=== PATIENT | male | born 1950 | race Caucasian/White ===

== ENCOUNTER 2021-03-18 11:21 | Outpatient (RCR) | payer OTHER, MEDICARE, SELFPAY | END 2021-03-21 23:59 | disposition home or self-care (01) | LOC: SPT 11:21 | PROVIDERS: PCP Family Medicine; Referring Provider Family Medicine; Visit Provider Family Medicine | DX: M54.5 Low back pain (principal) | CPT/HCPCS: 97161 ==

== ENCOUNTER 2021-03-22 06:00 | Outpatient (RCR) | payer OTHER, MEDICARE, SELFPAY | END 2021-04-21 23:59 | disposition home or self-care (01) | LOC: SPT 06:00 | PROVIDERS: PCP Family Medicine; Referring Provider Family Medicine; Visit Provider Family Medicine | DX: M54.5 Low back pain (principal) | CPT/HCPCS: 97110; G0283 ==

== ENCOUNTER 2021-04-22 06:00 | Outpatient (RCR) | payer OTHER, MEDICARE, SELFPAY | END 2021-05-21 23:59 | disposition home or self-care (01) | LOC: SPT 06:00 | PROVIDERS: PCP Family Medicine; Referring Provider Family Medicine; Visit Provider Family Medicine | DX: M54.5 Low back pain (principal) | CPT/HCPCS: 97110 ==

== ENCOUNTER 2021-12-02 19:01 | Emergency (ER) | payer OTHER, MEDICARE, SELFPAY ==
[2021-12-02 19:11] VITALS: BP 175/74; PULSE 67; RESP 18; TEMP 36.9; O2SAT 94; BMI 33.3
--- NOTE | 2021-12-02 19:11 | XRR_ITS ---
PROCEDURE INFORMATION: Exam: XR Chest Exam date and time: 12/02/2021 8:07 PM Age: 71 years old Clinical indication: Dyspnea and other: Hypertension; Prior surgery; Surgery date: 6+ months; Surgery type: Open heart; Additional info: High BP, dyspnea TECHNIQUE: Imaging protocol: XR of the chest. Views: 1 view. COMPARISON: CR Chest 1 [place] [id number] 03/04/2019 1:29 AM FINDINGS: Lungs: Suspected emphysema. Prominent interstitial markings. No focal consolidation. Pleural spaces: Unremarkable. No pleural effusion. No pneumothorax. Heart/Mediastinum: Cardiac silhouette mildly enlarged. Bones/joints: Median sternotomy wires. XR/XR chest 1V portable [id number] IMPRESSION: No acute radiographic findings.
--- NOTE | 2021-12-02 19:11 | ECG_ITS ---
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 Measurements Intervals [place] Rate: 61 P: 31 HI: 154 QRS: 31 QRSD: 85 T: 33 QT: 369 QTc: 374 Interpretive Statements SINUS RHYTHM WITH OCCASIONAL SUPRAVENTRICULAR PREMATURE COMPLEXES NONSPECIFIC T-WAVE ABNORMALITY Compared to ECG 03/04/2019 07:31:35 Sinus bradycardia no longer present T-wave abnormality still present Electronically Signed On 12-02-2021 23:29:21 CDT by Giuseppe Broderick M.D. [id number]
[2021-12-02 19:48] LABS: Basophils % 0.3 %; Eosinophils # 0.3 10^3/uL (0.0-0.8); Eosinophils % 3.1 %; Hematocrit 49.7 % (42.0-52.0); Hemoglobin 16.9 g/dL (11.7-16.6); Lymphocytes # 2.3 10^3/uL (0.8-4.8); Lymphocytes % 26.7 %; Mean Corpuscular Hemoglobin 32.9 pg (28.0-34.0); Mean Corpuscular Volume 96.7 fl (80-94); Mean Platelet Volume 9.9 fL (7.4-10.4); Monocytes # 1.2 10^3/uL (0.2-0.9); Monocytes % 13.3 %; Neutrophils # 4.87 10^3/uL (1.8-7.7); Neutrophils % 56.3 %; Nucleated Red Blood Cells % 0 %; Platelet Count 223 10^3/cmm (130-400); Red Blood Count 5.14 10^6/uL (4.1-5.3); Red Cell Distribution Width 12.6 % (12.1-15.1); White Blood Count 8.7 10^3/uL (4.0-10.0)
[2021-12-02 20:17] LABS: Alanine Aminotransferase 33 U/L (0-41); Albumin Level 4.3 g/dL (3.5-5.2); Alkaline Phosphatase 60 IU/L (40-130); Anion Gap 16.5 (5-19); Aspartate Amino Transferase 26 U/L (0-40); Blood Urea Nitrogen 22 mg/dL (8-23); Carbon Dioxide 29 mmol/L (22-29); Chloride 97 mmol/L (98-107); Globulin 3.5 g/dL (1.3-4.6); Glucose 102 mg/dL (65-115); NT Pro B Type Natriuretic Pept 80 pg/mL (0-125); Osmolality Calculated 292 mOsm/kg (285-295); Potassium 3.5 mmol/L (3.5-5.1); Sodium 139 mmol/L (136-145); Total Bilirubin 0.7 mg/dL (0.15-1.2); Total Protein 7.8 g/dL (6.6-8.7)
--- NOTE | 2021-12-02 20:34 | ED_ITS ---
HPI - General Adult General: Chief complaint: General Medical Stated complaint: Blood Pressure 190/108 Time Seen by Provider: 12/02/21 19:22 History of Present Illness: [71]yo patient w/ x hx of HTN, CABG x 2 on eliquis presenting to the ED with complaints that his BP is not well controlled. Patient is on 2 agents for BP control: HCTZ at 25mg and metoprolol 25mg BID. Baseline daily BP note at 130/80 the day prior. However, the patient noticed today BP is uncontrolled at 180 systolic this morning after waking up. Denies chest pain, SOB, palpitation, N/V/D, pain radiating to the shoulder, headache, vision changes, LOC, or focal neurological deficits. Patient also denies light-headedness, syncope, vertigo abdominal pain, back pain. Tolerating PO meds without issues. Around 8am this morning, patient reported mild L sided chest pressure while his blood pressure was high. Onset: earlier today Duration: ongoing Location: home Severity: mild Associated symptoms: Deny chest pain, dyspnea, nausea, rash, palpitations or vomiting Review of Systems Const: Denies: fever(s) or chills Eyes: Denies: change in vision ENMT: Denies: mouth pain Card: Denies: chest pain or palpitations Resp: Denies: dyspnea or non-productive cough GI: Denies: abdominal pain, nausea, vomiting or diarrhea : Denies: dysuria Musc: Denies: extremity pain Skin/Breast: Denies: rash or new lesions Neuro: Denies: weakness in extremities Psych: Reports: other (Normal mood) Bal/Lymph: Denies: easy bruising PFS ED PFSH: Medical History Atrial fibrillation CAD (coronary artery disease) HTN (hypertension) with goal to be determined Hyperlipidemia due to dietary fat intake PAD (peripheral artery disease) Surgical History S/P CABG (coronary artery bypass graft) Social History Smoking and tobacco status: former smoker Physical Exam Const: COMMON NORMALS: alert HENMT: COMMON NORMALS: atraumatic HEAD & SCALP: atraumatic MOUTH: moist mucous membranes not abnormal Eye: COMMON NORMALS: EOMs intact bilaterally and conjunctivae normal CONJUNCTIVA: Yes conjunctivae normal Neck/C-Spine: COMMON NORMALS: full ROM and supple Resp: COMMON NORMALS: normal respiratory effort and clear to auscultation bilaterally AUSCULTATION: clear to auscultation bilaterally Cardio: COMMON NORMALS: regular rate RATE: regular rate GI: COMMON NORMALS: Soft to palpation and non-tender PALPATION: Yes Soft to palpation Extremity: COMMON NORMALS: full ROM Neuro: SENSORIUM/ORIENTATION: Yes alert MOTOR EXAM: No Abnormal motor strength present and Other motor observations present (no focal motor deficits) Psych: COMMON NORMALS: speech normal SPEECH: Yes normal speech MOOD & AFFECT: Yes euthymic mood Course Vital Signs: Vital signs: Vital Signs Temperature 98.5 F 12/02/21 19:11 Pulse Rate 72 12/02/21 21:56 Respiratory Rate 16 12/02/21 21:56 Blood Pressure 141/80 12/02/21 21:56 Pulse Oximetry 96 12/02/21 21:56 MDM - General Adult Medical Decision Making [71]yo patient w/ hx of HTN on two agents presenting to the ED with high BP readings x 1 day without other medical complaints. Rest of exam including full neuro exam intact. Given presentation, history and exam, I do not suspect aortic dissection, hypertensive encephalopathy, intracranial hemorrhage, ACS, TIA/CVA, flash pulmonary edema. [10:15pm] On reassessment, BP improved after reassessment without any medical intervention. Patient continues to be symptom-free at this time and has no chest pain. Do not suspect an emergent cause. Discussed with the patient the importance of logging BPs and following up with his PCP for adjustment of BP if BP continues to be persistently high. Given return instructions. Since patient did not have any active chest pressure, only pressure this present with high blood pressure, I ordered 2 troponins both of which were negative. EKG is nonischemic. Doubt ACS/PE or other emergent causes of chest pain. No suspicion for aortic dissection given no widened mediastinum, 2+ upper extremity pulses, or tearing pain. No suspicion for PE given no pleuritic chest pain, recent immobilization or surgery hemoptysis, or other VTE risk factors. EKG is non-isch emic. XR normal. Rx: Amlodipine 5mg QDaily x 14 days Based on history, exam, vital signs, and work up (as indicated) I do not suspect an ongoing emergent medical condition, and I believe the patient is safe for discharge and outpatient follow-up. The plan of care was discussed with the patient and all questions were answered. The patient agrees with the plan of care and is discharged in stable condition with verbal and written instructions, and verbalized understanding and ability to comply. I discussed the diagnosis and treatment plan at length with the patient. The patient understands signs and symptoms (including those which are new or worsening) which should prompt return to the ED. The patient is to seek prompt outpatient follow-up as noted verbally and/or in the discharge instructions. At the time of discharge the patient is well-appearing, well-hydrated, non-toxic, and assures appropriate follow-up as an outpatient. Lab Data : 12/02/21 19:40 12/02/21 19:40 Radiology Impressions Chest X-Ray 12/02/21 19: IMPRESSION: No acute radiographic findings. Laboratory Results WBC 8.7 10^3/uL (4.0-10.0) 12/02/21 19:40 RBC 5.14 10^6/uL (4.1-5.3) 12/02/21 19:40 Hgb 16.9 g/dL (11.7-16.6) H 12/02/21 19:40 Hct 49.7 % (42.0-52.0) 12/02/21 19:40 MCV 96.7 fl (80-94) H 12/02/21 19:40 MCH 32.9 pg (28.0-34.0) 12/02/21 19:40 MCHC 34.0 g/dL (30.0-36.0) 12/02/21 19:40 RDW 12.6 % (12.1-15.1) 12/02/21 19:40 Plt Count 223 10^3/cmm (130-400) 12/02/21:40 MPV 9.9 fL (7.4-10.4) 12/02/21 19:40 Neut % (Auto) 56.3 % 12/02/21 19:40 Lymph % (Auto) 26.7 % 12/02/21:40 [place] % (Auto) 13.3 % 12/02/21 19:40 Eos % (Auto) 3.1 % 12/02/21 19:40 Baso % (Auto) 0.3 % 12/02/21 19:40 Neut # (Auto) 4.87 10^3/uL (1.8-7.7) 12/02/21 19:40 Lymph # (Auto) 2.3 10^3/uL (0.8-4.8) 12/02/21 19:40 [place] # (Auto) 1.2 10^3/uL (0.2-0.9) H 12/02/21 19:40 Eos # (Auto) 0.3 10^3/uL (0.0-0.8) 12/02/21 19:40 Baso # (Auto) 0.0 10^3/uL (0.0-0.1) 12/02/21 19:40 Nucleated RBC % (auto) 0 % 12/02/21 19:40 Nucleated RBCs # 0.0 /100WBC 12/02/21 19:40 Sodium 139 mmol/L (136-145) 12/02/21 19:40 Potassium 3.5 mmol/L (3.5-5.1) 12/02/21 19:40 Chloride 97 mmol/L (98-107) L 12/02/21 19:40 Carbon Dioxide 29 mmol/L (22-29) 12/02/21 19:40 Anion Gap 16.5 (5-19) 12/02/21 19:40 BUN 22 mg/dL (8-23) 12/02/21 19:40 Creatinine 0.9 mg/dL (0.7-1.2) 12/02/21 19:40 GFR Calculation Not Reportable 12/02/21 19:40 Glucose 102 mg/dL (65-115) 12/02/21 19:40 Calculated Osmolality 292 mOsm/kg (285-295) 12/02/21 19:40 Calcium 9.0 mg/dL (8.5-10.5) 12/02/21 19:40 Total Bilirubin 0.7 mg/dL (0.15-1.2) 12/02/21 19:40 AST 26 U/L (0-40) 12/02/21 19:40 ALT 33 U/L (0-41) 12/02/21 19:40 Alkaline Phosphatase 60 IU/L (40-130) 12/02/21 19:40 Troponin T Baseline 9 ng/L (0-15) 12/02/21 19:40 Troponin T 120 Minute 9.31 ng/L (0-15) 12/02/21 21:26 Delta Troponin T 0.31 ABS# (0-10) 12/02/21 21:26 NT-Pro-B Natriuret Pep 80 pg/mL (0-125) 12/02/21 19:40 Total Protein 7.8 g/dL (6.6-8.7) 12/02/21 19:40 Albumin 4.3 g/dL (3.5-5.2) 12/02/21 19:40 Globulin 3.5 g/dL (1.3-4.6) 12/02/21 19:40 Imaging Data Other Imaging: Radiologist's impression: [id number] [address] XRay Report Signed Patient: Wilson Reyes Unit #: [id number] : 1950 Age/Sex: 71 / M ADM Date: 12/02/21 Loc: ER Room/Bed: Attending Dr: Ordering Provider/Ordering MD: Cr Jaimes NP Date of Service: 12/02/21 Procedure(s): XR chest 1V portable [id number] Accession Number(s): [id number] Report Number: [id number] PROCEDURE INFORMATION: Exam: XR Chest Exam date and time: 12/02/2021 8:07 PM Age: 71 years old Clinical indication: Dyspnea and other: Hypertension; Prior surgery; Surgery date: 6+ months; Surgery type: Open heart; Additional info: High BP, dyspnea TECHNIQUE: Imaging protocol: XR of the chest. Views: 1 view. COMPARISON: CR Chest 1 [place] [id number] 03/04/2019 1:29 AM FINDINGS: Lungs: Suspected emphysema. Prominent interstitial markings. No focal consolidation. Pleural spaces: Unremarkable. No pleural effusion. No pneumothorax. Heart/Mediastinum: Cardiac silhouette mildly enlarged. Bones/joints: Median sternotomy wires. XR/XR chest 1V portable [id number] IMPRESSION: No acute radiographic findings. ? Dictated By: He Inman MD Signed By: He Inman MD Signed Date/Time: 12/02/212042 DD/ 06 Discharge Plan Discharge Patient Disposition: Home Clinical Impression: Hypertension, Elevated blood pressure reading Condition: Stable Prescriptions: New amlodipine 5 mg tablet 5 mg PO DAILY 14 Days Qty: 14 0RF No Action ascorbate calcium (vitamin C) 500 mg tablet 500 mg PO DAILY 0RF cholecalciferol (vitamin D3) 25 mcg (1,000 unit) capsule 50 mcg PO DAILY 0RF pravastatin 20 mg tablet 20 mg PO DAILY 0RF docusate sodium [Colace] 100 mg capsule 100 mg PO DAILY 0RF cyanocobalamin (vitamin B-12) 1,000 mcg capsule 1,000 mcg PO DAILY 0RF PreserVision AREDS [phone]-[id number]-gnvr capsule 1 cap PO BID 0RF omega-3 fatty acids 1,000 mg capsule 2,000 mg PO DAILY 0RF prazosin 2 mg capsule 2 mg PO BID 0RF Eliquis 5 mg tablet 5 mg PO BID 0RF aspirin [Adult Aspirin Regimen] 81 mg tablet,delayed release (DR/EC) 81 mg PO DAILY 0RF tramadol 50 mg tablet 50 mg PO DAILY 0RF hydrochlorothiazide 25 mg tablet 25 mg PO DAILY 0RF mirtazapine 30 mg tablet 45 mg PO DAILY 0RF metoprolol tartrate 25 mg tablet 12.5 mg PO BID Qty: 90 3RF zolpidem 5 mg tablet 5 mg PO .hs PRN0RF Discharge Orders: Discharge ED (Routine); Ordered 12/02/21 Ordered By: July Romero Referrals: Lali Givens MD [Primary Care Provider] - Discharge Diet: Advance as tolerated Discharge Activity: Increase activity as tolerated Patient Instructions: Hypertension (ED) Activity Restrictions/Additional Instructions: You need to follow-up with your primary care provider for further adjustment of your blood pressure. Your blood pressure puts you at risk for developing strokes and heart attack. Therefore it is very important for you to follow-up with this number to see if the numbers improve gradually. Because blood pressure adjustment is a gradual process, were not able to change it in 1 visit. Therefore please log your blood pressure and follow-up with your primary care provider in the next 72 hours for further adjustment of your blood pressures. 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
[2021-12-02 20:36] LABS: Troponin(5th) Baseline 9 ng/L (0-15)
[2021-12-02 20:51] VITALS: BP 164/75; PULSE 69; RESP 16; O2SAT 95
[2021-12-02 21:56] VITALS: BP 141/80; PULSE 72; RESP 16; O2SAT 96
[2021-12-02 21:59] LABS: Troponin 5 2HR 9.31 ng/L (0-15)
[2021-12-02 22:05] LABS: Troponin 5 2HR Delta 0.31 ABS# (0-10)
[2021-12-02 22:43] VITALS: BP 147/78; PULSE 69; RESP 16; O2SAT 97
== END 2021-12-02 22:45 | disposition home or self-care (01) ==
PROVIDERS: Nurse Practitioner Family; Emergency Provider Emergency Medicine; PCP Family Medicine
DX: I10 Essential (primary) hypertension (principal); I25.10 Atherosclerotic heart disease of native coronary artery without angina pectoris; Z95.1 Presence of aortocoronary bypass graft; I48.91 Unspecified atrial fibrillation; Z87.891 Personal history of nicotine dependence; Z79.01 Long term (current) use of anticoagulants; Z79.891 Long term (current) use of opiate analgesic; Z79.82 Long term (current) use of aspirin
CPT/HCPCS: 71045; 80053; 83880; 84484; 85025; 93005; 99283

== ENCOUNTER → 2021-12-04 11:33 | Outpatient (BNVA) | payer MEDICARE, OTHER, SELFPAY | PROVIDERS: PCP Family Medicine; Visit Provider Nurse Practitioner Family | DX: I10 Essential (primary) hypertension (principal); I48.91 Unspecified atrial fibrillation; I25.10 Atherosclerotic heart disease of native coronary artery without angina pectoris; Z87.891 Personal history of nicotine dependence | CPT/HCPCS: 99214 ==

== ENCOUNTER → 2022-01-06 10:08 | Outpatient (BNVA) | payer OTHER, SELFPAY | PROVIDERS: PCP Family Medicine; Visit Provider Internal Medicine Cardiovascular Disease | DX: I48.91 Unspecified atrial fibrillation (principal); R00.1 Bradycardia, unspecified; E78.49 Other hyperlipidemia; I10 Essential (primary) hypertension; I25.110 Atherosclerotic heart disease of native coronary artery with unstable angina pectoris; I73.9 Peripheral vascular disease, unspecified; Z87.891 Personal history of nicotine dependence | CPT/HCPCS: 99214 ==

== ENCOUNTER 2022-02-03 11:53 | Outpatient (CLI) | payer OTHER, SELFPAY ==
--- NOTE | 2022-02-03 12:15 | USCV_ITS ---
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 CONCLUSIONS Abnormal resting ABIs bilaterally, consistent with mild peripheral artery disease Compared to the study from 10/14/2015 the BERONICA on the right side has improved from 0.7 to 0.8 and on the left side it has decreased from 0.[address] Giuseppe Broderick MD [facility] (Electronically Signed) Final Date: 04 February 2022 00:33 S
== END 2022-02-03 11:54 | disposition home or self-care (01) ==
LOC: RAD 11:54
PROVIDERS: PCP Family Medicine; Visit Provider Internal Medicine Cardiovascular Disease
DX: I73.9 Peripheral vascular disease, unspecified (principal)
CPT/HCPCS: 93925

== ENCOUNTER 2022-04-05 13:42 | Inpatient (IN) | payer OTHER, MEDICARE, SELFPAY ==
[2022-04-05] VITALS (18 sets, daily range): BP systolic 100–164; BP diastolic 58–100; PULSE 66–85; RESP 14–22; TEMP 36.8; O2SAT 91–97; BMI 36.9
--- NOTE | 2022-04-05 13:47 | ECG_ITS ---
[facility] Test Date: 2022-04-05 Pat Name: Wilson Reyes Department: Room: Gender: Male Rda: : 1950 Requested By: July Romero Order Number: [id number] [place] MD: Parth Butler M.D. Measurements Intervals [place] Rate: 78 P: 58 MN: 148 QRS: 71 QRSD: 81 T: 16 QT: 351 QTc: 401 Interpretive Statements SINUS RHYTHM WITH OCCASIONAL VENTRICULAR PREMATURE COMPLEXES WITH OCCASIONAL SUPRAVENTRICULAR PREMATURE COMPLEXES LOW QRS VOLTAGE IN PRECORDIAL LEADS [QRS DEFLECTION < 1.0 mV IN CHEST LEADS] MODERATE T-WAVE ABNORMALITY, CONSIDER ANTEROLATERAL ISCHEMIA [-0.1+ mV T-WAVE IN V3-V6] Compared to ECG 12/02/2021 19:19:27 Ventricular premature complex(es) now present Low QRS voltage now present Possible ischemia now present T-wave abnormality still present Electronically Signed On 04-05-2022 17:35:15 CDT by Parth Butler M.D. [id number]
--- NOTE | 2022-04-05 13:47 | XRR_ITS ---
PROCEDURE INFORMATION: Exam: XR Chest Exam date and time: 04/05/2022 2:29 PM Age: 72 years old Clinical indication: Pain; Angina pectoris; Additional info: Chest pain TECHNIQUE: Imaging protocol: Radiologic exam of the chest. Views: 1 view. COMPARISON: CR (CHEST, ) 12/02/2021 8:07 PM FINDINGS: Lungs: Unremarkable. No consolidation. Pleural spaces: Biapical pleural thickening. Heart/Mediastinum: Mild cardiomegaly. Bones/joints: Sternal sutures. XR/XR chest 1V portable [id number] IMPRESSION: No acute findings.
[2022-04-05 14:20] LABS: Basophils # 0.1 10^3/uL (0.0-0.1); Basophils % 0.6 %; Eosinophils # 0.3 10^3/uL (0.0-0.8); Eosinophils % 3.2 %; Lymphocytes # 1.7 10^3/uL (0.8-4.8); Lymphocytes % 18.9 %; Mean Corpuscular HGB Conc 33.3 g/dL (30.0-36.0); Mean Corpuscular Hemoglobin 33.2 pg (28.0-34.0); Mean Corpuscular Volume 99.6 fl (80-94); Mean Platelet Volume 10.4 fL (7.4-10.4); Monocytes % 11.5 %; Neutrophils # 5.86 10^3/uL (1.8-7.7); Neutrophils % 65.4 %; Nucleated Red Blood Cells % 0 %; Platelet Count 233 10^3/cmm (130-400); Red Blood Count 4.82 10^6/uL (4.1-5.3); Red Cell Distribution Width 12.9 % (12.1-15.1)
[2022-04-05 16:33] LABS: Blood Urea Nitrogen 26 mg/dL (8-23); Calcium 9.2 mg/dL (8.5-10.5); Carbon Dioxide 31 mmol/L (22-29); Chloride 99 mmol/L (98-107); Creatinine Clr Calc Pharmacy 55.2458; Glucose 101 mg/dL (65-115); Osmolality Calculated 295 mOsm/kg (285-295); Sodium 140 mmol/L (136-145)
[2022-04-05 16:35] LABS: Troponin(5th) Baseline 32 ng/L (0-15)
--- NOTE | 2022-04-05 16:39 | ECG_ITS ---
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 Measurements Intervals [place] Rate: 74 P: PA: QRS: 66 QRSD: 98 T: -86 QT: 367 QTc: 409 Interpretive Statements ATRIAL FIBRILLATION INCOMPLETE RIGHT BUNDLE BRANCH BLOCK [90+ ms QRS DURATION, TERMINAL R IN V1/V2, 40+ ms S IN I/aVL/V4/V5/V6] MODERATE T-WAVE ABNORMALITY, CONSIDER LATERAL ISCHEMIA [-0.1+ mV T WAVE IN I/aVL/V5/V6] MODERATE T-WAVE ABNORMALITY, CONSIDER INFERIOR ISCHEMIA [-0.1+ mV T WAVE IN II/aVF] Compared to ECG 04/05/2022 13:51:22 Incomplete right bundle-branch block now present Sinus rhythm no longer present Ventricular premature complex(es) no longer present T-wave abnormality still present Possible ischemia still present Electronically Signed On 04-05-2022 17:42:51 CDT by Parth Butler M.D. [id number]
--- NOTE | 2022-04-05 17:44 | W.ED.CHESTPA ---
Documented by User: Caden Light DO 04/05/22 18:30 HPI - Chest Pain General: Chief Complaint: Chest Pain Stated Complaint: chest pain Time Seen by Provider: 04/05/22 16:34 Source: patient Mode of arrival: ambulatory Limitations: no limitations History of Present Illness: 72-year-old male presents emergency room complaining of chest pain that started earlier today. He stopped and rested, after about 30 minutes it resolved. He has no chest pain at this time. Patient has a known history of coronary artery disease previous had bypass x2 as well as stenting. He has not been having any escalating symptoms. He is not currently having any chest pain. MD complaint: chest pain Pertinent past history: coronary artery disease Onset (ago): hour(s) Timing of current episode: episodic Prior episodes: Yes Onset: during rest Pain location: left chest Pain radiation: none Severity: mild Quality: tightness, aching and heaviness Relieving factors: rest Exacerbating factors: nothing Associated symptoms: Deny abdominal pain, diaphoresis, dyspnea, fever(s), leg edema, nausea, palpitations, sense of impending doom, syncope or vomiting Treatment prior to arrival: none Review of Systems Const: Denies: fever(s), chills, fatigue, malaise or diaphoresis ENMT: Denies: throat pain, ear or mastoid pain, nasal discharge or nasal congestion Card: Reports: chest pain; Denies: palpitations or syncope Resp: Denies: dyspnea GI: Denies: abdominal pain, nausea or vomiting : Denies: flank pain, dysuria, urinary frequency or urinary urgency Skin/Breast: Denies: rash or pruritus PFSH ED PFSH: Medical History Atrial fibrillation CAD (coronary artery disease) HTN (hypertension) with goal to be determined Hyperlipidemia due to dietary fat intake PAD (peripheral artery disease) Surgical History S/P CABG (coronary artery bypass graft) Family History Father CAD (coronary artery disease), Onset Age: 60 Stroke Family/Other Dementia Brother Lung disease Denies family history of Diabetes Clotting disorder Chronic kidney disease (CKD) Suicide Anesthesia complication Bleeding disorder Cancer Social History Smoking and tobacco status: former smoker Alcohol intake: former Physical Exam Const: COMMON NORMALS: no acute distress GENERAL APPEARANCE: cooperative and comfortable ORIENTATION/CONSCIOUSNESS: Yes awake, Yes oriented to person, Yes oriented to place and Yes oriented to time HENMT: COMMON NORMALS: normocephalic, atraumatic and hearing grossly normal bilaterally HEAD & SCALP: normocephalic and atraumatic Resp: COMMON NORMALS: normal respiratory effort, No retractions, No use of accessory muscles and clear to auscultation bilaterally AUSCULTATION: clear to auscultation bilaterally Cardio: COMMON NORMALS: regular rate, regular rhythm and No murmurs present (Cardio) RATE: regular rate RHYTHM: regular rhythm GI: COMMON NORMALS: Soft to palpation and No hepatosplenomegaly present AUSCULTATION: Yes normoactive bowel sounds PALPATION: Yes Soft to palpation, No Tenderness to palpation present (GI), No Guarding due to palpation present (GI) and Yes No hepatosplenomegaly present Extremity: COMMON NORMALS: normal to inspection, capillary refill normal, no clubbing, cyanosis or edema, no calf tenderness and no pedal edema Neuro: SENSORIUM/ORIENTATION: Yes oriented to person, Yes oriented to place and Yes oriented to time Skin: COMMON NORMALS: no rashes or lesions noted GENERAL SKIN EXAM: no rashes or lesions noted Course Vital Signs: Vital signs: Vital Signs Temperature 98.2 F 04/05/22 13:52 Pulse Rate 70 04/05/22 19:00 Respiratory Rate 21 H 04/05/22 19:00 Blood Pressure 150/99 04/05/22 19:00 Pulse Oximetry 96 04/05/22 19:00 Oxygen Delivery Me thod 04/05/22 13:52 MDM - Chest Pain Medical Decision Making Care signed out to Dr. Gandara at change of shift. See final notes for diagnosis and disposition. Lab Data : 04/05/22 14:06 04/05/22 15:55 Radiology Impressions Chest X-Ray 04/05/22 13:47 IMPRESSION: No acute findings. Laboratory Results WBC 9.0 10^3/uL (4.0-10.0) 04/05/22 14:06 RBC 4.82 10^6/uL (4.1-5.3) 04/05/22 14:06 Hgb 16.0 g/dL (11.7-16.6) 04/05/22 14:06 Hct 48.0 % (42.0-52.0) 04/05/22 14:06 MCV 99.6 fl (80-94) H 04/05/22 14:06 MCH 33.2 pg (28.0-34.0) 04/05/22 14:06 MCHC 33.3 g/dL (30.0-36.0) 04/05/22 14:06 RDW 12.9 % (12.1-15.1) 04/05/22 14:06 Plt Count 233 10^3/cmm (130-400) 04/05/22 14:06 MPV 10.4 fL (7.4-10.4) 04/05/22 14:06 Neut % (Auto) 65.4 % 04/05/22 14:06 Lymph % (Auto) 18.9 % 04/05/22 14:06 [place] % (Auto) 11.5 % 04/05/22 14:06 Eos % (Auto) 3.2 % 04/05/22 14:06 Baso % (Auto) 0.6 % 04/05/22 14:06 Neut # (Auto) 5.86 10^3/uL (1.8-7.7) 04/05/22 14:06 Lymph # (Auto) 1.7 10^3/uL (0.8-4.8) 04/05/22 14:06 [place] # (Auto) 1.0 10^3/uL (0.2-0.9) H 04/05/22 14:06 Eos # (Auto) 0.3 10^3/uL (0.0-0.8) 04/05/22 14:06 Baso # (Auto) 0.1 10^3/uL (0.0-0.1) 04/05/22 14:06 Nucleated RBC % (auto) 0 % 04/05/22 14:06 Nucleated RBCs # 0.0 /100WBC 04/05/22 14:06 PT 14.40 SECONDS (12.1-14.9) 04/05/22 15:52 INR 1.09 (0.8-1.2) 04/05/22 15:52 Sodium 140 mmol/L (136-145) 04/05/22 15:55 Potassium 4.0 mmol/L (3.5-5.1) 04/05/22 15:55 Chloride 99 mmol/L (98-107) 04/05/22 15:55 Carbon Dioxide 31 mmol/L (22-29) H 04/05/22 15:55 Anion Gap 14.0 (5-19) 04/05/22 15:55 BUN 26 mg/dL (8-23) H 04/05/22 15:55 Creatinine 1.3 mg/dL (0.7-1.2) H 04/05/22 15:55 GFR Calculation Not Reportable 04/05/22 15:55 Glucose 101 mg/dL (65-115) 04/05/22 15:55 Calculated Osmolality 295 mOsm/kg (285-295) 04/05/22 15:55 Calcium 9.2 mg/dL (8.5-10.5) 04/05/22 15:55 Troponin T Baseline 32 ng/L (0-15) H 04/05/22 15:55 Troponin T 120 Minute 75.20 ng/L (0-15) H 04/05/22 18:06 Delta Troponin T 43.20 ABS# (0-10) H* 04/05/22 18:06 Discharge Plan Discharge Patient Disposition: Admitted As Inpatient Clinical Impression: Non-ST elevation AL (NSTEMI) Condition: Stable Prescriptions: No Action ascorbate calcium (vitamin C) 500 mg tablet 500 mg PO DAILY cholecalciferol (vitamin D3) 25 mcg (1,000 unit) capsule 50 mcg PO DAILY docusate sodium [Colace] 100 mg capsule 100 mg PO DAILY cyanocobalamin (vitamin B-12) 1,000 mcg capsule 1,000 mcg PO DAILY PreserVision AREDS 14,320-226-200 [id number] capsule 1 cap PO AC omega-3 fatty acids 1,000 mg capsule 2,000 mg PO DAILY Eliquis 5 mg tablet 5 mg PO BID aspirin [Adult Aspirin Regimen] 81 mg tablet,delayed release (DR/EC) 81 mg PO DAILY tramadol 50 mg tablet 50 mg PO DAILY mirtazapine 30 mg tablet 45 mg PO DAILY pravastatin 20 mg tablet 20 mg PO BID zolpidem 5 mg tablet 5 mg PO .hs PRN (Reason: Sleep) metoprolol tartrate 25 mg tablet 12.5 mg PO BID prazosin 2 mg capsule 2 mg PO BID Qty: 180 3RF chlorthalidone 25 mg tablet 25 mg PO DAILY Qty: 90 3RF Rx Instructions: He has not been taking his chlorthalidone or valsartan because he feels as long as it below 150 he doesn't need them. valsartan 80 mg tablet 80 mg PO DAILY Qty: 90 3RF Rx Instructions: He has not been taking his chlorthalidone or valsartan because he feels as long as it below 150 he doesn't need them. Referrals: Lali Givens MD [Primary Care Provider] - Coding Level of Care Code ED Campaign Manager for Chg Fwd Exam Detailed Documented by User: Donna Gandara MD 04/05/22 19:53 HPI - Chest Pain General: Chief Complaint: Chest Pain Stated Complaint: chest pain Time Seen by Provider: 04/05/22 16:34 PFSH ED PFSH: Medical History Atrial fibrillation CAD (coronary artery disease) HTN (hypertension) with goal to be determined Hyperlipidemia due to dietary fat intake PAD (peripheral artery disease) Surgical History S/P CABG (coronary artery bypass graft) Family History Father CAD (coronary artery disease), Onset Age: 60 Stroke Family/Other Dementia Brother Lung disease Denies family history of Diabetes Clotting disorder Chronic kidney disease (CKD) Suicide Anesthesia complication Bleeding disorder Cancer Social History Smoking and tobacco status: former smoker Alcohol intake: former Course Vital Signs: Vital signs: Vital Signs Temperature 98.2 F 04/05/22 13:52 Pulse Rate 70 04/05/22 19:00 Respiratory Rate 21 H 04/05/22 19:00 Blood Pressure 150/99 04/05/22 19:00 Pulse Oximetry 96 04/05/22 19:00 Oxygen Delivery Me thod 04/05/22 13:52 MDM - Chest Pain Medical Decision Making Care signed out to Dr. Gandara at change of shift. See final notes for diagnosis and disposition. Patient's chart troponin came back elevated consistent with an NSTEMI of spoken to hospitalist and foreign food specialty cook will admit patient given Lovenox here he has been pain-free here. Lab Data : 04/05/22 14:06 04/05/22 15:55 Radiology Impressions Chest X-Ray 04/05/22 13:47 IMPRESSION: No acute findings. Laboratory Results WBC 9.0 10^3/uL (4.0-10.0) 04/05/22 14:06 RBC 4.82 10^6/uL (4.1-5.3) 04/05/22 14:06 Hgb 16.0 g/dL (11.7-16.6) 04/05/22 14:06 Hct 48.0 % (42.0-52.0) 04/05/22 14:06 MCV 99.6 fl (80-94) H 04/05/22 14:06 MCH 33.2 pg (28.0-34.0) 04/05/22 14:06 MCHC 33.3 g/dL (30.0-36.0) 04/05/22 14:06 RDW 12.9 % (12.1-15.1) 04/05/22 14:06 Plt Count 233 10^3/cmm (130-400) 04/05/22 14:06 MPV 10.4 fL (7.4-10.4) 04/05/22 14:06 Neut % (Auto) 65.4 % 04/05/22 14:06 Lymph % (Auto) 18.9 % 04/05/22 14:06 [place] % (Auto) 11.5 % 04/05/22 14:06 Eos % (Auto) 3.2 % 04/05/22 14:06 Baso % (Auto) 0.6 % 04/05/22 14:06 Neut # (Auto) 5.86 10^3/uL (1.8-7.7) 04/05/22 14:06 Lymph # (Auto) 1.7 10^3/uL (0.8-4.8) 04/05/22 14:06 [place] # (Auto) 1.0 10^3/uL (0.2-0.9) H 04/05/22 14:06 Eos # (Auto) 0.3 10^3/uL (0.0-0.8) 04/05/22 14:06 Baso # (Auto) 0.1 10^3/uL (0.0-0.1) 04/05/22 14:06 Nucleated RBC % (auto) 0 % 04/05/22 14:06 Nucleated RBCs # 0.0 /100WBC 04/05/22 14:06 PT 14.40 SECONDS (12.1-14.9) 04/05/22 15:52 INR 1.09 (0.8-1.2) 04/05/22 15:52 Sodium 140 mmol/L (136-145) 04/05/22 15:55 Potassium 4.0 mmol/L (3.5-5.1) 04/05/22 15:55 Chloride 99 mmol/L (98-107) 04/05/22 15:55 Carbon Dioxide 31 mmol/L (22-29) H 04/05/22 15:55 Anion Gap 14.0 (5-19) 04/05/22 15:55 BUN 26 mg/dL (8-23) H 04/05/22 15:55 Creatinine 1.3 mg/dL (0.7-1.2) H 04/05/22 15:55 GFR Calculation Not Reportable 04/05/22 15:55 Glucose 101 mg/dL (65-115) 04/05/22 15:55 Calculated Osmolality 295 mOsm/kg (285-295) 04/05/22 15:55 Calcium 9.2 mg/dL (8.5-10.5) 04/05/22 15:55 Troponin T Baseline 32 ng/L (0-15) H 04/05/22 15:55 Troponin T 120 Minute 75.20 ng/L (0-15) H 04/05/22 18:06 Delta Troponin T 43.20 ABS# (0-10) H* 04/05/22 18:06 Critical Care Time Critical Care Time: Critical Care Time: Yes Total Critical Care Time: 35 Attestation: The high probability of a clinically significant, sudden or life threatening deterioration of the patient's cv system(s) required my full and direct attention, intervention and personal management. The critical care time is as shown. This time is in addition to time spent performing any reported procedures but includes the following: [x] Data and vital sign review and interpretation [x] Patient assessment, examination and intervention [x] Documentation [x] Medication orders and management Discharge Plan Discharge Patient Disposition: Admitted As Inpatient Clinical Impression: Non-ST elevation AL (NSTEMI) Condition: Stable Prescriptions: No Action ascorbate calcium (vitamin C) 500 mg tablet 500 mg PO DAILY cholecalciferol (vitamin D3) 25 mcg (1,000 unit) capsule 50 mcg PO DAILY docusate sodium [Colace] 100 mg capsule 100 mg PO DAILY cyanocobalamin (vitamin B-12) 1,000 mcg capsule 1,000 mcg PO DAILY PreserVision AREDS [id number] [id number] capsule 1 cap PO AC omega-3 fatty acids 1,000 mg capsule 2,000 mg PO DAILY Eliquis 5 mg tablet 5 mg PO BID aspirin [Adult Aspirin Regimen] 81 mg tablet,delayed release (DR/EC) 81 mg PO DAILY tramadol 50 mg tablet 50 mg PO DAILY mirtazapine 30 mg tablet 45 mg PO DAILY pravastatin 20 mg tablet 20 mg PO BID zolpidem 5 mg tablet 5 mg PO .hs PRN (Reason: Sleep) metoprolol tartrate 25 mg tablet 12.5 mg PO BID prazosin 2 mg capsule 2 mg PO BID Qty: 180 3RF chlorthalidone 25 mg tablet 25 mg PO DAILY Qty: 90 3RF Rx Instructions: He has not been taking his chlorthalidone or valsartan because he feels as long as it below 150 he doesn't need them. valsartan 80 mg tablet 80 mg PO DAILY Qty: 90 3RF Rx Instructions: He has not been taking his chlorthalidone or valsartan because he feels as long as it below 150 he doesn't need them. Referrals: Lali Givens MD [Primary Care Provider] - Coding Level of Care Code ED Campaign Manager for Chg Fwd Exam Detailed
--- NOTE | 2022-04-05 19:14 | PC.NURSE ---
received report. 72 yo male presented with CP onset while walking from vehicle to house. felt like heartburn that radiated across both shoulders. Had associated diaphoresis. It lasted more than 30 mins. pain has subsided now. His initial trop 32, 2nd trop 75. Dr Gandara was notified. PMH CABG x 2 in 2001. Afib, currently controlled rate. A/O x 4, even non labored respirations. no chest tenderness, abdomen soft non tender. no edema noted in lower extremities.
[2022-04-05 19:30] LABS: INR 1.09 (0.8-1.2)
[2022-04-05] MEDS: enoxaparin 100 mg/mL Syringe SUBCUT (19:45)
--- NOTE | 2022-04-05 20:33 | USCV_ITS ---
Wilson Reyes Age: 72 Gender: M : 1950 Exam Date: 04/05/2022 22:32 Ordering Phys: Claude Schumacher MD Technologist: CHARO [place] [facility] [place]: Shortness of breath today. History of CABG 2001 BP: 164 / 63 HR: 71 Rhythm: Sinus Technical Quality: Suboptimal MEASUREMENTS (Male / Female) Normal Values 2D ECHO LV Diastolic Diameter PLAX 3.9 cm 4.2 - 5.9 / 3.9 - 5.3 cm LV Systolic Diameter PLAX 2.5 cm IVS Diastolic Thickness 1.2 cm 0.6 - 1.0 / 0.6 - 0.9 cm IVS Systolic Thickness 1.8 cm LVPW Diastolic Thickness 1.3 cm 0.6 - 1.0 / 0.6 - 0.9 cm LVPW Systolic Thickness 1.5 cm LVOT Diameter 2.2 cm LV Ejection Fraction 2D Teich 65.2 % LV Ejection Fraction MOD 2C 68.2 % LV Ejection Fraction 2C AL 68.4 % LA Diameter 4.5 cm LA Width 3.3 cm LA Height 4.8 cm RA Width 2.8 cm RA Height 3.2 cm Aorta at Sinotubular Diameter 2.4 cm IVC Diameter 1.9 cm M-MODE Aortic Annulus Diameter 3.2 cm LA Ao Ratio MM 1.5 MV E Point Septal Separation 0.3 cm DOPPLER AV Peak Velocity 127.0 cm/s LVOT Peak Velocity 123.0 cm/s AV Area Cont Eq vti 4.1 cm squared AV Area Cont Eq pk 3.5 cm squared MV Area PHT 2.7 cm squared Mitral E to A Ratio 0.9 MV E' Velocity 39.0 cm/s Mitral E to MV E' Ratio 10.1 Mitral E to LV E' Lateral Ratio 8.9 Mitral E to LV E' Septal Ratio 11.6 TV Peak E Velocity 55.0 cm/s PV Peak Velocity 135.0 cm/s FINDINGS Left Ventricle Normal left ventricular cavity size and systolic function. Increased left ventricular wall thickness. Left ventricular ejection fraction is estimated at 60 %. Although no diagnostic regional wall motion abnormality could be identified, this possibility cannot be completely excluded based on the study. Right Ventricle Normal right ventricular size and systolic function. RVSP could not be calculated due to incomplete tricuspid regurgitation velocity profile. Right Atrium Normal right atrial size. Left Atrium Normal left atrial size. Mitral Valve Mild mitral annular calcification. Aortic Valve Aortic valve not well visualized. Probably thickened and calcified aortic valve. No aortic valve stenosis. Tricuspid Valve Tricuspid valve not well visualized. Pulmonic Valve Pulmonic valve not well visualized. No pulmonary valve stenosis. Trace pulmonary valve regurgitation. Pericardium No pericardial effusion. Aorta Normal size aortic root and proximal ascending aorta. IVC Inferior vena cava not visualized. CONCLUSIONS 1. Normal left ventricular cavity size and systolic function. Increased left ventricular wall thickness. Left ventricular ejection fraction is estimated at 60 %. Although no diagnostic regional wall motion abnormality could be identified, this possibility cannot be completely excluded based on the study. 2. This study was technically difficult in spite of using [employer]. 3. No prior similar studies to compare. Kemi Gray MD (Electronically Signed) Final Date: 06 April 2022 09:06 S
--- NOTE | 2022-04-05 20:34 | PM.HP ---
Providers/Chief Complaint Primary Care Provider: Lali Givens MD Chief Complaint: chest pain History of Present Illness Wilson Reyes is a 72 year old male with a past medical history of coronary artery bypass graft x2, hypertension, hyperlipidemia, atrial fibrillation on Eliquis, peripheral arterial disease, who presents to [facility] for chest pain. Patient tells me that today he developed severe left-sided substernal chest pain pressure-like, rating up to the left side of the neck, no shortness of breath, no diaphoresis, no lightheadedness, no dizziness. Currently his chest pain is minimal, no nausea, no vomiting, no diaphoresis. He has been describing intermittent palpitations associated with his atrial fibrillation. Review of Systems Const: Denies: fever(s) Card: Reports: chest pain and palpitations Resp: Denies: dyspnea or non-productive cough GI: Denies: abdominal pain Medications/Allergies Home Medications Medication Instructions Recorded Confirmed Last Taken Type apixaban 5 mg tablet (Eliquis) 5 mg PO BID 02/26/20 01/06/22 04/05/22 History ascorbate calcium (vitamin C) 500 500 mg PO DAILY 02/26/20 01/06/22 04/05/22 History mg tablet aspirin 81 mg tablet,delayed 81 mg PO DAILY 02/26/20 01/06/22 04/05/22 History release (Adult Aspirin Regimen) cholecalciferol (vitamin D3) 25 50 mcg PO DAILY 02/26/20 01/06/22 04/05/22 History mcg (1,000 unit) capsule cyanocobalamin (vitamin B-12) 1,000 mcg PO DAILY 02/26/20 01/06/22 04/05/22 History 1,000 mcg capsule docusate sodium 100 mg capsule 100 mg PO DAILY 02/26/20 01/06/22 04/04/22 History (Colace) omega-3 fatty acids 1,000 mg 2,000 mg PO DAILY 02/26/20 01/06/22 04/05/22 History capsule tramadol 50 mg tablet 50 mg PO DAILY 02/26/20 01/06/22 04/05/22 History vitamins A,C,L-bold-ffsldc 14,320 1 cap PO AC 02/26/20 01/06/22 04/05/22 History unit-226 mg-200 unit capsule (PreserVision AREDS) mirtazapine 30 mg tablet 45 mg PO DAILY 03/13/21 01/06/22 04/04/22 History zolpidem 5 mg tablet 5 mg PO .hs PRN Sleep 09/22/21 01/06/22 04/04/22 History prazosin 2 mg capsule 2 mg PO BID #180 caps 12/09/21 01/06/22 04/05/22 Rx chlorthalidone 25 mg tablet 25 mg PO DAILY #90 tabs 12/17/21 01/06/22 04/05/22 Rx valsartan 80 mg tablet 80 mg PO DAILY #90 tabs 12/17/21 01/06/22 04/05/22 Rx metoprolol tartrate 25 mg tablet 12.5 mg PO BID 01/06/22 01/07/22 04/05/22 History pravastatin 20 mg tablet 20 mg PO BID 01/06/22 01/06/22 Unknown History Allergies Allergy/AdvReac Type Severity Reaction Status Date / Time No Known Allergies Allergy Verified 01/06/22 07:22 PFSH Acute PFSH: Medical History Atrial fibrillation CAD (coronary artery disease) HTN (hypertension) with goal to be determined Hyperlipidemia due to dietary fat intake PAD (peripheral artery disease) Surgical History S/P CABG (coronary artery bypass graft) Family History Father CAD (coronary artery disease), Onset Age: 60 Stroke Family/Other Dementia Brother Lung disease Denies family history of Diabetes Clotting disorder Chronic kidney disease (CKD) Suicide Anesthesia complication Bleeding disorder Cancer Social History Smoking and tobacco status: former smoker Alcohol intake: former Vitals/I&O/Wt Last Vital Signs Temp 98.2 F 04/05/22 13:52 Pulse 70 04/05/22 19:00 Resp 21 H 04/05/22 19:00 BP 150/99 04/05/22 19:00 Pulse Ox 96 04/05/22 19:00 O2 Del Method 04/05/22 13:52 Weight last 48 hrs Weight 100.698 kg Physical Exam Const: COMMON NORMALS: no acute distress and patient oriented x3 HENMT: COMMON NORMALS: normocephalic HEAD & SCALP: normocephalic Eye: COMMON NORMALS: Equal, round and reactive pupils present and EOMs intact bilaterally Neck/C-Spine: COMMON NORMALS: no JVD Resp: COMMON NORMALS: normal respiratory effort, No retractions, No use of accessory muscles and clear to auscultation bilaterally AUSCULTATION: clear to auscultation bilaterally Cardio: COMMON NORMALS: no JVD, regular rate, regular rhythm, S1 normal heart sound present and S2 normal heart sound present RATE: regular rate RHYTHM: abnormal rhythm irregularly irregular HEART SOUNDS: S1 normal heart sound present and S2 normal heart sound present GI: COMMON NORMALS: Normal to inspection, nondistended, normoactive bowel sounds present, Soft to palpation, non-tender, No hepatosplenomegaly present, no masses and no bruits PALPATION: Yes Soft to palpation and Yes No hepatosplenomegaly present Extremity: COMMON NORMALS: capillary refill normal, no clubbing, cyanosis or edema, no calf tenderness and no pedal edema Neuro: COMMON NORMALS: patient oriented x3, CN's II-XII intact bilaterally, moves all extremities and no focal motor deficits Psych: COMMON NORMALS: mental status grossly normal Data : 04/05/22 14:06 04/05/22 15:55 A&P Assessment and plan (1) Non-ST elevation RI (NSTEMI): Status: Acute (2) Atrial fibrillation: Status: Acute (3) Hyperlipidemia due to dietary fat intake: Status: Acute (4) HTN (hypertension) with goal to be determined: Status: Acute (5) CAD (coronary artery disease): Status: Acute Qualifiers: Coronary Disease-Associated Artery/Lesion type: [place] artery [place] vs. transplanted heart: [place] heart Associated angina: without angina Qualified Code(s): I25.10 - Atherosclerotic heart disease of [place] coronary artery without angina pectoris Plan Chest pain, NSTEMI -Sounds cardiac in nature -T wave inversions in lateral leads -120-minute 75.2, delta 43 -Currently chest pain-free Plan -Admit to cardiac stepdown unit -Aspirin, statin, metoprolol, nitro as needed -Has received therapeutic Lovenox in the emergency room -Currently on Eliquis, hold Eliquis for now and plans for possible cardiac catheterization tomorrow -Cardiology consulted by ER -Stat cardiac echo -Serial EKGs, serial troponins, telemetry monitoring -TSH, mag, lipid panel, A1c -Full code -Lovenox for DVT prophylaxis Atrial fibrillation, continue metoprolol, Eliquis on hold Hypertension, continue home medication Attestations Medical Necessity Statement*: Patient requires hospitalization, inpatient, greater than 2 midnights, for chest pain Coding Level of Care Code Acute Relief Salesperson for Chg Fwd Diagnoses Non-ST elevation RI (NSTEMI) I21.4 Atrial fibrillation I48.91 Hyperlipidemia due to dietary fat intake E78.49 HTN (hypertension) with goal to be determined I10 CAD (coronary artery disease) I25.10 Coronary Disease-Associated Artery/Lesion type: [place] artery [place] vs. transplanted heart: [place] heart Associated angina: without angina
[2022-04-05 21:15] LABS: Chol HDL Ratio 4.93 mg/dL (1.0-5.00); Cholesterol 202 mg/dL (0-200); HDL Cholesterol 41 mg/dL (60-100); LDL Cholesterol Calculated 85 mg/dL (50-129); LDL HDL Ratio 2.07 RATIO (0.00-3.22); Magnesium 2.2 mg/dL (1.7-2.3); Thyroid Stimulating Hormone 1.02 uIU/mL (0.27-4.20); Triglycerides 379 mg/dL (0-150)
--- NOTE | 2022-04-05 21:47 | ECG_ITS ---
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 Measurements Intervals [place] Rate: 75 P: 55 [place]: 165 QRS: 60 QRSD: 82 T: 138 QT: 350 QTc: 391 Interpretive Statements SINUS RHYTHM WITH FREQUENT SUPRAVENTRICULAR AND VENTRICULAR PREMATURE COMPLEXES NONSPECIFIC ST & T-WAVE ABNORMALITY Compared to ECG 04/05/2022 16:39:54 Atrial fibrillation no longer present Incomplete right bundle-branch block no longer present Possible ischemia no longer present T-wave abnormality still present Electronically Signed On 04-06-2022 18:27:08 CDT by Kemi Gray M.D. [email or web address]/[id number]
[2022-04-05 22:31] LABS: Troponin 5 6HR 86.72 ng/L (0-15)
[2022-04-05 22:34] LABS: Troponin 5 6HR Delta 54.72 ng/L (0-12)
--- NOTE | 2022-04-05 22:38 | PC.NURSE ---
Critical Trop Delta of 54.[address] Gandara.
[2022-04-05] MEDS: metoprolol tartrate 25 mg Tablet 12.5 MG PO (23:40)
[2022-04-05] MEDS: aspirin 325 mg Tablet PO (23:40)
[2022-04-05] MEDS: atorvastatin 40 mg Tablet PO (23:41)
[2022-04-06] VITALS (50 sets, daily range): BP systolic 108–179; BP diastolic 57–98; PULSE 59–91; RESP 11–27; TEMP 36.7–36.8; O2SAT 83–98; BMI 37.8
[2022-04-06 02:44] LABS: Basophils # 0.1 10^3/uL (0.0-0.1); Basophils % 0.5 %; Eosinophils # 0.4 10^3/uL (0.0-0.8); Eosinophils % 4.1 %; Hematocrit 41.4 % (42.0-52.0); Lymphocytes # 2.9 10^3/uL (0.8-4.8); Lymphocytes % 29.6 %; Mean Corpuscular HGB Conc 33.8 g/dL (30.0-36.0); Mean Corpuscular Hemoglobin 33.7 pg (28.0-34.0); Mean Corpuscular Volume 99.8 fl (80-94); Mean Platelet Volume 10.3 fL (7.4-10.4); Monocytes # 1.1 10^3/uL (0.2-0.9); Neutrophils # 5.26 10^3/uL (1.8-7.7); Neutrophils % 54.5 %; Nucleated Red Blood Cells % 0 %; Platelet Count 200 10^3/cmm (130-400); Red Blood Count 4.15 10^6/uL (4.1-5.3); Red Cell Distribution Width 13.1 % (12.1-15.1); White Blood Count 9.7 10^3/uL (4.0-10.0)
[2022-04-06 03:19] LABS: Estmated Average Glucose 111; Hemoglobin A1C 5.5 % (4.0-6.0)
[2022-04-06 03:32] LABS: INR 1.08 (0.8-1.2)
[2022-04-06 03:33] LABS: Alanine Aminotransferase 37 U/L (0-41); Albumin Level 3.7 g/dL (3.5-5.2); Alkaline Phosphatase 47 U/L (40-130); Anion Gap 10.2 (5-19); Aspartate Amino Transferase 24 U/L (0-40); Blood Urea Nitrogen 22 mg/dL (8-23); Carbon Dioxide 32 mmol/L (22-29); Chloride 100 mmol/L (98-107); Globulin 2.3 g/dL (1.3-4.6); Glucose 130 mg/dL (65-115); NT Pro B Type Natriuretic Pept 107 pg/mL (0-125); Osmolality Calculated 293 mOsm/kg (285-295); Potassium 3.2 mmol/L (3.5-5.1); Sodium 139 mmol/L (136-145); Total Bilirubin 0.5 mg/dL (0.15-1.2)
--- NOTE | 2022-04-06 05:30 | PC.NURSE ---
Transfer Note Patient transferred to ICU from ER via stretcher. Handoff received from [facility]. Patient oriented to environment and equipment. Covering service notified. Orders reviewed and will continue to monitor. Family and/or territory sales representative notified. Patient alert/oriented x4 on room air at time of transfer. Denies chest pain.
[2022-04-06] MEDS: perflutren protein-a microsphr 0.22 mg/mL SDV 3 mL IV (05:54)
--- NOTE | 2022-04-06 07:13 | PC.NURSE ---
Shift Note Frequent safety and comfort rounds continue. Orders and/or nursing care completed as indicated. Patient monitored for response to intervention and treatment(s). Education provided includes treatment plan. Patient and/or brand representative verbalized understanding of teaching. Remains alert/oriented x4, on room air and no wounds/skin issues noted at this time. Will continue to monitor.
[2022-04-06 07:21] LABS: Troponin T (5th) Once 69 ng/L (0-15)
--- NOTE | 2022-04-06 08:34 | P.CONIM_ITS ---
Providers/Reason For Consult Consulting Physician/Specialty*: Dr. Gray, cardiology Reason for Consult*: Chest pain, non-ST elevation NM Attending Physician: Gurjit Guy DO Primary Care Provider: Lali Givens MD History of Present Illness History of Present Illness Wilson Reyes is a 72 year old male with PMhx of HTN, obesity, PAD and CAD s/p CABGx2 in 2001, atrial fibrillation on Eliquis presented to [facility] for chest pain.? He developed 7-03/31 left-sided substernal chest pain pressure-like with pain between his shoulder blades around noon yesterday. He w ent out for lunch and after driving back developed these symptoms. He lay down for sometime but pain persisted and hence he came to ER for further evaluation. He has been having similar but less intense pain .? Currently he is CP free. Review of Systems General: Reports: 10 or more systems reviewed and unremarkable except in HPI and below Const: Denies: fever(s) Card: Reports: chest pain and palpitations Resp: Denies: dyspnea or non-productive cough GI: Denies: abdominal pain Psych: Denies: anxiety or depression Endo: Denies: tired all the time Medications/Allergies Home Medications Medication Instructions Recorded Confirmed Last Taken Type apixaban 5 mg tablet (Eliquis) 5 mg PO BID 02/26/20 04/06/22 Unknown History ascorbate calcium (vitamin C) 500 500 mg PO DAILY 02/26/20 04/06/22 Unknown History mg tablet aspirin 81 mg tablet,delayed 81 mg PO DAILY 02/26/20 04/06/22 Unknown History release (Adult Aspirin Regimen) cholecalciferol (vitamin D3) 25 50 mcg PO DAILY 02/26/20 04/06/22 Unknown History mcg (1,000 unit) capsule cyanocobalamin (vitamin B-12) 1,000 mcg PO DAILY 02/26/20 04/06/22 Unknown History 1,000 mcg capsule docusate sodium 100 mg capsule 100 mg PO BEDTIME 02/26/20 04/06/22 Unknown History (Colace) omega-3 fatty acids 1,000 mg 1,000 mg PO BID 02/26/20 04/06/22 Unknown History capsule tramadol 50 mg tablet 50 mg PO QID PRN Pain 02/26/20 04/06/22 Unknown History vitamins A,C,X-kmgu-vthdgi 14,320 1 cap PO AC 02/26/20 04/06/22 Unknown History unit-226 mg-200 unit capsule (PreserVision AREDS) mirtazapine 30 mg tablet 45 mg PO BEDTIME 03/13/21 04/06/22 Unknown History zolpidem 5 mg tablet 5 mg PO BEDTIME PRN Sleep 09/22/21 04/06/22 Unknown History chlorthalidone 25 mg tablet 25 mg PO DAILY #90 tabs 12/17/21 04/06/22 Unknown Rx valsartan 80 mg tablet 80 mg PO DAILY #90 tabs 12/17/21 04/06/22 Unknown Rx metoprolol tartrate 25 mg tablet 12.5 mg PO BID 01/06/22 04/06/22 Unknown History pravastatin 20 mg tablet 20 mg PO DAILY 01/06/22 04/06/22 Unknown History potassium chloride 20 mEq 10 meq PO DAILY 04/06/22 04/06/22 Unknown History tablet,extended release prazosin 2 mg capsule 4 mg PO BID 04/06/22 04/06/22 Unknown History Allergies Allergy/AdvReac Type Severity Reaction Status Date / Time No Known Allergies Allergy Verified 04/06/22 09:48 Current Medications Generic Name Dose Route Start Last Admin Trade Name Freq PRN Reason Stop Dose Admin Atorvastatin Calcium 40 mg 04/05/22 22:52 04/05/22 23:41 Atorvastatin 40 Mg Tablet PO 40 mg BEDTIME GREGORIO Administration Metoprolol Tartrate 12.5 mg 04/05/22 22:52 04/05/22 23:40 Metoprolol Tartrate 25 Mg Tablet PO 12.5 mg Q12H GREGORIO Administration PFSH Acute PFSH: Medical History (Updated 04/06/22 @ 16:46 by Gurjit Guy DO) Atrial fibrillation CAD (coronary artery disease) HTN (hypertension) with goal to be determined Hyperlipidemia due to dietary fat intake PAD (peripheral artery disease) Surgical History (Updated 04/06/22 @ 10:03 by Kemi Gray MD) Hx of bilateral cataract extraction Hx of cholecystectomy Hx of hernia repair S/P CABG (coronary artery bypass graft) Family History Father CAD (coronary artery disease), Onset Age: 60 Stroke Family/Other Dementia Brother Lung disease Denies family history of Diabetes Clotting disorder Chronic kidney disease (CKD) Suicide Anesthesia complication Bleeding disorder Cancer Social History Smoking and tobacco status: former smoker Alcohol intake: former Vitals/I&O/Wt Last Vital Signs Temp 98.2 F 04/05/22 13:52 Pulse 74 04/06/22 07:20 Resp 15 04/06/22 05:15 BP 135/68 04/06/22 05:15 Pulse Ox 97 04/06/22 05:15 O2 Del Method 04/06/22 05:25 Weight last 48 hrs Weight 227 lb Weight 222 lb Physical Exam Const: COMMON NORMALS: no acute distress, patient oriented x3 and alert GENERAL APPEARANCE: cooperative, comfortable, well kempt and well hydrated OTHER: obese HENMT: COMMON NORMALS: hearing grossly normal bilaterally and external ears normal FACE & SINUS: normal facial exam EXTERNAL EAR: Yes external ears normal MOUTH: lip normal Eye: COMMON NORMALS: EOMs intact bilaterally and no scleral icterus GENERAL EYE: appearance normal, both eyes and all related structures ALIGNMENT: Yes alignment normal Neck/C-Spine: COMMON NORMALS: no lymphadenopathy, supple and no JVD GENERAL: Yes normal visual inspection and Yes trachea midline CAROTIDS: Yes normal carotid upstroke Chest: COMMONS NORMALS: normal inspection of the chest and normal palpation of entire chest wall CHEST: Yes Symmetrical chest wall rise and No tenderness Resp: COMMON NORMALS: clear to auscultation bilaterally AUSCULTATION: clear to auscultation bilaterally, no crackles, no rales, no rhonchi and no wheezes Cardio: COMMON NORMALS: no JVD, regular rate, regular rhythm, S1 normal heart sound present, S2 normal heart sound present and Peripheral pulses 2+ throughout PALPATION: normal PMI RATE: regular rate RHYTHM: regular rhythm HEART SOUNDS: S1 normal heart sound present, S2 normal heart sound present, no click, no gallops and no murmurs BRUITS: no carotid bruits PERIPHERAL PULSES: Peripheral pulses 2+ throughout, radial pulses present, posterior tibial pulses present and dorsalis pedis present GI: COMMON NORMALS: Soft to palpation AUSCULTATION: Yes normoactive bowel sounds PALPATION: Yes Soft to palpation, No Tenderness to palpation present (GI), No Guarding due to palpation present (GI) and No Rigid due to palpation PERCUSSION: tympanic to percussion Extremity: GENERAL: No clubbing, No cyanosis, No edema and No pallor Neuro: COMMON NORMALS: patient oriented x3, CN's II-XII intact bilaterally and no focal motor deficits SENSORIUM/ORIENTATION: Yes alert Psych: COMMON NORMALS: Normal thought process present and speech normal APPEARANCE: Yes well kempt SPEECH: Yes normal speech MOOD & AFFECT: Yes euthymic mood THOUGHT PROCESS: Normal thought process present THOUGHT CONTENT: Yes Normal thought content present Data : 04/07/22 05:14 04/07/22 05:14 Other data: Lexiscan Stress test (03/05/2019) IMPRESSIONS Myocardial perfusion imaging is normal and low probability for obstructive coronary artery disease. EKG segment will be documented separately. A&P Assessment and plan (1) Non-ST elevation NM (NSTEMI): Troponin T increased from 32-> 75-->86. EKG showed sinus rhythm with PAC's and PVC's. T wave abnormality, consider anter olateral ischemia. -Echo TDS that did not show any obvious RWMA. -Eliquis dose yesterday morning -will plan for [facility] tomorrow morning. Status: Acute (2) CAD (coronary artery disease): s/p CABGx2 at [place] in 2001 -anatomy unknown -no stents since then Status: Acute Qualifiers: Associated angina: without angina Coronary Disease-Associated Artery/Lesion type: [place] artery [place] vs. transplanted heart: [place] heart Qualified Code(s): I25.10 - Atherosclerotic heart disease of [place] coronary artery without angina pectoris (3) PAD (peripheral artery disease): 11/2015: Left common femoral artery was used to performed peripheral angiogram by Dr. Lockwood. Unsuccessful attempt to cross a right common iliac highly calcified and tortuous stenosis with left femoral approach. We then switched to retrograde right common femoral approach to perform balloon angioplasty followed by stenting of the 90% highly calcified right common iliac ostial stenosis which remains successfully. Successful GUMMING MACHINE OPERATOR /stenting of the right common iliac artery Status: Chronic (4) HTN (hypertension) with goal to be determined: Status: Acute (5) Hyperlipidemia due to dietary fat intake: Status: Acute (6) Atrial fibrillation: Status: Acute Consult Attestations Time Spent in Patient Care: Greater than 35 minutes Coding Level of Care Code Acute Contract Associate Manager for g Fwd Diagnoses Non-ST elevation NM (NSTEMI) I21.4 CAD (coronary artery disease) I25.10 Associated angina: without angina Coronary Disease-Associated Artery/Lesion type: [place] artery [place] vs. transplanted heart: [place] heart PAD (peripheral artery disease) I73.9 HTN (hypertension) with goal to be determined I10 Hyperlipidemia due to dietary fat intake E78.49 Atrial fibrillation I48.91
[2022-04-06] MEDS: cyanocobalamin 1,000 mcg Tablet 1000 MCG PO (09:30)
[2022-04-06] MEDS: cholecalciferol (vitamin D3) 1,000 unit Tablet 2000 UNIT PO (09:30)
[2022-04-06] MEDS: omega-3 fatty acids 1,000 mg Capsule 2000 MG PO (09:30)
[2022-04-06] MEDS: pantoprazole DR 40 mg Tablet PO (09:30)
[2022-04-06] MEDS: prazosin 1 mg Capsule 2 MG PO ×2 (09:30→17:08)
[2022-04-06] MEDS: mirtazapine 30 mg Tablet 45 MG PO (09:31)
[2022-04-06] MEDS: aspirin 81 mg EC Tablet PO (09:31)
[2022-04-06] MEDS: losartan 50 mg Tablet 25 MG PO (09:31)
[2022-04-06] MEDS: metoprolol tartrate 25 mg Tablet 12.5 MG PO ×2 (09:31→21:57)
[2022-04-06] MEDS: TRAMadol 50 mg Tablet PO (09:31)
[2022-04-06] MEDS: docusate sodium 100 mg Capsule PO (09:32)
[2022-04-06] MEDS: enoxaparin 100 mg/mL Syringe SUBCUT ×2 (09:34→20:48)
[2022-04-06] MEDS: chlorthalidone 25 mg Tablet PO (09:44)
[2022-04-06] MEDS: lidocaine 1% 5 ML in potassium chloride premix 100 ML 50 ML IV (10:30)
[2022-04-06] MEDS: clopidogrel 300 mg Tablet PO (10:31)
--- NOTE | 2022-04-06 10:31 | PC.CHAP ---
Pastoral Care Encounter/Spiritual Assessment Type of Contact [] Declined buffing turner and counter visit [] Patient/Family/Request visit [] Outpatient visit [] Follow-up visit [] Physician referral [] Code/Alert [x] Routine visit [] Staff referral [] Actively dying [] Patient sleeping [] Family support [] [] Out of room [] Palliative care [] [x] Receiving care in room [] Pre-surgical visit [] Trauma [] Long length of stay [x] ICU visit [] Other: Relational/Emotional Strength [] Patient feels connected with others/family/visitors/staff [] Distress [] Loneliness/isolation [] Abandonment Spirituality of Patient [] Person of [place] [] Attends Jewish of their [place] [] Believes in Prayer [] Reads Bible or Yazidism materials [] There are Spiritual issues to be addressed Data Reporting Analyst Interventions [x] Prayer [] Active listening [] Non-anxious presence [] Spiritual/emotional support [] Crisis/trauma care [] Spiritual counseling [] Bereavement support [] Provided bereavement packet [] Provided Bible/devotional materials [] Provided toy/stuffed animal, coloring book to patient or family member [] Provided Communion [] Anointing/Hext [] Salvation [x] Completed spiritual assessment [] Other: Impact on Illness or Injury [] Angry [] Fearful [] Anxious [] Often cries [] Exhaustion [] Unable to work [] Unable to attend lutheran [] Unable to walk/stand [] Unable to read [] Unable to drive [] Unable to eat/drink [] Unable to sleep [] Unable to be with family [] Patient intubated [] Other: Summary Time spent with patient
--- NOTE | 2022-04-06 16:41 | P.PN_ITS ---
Subjective Subjective: No chest pain or sob Vitals/I&O/Wt Last Vital Signs Temp 98.3 F 04/06/22 16:18 Pulse 65 04/06/22 16:00 Resp 16 04/06/22 16:00 BP 133/78 04/06/22 16:00 Pulse Ox 94 04/06/22 15:00 O2 Del Method 04/06/22 15:00 04/06/22 04/06/22 04/06/22 06:59 14:59 22:59 Intake Total 345 / 345 Balance 345 / 345 Weight last 48 hrs Weight 102.965 kg Weight 100.698 kg Physical Exam Narrative: Patient alert and oriented no acute distress Heart irreg rhythm normal S1-S2 without murmurs clicks gallops or rubs Lungs: Clear to auscultation without wheezes rales or rhonchi Abdomen soft nontender positive bowel sounds Extremities no clubbing cyanosis or edema Data : 04/06/22 02:33 04/06/22 02:33 A&P Assessment and plan (1) Non-ST elevation PR (NSTEMI): -Eliquis dose yesterday morning - Cardiology to plan for [facility] Status: Acute (2) CAD (coronary artery disease): s/p CABGx2 at [place] in 2001 -anatomy unknown -no stents since then Status: Acute Qualifiers: Coronary Disease-Associated Artery/Lesion type: [place] artery [place] vs. transplanted heart: [place] heart Associated angina: without angina Quali fied Code(s): I25.10 - Atherosclerotic heart disease of [place] coronary artery without angina pectoris (3) PAD (peripheral artery disease): 11/2015: Left common femoral artery was used to performed peripheral angiogram by Dr. Lockwood. Unsuccessful attempt to cross a right common iliac highly calcified and tortuous stenosis with left femoral approach. We then switched to retrograde right common femoral approach to perform balloon angioplasty followed by stenting of the 90% highly calcified right common iliac ostial stenosis which remains successfully. Successful FOOD AND BEVERAGE LEAD /stenting of the right common iliac artery Status: Chronic (4) HTN (hypertension) with goal to be determined: Status: Acute (5) Hyperlipidemia due to dietary fat intake: Status: Acute (6) Atrial fibrillation: on AC Status: Acute Attestations Medical Necessity Statement*: Patient requires hospitalization, inpatient, greater than 2 midnights, for NSTEMI Coding Level of Care Code Acute Bridge Contractor for g Mee Diagnoses Non-ST elevation PR (NSTEMI) I21.4 CAD (coronary artery disease) I25.10 Coronary Disease-Associated Artery/Lesion type: [place] artery [place] vs. transplanted heart: [place] heart Associated angina: without angina PAD (peripheral artery disease) I73.9 HTN (hypertension) with goal to be determined I10 Hyperlipidemia due to dietary fat intake E78.49 Atrial fibrillation I48.91
[2022-04-06] MEDS: atorvastatin 40 mg Tablet PO (20:38)
[2022-04-07] VITALS (26 sets, daily range): BP systolic 92–137; BP diastolic 58–83; PULSE 60–156; RESP 14–18; TEMP 36.3–36.8; O2SAT 91–96
--- NOTE | 2022-04-07 02:00 | PC.NURSE ---
Transfer Note Patient transferred to [facility] from ICU via wheelchair. Handoff report given to HAI Shelton. Patient oriented to environment and equipment. Covering service notified. Orders reviewed and will continue to monitor. Patient belongings including; shoes, phone, shirt and shorts which were placed at bedside. Patient alert/oriented x4 at time of transfer, no wounds/skin issues noted.
[2022-04-07 05:57] LABS: Basophils # 0.1 10^3/uL (0.0-0.1); Basophils % 0.6 %; Eosinophils # 0.3 10^3/uL (0.0-0.8); Eosinophils % 3.2 %; Hematocrit 44.4 % (42.0-52.0); Hemoglobin 14.8 g/dL (11.7-16.6); Lymphocytes # 2.4 10^3/uL (0.8-4.8); Lymphocytes % 26.8 %; Mean Corpuscular HGB Conc 33.3 g/dL (30.0-36.0); Mean Corpuscular Hemoglobin 33.5 pg (28.0-34.0); Mean Corpuscular Volume 100.5 fl (80-94); Mean Platelet Volume 10.3 fL (7.4-10.4); Monocytes # 1.1 10^3/uL (0.2-0.9); Monocytes % 12.3 %; Neutrophils # 5.06 10^3/uL (1.8-7.7); Neutrophils % 56.7 %; Nucleated Red Blood Cells % 0 %; Platelet Count 215 10^3/cmm (130-400); Red Blood Count 4.42 10^6/uL (4.1-5.3); White Blood Count 8.9 10^3/uL (4.0-10.0)
[2022-04-07 06:26] LABS: INR 1.03 (0.8-1.2)
[2022-04-07 06:35] LABS: Alanine Aminotransferase 34 U/L (0-41); Albumin Level 3.8 g/dL (3.5-5.2); Alkaline Phosphatase 49 U/L (40-130); Aspartate Amino Transferase 22 U/L (0-40); Blood Urea Nitrogen 22 mg/dL (8-23); Calcium 9.4 mg/dL (8.5-10.5); Carbon Dioxide 29 mmol/L (22-29); Chloride 97 mmol/L (98-107); Globulin 2.9 g/dL (1.3-4.6); Glucose 105 mg/dL (65-115); Osmolality Calculated 290 mOsm/kg (285-295); Phosphorus 4.3 mg/dL (2.5-4.5); Sodium 138 mmol/L (136-145); Total Bilirubin 0.5 mg/dL (0.15-1.2); Total Protein 6.7 g/dL (6.6-8.7)
[2022-04-07 06:46] LABS: Anion Gap 15.6 (5-19); Potassium 3.6 mmol/L (3.5-5.1)
[2022-04-07] MEDS: sodium chloride 0.9% 1,000 ML 50 ML IV (08:31)
[2022-04-07] MEDS: diphenhydrAMINE 50 mg Capsule PO (08:32)
[2022-04-07] MEDS: enoxaparin 100 mg/mL Syringe SUBCUT ×2 (08:32→21:32)
[2022-04-07] MEDS: omega-3 fatty acids 1,000 mg Capsule 2000 MG PO (08:32)
[2022-04-07] MEDS: cyanocobalamin 1,000 mcg Tablet 1000 MCG PO (08:32)
[2022-04-07] MEDS: pantoprazole DR 40 mg Tablet PO (08:33)
[2022-04-07] MEDS: losartan 50 mg Tablet 25 MG PO (08:34)
[2022-04-07] MEDS: chlorthalidone 25 mg Tablet PO (08:34)
[2022-04-07] MEDS: aspirin 81 mg EC Tablet PO (08:35)
[2022-04-07] MEDS: clopidogrel 75 mg Tablet PO (08:35)
[2022-04-07] MEDS: TRAMadol 50 mg Tablet PO ×2 (08:35→22:19)
[2022-04-07] MEDS: cholecalciferol (vitamin D3) 1,000 unit Tablet 2000 UNIT PO (08:36)
--- NOTE | 2022-04-07 08:41 | XACV_ITS ---
Exam Room: [facility] Ht: 165 cm Wt: 103 kg BSA: 2.22 m2 Gender: Male : 1950 Any Known Allergies: No known allergies Exam Priority: Routine Procedure(s): Procedure Description: Diagnostic procedure Procedure Description: Venous Graft Catheterization Procedure Description: VILLARREAL Graft Catheterization Procedure Description: Coronary Angiography Diagnostic Cath Status: Urgent Diagnostic Findings * Left main artery: Patent, * distal vessel has 20% stenosis. Left circumflex artery: Has proximal 40 to 50% moderate stenosis. High OM: Patent. Has mild disease. Ramus intermedius artery: Small in size, patent. LAD: Ostially occluded RCA: Proximally occluded. This is chronic total occlusion. SVG to RCA: Graft is patent however at anastomosis, [place] artery is diffusely diseased and has subtotal occlusion. Small sized [place] vessel. This is the likely culprit for NSTEMI VILLARREAL to LAD: Patent. * Coronary angiography shows right dominance. Conclusions 1. Left main artery: Patent, 2. distal vessel has 20% stenosis. Left circumflex artery: Has proximal 40 to 50% moderate stenosis. High OM: Patent. Has mild disease. Ramus intermedius artery: Small in size, patent. LAD: Ostially occluded RCA: Proximally occluded. This is chronic total occlusion. SVG to RCA: Graft is patent however at anastomosis, [place] artery is diffusely diseased and has subtotal occlusion. Small sized [place] vessel. This is the likely culprit for NSTEMI VILLARREAL to LAD: Patent. 3. Culprit vessel for non-ST elevation RI is SVG to RCA. Graft itself is patent. [place] vessel is diffusely diseased and has subtotal occlusion. Not amenable to revascularization. Aggressive medical therapy. 4. Patient has prior CABG. Recommendations * We will medically treat him with Plavix and Eliquis. * Aggressive risk factor modification. * Outpatient cardiology follow-up in 1 to 2 weeks. Interventional RX Recommendation: medical therapy and/or counseling Diagnostic RX Recommendation: medical therapy and/or counseling Anticoagulation: Heparin Pressures Phase:Rest AO : 90 / 83 ( 85 ) @ 10:17:00 AM 122 / 70 ( 90 ) @ 10:20:00 AM Clinical Evaluation EBL: 5mL-10mL Procedural Details Pre-Procedure Time Out. Identified patient by full name and date of as verbalized by the patient/guarantor. Does the consent match the physician's order: Yes. Accurate & Complete Informed Consent: Yes. Inpatient/Outpatient History & Physical on Chart: Yes. If H&P is completed, is and addenduem needed: No; If yes, is the addendum complete: N/A. Visualize and Verify Site with Patient/Guarantor: N/A. Relevant Radiology Images available: Yes. Pre-op teaching completed and patient verbalized understanding. The risks, benefits, and alternatives of sedation and/or procedure were discussed by physician. The patient agrees to continue. Procedure started. Physician arrived. Current Diagnosis : Chest Pain. [facility] Clinical Fraility Score: 3: Managing Well. Director Of Reservations Indications: Worsening Angina. Chest Pain Symptom Assessment: Atypical Angina. Correct patient, site and procedure confirmed by cath team. Current diagnosis: Chest Pain. PERRLA. Strong, equal hand powertrain calibration engineer bilaterally. Lungs clear x 5 lobes. IV Site on Arrival: 18 gauge in the right anticubital. IV Fluids: 0.9% NaCl at KVO. 0 mL infused prior to labor employment associate. Oxygen started at 2liters/min via nasal canula. Pre Procedural Pulses: bilateral dorsalis pedis was Doppled. bilateral groins was prepped with chloroprep then draped in the usual sterile fashion. Baseline sample Acquired. HR: 149 BPM. Physician scrubbed in. Immediate Pre-Procedure Time Out. Correct Patient: Yes; Correct Procedure: Yes; Correct Site: Yes; Correct Patient Position: Yes; Correct Supplies: Yes; Dried Flammable Prep: Yes; Blood Products Available: N/A;. Lidocaine 1% infiltrated to the right groin. ultrasound being used to obtain access. Arterial access obtained with micropuncture set. A 5 indian JL4 catheter in over wire. Multiple views taken of left coronary artery. Catheter removed over the standard wire. A 5 indian JR4 catheter in over wire. Multiple views taken of right coronary artery. SVG's to RCA visualized and patent. VILLARREAL to LAD visualized. Catheter removed over the standard wire. Physician review of cine films. A Suture was successful obtaining hemostatsis at the Right Femoral artery insertion site. Arterial sheath flushed and connected to tranducer and pressure bag with heparinized saline. Post Procedure: Pulses reassessed and unchanged. PERRLA. Strong, equal hand powertrain calibration engineer bilaterally. No VTE prophylaxis required. Medication's Wasted: Heparin = 4000 units. Total IV fluids: 28 mL. Physician scrubbed out. Complications: None. Estimated blood loss: 5mL-10mL. Responsiveness - Normal response to verbal stimuli; alert and oriented, PERRLA. Airway - Unaffected, no intervention required; spontaneous ventilation. Circulation: W/N/L, pulses unchanged. Nausea/Vomiting: No. Procedure completed. Patient transferred by bed to 1st floor. Vital chart was stopped. Access Site Site: Right Femoral artery Sheath Size: 6 Fr Hemostasis Method: Suture Hemostasis Success: Successful Procedure Medications Start: 9:05 AM Stop: 9:05 AM Medication: Versed Amount: 1 mg Route: I.V. Start: 9:05 AM Stop: 9:05 AM Medication: Fentanyl Amount: 50 mcg Route: I.V. Start: 9:10 AM Stop: 9:10 AM Medication: Lopressor (metoprolol) Amount: 5 mg Route: I.V. Start: 9:13 AM Stop: 9:13 AM Medication: Versed Amount: 1 mg Route: I.V. Start: 9:18 AM Stop: 9:18 AM Medication: Lopressor (metoprolol) Amount: 5 mg Route: I.V. I, the attending physician, have reviewed and verified all procedure medications. Yes, all medications given per verbal order History/Risk Factors Hypertension: Yes Dyslipidemia: Yes Peripheral Arterial Disease (PAD): Yes Myocardial Infarction (RI): No Obesity: Yes Renal Disease: No Tobacco Use: Former Prior Interventions PCI: No CABG: Yes Valve Surgery: No Report Signatures Finalized by Parth Butler MD on 04/20/2022 10:42 AM
[2022-04-07] MEDS: prazosin 1 mg Capsule 2 MG PO ×2 (08:43→21:30)
--- NOTE | 2022-04-07 08:51 | PC.NURSE ---
brick and blocker aid labor crew here to transport pt to cardiac cath rn. Pt off unit.
--- NOTE | 2022-04-07 09:05 | W.PM.OPSUD ---
Surgery/Procedure H&P Update DATE OF PROCEDURE: April 07, 2022 DATE H&P PERFORMED: 04/06/22 H&P UPDATE INFORMATION: I have reviewed H&P completed within last 30 days, I have examined patient prior to procedure and No changes to prior documentation PREOP DIAGNOSIS: NSTEMI PRIMARY INDICATION FOR PROCEDURE: NSTEMI PLANNED PROCEDURE: Operation Date: 04/07/22 08:30 Proposed Procedures p Cardiac Catheterization(Not Applicable) - Parth Butler MD PATIENT REASSESSED PRIOR TO SEDATION, WITH NO CHANGE NOTED: Yes PHYSICAL EXAM: alert, oriented x 3, clear to auscultation bilaterally and regular rate & rhythm AIRWAY EVAL/ANESTHESIA PLAN: ASA III, Local Anesthesia, Risks, benefits & alternatives of sedation and/or procedure discussed and Patient agrees to continue as planned
--- NOTE | 2022-04-07 09:22 | PC.NURSE ---
eport called to CSU and given to HAI Tompkins
[2022-04-07] MEDS: metoprolol tartrate 25 mg Tablet 12.5 MG PO (11:57)
--- NOTE | 2022-04-07 12:57 | P.PN_ITS ---
Subjective Subjective: Patient underwent cath this morning and was found to have patent VILLARREAL to LAD. [place] circumflex/OM with moderate disease. Chronic total occlusion of right coronary artery. SVG to RCA seems to be the culprit and is patent patent but supplying a very small diffusely diseased [place] vessel that has subtotal occlusion post anastomosis. Plan to treat medically. Medications: Reviewed: Yes Vitals/I&O/Wt Last Vital Signs Temp 98 F 04/07/22 10:16 Pulse 144 H 04/07/22 10:27 Resp 14 04/07/22 10:27 BP 97/77 04/07/22 10:27 Pulse Ox 96 04/07/22 10:27 O2 Del Method 04/07/22 10:27 O2 Flow Rate 2 04/07/22 10:16 04/06/22 04/07/22 04/07/22 22:59 06:59 14:59 Intake Total 30 / 30 Output Total 300 / 300 Balance -270 / -270 Weight last 48 hrs Weight 227 lb Weight 222 lb Physical Exam Const: COMMON NORMALS: no acute distress, patient oriented x3 and alert GENERAL APPEARANCE: cooperative, comfortable, well kempt and well hydrated OTHER: obese HENMT: COMMON NORMALS: hearing grossly normal bilaterally and external ears normal FACE & SINUS: normal facial exam EXTERNAL EAR: Yes external ears normal MOUTH: lip normal Eye: COMMON NORMALS: EOMs intact bilaterally and no scleral icterus GENERAL EYE: appearance normal, both eyes and all related structures ALIGNMENT: Yes alignment normal Neck/C-Spine: COMMON NORMALS: no lymphadenopathy, supple and no JVD GENERAL: Yes normal visual inspection and Yes trachea midline CAROTIDS: Yes normal carotid upstroke Chest: COMMONS NORMALS: normal inspection of the chest and normal palpation of entire chest wall CHEST: Yes Symmetrical chest wall rise and No tenderness Resp: COMMON NORMALS: clear to auscultation bilaterally AUSCULTATION: clear to auscultation bilaterally, no crackles, no rales, no rhonchi and no wheezes Cardio: COMMON NORMALS: no JVD, regular rate, regular rhythm, S1 normal heart sound present, S2 normal heart sound present and Peripheral pulses 2+ throughout PALPATION: normal PMI RATE: regular rate RHYTHM: regular rhythm HEART SOUNDS: S1 normal heart sound present, S2 normal heart sound present, no click, no gallops and no murmurs BRUITS: no carotid bruits PERIPHERAL PULSES: Peripheral pulses 2+ throughout, radial pulses present, posterior tibial pulses present and dorsalis pedis present GI: COMMON NORMALS: Soft to palpation AUSCULTATION: Yes normoactive bowel sounds PALPATION: Yes Soft to palpation, No Tenderness to palpation present (GI), No Guarding due to palpation present (GI) and No Rigid due to palpation PERCUSSION: tympanic to percussion Extremity: GENERAL: No clubbing, No cyanosis, No edema and No pallor Neuro: COMMON NORMALS: patient oriented x3, CN's II-XII intact bilaterally and no focal motor deficits SENSORIUM/ORIENTATION: Yes alert Psych: COMMON NORMALS: Normal thought process present and speech normal APPEARANCE: Yes well kempt SPEECH: Yes normal speech MOOD & AFFECT: Yes euthymic mood THOUGHT PROCESS: Normal thought process present THOUGHT CONTENT: Yes Normal thought content present Data : 04/07/22 05:14 04/07/22 05:14 A&P Assessment and plan (1) Non-ST elevation [place] (NSTEMI): Troponin T increased from 32-> 75-->86. EKG showed sinus rhythm with PAC's and PVC's. T wave abnormality, consider anterolateral ischemia. -Echo TDS that did not show any obvious RWMA. -[facility] findings as above -medical management -plan for discharge tomorrow morning -f/u with Chantel in 1-2 weeks -f/u with Dr. Broderick in 2-3 months. Status: Acute (2) Atrial fibrillation: Paroxysmal atrial fibrillation -increase metoprolol tartrate to 25 mg twice a day on discharge Status: Acute (3) CAD (coronary artery disease): s/p CABGx2 at [place] in 2001 -anatomy unknown -no stents since then Status: Acute Qualifiers: Associated angina: without angina Coronary Disease-Associated Artery/Lesion type: [place] artery [place] vs. transplanted heart: [place] heart Qualified Code(s): I25.10 - Atherosclerotic heart disease of [place] coronary artery without angina pectoris (4) PAD (peripheral artery disease): 11/2015: Left common femoral artery was used to performed peripheral angiogram by Dr. Lockwood. Unsuccessful attempt to cross a right common iliac highly calcified and tortuous stenosis with left femoral approach. We then switched to retrograde right common femoral approach to perform balloon angioplasty followed by stenting of the 90% highly calcified right common iliac ostial stenosis which remains successfully. Successful COMPUTER MECHANIC /stenting of the right common iliac artery Status: Chronic (5) HTN (hypertension) with goal to be determined: Status: Acute (6) Hyperlipidemia due to dietary fat intake: Status: Acute Attestations Medical Necessity Statement*: plan for discharge tomorrow Coding Level of Care Code Acute Medical Records Analyst for [facility] Fwd Exam Comprehensive Diagnoses Non-ST elevation [place] (NSTEMI) I21.4 Atrial fibrillation I48.91 CAD (coronary artery disease) I25.10 Associated angina: without angina Coronary Disease-Associated Artery/Lesion type: [place] artery [place] vs. transplanted heart: [place] heart PAD (peripheral artery disease) I73.9 HTN (hypertension) with goal to be determined I10 Hyperlipidemia due to dietary fat intake E78.49
[2022-04-07] MEDS: fentaNYL 50 mcg/mL INJ 2mL IVP (14:43)
--- NOTE | 2022-04-07 17:31 | PC.NURSE ---
Pt arrives back to [facility] from [facility]. Right groin soft. NO hematoma, bleeding or bruising noted.
--- NOTE | 2022-04-07 18:07 | PC.NURSE ---
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 Pt on bedrest until 2119, right sheath pulled Pt tolerating very well. Right groin soft, no hematomas, bleeding or bruising noted. Pt denies chest pain. Sinus rhythm noted on monitor. Frequent safety and comfort rounds continue. Orders and/or nursing care completed as indicated. Patient monitored for response to intervention and treatment(s). Education provided includes Lovenox,metoprolol and plan of care Patient s verbalizes understanding of plan of care and medications. Will continue to monitor.
--- NOTE | 2022-04-07 18:37 | P.PN_ITS ---
Subjective Subjective: No chest pain or sob Vitals/I&O/Wt Last Vital Signs Temp 98 F 04/07/22 10:16 Pulse 63 04/07/22 17:33 Resp 16 04/07/22 17:33 BP 123/60 04/07/22 17:33 Pulse Ox 95 04/07/22 17:33 O2 Del Method 04/07/22 17:33 O2 Flow Rate 2 04/07/22 17:33 FiO2 149 04/07/22 11:00 04/07/22 04/07/22 04/07/22 06:59 14:59 22:59 Intake Total 30 / 30 240 / 270 Output Total 300 / 300 Balance -270 / -270 240 / -30 Weight last 48 hrs Weight 102.965 kg Physical Exam Narrative: Patient alert and oriented no acute distress Heart irreg rhythm normal S1-S2 without murmurs clicks gallops or rubs Lungs: Clear to auscultation without wheezes rales or rhonchi Abdomen soft nontender positive bowel sounds Extremities no clubbing cyanosis or edema Data : 04/07/22 05:14 04/07/22 05:14 A&P Assessment and plan (1) Non-ST elevation [place] (NSTEMI): Cath today. SVG to RCA is culprit however not amendable to intervention. Treat medically by increasing metoprolol to 25 ng bid. ? long acting nitrate? Status: Acute (2) CAD (coronary artery disease): s/p CABGx2 at [place] in 2001 -no stents since then Status: Acute Qualifiers: Coronary Disease-Associated Artery/Lesion type: [place] artery [place] vs. transplanted heart: [place] heart Associated angina: without angina Qualified Code(s): I25.10 - Atherosclerotic heart disease of [place] coronary artery without angina pectoris (3) PAD (peripheral artery disease): 11/2015: Left common femoral artery was used to performed peripheral angiogram by Dr. Lockwood. Unsuccessful attempt to cross a right common iliac highly calcified and tortuous stenosis with left femoral approach. We then switched to retrograde right common femoral approach to perform balloon angioplasty followed by stenting of the 90% highly calcified right common iliac ostial stenosis which remains successfully. Successful BIOMASS POWER PLANT MANAGER /stenting of the right common iliac artery Status: Chronic (4) HTN (hypertension) with goal to be determined: Status: Acute (5) Hyperlipidemia due to dietary fat intake: Status: Acute (6) Atrial fibrillation: on AC Status: Acute Plan Discharge home tomorrow. Attestations Medical Necessity Statement*: plan for discharge tomorrow Coding Level of Care Code Acute Natural Gas Plant Technician for Chg Fwd Diagnoses Non-ST elevation [place] (NSTEMI) I21.4 CAD (coronary artery disease) I25.10 Coronary Disease-Associated Artery/Lesion type: [place] artery [place] vs. transplanted heart: [place] heart Associated angina: without angina PAD (peripheral artery disease) I73.9 HTN (hypertension) with goal to be determined I10 Hyperlipidemia due to dietary fat intake E78.49 Atrial fibrillation I48.91
[2022-04-07] MEDS: atorvastatin 40 mg Tablet PO (21:30)
[2022-04-07] MEDS: metoprolol tartrate 25 mg Tablet PO (21:30)
[2022-04-07] MEDS: sodium chloride 0.9% 1,000 ML 100 ML IV (21:34)
[2022-04-08] VITALS: BP 113/72; PULSE 78; RESP 23; TEMP 36.6; O2SAT 93
[2022-04-08 03:12] LABS: Basophils # 0.1 10^3/uL (0.0-0.1); Basophils % 0.5 %; Eosinophils # 0.4 10^3/uL (0.0-0.8); Eosinophils % 3.2 %; Hematocrit 40.4 % (42.0-52.0); Hemoglobin 13.3 g/dL (11.7-16.6); Lymphocytes # 2.5 10^3/uL (0.8-4.8); Lymphocytes % 20.7 %; Mean Corpuscular HGB Conc 32.9 g/dL (30.0-36.0); Mean Corpuscular Hemoglobin 32.8 pg (28.0-34.0); Mean Corpuscular Volume 99.5 fl (80-94); Mean Platelet Volume 10.4 fL (7.4-10.4); Monocytes # 1.5 10^3/uL (0.2-0.9); Monocytes % 12.4 %; Neutrophils # 7.46 10^3/uL (1.8-7.7); Neutrophils % 62.7 %; Nucleated Red Blood Cells % 0 %; Platelet Count 196 10^3/cmm (130-400); Red Blood Count 4.06 10^6/uL (4.1-5.3); White Blood Count 11.9 10^3/uL (4.0-10.0)
[2022-04-08 03:24] LABS: INR 1.04 (0.8-1.2)
[2022-04-08 03:32] LABS: Alanine Aminotransferase 30 U/L (0-41); Albumin Level 3.5 g/dL (3.5-5.2); Alkaline Phosphatase 51 U/L (40-130); Anion Gap 12.4 (5-19); Aspartate Amino Transferase 19 U/L (0-40); Blood Urea Nitrogen 22 mg/dL (8-23); Calcium 8.8 mg/dL (8.5-10.5); Carbon Dioxide 31 mmol/L (22-29); Chloride 100 mmol/L (98-107); Globulin 2.1 g/dL (1.3-4.6); Glucose 122 mg/dL (65-115); Osmolality Calculated 295 mOsm/kg (285-295); Phosphorus 3.9 mg/dL (2.5-4.5); Potassium 3.4 mmol/L (3.5-5.1); Sodium 140 mmol/L (136-145); Total Bilirubin 0.4 mg/dL (0.15-1.2); Total Protein 5.6 g/dL (6.6-8.7)
[2022-04-08 04:00] VITALS: BP 115/77; PULSE 71; RESP 20; TEMP 37; O2SAT 92
[2022-04-08 06:00] VITALS: PULSE 67
[2022-04-08 08:00] VITALS: BP 135/74; PULSE 68; RESP 13; TEMP 36.7
[2022-04-08 08:55] VITALS: BP 151/82
[2022-04-08] MEDS: docusate sodium 100 mg Capsule PO (08:55)
[2022-04-08] MEDS: TRAMadol 50 mg Tablet PO (08:55)
[2022-04-08] MEDS: omega-3 fatty acids 1,000 mg Capsule 2000 MG PO (08:55)
[2022-04-08] MEDS: cholecalciferol (vitamin D3) 1,000 unit Tablet 2000 UNIT PO (08:55)
[2022-04-08] MEDS: aspirin 81 mg EC Tablet PO (08:55)
[2022-04-08] MEDS: losartan 50 mg Tablet 25 MG PO (08:55)
[2022-04-08] MEDS: pantoprazole DR 40 mg Tablet PO (08:55)
[2022-04-08] MEDS: clopidogrel 75 mg Tablet PO (08:55)
[2022-04-08] MEDS: cyanocobalamin 1,000 mcg Tablet 1000 MCG PO (08:55)
[2022-04-08] MEDS: enoxaparin 100 mg/mL Syringe SUBCUT (08:56)
[2022-04-08] MEDS: chlorthalidone 25 mg Tablet PO (08:56)
[2022-04-08] MEDS: prazosin 1 mg Capsule 2 MG PO (08:56)
[2022-04-08] MEDS: metoprolol tartrate 25 mg Tablet PO (09:01)
--- NOTE | 2022-04-08 09:33 | PC.SOCIAL ---
Addendum entered by Rekha Quiroz 04/08/22 09:34: IMM update IMM updated with patient. Verbalized an understanding. Copy Pg 2 provided. Initialled, dated, timed, and placed in chart. Original Note: IMM update IMM Updated with patient and family at bedside. Verbalized an understanding. Copy Pg 2 provided. Initialled, dated, timed, and placed in chart.
--- NOTE | 2022-04-08 09:37 | PM.PN ---
Subjective Subjective: Patient underwent cath this morning and was found to have patent VILLARREAL to LAD. [place] circumflex/OM/ramus with moderate disease. Chronic total occlusion of right coronary artery. SVG to RCA seems to be the culprit and is patent patent but supplying a very small diffusely diseased [place] vessel that has subtotal occlusion post anastomosis. Plan to treat medically. Doing well overall. No chest pains since being in the hospital. maintained SR. intermittent PAC's and PVC's. Medications: Reviewed: Yes Vitals/I&O/Wt Last Vital Signs Temp 98.0 F 04/08/22 08:00 Pulse 68 04/08/22 08:00 Resp 13 04/08/22 08:00 BP 151/82 04/08/22 08:55 Pulse Ox 92 04/08/22 04:00 O2 Del Method 04/08/22 08:00 O2 Flow Rate 2 04/07/22 17:33 FiO2 149 04/07/22 11:00 04/07/22 04/08/22 04/08/22 22:59 06:59 14:59 Intake Total 1440 / 1470 500 / 1970 1000 / 1000 Output Total 300 / 600 250 / 250 Balance 1140 / 870 500 / 1370 750 / 750 Weight last 48 hrs Weight 223 lb 6.4 oz Physical Exam Const: COMMON NORMALS: no acute distress, patient oriented x3 and alert GENERAL APPEARANCE: cooperative, comfortable, well kempt and well hydrated OTHER: obese HENMT: COMMON NORMALS: hearing grossly normal bilaterally and external ears normal FACE & SINUS: normal facial exam EXTERNAL EAR: Yes external ears normal MOUTH: lip normal Eye: COMMON NORMALS: EOMs intact bilaterally and no scleral icterus GENERAL EYE: appearance normal, both eyes and all related structures ALIGNMENT: Yes alignment normal Neck/C-Spine: COMMON NORMALS: no lymphadenopathy, supple and no JVD GENERAL: Yes normal visual inspection and Yes trachea midline CAROTIDS: Yes normal carotid upstroke Chest: COMMONS NORMALS: normal inspection of the chest and normal palpation of entire chest wall CHEST: Yes Symmetrical chest wall rise and No tenderness Resp: COMMON NORMALS: clear to auscultation bilaterally AUSCULTATION: clear to auscultation bilaterally, no crackles, no rales, no rhonchi and no wheezes Cardio: COMMON NORMALS: no JVD, regular rate, regular rhythm, S1 normal heart sound present, S2 normal heart sound present and Peripheral pulses 2+ throughout PALPATION: normal PMI RATE: regular rate RHYTHM: regular rhythm HEART SOUNDS: S1 normal heart sound present, S2 normal heart sound present, no click, no gallops and no murmurs BRUITS: no carotid bruits PERIPHERAL PULSES: Peripheral pulses 2+ throughout, radial pulses present, posterior tibial pulses present and dorsalis pedis present GI: COMMON NORMALS: Soft to palpation AUSCULTATION: Yes normoactive bowel sounds PALPATION: Yes Soft to palpation, No Tenderness to palpation present (GI), No Guarding due to palpation present (GI) and No Rigid due to palpation PERCUSSION: tympanic to percussion Extremity: NARRATIVE EXTREMITY EXAM: Right groin access site with no significant bruising or hematoma, good peripheral pulses GENERAL: No clubbing, No cyanosis, No edema and No pallor Neuro: COMMON NORMALS: patient oriented x3, CN's II-XII intact bilaterally and no focal motor deficits SENSORIUM/ORIENTATION: Yes alert Psych: COMMON NORMALS: Normal thought process present and speech normal APPEARANCE: Yes well kempt SPEECH: Yes normal speech MOOD & AFFECT: Yes euthymic mood THOUGHT PROCESS: Normal thought process present THOUGHT CONTENT: Yes Normal thought content present Data : 04/08/22 02:53 04/08/22 02:53 A&P Assessment and plan (1) Non-ST elevation [place] (NSTEMI): Troponin T increased from 32-> 75-->86. EKG showed sinus rhythm with PAC's and PVC's. T wave abnormality, consider anterolateral ischemia. -Echo TDS that did not show any obvious RWMA. -[facility] findings as above -medical management with NTG SL PRN and metoprolol tartrate increased to 25 mg BID. -Plavix and Eliquis on discahrge for 1 month and then may stop plavix, restart ASA 81 mg with Eliquis -May be discharged today from cardiac standpoint. -f/u with Chantel in 1-2 weeks -BMP in 1 week -f/u with Dr. Broderick in 2-3 months. Status: Acute (2) Atrial fibrillation: Paroxysmal atrial fibrillation -increase metoprolol tartrate to 25 mg twice a day on discharge Status: Acute (3) CAD (coronary artery disease): s/p CABGx2 at [place] in 2001 -anatomy unknown -no stents since then Status: Acute Qualifiers: Associated angina: without angina Coronary Disease-Associated Artery/Lesion type: [place] artery [place] vs. transplanted heart: [place] heart Qualified Code(s): I25.10 - Atherosclerotic heart disease of [place] coronary artery without angina pectoris (4) PAD (peripheral artery disease): 11/2015: Left common femoral artery was used to performed peripheral angiogram by Dr. Lockwood. Unsuccessful attempt to cross a right common iliac highly calcified and tortuous stenosis with left femoral approach. We then switched to retrograde right common femoral approach to perform balloon angioplasty followed by stenting of the 90% highly calcified right common iliac ostial stenosis which remains successfully. Successful REGISTERED NURSE BEHAVIORAL HEALTH /stenting of the right common iliac artery Status: Chronic (5) HTN (hypertension) with goal to be determined: Status: Acute (6) Hyperlipidemia due to dietary fat intake: Status: Acute Plan Mild hypokalemia Attestations Medical Necessity Statement*: stable to be discharged from cardiac standpoint Time Spent in Patient Care: 16 - 35 minutes Coding Level of Care Code Acute Lumber Straightened for [facility] Fwd Exam Comprehensive Diagnoses Non-ST elevation [place] (NSTEMI) I21.4 Atrial fibrillation I48.91 CAD (coronary artery disease) I25.10 Associated angina: without angina Coronary Disease-Associated Artery/Lesion type: [place] artery [place] vs. transplanted heart: [place] heart PAD (peripheral artery disease) I73.9 HTN (hypertension) with goal to be determined I10 Hyperlipidemia due to dietary fat intake E78.49
--- NOTE | 2022-04-08 13:41 | PC.NURSE ---
Discharge Note Patient discharged to home via private vehicle accompanied by family. Discharge instructions reviewed with patient and/or product support sales representative. Mobile pharmacy medications and/or prescriptions provided. Belongings/home medications returned.
[2022-04-08 13:42] VITALS: BP 151/82; PULSE 68; RESP 13; TEMP 36.7; O2SAT 97
--- NOTE | 2022-04-16 16:03 | P.DS_ITS ---
Discharge Providers Date of Admission: 04/05/22 22:52 Date of Discharge: 04/08/22 Attending Provider at Admission: Claude Schumacher MD Attending Provider at Discharge: Gurjit Guy DO Consults: Cardiology Primary Care Provider: Lali Givens MD Diagnoses at Discharge Discharge Diagnosis (1) Non-ST elevation [place] (NSTEMI): Status: Resolved (2) Atrial fibrillation: Status: Inactive (3) CAD (coronary artery disease): Status: Acute Qualifiers: Associated angina: without angina Coronary Disease-Associated Artery/Lesion type: [place] artery [place] vs. transplanted heart: [place] heart Qualified Code(s): I25.10 - Atherosclerotic heart disease of [place] coronary artery without angina pectoris (4) PAD (peripheral artery disease): Status: Inactive (5) HTN (hypertension) with goal to be determined: Status: Acute (6) Hyperlipidemia due to dietary fat intake: Status: Inactive Reason for Visit Reason for Visit: chest pain Brief History: Chest pain with known CAD s/p CABG. Pt with NSTEMI with delta trop of 40. Hospital Course Hospital Course Patient admitted with dx of NSTEMI with delta trop of 40. Chest pain resolved after nitro and MSO4. He was given ASA and lovenox. After a cooling off period pt had a stress test that showed SVG to RCA is culprit however not amendable to intervention. Treat medically by increasing metoprolol to 25 ng bid.? I wondered about adding a long acting nitrate? Pt was discharged home in stable and improved condition the following day. Physical Exam Narrative: Patient alert and oriented no acute distress Heart irr eg rhythm normal S 1-S2 without murmu rs clicks gallops or rubs Lungs: [place] ar to auscultation without wheezes r ales or rhonchi Ab domen soft nontend er positive bowel sounds Extremities no clubbing cyano sis or edema Discharge Data Studies Completed and Pending Completed Studies During Hospitalization Category Date Time Status XR chest 1V portable [id number] Stat Exams 04/05/22 13:47 Completed CV. echo wo/w contrast [id number] Stat Ultrasound 04/05/22 20:33 Completed Pending at discharge Category Date Time Status [employer] request for service Routine Exams 04/07/22 08:41 Taken Radiology Impressions Chest X-Ray 04/05/22 13:47 IMPRESSION: No acute findings. Laboratory Results WBC 11.9 10^3/uL (4.0-10.0) H 04/08/22 02:53 RBC 4.06 10^6/uL (4.1-5.3) L 04/08/22 02:53 Hgb 13.3 g/dL (11.7-16.6) 04/08/22 02:53 Hct 40.4 % (42.0-52.0) L 04/08/22 02:53 MCV 99.5 fl (80-94) H 04/08/22 02:53 MCH 32.8 pg (28.0-34.0) 04/08/22 02:53 MCHC 32.9 g/dL (30.0-36.0) 04/08/22 02:53 RDW 13.0 % (12.1-15.1) 04/08/22 02:53 Plt Count 196 10^3/cmm (130-400) 04/08/22 02:53 MPV 10.4 fL (7.4-10.4) 04/08/22 02:53 Neut % (Auto) 62.7 % 04/08/22 02:53 Lymph % (Auto) 20.7 % 04/08/22 02:53 [place] % (Auto) 12.4 % 04/08/22 02:53 Eos % (Auto) 3.2 % 04/08/22 02:53 Baso % (Auto) 0.5 % 04/08/22 02:53 Neut # (Auto) 7.46 10^3/uL (1.8-7.7) 04/08/22 02:53 Lymph # (Auto) 2.5 10^3/uL (0.8-4.8) 04/08/22 02:53 [place] # (Auto) 1.5 10^3/uL (0.2-0.9) H 04/08/22 02:53 Eos # (Auto) 0.4 10^3/uL (0.0-0.8) 04/08/22 02:53 Baso # (Auto) 0.1 10^3/uL (0.0-0.1) 04/08/22 02:53 Nucleated RBC % (auto) 0 % 04/08/22 02:53 Nucleated RBCs # 0.0 /100WBC 04/08/22 02:53 PT 13.90 SECONDS (12.1-14.9) 04/08/22 02:53 INR 1.04 (0.8-1.2) 04/08/22 02:53 Sodium 140 mmol/L (136-145) 04/08/22 02:53 Potassium 3.4 mmol/L (3.5-5.1) L 04/08/22 02:53 Chloride 100 mmol/L (98-107) 04/08/22 02:53 Carbon Dioxide 31 mmol/L (22-29) H 04/08/22 02:53 Anion Gap 12.4 (5-19) 04/08/22 02:53 BUN 22 mg/dL (8-23) 04/08/22 02:53 Creatinine 1.1 mg/dL (0.7-1.2) 04/08/22 02:53 GFR Calculation Not Reportable 04/08/22 02:53 Glucose 122 mg/dL (65-115) H 04/08/22 02:53 Estimat Average Glucose 111 04/06/22 02:33 Hemoglobin A1c 5.5 % (4.0-6.0) 04/06/22 02:33 Calculated Osmolality 295 mOsm/kg (285-295) 04/08/22 02:53 Calcium 8.8 mg/dL (8.5-10.5) 04/08/22 02:53 Phosphorus 3.9 mg/dL (2.5-4.5) 04/08/22 02:53 Magnesium 2.2 mg/dL (1.7-2.3) 04/05/22 15:55 Total Bilirubin 0.4 mg/dL (0.15-1.2) 04/08/22 02:53 AST 19 U/L (0-40) 04/08/22 02:53 ALT 30 U/L (0-41) 04/08/22 02:53 Alkaline Phosphatase 51 U/L (40-130) 04/08/22 02:53 Troponin T Gen 5 ng/L 69 ng/L (0-15) H 04/06/22 02:33 Troponin T Baseline 32 ng/L (0-15) H 04/05/22 15:55 Troponin T 120 Minute 75.20 ng/L (0-15) H 04/05/22 18:06 Delta Troponin T 43.20 ABS# (0-10) H* 04/05/22 18:06 Troponin T Hi Sens 6Hr 86.72 ng/L (0-15) H 04/05/22 21:42 Troponin T Hi Sens 6Hr Delta 54.72 ng/L (0-12) H* 04/05/22 21:42 NT-Pro-B Natriuret Pep 107 pg/mL (0-125) 04/06/22 02:33 NT-Pro-B Natriuret Pep Cancelled 04/06/22 02:33 Total Protein 5.6 g/dL (6.6-8.7) L 04/08/22 02:53 Albumin 3.5 g/dL (3.5-5.2) 04/08/22 02:53 Globulin 2.1 g/dL (1.3-4.6) 04/08/22 02:53 Triglycerides 379 mg/dL (0-150) H 04/05/22 15:55 Cholesterol 202 mg/dL (0-200) H 04/05/22 15:55 LDL Cholesterol, Calc 85 mg/dL (50-129) 04/05/22 15:55 HDL Cholesterol 41 mg/dL (60-100) L 04/05/22 15:55 LDL/HDL Ratio 2.07 RATIO (0.00-3.22) 04/05/22 15:55 Cholesterol/HDL Ratio 4.93 mg/dL (1.0-5.00) 04/05/22 15:55 TSH 1.02 uIU/mL (0.27-4.20) 04/05/22 15:55 Vitals Last Vital Signs Temp 98.0 F 04/08/22 13:42 Pulse 68 04/08/22 13:42 Resp 13 04/08/22 13:42 BP 151/82 04/08/22 13:42 Pulse Ox 97 04/08/22 13:42 O2 Del Method 04/08/22 08:00 O2 Flow Rate 2 04/07/22 17:33 FiO2 149 04/07/22 11:00 Discharge Plan Discharge Patient Disposition: Home Condition: Stable Prescriptions: New atorvastatin 40 mg Tablet 40 mg PO BEDTIME Qty: 30 0RF nitroglycerin 0.4 mg Tablet, Sublingual 0.4 mg sublingual Q5M PRN (Reason: Chest Pain) Qty: 30 0RF clopidogrel 75 mg Tablet 75 mg PO DAILY 30 Days Qty: 30 0RF Continued ascorbate calcium (vitamin C) 500 mg tablet 500 mg PO DAILY cholecalciferol (vitamin D3) 25 mcg (1,000 unit) capsule 50 mcg PO DAILY docusate sodium [Colace] 100 mg capsule 100 mg PO BEDTIME cyanocobalamin (vitamin B-12) 1,000 mcg capsule 1,000 mcg PO DAILY PreserVision AREDS [id number] capsule 1 cap PO AC omega-3 fatty acids 1,000 mg capsule 1,000 mg PO BID Eliquis 5 mg tablet 5 mg PO BID tramadol 50 mg tablet 50 mg PO QID PRN (Reason: Pain) mirtazapine 30 mg tablet 45 mg PO BEDTIME zolpidem 5 mg tablet 5 mg PO BEDTIME PRN (Reason: Sleep) chlorthalidone 25 mg tablet 25 mg PO DAILY Qty: 90 3RF valsartan 80 mg tablet 80 mg PO DAILY Qty: 90 3RF prazosin 2 mg Capsule 4 mg PO BID potassium chloride 20 mEq Tablet Extended Release 10 meq PO DAILY Changed metoprolol tartrate 25 mg tablet 25 mg PO BID Qty: 60 0RF Held aspirin [Adult Aspirin Regimen] 81 mg tablet,delayed release (DR/EC) 81 mg PO DAILY Hold Instructions: Resume on 05/07/22. Discontinued pravastatin 20 mg tablet 20 mg PO DAILY Discharge Orders: Discharge Order (Routine); Ordered 04/08/22 Ordered By: Gurjit Guy Referrals: Lali Givens MD [Primary Care Provider] - 04/15/22 2:00 pm Giuseppe Broderick MD [Physician] - 07/14/22 11:30 am Chantel Huerta FNP [Nurse Practitioner] - 04/15/22 10:30 am Discharge Diet: Cardiac Discharge Activity: Increase activity as tolerated Patient Instructions: Coronary Artery Disease (GEN), Chest Pain Stoplight, Post Angiogram Home Care Instructions Activity Restrictions/Additional Instructions: * Do not lift anything more than 5 lbs for 1 week. Keep the site dry and clean * Take medications as prescribed and follow up as scheduled. * TAKE CLOPIDOGREL 75 MG DAILY FOR 1 MONTH AND THEN START ASA 81 MG DAILY * Call our office with any worsening chest pains/ episodes of atrial fibrillation. Discharge Attestations Time Spent in Discharge Care*: less than 30 min Quality Metrics Clinical Quality Measures [ Acute Myocardial Infaction { Clinical Trial Participant: No; Contraindication to aspirin: None; Aspirin prescribed; Contraindication to statin: None; Statin prescribed; Contraindication to PCI: Intervention not indicated;}] Coding Level of Care Code Acute Chg FW DC note Diagnoses Non-ST elevation [place] (NSTEMI) I21.4 Atrial fibrillation I48.91 CAD (coronary artery disease) I25.10 Associated angina: without angina Coronary Disease-Associated Artery/Lesion type: [place] artery [place] vs. transplanted heart: [place] heart PAD (peripheral artery disease) I73.9 HTN (hypertension) with goal to be determined I10 Hyperlipidemia due to dietary fat intake E78.49
== END 2022-04-08 13:43 | disposition home or self-care (01) | DRG 281 ==
LOC: ER 20:18 → ER IP 22:59 → ICU 04-06 06:14 → MEDSURG 04-07 02:04 → CSU 04-07 10:25 → MEDSURG 04-07 17:23
PROVIDERS: Emergency Medicine; Internal Medicine; Admitting Provider Family Medicine; Emergency Provider Emergency Medicine; PCP Family Medicine; Visit Provider Internal Medicine
PROC: B2111ZZ Fluoroscopy of Multiple Coronary Arteries using Low Osmolar Contrast (ICD-10-PCS; principal; 2022-04-07 08:30)
DX: I21.4 Non-ST elevation (NSTEMI) myocardial infarction (principal); I25.719 Atherosclerosis of autologous vein coronary artery bypass graft(s) with unspecified angina pectoris; I25.119 Atherosclerotic heart disease of native coronary artery with unspecified angina pectoris; I10 Essential (primary) hypertension; E78.49 Other hyperlipidemia; I48.91 Unspecified atrial fibrillation; I73.9 Peripheral vascular disease, unspecified; Z95.820 Peripheral vascular angioplasty status with implants and grafts; Z87.891 Personal history of nicotine dependence; Z79.01 Long term (current) use of anticoagulants; Z79.891 Long term (current) use of opiate analgesic
CPT/HCPCS: 36415; 71045; 80048; 80053; 80061; 83036; 83735; 83880; 84100; 84443; 84484; 85025; 85610; 93005; 93306; 93455; 94664; 96360; 96365; 96366; 96372; 99152; 99153; 99285; C1769; C1887; C1894; C8929; J1644; J1650; J2250; J3010; J3480; J3490; J7030; Q0163; Q9956; Q9967

== ENCOUNTER → 2022-04-15 10:18 | Outpatient (BNVA) | payer OTHER, SELFPAY | PROVIDERS: PCP Family Medicine; Visit Provider Nurse Practitioner Family | DX: I25.10 Atherosclerotic heart disease of native coronary artery without angina pectoris (principal); I10 Essential (primary) hypertension; Z95.1 Presence of aortocoronary bypass graft; Z87.891 Personal history of nicotine dependence | CPT/HCPCS: 99213 ==

== ENCOUNTER → 2022-05-26 14:05 | Outpatient (BNVA) | payer OTHER, SELFPAY | PROVIDERS: PCP Family Medicine; Visit Provider Internal Medicine Cardiovascular Disease | DX: I25.10 Atherosclerotic heart disease of native coronary artery without angina pectoris (principal); I10 Essential (primary) hypertension; Z95.1 Presence of aortocoronary bypass graft; Z87.891 Personal history of nicotine dependence; I48.91 Unspecified atrial fibrillation; Z79.01 Long term (current) use of anticoagulants; Z79.82 Long term (current) use of aspirin; I73.9 Peripheral vascular disease, unspecified; E78.5 Hyperlipidemia, unspecified | CPT/HCPCS: 99214 ==

== ENCOUNTER 2022-05-28 11:08 | Observation (INO) | payer OTHER, SELFPAY ==
[2022-05-28] VITALS (30 sets, daily range): BP systolic 107–130; BP diastolic 55–84; PULSE 52–144; RESP 13–21; TEMP 36.5–36.8; O2SAT 92–96; BMI 36.9
--- NOTE | 2022-05-28 11:24 | ECG_ITS ---
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 Measurements Intervals [place] Rate: 134 P: SD: QRS: 63 QRSD: 85 T: -19 QT: 252 QTc: 376 Interpretive Statements ATRIAL FIBRILLATION WITH RAPID VENTRICULAR RESPONSE NONSPECIFIC ST & T-WAVE ABNORMALITY Compared to ECG 04/05/2022 21:47:34 Sinus rhythm no longer present Ventricular premature complex(es) no longer present T-wave abnormality still present Electronically Signed On 05-28-2022 14:47:19 CDT by Parth Butler M.D. [email or web address] Pharmaceuticalsuniversity [email or web address]/store/OM/[id number]
--- NOTE | 2022-05-28 11:25 | ECG_ITS ---
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 Measurements Intervals [place] Rate: 114 P: SD: QRS: 60 QRSD: 89 T: -38 QT: 222 QTc: 306 Interpretive Statements ATRIAL FIBRILLATION WITH RAPID VENTRICULAR RESPONSE NONSPECIFIC ST & T-WAVE ABNORMALITY Compared to ECG 05/28/2022 11:24:24 No significant changes Electronically Signed On 05-28-2022 14:47:16 CDT by Parth Butler M.D. [email or web address]/store/OM/[id number]
--- NOTE | 2022-05-28 11:48 | XRR_ITS ---
PROCEDURE INFORMATION: Exam: XR Chest Exam date and time: 05/28/2022 11:58 AM Age: 72 years old Clinical indication: Pain; Angina pectoris; Prior surgery; Additional info: Chest pain TECHNIQUE: Imaging protocol: Radiologic exam of the chest. Views: 1 view. COMPARISON: CR XR chest 1V portable [id number] 04/05/2022 2:29 PM FINDINGS: Lungs: Unremarkable. No consolidation. Pleural spaces: Unremarkable. No pleural effusion. No pneumothorax. Heart/Mediastinum: The heart is normal for the AP projection and patient rotation. Bones/joints: Median sternotomy. XR/XR chest 1V portable [id number] IMPRESSION: No acute abnormality.
[2022-05-28 12:02] LABS: Basophils % 0.1 %; Eosinophils % 0.1 %; Hematocrit 47.6 % (42.0-52.0); Hemoglobin 16.4 g/dL (11.7-16.6); Lymphocytes # 1.2 10^3/uL (0.8-4.8); Lymphocytes % 8.3 %; Mean Corpuscular HGB Conc 34.5 g/dL (30.0-36.0); Mean Corpuscular Hemoglobin 34.3 pg (28.0-34.0); Mean Corpuscular Volume 99.6 fl (80-94); Mean Platelet Volume 10.4 fL (7.4-10.4); Monocytes # 0.7 10^3/uL (0.2-0.9); Monocytes % 4.6 %; Neutrophils # 12.83 10^3/uL (1.8-7.7); Neutrophils % 86.2 %; Nucleated Red Blood Cells % 0 %; Platelet Count 244 10^3/cmm (130-400); Red Blood Count 4.78 10^6/uL (4.1-5.3); Red Cell Distribution Width 13.1 % (12.1-15.1); White Blood Count 14.9 10^3/uL (4.0-10.0)
--- NOTE | 2022-05-28 12:08 | W.ED.GENADLT ---
HPI - General Adult General: Chief complaint: Chest Pain Stated complaint: Chest Pain Time Seen by Provider: 05/28/22 11:47 History of Present Illness: Patient is a 72-year-old female with history of CAD w/ double bypas, atrial fibrillation on Eliquis, hypertension, hyperlipidemia, PAD who presents emergency room with complaints of chest pain since an hour ago. Patient has been a he was at home sitting down when suddenly he began severe pressure-like chest pain lasting for about 30 minutes with associated shortness of breath. Patient denies any nausea/vomit, diaphoresis, pleuritic chest pain, or knife stabbing chest pain. Patient has any leg swelling, cough, runny nose sore throat, fever or chills. Patient has no focal abdominal complaints or complaints. Onset: 1 hr ago Duration:ongoing intermittent Location:home Severity:moderate Associated symptoms: Reports chest pain and dyspnea; Deny nausea, rash, palpitations or vomiting Review of Systems Const: Denies: fever(s) or chills Eyes: Denies: change in vision ENMT: Denies: mouth pain Card: Reports: chest pain; Denies: palpitations Resp: Reports: dyspnea; Denies: non-productive cough GI: Denies: abdominal pain, nausea, vomiting or diarrhea : Denies: dysuria Musc: Denies: extremity pain Skin/Breast: Denies: rash or new lesions Neuro: Denies: weakness in extremities Psych: Reports: other (Normal mood) Bal/Lymph: Denies: easy bruising PFSH ED PFSH: Medical History Atrial fibrillation CAD (coronary artery disease) HTN (hypertension) with goal to be determined Hyperlipidemia due to dietary fat intake PAD (peripheral artery disease) Surgical History Hx of bilateral cataract extraction Hx of cholecystectomy Hx of hernia repair S/P CABG (coronary artery bypass graft) Family History Father CAD (coronary artery disease), Onset Age: 60 Stroke Family/Other Dementia Brother Lung disease Denies family history of Diabetes Clotting disorder Chronic kidney disease (CKD) Suicide Anesthesia complication Bleeding disorder Cancer Social History Smoking and tobacco status: former smoker Alcohol intake: former Physical Exam Const: COMMON NORMALS: alert HENMT: COMMON NORMALS: atraumatic HEAD & SCALP: atraumatic MOUTH: moist mucous membranes not abnormal Eye: COMMON NORMALS: EOMs intact bilaterally and conjunctivae normal CONJUNCTIVA: Yes conjunctivae normal Neck/C-Spine: COMMON NORMALS: full ROM and supple Resp: COMMON NORMALS: normal respiratory effort and clear to auscultation bilaterally AUSCULTATION: clear to auscultation bilaterally Cardio: COMMON NORMALS: regular rate RATE: regular rate OTHER: 2+ radial pulses b/l GI: COMMON NORMALS: Soft to palpation and non-tender PALPATION: Yes Soft to palpation OTHER: No focal TTP. NO guarding rebound, guarding, rigidity. No CVA tenderness to percussion. Neg Chou/Neg McBurney's point tenderness, no suprabupic tenderness to palpation. Extremity: COMMON NORMALS: full ROM Neuro: SENSORIUM/ORIENTATION: Yes alert MOTOR EXAM: No Abnormal motor strength present and Other motor observations present (no focal motor deficits) Psych: COMMON NORMALS: speech normal SPEECH: Yes normal speech MOOD & AFFECT: Yes euthymic mood Course Vital Signs: Vital signs: Vital Signs Temperature 97.9 F 05/28/22 11:38 Pulse Rate 131 H 05/28/22 11:38 Respiratory Rate 16 05/28/22 11:38 Blood Pressure 130/84 05/28/22 11:38 Pulse Oximetry 95 05/28/22 11:38 Oxygen Delivery Me thod 05/28/22 11:38 MDM - General Adult Medical Decision Making Patient is a 72-year-old female with history of CAD w/ double bypas, atrial fibrillation on Eliquis, hypertension, hyperlipidemia, PAD who presents emergency room with complaints of chest pain since an hour ago. On physical dam initially, patient was noted to be in A. fib with RVR to the 130s. Patient however spontaneously reverted to normal sinus rhythm. Patient currently in regular rhythm. Patient is noted to have white count 14.9. Sodium 134. Troponin of 12. He did not show any signs of ST elevation or ST depression. Patient received aspirin. He is currently chest pain-free. XR. chest did not show any focal findings. Disposition: admission Lab Data : 05/28/22 11:40 05/28/22 11:40 Radiology Impressions Chest X-Ray 05/28/22 11:48 IMPRESSION: No acute abnormality. Laboratory Results WBC 14.9 10^3/uL (4.0-10.0) H 05/28/22 11:40 RBC 4.78 10^6/uL (4.1-5.3) 05/28/22 11:40 Hgb 16.4 g/dL (11.7-16.6) 05/28/22 11:40 Hct 47.6 % (42.0-52.0) 05/28/22 11:40 MCV 99.6 fl (80-94) H 05/28/22 11:40 MCH 34.3 pg (28.0-34.0) H 05/28/22 11:40 MCHC 34.5 g/dL (30.0-36.0) 05/28/22 11:40 RDW 13.1 % (12.1-15.1) 05/28/22 11:40 Plt Count 244 10^3/cmm (130-400) 05/28/22 11:40 MPV 10.4 fL (7.4-10.4) 05/28/22 11:40 Neut % (Auto) 86.2 % 05/28/22 11:40 Lymph % (Auto) 8.3 % 05/28/22 11:40 [place] % (Auto) 4.6 % 05/28/22 11:40 Eos % (Auto) 0.1 % 05/28/22 11:40 Baso % (Auto) 0.1 % 05/28/22 11:40 Neut # (Auto) 12.83 10^3/uL (1.8-7.7) H 05/28/22 11:40 Lymph # (Auto) 1.2 10^3/uL (0.8-4.8) 05/28/22 11:40 [place] # (Auto) 0.7 10^3/uL (0.2-0.9) 05/28/22 11:40 Eos # (Auto) 0.0 10^3/uL (0.0-0.8) 05/28/22 11:40 Baso # (Auto) 0.0 10^3/uL (0.0-0.1) 05/28/22 11:40 Nucleated RBC % (auto) 0 % 05/28/22 11:40 Nucleated RBCs # 0.0 /100WBC 05/28/22 11:40 D-Dimer Cancelled 05/28/22 11:40 Sodium 134 mmol/L (136-145) L 05/28/22 11:40 Potassium 3.8 mmol/L (3.5-5.1) 05/28/22 11:40 Chloride 95 mmol/L (98-107) L 05/28/22 11:40 Carbon Dioxide 25 mmol/L (22-29) 05/28/22 11:40 Anion Gap 17.8 (5-19) 05/28/22 11:40 BUN 28 mg/dL (8-23) H 05/28/22 11:40 Creatinine 1.1 mg/dL (0.7-1.2) 05/28/22 11:40 GFR Calculation Not Reportable 05/28/22 11:40 Glucose 169 mg/dL (65-115) H 05/28/22 11:40 Calculated Osmolality 287 mOsm/kg (285-295) 05/28/22 11:40 Calcium 9.6 mg/dL (8.5-10.5) 05/28/22 11:40 Troponin T Baseline 12 ng/L (0-15) 05/28/22 11:40 TSH 1.06 uIU/mL (0.27-4.20) 05/28/22 11:40 Free T4 1.07 ng/dL (0.82-1.77) 05/28/22 11:40 Imaging Data Other Imaging: Radiologist's impression: [address] [address] XRay Report Signed Patient: Wilson Reyes Unit #: [id number] : 1950 Age/Sex: 72 / M ADM Date: 05/28/22 Loc: ER Room/Bed: Attending Dr: Ordering Provider/Ordering MD: July Romero MD Date of Service: 05/28/22 Procedure(s): XR chest 1V portable [id number] Accession Number(s): [id number] Report Number: [id number] PROCEDURE INFORMATION: Exam: XR Chest Exam date and time: 05/28/2022 11:58 AM Age: 72 years old Clinical indication: Pain; Angina pectoris; Prior surgery; Additional info: Chest pain TECHNIQUE: Imaging protocol: Radiologic exam of the chest. Views: 1 view. COMPARISON: CR XR chest 1V portable [id number] 04/05/2022 2:29 PM FINDINGS: Lungs: Unremarkable. No consolidation. Pleural spaces: Unremarkable. No pleural effusion. No pneumothorax. Heart/Mediastinum: The heart is normal for the AP projection and patient rotation. Bones/joints: Median sternotomy. XR/XR chest 1V portable [id number] IMPRESSION: No acute abnormality. ? Dictated By: Wilson Jauregui Signed By: Wilson Jauregui Signed Date/Time: 05/28/22 1225 DD/ 1158 Discharge Plan Discharge Patient Disposition: Admitted As Inpatient Clinical Impression: Chest pain Condition: Stable Coding Level of Care Code ED Head Bucker for Nhang Fwd Exam Comprehensive
[2022-05-28] MEDS: metoprolol tartrate 25 mg Tablet PO (12:12)
[2022-05-28 12:18] LABS: Troponin(5th) Baseline 12 ng/L (0-15)
[2022-05-28 12:26] LABS: Anion Gap 17.8 (5-19); Blood Urea Nitrogen 28 mg/dL (8-23); Calcium 9.6 mg/dL (8.5-10.5); Carbon Dioxide 25 mmol/L (22-29); Chloride 95 mmol/L (98-107); Free T4 Free Thyroxine 1.07 ng/dL (0.82-1.77); Glucose 169 mg/dL (65-115); Osmolality Calculated 287 mOsm/kg (285-295); Potassium 3.8 mmol/L (3.5-5.1); Sodium 134 mmol/L (136-145); Thyroid Stimulating Hormone 1.06 uIU/mL (0.27-4.20)
[2022-05-28] MEDS: aspirin 325 mg Tablet PO (13:08)
--- NOTE | 2022-05-28 13:44 | PC.PHAR ---
PT STATES HE TAKES CARE OF HIS OWN MEDICATIONS-PT STATES THE PLAVIX WAS DCED 05/07/22-PT STATES HE FINISHED HIS MEDROL DOSE PACK FILLED 05/20/22 6D/S-PT STATES STILL TAKING KEFLEX 500MG TID FILLED 05/20/22 7D/S PT STATES HE HAS 2 CAPS LEFT-
--- NOTE | 2022-05-28 13:45 | P.HP_ITS ---
Providers/Chief Complaint Admitting Physician: Claude Schumacher MD Primary Care Provider: Lali Givens MD Chief Complaint: Chest Pain History of Present Illness Wilson Reyes is a 72 year old male with a past medical history of atrial fibrillation on Eliquis, bradycardia, hyperlipidemia, hypertension, recent history of CAD found to have occlusion of shoshone-bannock distal RCA with patent venous graft, distal RCA was diffusely diseased, opted for medical treatment, circumflex was also found to have moderate disease, who presents to [facility] for chest pain. Patient tells me that he has not had any chest pain since his hospitalization, today, he started develop substernal chest pain, improved with nitroglycerin, no lightheadedness, dizziness, diaphoresis, the emergency room, he was found to have no acute ST-T wave changes noted EKG was actually found to have A. fib with RVR, however currently his heart rates in the 60s atrial fibrillation, he is to call his medications received aspirin 325, chest pain-free ER physician has spoken to cardiology, plan on hospitalization Review of Systems Const: Denies: fever(s) Card: Reports: chest pain Resp: Denies: dyspnea Medications/Allergies Home Medications Medication Instructions Recorded Confirmed Last Taken Type apixaban 5 mg tablet (Eliquis) 5 mg PO BID 02/26/20 04/15/22 Unknown History ascorbate calcium (vitamin C) 500 500 mg PO DAILY 02/26/20 04/15/22 Unknown History mg tablet aspirin 81 mg tablet,delayed 81 mg PO DAILY 02/26/20 04/15/22 Unknown History release (Adult Aspirin Regimen) cholecalciferol (vitamin D3) 25 50 mcg PO DAILY 02/26/20 04/15/22 Unknown History mcg (1,000 unit) capsule cyanocobalamin (vitamin B-12) 1,000 mcg PO DAILY 02/26/20 04/15/22 Unknown History 1,000 mcg capsule docusate sodium 100 mg capsule 100 mg PO BEDTIME 02/26/20 04/15/22 Unknown H istory (Colace) omega-3 fatty acids 1,000 mg 1,000 mg PO BID 02/26/20 04/15/22 Unknown History capsule tramadol 50 mg tablet 50 mg PO QID PRN Pain 02/26/20 04/15/22 Unknown History vitamins A,C,X-mqbe-xurgfm 14,320 1 cap PO AC 02/26/20 04/15/22 Unknown History unit-226 mg-200 unit capsule (PreserVision AREDS) zolpidem 5 mg tablet 5 mg PO BEDTIME PRN Sleep 09/22/21 04/15/22 Unknown History potassium chloride 20 mEq 10 meq PO DAILY 04/06/22 04/15/22 Unknown History tablet,extended release prazosin 2 mg capsule 4 mg PO BID 04/06/22 04/15/22 Unknown History atorvastatin 40 mg tablet 40 mg PO BEDTIME #30 tabs 04/08/22 04/15/22 Unknown Rx metoprolol tartrate 25 mg tablet 25 mg PO BID #60 tabs 04/08/22 04/15/22 Unknown Rx cephalexin 500 mg capsule 500 mg PO TID 05/28/22 05/28/22 05/28/22 History HAS 2 CAP LEFT chlorthalidone 25 mg tablet 25 mg PO QAM 05/28/22 05/28/22 05/28/22 History mirtazapine 45 mg tablet 45 mg PO BEDTIME 05/28/22 05/28/22 05/27/22 History nitroglycerin 0.4 mg sublingual 0.4 mg sublingual Q5M PRN Chest 05/28/22 05/28/22 05/28/22 History tablet (Nitrostat) Pain valsartan 80 mg tablet 80 mg PO QAM 05/28/22 05/28/22 05/28/22 History Allergies Allergy/AdvReac Type Severity Reaction Status Date / Time No Known Allergies Allergy Verified 05/28/22 13:37 PFSH Acute PFSH: Medical History Atrial fibrillation CAD (coronary artery disease) HTN (hypertension) with goal to be determined Hyperlipidemia due to dietary fat intake PAD (peripheral artery disease) Surgical History Hx of bilateral cataract extraction Hx of cholecystectomy Hx of hernia repair S/P CABG (coronary artery bypass graft) Family History Father CAD (coronary artery disease), Onset Age: 60 Stroke Family/Other Dementia Brother Lung disease Denies family history of Diabetes Clotting disorder Chronic kidney disease (CKD) Suicide Anesthesia complication Bleeding disorder Cancer Social History Smoking and tobacco status: former smoker Alcohol intake: former Vitals/I&O/Wt Last Vital Signs Temp 97.9 F 05/28/22 11:38 Pulse 64 05/28/22 13:05 Resp 16 05/28/22 13:05 BP 107/57 05/28/22 13:05 Pulse Ox 95 05/28/22 13:05 O2 Del Method 05/28/22 11:38 Weight last 48 hrs Weight 100.698 kg Physical Exam Const: COMMON NORMALS: no acute distress and patient oriented x3 HENMT: COMMON NORMALS: normocephalic HEAD & SCALP: normocephalic Eye: COMMON NORMALS: Equal, round and reactive pupils present and EOMs intact bilaterally Neck/C-Spine: COMMON NORMALS: no JVD Resp: COMMON NORMALS: normal respiratory effort, No retractions, No use of accessory muscles and clear to auscultation bilaterally AUSCULTATION: clear to auscultation bilaterally Cardio: COMMON NORMALS: no JVD, regular rate, regular rhythm, S1 normal heart sound present and S2 normal heart sound present RATE: regular rate RHYTHM: abnormal rhythm HEART SOUNDS: S1 normal heart sound present and S2 normal heart sound present GI: COMMON NORMALS: Normal to inspection, nondistended, normoactive bowel sounds present, Soft to palpation, non-tender and No hepatosplenomegaly present Extremity: COMMON NORMALS: capillary refill normal, no clubbing, cyanosis or edema, no calf tenderness and no pedal edema Neuro: COMMON NORMALS: patient oriented x3, CN's II-XII intact bilaterally, moves all extremities and no focal motor deficits Psych: COMMON NORMALS: mental status grossly normal Data : 05/28/22 11:40 05/28/22 11:40 A&P Assessment and plan (1) Non-ST elevation CA (NSTEMI): Serial EKGs, serial troponins, telemetry monitoring Continue aspirin, statin, Eliquis, beta-timothy Monitor for chest pain Cardiology consult Full code Eliquis for DVT prophylaxis (2) Atrial fibrillation: Paroxysmal atrial fibrillation (3) CAD (coronary artery disease): s/p CABGx2 at [place] in 2001 -Pt had a cardiac catheterization since the last visit.? He is found to have occlusion of the shoshone-bannock distal RCA with a patent venous graft.? The shoshone-bannock dis channing RCA was diffusely diseased and was a small caliber.? He had a fairly good xufc-cq-kkxhb collaterals.? It was opted to treat him medically.? The VILLARREAL to the LAD was found to be patent.? Circumflex artery was found to have moderate disease. Qualifiers: Coronary Disease-Associated Artery/Lesion type: shoshone-bannock artery [place] vs. transplanted heart: shoshone-bannock heart Associated angina: without angina Qualified Code(s): I25.10 - Atherosclerotic heart disease of shoshone-bannock coronary artery without angina pectoris (4) PAD (peripheral artery disease): 11/2015: Left common femoral artery was used to performed peripheral angiogram by Dr. Lockwood. Unsuccessful attempt to cross a right common iliac highly calcified and tortuous stenosis with left femoral approach. We then switched to retrograde right common femoral approach to perform balloon angioplasty followed by stenting of the 90% highly calcified right common iliac ostial stenosis which remains successfully. 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 transplanted heart: shoshone-bannock heart Associated angina: without angina PAD (peripheral artery disease) I73.9 HTN (hypertension) with goal to be determined I10 Hyperlipidemia due to dietary fat intake E78.49 Chest pain R07.9 Intermittent atrial fibrillation I48.0 Dyslipidemia E78.5
--- NOTE | 2022-05-28 13:48 | ECG_ITS ---
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 Measurements Intervals [place] Rate: 54 P: 36 CA: 168 QRS: 40 QRSD: 78 T: 32 QT: 389 QTc: 369 Interpretive Statements SINUS BRADYCARDIA NONSPECIFIC T-WAVE ABNORMALITY Compared to ECG 05/28/2022 11:25:36 Atrial fibrillation no longer present T-wave abnormality still present Electronically Signed On 05-28-2022 14:48:40 CDT by Parth Butler M.D. [email or web address].[employer]/store/OM/[id number]
[2022-05-28 14:07] LABS: NT Pro B Type Natriuretic Pept 129 pg/mL (0-125)
--- NOTE | 2022-05-28 14:07 | USCV_ITS ---
Wilson Reyes Age: 72 Gender: M : 1950 Exam Date: 05/28/2022 14:41 Ordering Phys: Claude Schumacher MD Technologist: SAAD Exam Location: [facility] Indication: CHEST PAIN BP: 119 / 63 HR: 51 Rhythm: Sinus Technical Quality: Suboptimal MEASUREMENTS (Male / Female) Normal Values 2D ECHO LV Diastolic Diameter PLAX 4.3 cm 4.2 - 5.9 / 3.9 - 5.3 cm LV Systolic Diameter PLAX 2.7 cm IVS Diastolic Thickness 1.4 cm 0.6 - 1.0 / 0.6 - 0.9 cm IVS Systolic Thickness 1.7 cm LVPW Diastolic Thickness 1.1 cm 0.6 - 1.0 / 0.6 - 0.9 cm LVPW Systolic Thickness 1.9 cm LVOT Diameter 2.0 cm LV Ejection Fraction 2D Teich 68.4 % LV Ejection Fraction MOD 2C 69.6 % LV Ejection Fraction 2C AL 69.3 % LA Diameter 3.8 cm LA Width 3.6 cm LA Height 4.5 cm RA Width 4.2 cm RA Height 4.2 cm Aorta at Sinotubular Diameter 2.2 cm IVC Diameter 1.9 cm M-MODE Aortic Annulus Diameter 2.6 cm LA Ao Ratio MM 1.4 MV E Point Septal Separation 0.3 cm DOPPLER AV Peak Velocity 136.0 cm/s LVOT Peak Velocity 103.0 cm/s AV Area Cont Eq vti 2.8 cm squared AV Area Cont Eq pk 2.4 cm squared MV Peak Velocity 85.0 cm/s MV Area PHT 3.1 cm squared Mitral E to A Ratio 1.1 MV E' Velocity 43.5 cm/s Mitral E to MV E' Ratio 8.0 Mitral E to LV E' Lateral Ratio 7.4 Mitral E to LV E' Septal Ratio 8.7 TV Peak E Velocity 44.0 cm/s Right Atrial Pressure 3.0 mmHg PV Peak Velocity 119.0 cm/s RV Acceleration Time 0.1 s RV Ejection Time 0.3 s RV AcT/ET 0.4 FINDINGS Left Ventricle Echo contrast was used for the LV function analysis. LV ejection fraction appears within normal limits. No gross wall motion normalities were noted.. Evaluation of estimated EF 69% based on method of disc Right Ventricle Right ventricle appears to be mildly dilated with diffuse hypokinesia Right Atrium Could not be visualized well Left Atrium Could not be visualized well Mitral Valve No gross abnormalities noted Aortic Valve Could not be visualized well Tricuspid Valve Could not be visualized well Pulmonic Valve Pulmonic valve not well visualized. Pericardium No pericardial effusion. Aorta Normal aortic annulus size. IVC Normal inferior vena cava. CONCLUSIONS Echo contrast was used for the LV function analysis. LV ejection fraction appears within normal limits. No gross wall motion normalities were noted.. Evaluation of estimated EF 69% based on method of disc. Right ventricle appears to be mildly dilated with diffuse hypokinesia. There is no pericardial effusion. Technically very difficult study because of poor ultrasonic window Dr Giuseppe Broderick MD FACC (Electronically Signed) Final Date: 28 May 2022 18:26 S
[2022-05-28 14:45] LABS: Thyroid Stimulating Hormone 1.03 uIU/mL (0.27-4.20)
[2022-05-28] MEDS: perflutren protein-a microsphr 0.22 mg/mL SDV 3 mL IV (15:37)
--- NOTE | 2022-05-28 17:20 | ECG_ITS ---
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 Measurements Intervals [place] Rate: 60 P: 42 KS: 172 QRS: 44 QRSD: 84 T: 29 QT: 400 QTc: 401 Interpretive Statements SINUS RHYTHM WITH OCCASIONAL SUPRAVENTRICULAR PREMATURE COMPLEXES NONSPECIFIC T-WAVE ABNORMALITY Compared to ECG 05/28/2022 13:26:35 Sinus bradycardia no longer present T-wave abnormality still present Electronically Signed On 05-28-2022 22:00:40 CDT by Parth Butler M.D. [email or web address] [email or web address] [email or web address]/[id number]
[2022-05-28 17:21] LABS: Troponin 5 6HR 192.1 ng/L (0-15); Troponin 5 6HR Delta 180.1 ng/L (0-12)
--- NOTE | 2022-05-28 17:22 | PM.CONSULT ---
Providers/Reason For Consult Consulting Physician/Specialty*: ABHIJIT Broderick MD/cardiology Reason for Consult*: Patient with unstable angina and elevated troponin T Requesting Physician: Dr. Schumacher Attending Physician: Claude Schumacher MD Primary Care Provider: Lali Givens MD History of Present Illness History of Present Illness Wilson Reyes is a 72 year old male with a history of severe coronary disease, status post two-vessel coronary bypass surgery in 2019, history of hypertension, dyslipidemia, chronic atrial fibrillation and peripheral artery disease, is present with complaints of prolonged episode of chest pain this morning. He was found to have elevated troponin T suggesting a non-ST relation myocardial infarction. Cardiology consult is requested for further cardiac evaluation recommendations. This patient was admitted to hospital recently, on 06 April, with unstable anginal symptoms and features suggesting non-ST elevation myocardial infarction. Subsequently he had a cardiac catheterization which revealed a patent VILLARREAL to the LAD and venous graft to the distal RCA. The [place] vessels distal to the anastomosis was subtotally occluded. The antegrade flow in the venous bypass graft is slightly sluggish. The right coronary artery and the left and descending artery were totally occluded proximally. The circumflex artery was found to give off a high obtuse marginal branch, which had a 60% diffuse narrowing in the proximal segment. The circumflex proper was found to have around 60% diffuse narrowing proximally. The intermedius artery also was found to have mild to moderate diffuse disease proximally. According the patient, he has been doing okay up until this morning around 1030 when he started having pain while making his bed. The pain was in the mid substernal region, radiating to the neck and to the back. Intensity of the pain was around 9/10. He has no associated shortness of breath. The pain might have lasted for half an hour or so. Since there was no relief of the symptoms, he decided to come to the hospital. In the emergency room, the pain gradually started subsiding. At the time of my examination, patient is pain-free. He has no orthopnea or PND. No fever or chills. No cough. No other specific complaints. He has been compliant with medication. He is on long-term oral anticoagulation for atrial fibrillation. Has not had any bleeding complications. He also is known to have peripheral artery disease and had a recent intervention of the right iliac artery Review of Systems Narrative: GENERAL: The patient is alert and oriented times three. Not in any acute distress. HEENT: No significant pallor, icterus or lymphadenopathy.Oral cavity: There are no mucous membrane lesions. NECK: Trachea appears to be central. No masses noted. No JVD or thyromegaly appreciated. RESPIRATORY: Chest is symmetrical. No intercostals muscle retraction or any accessory muscle activation. There is no chest wall tenderness. Breath sounds are heard bilaterally. No rales or rhonchi heard. No evidence of any consolidation. BREASTS: Deferred. HEART: The heart sounds are normal. No S3 or S4. Short systolic murmur in the left sternal border. No diastolic murmurs. No pericardial rub ABDOMEN: No vessel pulsations or distention. No tenderness. No organomegaly appreciated. Bowel sounds are normally heard. : Deferred. RECTAL: Deferred. LYMPHATIC: No lymphadenopathy noted in the neck. EXTREMITIES: No edema or cyanosis. No clubbing. MUSCULOSKELETAL: No acute joint deformities or swelling SKIN: There are no significant rashes or ecchymosis NEUROPSYCHIATRIC: The patient is alert and oriented x3. Appears to be in a good mood. No tremors or rigidity noted. Medications/Allergies Home Medications Medication Instructions Recorded Confirmed Last Taken Type apixaban 5 mg tablet (Eliquis) 5 mg PO BID 02/26/20 05/28/22 05/28/22 10:00 History ascorbate calcium (vitamin C) 500 500 mg PO QAM 02/26/20 05/28/22 05/28/22 History mg tablet aspirin 81 mg tablet,delayed 81 mg PO QAM 02/26/20 05/28/22 05/28/22 History release (Adult Aspirin Regimen) cholecalciferol (vitamin D3) 25 50 mcg PO QAM 02/26/20 05/28/22 05/28/22 History mcg (1,000 unit) capsule cyanocobalamin (vitamin B-12) 1,000 mcg PO QAM 02/26/20 05/28/22 05/28/22 History 1,000 mcg capsule docusate sodium 100 mg capsule 200 mg PO BEDTIME 02/26/20 05/28/22 05/27/22 History (Colace) omega-3 fatty acids 1,000 mg 1,000 mg PO BID 02/26/20 05/28/22 05/28/22 History capsule tramadol 50 mg tablet 50 mg PO QID PRN Pain 02/26/20 05/28/22 05/28/22 History vitamins A,C,R-oicf-ttrywz 14,320 1 cap PO BID 02/26/20 05/28/22 05/28/22 History unit-226 mg-200 unit capsule (PreserVision AREDS) zolpidem 5 mg tablet 5 mg PO BEDTIME PRN Sleep 09/22/21 05/28/22 Unknown History potassium chloride 20 mEq 10 meq PO QAM 04/06/22 05/28/22 05/28/22 History tablet,extended release prazosin 2 mg capsule 4 mg PO BID 04/06/22 05/28/22 05/28/22 History atorvastatin 40 mg tablet 40 mg PO BEDTIME #30 tabs 04/08/22 05/28/22 05/27/22 Rx metoprolol tartrate 25 mg tablet 25 mg PO BID #60 tabs 04/08/22 05/28/22 05/28/22 10:00 Rx cephalexin 500 mg capsule 500 mg PO TID 05/28/22 05/28/22 05/28/22 History HAS 2 CAP LEFT chlorthalidone 25 mg tablet 25 mg PO QAM 05/28/22 05/28/22 05/28/22 History mirtazapine 45 mg tablet 45 mg PO BEDTIME 05/28/22 05/28/22 05/27/22 History nitroglycerin 0.4 mg sublingual 0.4 mg sublingual Q5M PRN Chest 05/28/22 05/28/22 05/28/22 History tablet (Nitrostat) Pain valsartan 80 mg tablet 80 mg PO QAM 05/28/22 05/28/22 05/28/22 History Allergies Allergy/AdvReac Type Severity Reaction Status Date / Time No Known Allergies Allergy Verified 05/28/22 13:37 Current Medications Generic Name Dose Route Start Last Admin Trade Name Freq PRN Reason Stop Dose Admin Non-Formulary Medication 1 cap 05/28/22 17:00 05/28/22 17:10 Vitamins A,C,R-[id number]-Vgtnfl [Preservision Areds] PO Not Given AC GREGORIO PFSH Acute PFSH: Medical History (Updated 05/28/22 @ 18:09 by Giuseppe Broderick MD) Atrial fibrillation CAD (coronary artery disease) HTN (hypertension) with goal to be determined Hyperlipidemia due to dietary fat intake PAD (peripheral artery disease) Surgical History Hx of bilateral cataract extraction Hx of cholecystectomy Hx of hernia repair S/P CABG (coronary artery bypass graft) Family History Father CAD (coronary artery disease), Onset Age: 60 Stroke Family/Other Dementia Brother Lung disease Denies family history of Diabetes Clotting disorder Chronic kidney disease (CKD) Suicide Anesthesia complication Bleeding disorder Cancer Social History Smoking and tobacco status: former smoker Alcohol intake: former Vitals/I&O/Wt Last Vital Signs Temp 98 F 05/28/22 15:43 Pulse 54 L 05/28/22 15:43 Resp 14 05/28/22 15:43 BP 112/55 05/28/22 15:43 Pulse Ox 95 05/28/22 17:10 O2 Del Method 05/28/22 17:10 Weight last 48 hrs Weight 222 lb Physical Exam Narrative: GENERAL: The patient is alert and oriented times three. Not in any acute distress. HEENT: No significant pallor, icterus or lymphadenopathy.Oral cavity: There are no mucous membrane lesions. NECK: Trachea appears to be central. No masses noted. No JVD or thyromegaly appreciated. RESPIRATORY: Chest is symmetrical. No intercostals muscle retraction or any accessory muscle activation. There is no chest wall tenderness. Breath sounds are heard bilaterally. No rales or rhonchi heard. No evidence of any consolidation. BREASTS: Deferred. HEART: The heart sounds are normal. No S3 or S4. Short systolic murmur the left sternal border. No pericardial rub. No pericardial rub ABDOMEN: No vessel pulsations or distention. No tenderness. No organomegaly appreciated. Bowel sounds are normally heard. : Deferred. RECTAL: Deferred. LYMPHATIC: No lymphadenopathy noted in the neck. EXTREMITIES: The dorsalis pedis and posterior pulses are weak bilaterally. No cyanosis. MUSCULOSKELETAL: No acute joint deformities or swelling SKIN: There are no significant rashes or ecchymosis NEUROPSYCHIATRIC: The patient is alert and oriented x3. Appears to be in a good mood. No tremors or rigidity noted. Data : 05/28/22 11:40 05/28/22 11:40 Other Labs: EKG from 05/28/2022 Sinus rhythm with a rate of 60 bpm. Occasional PACs. Diffuse nonspecific T wave changes. 04/07/22?Coronary Angiography 1. Left main artery: Patent, ? 2. distal vessel has 20% stenosis. Left circumflex artery: Has proximal 40 to 50% moderate stenosis. High OM: Patent. Has mild disease. Ramus intermedius artery: Small in size, patent. LAD: Ostially occluded RCA: Proximally occluded.? This is chronic total occlusion. SVG to RCA: Graft is patent however at anastomosis, [place] artery is diffusely diseased and has subtotal occlusion. Small sized [place] vessel. This is the likely culprit for NSTEMI VILLARREAL to LAD: Patent. ? 3. Culprit vessel for non-ST elevation [place] is SVG to RCA. Graft itself is patent.? [place] vessel is diffusely diseased and has subtotal occlusion.? Not amenable to revascularization.? Aggressive medical therapy. ? 4. Patient has prior CABG. 04/05/22 EKG SINUS RHYTHM WITH FREQUENT SUPRAVENTRICULAR AND VENTRICULAR PREMATURE COMPLEXES NONSPECIFIC ST & T-WAVE ABNORMALITY Compared to ECG 04/05/2022 16:39:54 Atrial fibrillation no longer present Incomplete right bundle-branch block no longer present Possible ischemia no longer present T-wave abnormality still present 04/05/22 Echo 1. Normal left ventricular cavity size and systolic function. ?Increased left ventricular wall thickness. Left ventricular ?ejection fraction is estimated at 60 %.? Although no diagnostic ?regional wall motion abnormality could be identified, this ?possibility cannot be completely excluded based on the study. ?2. This study was technically difficult in spite of using ?[employer]. ?3. No prior similar studies to compare. 02/03/22 arterial duplex Abnormal resting ABIs bilaterally, consistent with mild ?peripheral artery disease ?Compared to the study from 10/14/2015 the BERONICA on the right side ?has improved from 0.7? to 0.8 and on the left side it has ?decreased from 0.94 ? to? 0.8. Laboratory Last Values WBC 14.9 10^3/uL (4.0-10.0) H 05/28/22 11:40 RBC 4.78 10^6/uL (4.1-5.3) 05/28/22 11:40 Hgb 16.4 g/dL (11.7-16.6) 05/28/22 11:40 Hct 47.6 % (42.0-52.0) 05/28/22 11:40 MCV 99.6 fl (80-94) H 05/28/22 11:40 MCH 34.3 pg (28.0-34.0) H 05/28/22 11:40 MCHC 34.5 g/dL (30.0-36.0) 05/28/22 11:40 RDW 13.1 % (12.1-15.1) 05/28/22 11:40 Plt Count 244 10^3/cmm (130-400) 05/28/22 11:40 MPV 10.4 fL (7.4-10.4) 05/28/22 11:40 Neut % (Auto) 86.2 % 05/28/22 11:40 Lymph % (Auto) 8.3 % 05/28/22 11:40 Warren % (Auto) 4.6 % 05/28/22 11:40 Eos % (Auto) 0.1 % 05/28/22 11:40 Baso % (Auto) 0.1 % 05/28/22 11:40 Neut # (Auto) 12.83 10^3/uL (1.8-7.7) H 05/28/22 11:40 Lymph # (Auto) 1.2 10^3/uL (0.8-4.8) 05/28/22 11:40 Warren # (Auto) 0.7 10^3/uL (0.2-0.9) 05/28/22 11:40 Eos # (Auto) 0.0 10^3/uL (0.0-0.8) 05/28/22 11:40 Baso # (Auto) 0.0 10^3/uL (0.0-0.1) 05/28/22 11:40 Nucleated RBC % (auto) 0 % 05/28/22 11:40 Nucleated RBCs # 0.0 /100WBC 05/28/22 11:40 D-Dimer Cancelled 05/28/22 11:40 Sodium 134 mmol/L (136-145) L 05/28/22 11:40 Potassium 3.8 mmol/L (3.5-5.1) 05/28/22 11:40 Chloride 95 mmol/L (98-107) L 05/28/22 11:40 Carbon Dioxide 25 mmol/L (22-29) 05/28/22 11:40 Anion Gap 17.8 (5-19) 05/28/22 11:40 BUN 28 mg/dL (8-23) H 05/28/22 11:40 Creatinine 1.1 mg/dL (0.7-1.2) 05/28/22 11:40 GFR Calculation Not Reportable 05/28/22 11:40 Glucose 169 mg/dL (65-115) H 05/28/22 11:40 Calculated Osmolality 287 mOsm/kg (285-295) 05/28/22 11:40 Calcium 9.6 mg/dL (8.5-10.5) 05/28/22 11:40 Troponin T Baseline 12 ng/L (0-15) 05/28/22 11:40 Troponin T 120 Minute 58.80 ng/L (0-15) H 05/28/22 13:29 Delta Troponin T 46.80 ABS# (0-10) H* 05/28/22 13:29 Troponin T Hi Sens 6Hr 192.1 ng/L (0-15) H 05/28/22 16:41 Troponin T Hi Sens 6Hr Delta 180.1 ng/L (0-12) H* 05/28/22 16:41 NT-Pro-B Natriuret Pep 129 pg/mL (0-125) H 05/28/22 11:40 TSH 1.03 uIU/mL (0.27-4.20) 05/28/22 11:40 TSH 1.06 uIU/mL (0.27-4.20) 05/28/22 11:40 Free T4 1.07 ng/dL (0.82-1.77) 05/28/22 11:40 A&P Assessment and plan (1) Non-ST elevation myocardial infarction (NSTEMI), initial care episode: Patient has clinical features of non-ST relation myocardial infarction. He may be treated with subcu Lovenox, Plavix, aspirin, beta-timothy and statin. Eliquis may be held at this point. Elevated today echocardiogram would be helpful to evaluate the LV function and rule out any other pathology Most likely the RCA graft is getting completely occluded. If the patient has recurrence of chest pain, we may need to consider a repeat cardiac catheterization to reevaluate the coronary arteries. (2) Intermittent atrial fibrillation: Eliquis may be held at this point. May continue on the current medications. Patient is in sinus rhythm. (3) Dyslipidemia: May continue on the current medications. (4) HTN (hypertension) with goal to be determined: Currently normotensive. May continue on the current medications. (5) PAD (peripheral artery disease): Currently has no symptoms. May continue on the current medications. Plan Based on the clinical progress and the results of the above, further recommendations will be made. 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
--- NOTE | 2022-05-28 18:42 | ECG_ITS ---
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 Measurements Intervals [place] Rate: 58 P: 28 [place]: 159 QRS: 40 QRSD: 83 T: 64 QT: 385 QTc: 379 Interpretive Statements SINUS BRADYCARDIA WITH OCCASIONAL SUPRAVENTRICULAR PREMATURE COMPLEXES NONSPECIFIC T-WAVE ABNORMALITY Compared to ECG 05/28/2022 17:20:15 Sinus rhythm no longer present T-wave abnormality still present Electronically Signed On 05-28-2022 22:00:19 CDT by Parth Butler M.D. [email or web address] Chintaijefferson davis community hospitalBioTrace Medicalvan wert [facility].[place]/store/OM/[id number]
[2022-05-28] MEDS: apixaban 5 mg Tablet PO (19:02)
[2022-05-28] MEDS: omega-3 fatty acids 1,000 mg Capsule 1000 MG PO (19:03)
[2022-05-28] MEDS: mirtazapine 30 mg Tablet 45 MG PO (20:28)
[2022-05-28] MEDS: atorvastatin 40 mg Tablet PO (20:31)
[2022-05-28] MEDS: docusate sodium 100 mg Capsule PO (20:31)
[2022-05-28] MEDS: zolpidem 5 mg Tablet PO (20:32)
--- NOTE | 2022-05-28 20:40 | ECG_ITS ---
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 Measurements Intervals [place] Rate: 54 P: 48 [place]: 166 QRS: 40 QRSD: 81 T: 87 QT: 358 QTc: 341 Interpretive Statements SINUS BRADYCARDIA NONSPECIFIC T-WAVE ABNORMALITY Compared to ECG 05/28/2022 18:42:25 No significant changes Electronically Signed On 05-28-2022 22:00:13 CDT by Parth Butler M.D. [email or web address].[employer]/store/[id number]
[2022-05-28 21:08] LABS: Troponin(5th) Baseline 286 ng/L (0-15)
--- NOTE | 2022-05-28 21:34 | PC.NURSE ---
This RN agrees with all documentation and medication administration as demonstrated by student RN at this time. Will continue to monitor student activities.
--- NOTE | 2022-05-28 22:30 | ECG_ITS ---
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 Measurements Intervals [place] Rate: 64 P: 41 [place]: 159 QRS: 38 QRSD: 85 T: 42 QT: 364 QTc: 376 Interpretive Statements SINUS RHYTHM WITH FREQUENT SUPRAVENTRICULAR PREMATURE COMPLEXES NONSPECIFIC T-WAVE ABNORMALITY ABNORMAL RHYTHM ECG Compared to ECG 05/28/2022 20:40:21 Sinus bradycardia no longer present T-wave abnormality still present Electronically Signed On 05-29-2022 19:35:04 CDT by Giuseppe Broderick M.D. [email or web address] regional medical centerFerevolancaster municipal hospital.AppSocially/store/[id number]
[2022-05-29] VITALS (13 sets, daily range): BP systolic 94–138; BP diastolic 38–78; PULSE 51–72; RESP 15–18; TEMP 36.2–36.7; O2SAT 90–97
--- NOTE | 2022-05-29 02:34 | ECG_ITS ---
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 Measurements Intervals [place] Rate: 51 P: 50 NE: 180 QRS: 48 QRSD: 81 T: 71 QT: 434 QTc: 402 Interpretive Statements SINUS BRADYCARDIA WITH SINUS ARRHYTHMIA NONSPECIFIC T-WAVE ABNORMALITY Compared to ECG 05/28/2022 22:30:12 Sinus rhythm no longer present T-wave abnormality still present Electronically Signed On 05-29-2022 19:35:23 CDT by Giuseppe Broderick M.D. [email or web address] general hospitalPcssokettering health washington township.[place] WaVE/store/[id number]
--- NOTE | 2022-05-29 05:02 | PC.NURSE ---
This RN agrees with all documentation and medication administration as demonstrated by student RN at this time. Will continue to monitor student activities.
[2022-05-29 05:38] LABS: Basophils % 0.3 %; Eosinophils # 0.2 10^3/uL (0.0-0.8); Eosinophils % 1.6 %; Hemoglobin 14.6 g/dL (11.7-16.6); Lymphocytes # 2.2 10^3/uL (0.8-4.8); Lymphocytes % 18.6 %; Mean Corpuscular HGB Conc 33.2 g/dL (30.0-36.0); Mean Corpuscular Hemoglobin 33.4 pg (28.0-34.0); Mean Corpuscular Volume 100.7 fl (80-94); Mean Platelet Volume 10.6 fL (7.4-10.4); Monocytes # 1.1 10^3/uL (0.2-0.9); Monocytes % 9.3 %; Neutrophils % 69.4 %; Nucleated Red Blood Cells % 0 %; Platelet Count 205 10^3/cmm (130-400); Red Blood Count 4.37 10^6/uL (4.1-5.3); Red Cell Distribution Width 13.2 % (12.1-15.1)
[2022-05-29 06:10] LABS: Blood Urea Nitrogen 29 mg/dL (8-23); Carbon Dioxide 29 mmol/L (22-29); Chloride 99 mmol/L (98-107); Glucose 114 mg/dL (65-115); Magnesium 2.1 mg/dL (1.7-2.3); NT Pro B Type Natriuretic Pept 201 pg/mL (0-125); Osmolality Calculated 293 mOsm/kg (285-295); Sodium 138 mmol/L (136-145)
[2022-05-29 06:11] LABS: Troponin 5 6HR Delta 11.6 ng/L (0-12)
[2022-05-29 06:12] LABS: Troponin 5 6HR 297.6 ng/L (0-15)
--- NOTE | 2022-05-29 08:40 | PM.PN ---
Subjective Subjective: Patient's troponin T is going up. The delta is coming down. Denies any chest pain. Telemetry shows atrial fibrillation with a controlled ventricular response rate. Vital signs are stable. No fever or chills. No cough. Medications: Medication Review Details: Current Medications Acetaminophen (Acetaminophen 325 Mg Tablet) 650 mg PO Q6H PRN PRN Reason: Mild/Mod Pain Or Temp >/= 101 Albuterol Sulfate (Albuterol 8 Gm Mdi) 1 puff INHALATION Q4H.RESPIRATORY PRN PRN Reason: SHORTNESS OF BREATH Apixaban (Apixaban 5 Mg Tablet) 5 mg PO BID [facility] Last Admin: 05/28/22 19:02 Dose: 5 mg Ascorbic Acid (Ascorbic Acid 500 Mg Tablet) 500 mg PO DAILY [facility] Aspirin (Aspirin 81 Mg Ec Tablet) 81 mg PO DAILY [facility] Atorvastatin Calcium (Atorvastatin 40 Mg Tablet) 40 mg PO BEDTIME [facility] Last Admin: 05/28/22 20:31 Dose: 40 mg Chlorthalidone (Chlorthalidone 25 Mg Tablet) 25 mg PO DAILY [facility] Cyanocobalamin (Cyanocobalamin 1,000 Mcg Tablet) 1,000 mcg PO DAILY [facility] Docusate Sodium (Docusate Sodium 100 Mg Capsule) 100 mg PO BEDTIME [facility] Last Admin: 05/28/22 20:31 Dose: 100 mg Losartan Potassium (Losartan 50 Mg Tablet) 25 mg PO DAILY [facility] Metoprolol Tartrate (Metoprolol Tartrate 25 Mg Tablet) 25 mg PO BID [facility] Last Admin: 05/28/22 19:03 Dose: Not Given Mirtazapine (Mirtazapine 30 Mg Tablet) 45 mg PO BEDTIME [facility] Last Admin: 05/28/22 20:28 Dose: 45 mg Morphine Sulfate (Morphine 4 Mg/Ml Sdv 1 Ml) 1 mg IVP Q4H PRN PRN Reason: CHEST PAIN Nitroglycerin (Nitroglycerin 0.4 Mg Sublingual Tablet) 0.4 mg SUBLINGUAL Q5M PRN PRN Reason: Chest Pain Non-Formulary Medication (Vitamins A,C,D-Onun-Byrsae [Preservision Areds]) 1 cap PO AC [facility] Last Admin: 05/29/22 04:57 Dose: Not Given Iszxo-8-Jgef Ethyl Esters ([place]-3 Fatty Acids 1,000 Mg Capsule) 1,000 mg PO BID [facility] Last Admin: 05/28/22 19:03 Dose: 1,000 mg Ondansetron HCl (Ondansetron 2 Mg/Ml Sdv 2 Ml) 4 mg IVP Q8H PRN PRN Reason: vomiting, or N/V if npo Potassium Chloride (Potassium Chloride Er 10 Meq Tablet) 10 meq PO DAILY [facility] Prazosin HCl (Prazosin 1 Mg Capsule) 4 mg PO BID [facility] Last Admin: 05/28/22 19:03 Dose: Not Given Tramadol HCl (Tramadol 50 Mg Tablet) 50 mg PO QID PRN PRN Reason: Pain Vitamin D (Cholecalciferol (Vitamin D3) 1,000 Unit Tablet) 2,000 unit PO DAILY [facility] Zolpidem Tartrate (Zolpidem 5 Mg Tablet) 5 mg PO BEDTIME PRN PRN Reason: Sleep Last Admin: 05/28/22 20:32 Dose: 5 mg Vitals/I&O/Wt Last Vital Signs Temp 98.1 F 05/29/22 05:52 Pulse 61 05/29/22 07:53 Resp 18 05/29/22 07:53 BP 138/72 05/29/22 07:53 Pulse Ox 93 05/29/22 07:53 O2 Del Method 05/29/22 07:53 05/28/22 05/29/22 05/29/22 22:59 06:59 14:59 Intake Total 240 / 240 Output Total 350 / 350 Balance -110 / -110 Weight last 48 hrs Weight 222 lb Physical Exam Narrative: GENERAL: The patient is alert and oriented times three. Not in any acute distress. HEENT: No significant pallor, icterus or lymphadenopathy.Oral cavity: There are no mucous membrane lesions. NECK: Trachea appears to be central. No masses noted. No JVD or thyromegaly appreciated. RESPIRATORY: Chest is symmetrical. No intercostals muscle retraction or any accessory muscle activation. There is no chest wall tenderness. Breath sounds are heard bilaterally. No rales or rhonchi heard. No evidence of any consolidation. BREASTS: Deferred. HEART: The heart sounds are normal. No S3 or S4. Short systolic murmur in the left sternal border. No pericardial rub ABDOMEN: No vessel pulsations or distention. No tenderness. No organomegaly appreciated. Bowel sounds are normally heard. : Deferred. RECTAL: Deferred. LYMPHATIC: No lymphadenopathy noted in the neck. EXTREMITIES: No edema or cyanosis. No clubbing. MUSCULOSKELETAL: No acute joint deformities or swelling SKIN: There are no significant rashes or ecchymosis NEUROPSYCHIATRIC: The patient is alert and oriented x3. Appears to be in a good mood. No tremors or rigidity noted. Data : 05/29/22 05:06 05/29/22 05:06 Other Labs: Laboratory Last Values WBC 12.0 10^3/uL (4.0-10.0) H 05/29/22 05:06 RBC 4.37 10^6/uL (4.1-5.3) 05/29/22 05:06 Hgb 14.6 g/dL (11.7-16.6) 05/29/22 05:06 Hct 44.0 % (42.0-52.0) 05/29/22 05:06 MCV 100.7 fl (80-94) H 05/29/22 05:06 MCH 33.4 pg (28.0-34.0) 05/29/22 05:06 MCHC 33.2 g/dL (30.0-36.0) 05/29/22 05:06 RDW 13.2 % (12.1-15.1) 05/29/22 05:06 Plt Count 205 10^3/cmm (130-400) 05/29/22 05:06 MPV 10.6 fL (7.4-10.4) H 05/29/22 05:06 Neut % (Auto) 69.4 % 05/29/22 05:06 Lymph % (Auto) 18.6 % 05/29/22 05:06 [place] % (Auto) 9.3 % 05/29/22 05:06 Eos % (Auto) 1.6 % 05/29/22 05:06 Baso % (Auto) 0.3 % 05/29/22 05:06 Neut # (Auto) 8.30 10^3/uL (1.8-7.7) H 05/29/22 05:06 Lymph # (Auto) 2.2 10^3/uL (0.8-4.8) 05/29/22 05:06 [place] # (Auto) 1.1 10^3/uL (0.2-0.9) H 05/29/22 05:06 Eos # (Auto) 0.2 10^3/uL (0.0-0.8) 05/29/22 05:06 Baso # (Auto) 0.0 10^3/uL (0.0-0.1) 05/29/22 05:06 Nucleated RBC % (auto) 0 % 05/29/22 05:06 Nucleated RBCs # 0.0 /100WBC 05/29/22 05:06 D-Dimer Cancelled 05/28/22 11:40 Sodium 138 mmol/L (136-145) 05/29/22 05:06 Potassium 4.0 mmol/L (3.5-5.1) 05/29/22 05:06 Chloride 99 mmol/L (98-107) 05/29/22 05:06 Carbon Dioxide 29 mmol/L (22-29) 05/29/22 05:06 Anion Gap 14.0 (5-19) 05/29/22 05:06 BUN 29 mg/dL (8-23) H 05/29/22 05:06 Creatinine 1.0 mg/dL (0.7-1.2) 05/29/22 05:06 GFR Calculation Not Reportable 05/29/22 05:06 Glucose 114 mg/dL (65-115) 05/29/22 05:06 Calculated Osmolality 293 mOsm/kg (285-295) 05/29/22 05:06 Calcium 9.0 mg/dL (8.5-10.5) 05/29/22 05:06 Magnesium 2.1 mg/dL (1.7-2.3) 05/29/22 05:06 Troponin T Baseline 286 ng/L (0-15) H* 05/28/22 20:30 Troponin T 120 Minute 305.0 ng/L (0-15) H 05/28/22 22:21 Delta Troponin T 19.0 ABS# (0-10) H* 05/28/22 22:21 Troponin T Hi Sens 6Hr 297.6 ng/L (0-15) H 05/29/22 05:06 Troponin T Hi Sens 6Hr Delta 11.6 ng/L (0-12) 05/29/22 05:06 NT-Pro-B Natriuret Pep 201 pg/mL (0-125) H 05/29/22 05:06 TSH 1.03 uIU/mL (0.27-4.20) 05/28/22 11:40 TSH 1.06 uIU/mL (0.27-4.20) 05/28/22 11:40 Free T4 1.07 ng/dL (0.82-1.77) 05/28/22 11:40 Echo: My impression: Contrast echocardiogram from 05/28/2022 Echo contrast was used for the LV function analysis.? LV ?ejection fraction appears within normal limits.? No gross wall ?motion normalities were noted..? Evaluation of estimated EF 69% ?based on method of disc. ?Right ventricle appears to be mildly dilated with diffuse ?hypokinesia. ?There is no pericardial effusion. ?Technically very difficult study because of poor ultrasonic ?window EKG 2: My Interpretation: Sinus bradycardia with a rate of 51 bpm. Diffuse nonspecific T wave changes. EKG computer-generated impression: Chest X-Ray 05/28/22 11:48 IMPRESSION: No acute abnormality. A&P Assessment and plan (1) Non-ST elevation myocardial infarction (NSTEMI), initial care episode: Patient is remaining pain-free. The delta of the troponin T is coming down. No new EKG changes. Hemodynamically seems to be stable. I may discontinue the Eliquis for the time being. Start him on Lovenox. Also we will start him on Plavix 300 mg p.o. today followed by 75 mg p.o. daily. If he continues to remain stable, we may go ahead and do a Myocardial perfusion imaging on Tuesday to evaluate for any evidence of ischemia specifically in the distribution of the circumflex artery. Based on the results, further recommendations will be made. (2) PAD (peripheral artery disease): Patient s/p percutaneous intervention, clinically seems to be stable. Advised to continue on the current medications. (3) Intermittent atrial fibrillation: He is on long-term oral anticoagulation. He has some sinus mari dysfunction. Currently asymptomatic. We will continue on the current measures. (4) Dyslipidemia: Currently on the current management. (5) HTN (hypertension) with goal to be determined: Currently blood pressure slightly elevated. We will be closely monitoring the blood pressure. Plan Other problems are as outlined before. based on the clinical progress and the results of the above, further management decisions will be made. Attestations Medical Necessity Statement*: Patient requires continued hospital stay for close monitoring and further management Coding Level of Care Code Acute Vascular Surgery Physician for Chg Fwd History Expanded Problem Focused Exam Expanded Problem Focused Medical Decision Making Moderate Complexity Diagnoses Non-ST elevation myocardial infarction (NSTEMI), initial care episode I21.4 PAD (peripheral artery disease) I73.9 Intermittent atrial fibrillation I48.0 Dyslipidemia E78.5 HTN (hypertension) with goal to be determined I10
[2022-05-29] MEDS: enoxaparin 100 mg/mL Syringe SUBCUT ×2 (10:02→20:51)
[2022-05-29] MEDS: cyanocobalamin 1,000 mcg Tablet 1000 MCG PO (10:02)
[2022-05-29] MEDS: clopidogrel 300 mg Tablet PO (10:02)
[2022-05-29] MEDS: ascorbic acid 500 mg Tablet PO (10:02)
[2022-05-29] MEDS: omega-3 fatty acids 1,000 mg Capsule 1000 MG PO ×2 (10:02→17:52)
[2022-05-29] MEDS: chlorthalidone 25 mg Tablet PO (10:03)
[2022-05-29] MEDS: cholecalciferol (vitamin D3) 1,000 unit Tablet 2000 UNIT PO (10:03)
[2022-05-29] MEDS: metoprolol tartrate 25 mg Tablet PO ×2 (10:03→17:52)
[2022-05-29] MEDS: potassium chloride ER 10 mEq Tablet PO (10:03)
[2022-05-29] MEDS: losartan 50 mg Tablet 25 MG PO (10:03)
[2022-05-29] MEDS: prazosin 1 mg Capsule 4 MG PO ×2 (10:04→17:52)
[2022-05-29] MEDS: aspirin 81 mg EC Tablet PO (10:04)
--- NOTE | 2022-05-29 13:52 | P.PN_ITS ---
Subjective Subjective: Patient was seen this morning, denies any chest pain, no nausea, no vomiting Vitals/I&O/Wt Last Vital Signs Temp 97.6 F 05/29/22 11:31 Pulse 66 05/29/22 11:31 Resp 17 05/29/22 11:31 BP 99/53 05/29/22 11:40 Pulse Ox 91 05/29/22 11:31 O2 Del Method 05/29/22 11:31 05/28/22 05/29/22 05/29/22 22:59 06:59 14:59 Intake Total 240 / 240 480 / 480 Output Total 350 / 350 Balance -110 / -110 480 / 480 Weight last 48 hrs Weight 100.698 kg Physical Exam Const: COMMON NORMALS: no acute distress and patient oriented x3 Resp: COMMON NORMALS: normal respiratory effort, No retractions, No use of accessory muscles and clear to auscultation bilaterally AUSCULTATION: clear to auscultation bilaterally Cardio: COMMON NORMALS: regular rate, regular rhythm, S1 normal heart sound present and S2 normal heart sound present RATE: regular rate RHYTHM: regular rhythm HEART SOUNDS: S1 normal heart sound present and S2 normal heart sound present GI: COMMON NORMALS: Normal to inspection, nondistended, normoactive bowel sounds present, Soft to palpation, non-tender and no masses PALPATION: Yes Soft to palpation Extremity: COMMON NORMALS: no pedal edema Neuro: COMMON NORMALS: patient oriented x3 Psych: COMMON NORMALS: mental status grossly normal Data : 05/29/22 05:06 05/29/22 05:06 A&P Assessment and plan (1) Non-ST elevation DC (NSTEMI): Serial EKGs, serial troponins, telemetry monitoring Continue aspirin, Plavix statin, beta-timothy, stop Eliquis switch to therapeutic Lovenox Monitor for chest pain Cardiology consult, plans on stress test on Tuesday Full code Lovenox for DVT prophylaxis (2) Atrial fibrillation: Paroxysmal atrial fibrillation (3) CAD (coronary artery disease): s/p CABGx2 at [place] in 2001 -Pt had a cardiac catheterization since the last visit.? He is found to have occlusion of the [place] distal RCA with a patent venous graft.? The [place] distal RCA was diffusely diseased and was a small caliber.? He had a fairly good [id number] collaterals.? It was opted to treat him medically.? The VILLARREAL to the LAD was found to be patent.? Circumflex artery was found to have moderate disease. Qualifiers: Coronary Disease-Associated Artery/Lesion type: [place] artery Habematolel vs. transplanted heart: [place] heart Associated angina: without angina Qualified Code(s): I25.10 - Atherosclerotic heart disease of [place] coronary artery without angina pectoris (4) PAD (peripheral artery disease): 11/2015: Left common femoral artery was used to performed peripheral angiogram by Dr. Lockwood. Unsuccessful attempt to cross a right common iliac highly calcified and tortuous stenosis with left femoral approach. We then switched to retrograde right common femoral approach to perform balloon angioplasty followed by stenting of the 90% highly calcified right common iliac ostial stenosis which remains successfully. 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 transplanted heart: [place] heart Associated angina: without angina PAD (peripheral artery disease) I73.9 HTN (hypertension) with goal to be determined I10 Hyperlipidemia due to dietary fat intake E78.49 Chest pain R07.9 Intermittent atrial fibrillation I48.0 Dyslipidemia E78.5
[2022-05-29] MEDS: mirtazapine 30 mg Tablet 45 MG PO (20:51)
[2022-05-29] MEDS: atorvastatin 40 mg Tablet PO (20:51)
[2022-05-29] MEDS: docusate sodium 100 mg Capsule PO (20:51)
[2022-05-30] VITALS (14 sets, daily range): BP systolic 90–137; BP diastolic 52–89; PULSE 52–80; RESP 14–20; TEMP 36.4–37.2; O2SAT 90–94
[2022-05-30 04:10] LABS: Basophils # 0.1 10^3/uL (0.0-0.1); Basophils % 0.5 %; Eosinophils # 0.3 10^3/uL (0.0-0.8); Hematocrit 45.2 % (42.0-52.0); Lymphocytes % 28.6 %; Mean Corpuscular HGB Conc 33.2 g/dL (30.0-36.0); Mean Corpuscular Hemoglobin 33.5 pg (28.0-34.0); Mean Corpuscular Volume 100.9 fl (80-94); Mean Platelet Volume 10.4 fL (7.4-10.4); Monocytes # 1.1 10^3/uL (0.2-0.9); Monocytes % 10.2 %; Neutrophils # 5.95 10^3/uL (1.8-7.7); Neutrophils % 56.9 %; Nucleated Red Blood Cells % 0 %; Platelet Count 198 10^3/cmm (130-400); Red Blood Count 4.48 10^6/uL (4.1-5.3); Red Cell Distribution Width 13.2 % (12.1-15.1); White Blood Count 10.5 10^3/uL (4.0-10.0)
[2022-05-30 04:42] LABS: Anion Gap 11.8 (5-19); Blood Urea Nitrogen 26 mg/dL (8-23); Calcium 9.3 mg/dL (8.5-10.5); Carbon Dioxide 31 mmol/L (22-29); Chloride 98 mmol/L (98-107); Glucose 101 mg/dL (65-115); NT Pro B Type Natriuretic Pept 143 pg/mL (0-125); Osmolality Calculated 289 mOsm/kg (285-295); Potassium 3.8 mmol/L (3.5-5.1); Sodium 137 mmol/L (136-145)
[2022-05-30] MEDS: metoprolol tartrate 25 mg Tablet PO ×2 (09:27→20:25)
[2022-05-30] MEDS: ascorbic acid 500 mg Tablet PO (09:27)
[2022-05-30] MEDS: potassium chloride ER 10 mEq Tablet PO (09:27)
[2022-05-30] MEDS: omega-3 fatty acids 1,000 mg Capsule 1000 MG PO ×2 (09:27→18:14)
[2022-05-30] MEDS: clopidogrel 75 mg Tablet PO (09:27)
[2022-05-30] MEDS: cholecalciferol (vitamin D3) 1,000 unit Tablet 2000 UNIT PO (09:28)
[2022-05-30] MEDS: aspirin 81 mg EC Tablet PO (09:28)
[2022-05-30] MEDS: cyanocobalamin 1,000 mcg Tablet 1000 MCG PO (09:28)
[2022-05-30] MEDS: enoxaparin 100 mg/mL Syringe SUBCUT ×2 (09:29→21:34)
[2022-05-30] MEDS: prazosin 1 mg Capsule 4 MG PO ×2 (09:32→20:25)
[2022-05-30] MEDS: losartan 50 mg Tablet 25 MG PO (09:33)
[2022-05-30] MEDS: chlorthalidone 25 mg Tablet PO (09:33)
--- NOTE | 2022-05-30 13:40 | PM.PN ---
Subjective Subjective: Patient is feeling okay. No chest pain or shortness of breath. No palpitation. No new arrhythmias on the monitor. Vital signs remaining stable. Medications: Medication Review Details: Current Medications Acetaminophen (Acetaminophen 325 Mg Tablet) 650 mg PO Q6H PRN PRN Reason: Mild/Mod Pain Or Temp >/= 101 Al Hydrox/Mg Hydrox/Simethicone (Kfom-Sdt-Ohnqtszxn-Chandu 30 Ml Udc) 30 ml PO Q15M PRN PRN Reason: INDIGESTION Albuterol Sulfate (Albuterol 8 Gm Mdi) 1 puff INHALATION Q4H.RESPIRATORY PRN PRN Reason: SHORTNESS OF BREATH Ascorbic Acid (Ascorbic Acid 500 Mg Tablet) 500 mg PO DAILY [facility] Last Admin: 05/30/22 09:27 Dose: 500 mg Aspirin (Aspirin 81 Mg Ec Tablet) 81 mg PO DAILY [facility] Last Admin: 05/30/22 09:28 Dose: 81 mg Atorvastatin Calcium (Atorvastatin 40 Mg Tablet) 40 mg PO BEDTIME [facility] Last Admin: 05/29/22 20:51 Dose: 40 mg Atropine Sulfate (Atropine 1 Mg/Ml Sdv 1 Ml) 0.5 mg IVP PRN PRN PRN Reason: Symptomatic bradycardia Chlorthalidone (Chlorthalidone 25 Mg Tablet) 25 mg PO DAILY [facility] Last Admin: 05/30/22 09:33 Dose: 25 mg Clopidogrel Bisulfate (Clopidogrel 75 Mg Tablet) 75 mg PO DAILY [facility] Last Admin: 05/30/22 09:27 Dose: 75 mg Cyanocobalamin (Cyanocobalamin 1,000 Mcg Tablet) 1,000 mcg PO DAILY [facility] Last Admin: 05/30/22 09:28 Dose: 1,000 mcg Docusate Sodium (Docusate Sodium 100 Mg Capsule) 100 mg PO BEDTIME [facility] Last Admin: 05/29/22 20:51 Dose: 100 mg Enoxaparin Sodium (Enoxaparin 100 Mg/Ml Syringe) 100 mg 1 mg/kg (100 mg) SUBCUT Q12H [facility] Last Admin: 05/30/22 09:29 Dose: 100 mg Losartan Potassium (Losartan 50 Mg Tablet) 25 mg PO DAILY [facility] Last Admin: 05/30/22 09:33 Dose: 25 mg Magnesium Hydroxide (Magnesium Hydroxide 30 Ml Udc) 30 ml PO DAILY PRN PRN Reason: CONSTIPATION Metoprolol Tartrate (Metoprolol Tartrate 25 Mg Tablet) 25 mg PO BID [facility] Last Admin: 05/30/22 09:27 Dose: 25 mg Mirtazapine (Mirtazapine 30 Mg Tablet) 45 mg PO BEDTIME [facility] Last Admin: 05/29/22 20:51 Dose: 45 mg Morphine Sulfate (Morphine 4 Mg/Ml Sdv 1 Ml) 1 mg IVP Q4H PRN PRN Reason: CHEST PAIN Naloxone HCl (Naloxone 0.4 Mg/Ml Sdv) 0.1 mg IVP Q2M PRN PRN Reason: RESPIRATORY RATE < 8/MIN Nitroglycerin (Nitroglycerin 0.4 Mg Sublingual Tablet) 0.4 mg SUBLINGUAL Q5M PRN PRN Reason: Chest Pain Non-Formulary Medication (Vitamins A,C,L-Ixvk-Eeyooi [Preservision Areds]) 1 cap PO AC [facility] Last Admin: 05/30/22 10:02 Dose: Not Given Zgwfk-9-Bxkb Ethyl Esters ([place]-3 Fatty Acids 1,000 Mg Capsule) 1,000 mg PO BID [facility] Last Admin: 05/30/22 09:27 Dose: 1,000 mg Ondansetron HCl (Ondansetron 2 Mg/Ml Sdv 2 Ml) 4 mg IVP Q8H PRN PRN Reason: vomiting, or N/V if npo Potassium Chloride (Potassium Chloride Er 10 Meq Tablet) 10 meq PO DAILY [facility] Last Admin: 05/30/22 09:27 Dose: 10 meq Prazosin HCl (Prazosin 1 Mg Capsule) 4 mg PO BID [facility] Last Admin: 05/30/22 09:32 Dose: 4 mg Tramadol HCl (Tramadol 50 Mg Tablet) 50 mg PO QID PRN PRN Reason: Pain Vitamin D (Cholecalciferol (Vitamin D3) 1,000 Unit Tablet) 2,000 unit PO DAILY [facility] Last Admin: 05/30/22 09:28 Dose: 2,000 unit Zolpidem Tartrate (Zolpidem 5 Mg Tablet) 5 mg PO BEDTIME PRN PRN Reason: Sleep Last Admin: 05/28/22 20:32 Dose: 5 mg Vitals/I&O/Wt Last Vital Signs Temp 97.5 F L 05/30/22 11:43 Pulse 67 05/30/22 11:43 Resp 16 05/30/22 11:43 BP 105/57 05/30/22 11:43 Pulse Ox 94 05/30/22 11:43 O2 Del Method 05/30/22 11:43 05/29/22 05/30/22 05/30/22 22:59 06:59 14:59 Intake Total 360 / 840 840 / 840 Balance 360 / 840 840 / 840 Physical Exam Narrative: GENERAL: The patient is alert and oriented times three. Not in any acute distress. HEENT: No significant pallor, icterus or lymphadenopathy.Oral cavity: There are no mucous membrane lesions. NECK: Trachea appears to be central. No masses noted. No JVD or thyromegaly appreciated. RESPIRATORY: Chest is symmetrical. No intercostals muscle retraction or any accessory muscle activation. There is no chest wall tenderness. Breath sounds are heard bilaterally. No rales or rhonchi heard. No evidence of any consolidation. BREASTS: Deferred. HEART: First heart sound is variable. Second heart sound is normal. No S3 or S4. No significant murmurs. No pericardial rub ABDOMEN: No vessel pulsations or distention. No tenderness. No organomegaly appreciated. Bowel sounds are normally heard. : Deferred. RECTAL: Deferred. LYMPHATIC: No lymphadenopathy noted in the neck. EXTREMITIES: No edema or cyanosis. No clubbing. MUSCULOSKELETAL: No acute joint deformities or swelling SKIN: There are no significant rashes or ecchymosis NEUROPSYCHIATRIC: The patient is alert and oriented x3. Appears to be in a good mood. No tremors or rigidity noted. Data : 05/30/22 03:29 05/30/22 03:29 Other Labs: Laboratory Last Values WBC 10.5 10^3/uL (4.0-10.0) H 05/30/22 03:29 RBC 4.48 10^6/uL (4.1-5.3) 05/30/22 03:29 Hgb 15.0 g/dL (11.7-16.6) 05/30/22 03:29 Hct 45.2 % (42.0-52.0) 05/30/22 03:29 MCV 100.9 fl (80-94) H 05/30/22 03:29 MCH 33.5 pg (28.0-34.0) 05/30/22 03:29 MCHC 33.2 g/dL (30.0-36.0) 05/30/22 03:29 RDW 13.2 % (12.1-15.1) 05/30/22 03:29 Plt Count 198 10^3/cmm (130-400) 05/30/22 03:29 MPV 10.4 fL (7.4-10.4) 05/30/22 03:29 Neut % (Auto) 56.9 % 05/30/22 03:29 Lymph % (Auto) 28.6 % 05/30/22 03:29 [place] % (Auto) 10.2 % 05/30/22 03:29 Eos % (Auto) 3.0 % 05/30/22 03:29 Baso % (Auto) 0.5 % 05/30/22 03:29 Neut # (Auto) 5.95 10^3/uL (1.8-7.7) 05/30/22 03:29 Lymph # (Auto) 3.0 10^3/uL (0.8-4.8) 05/30/22 03:29 [place] # (Auto) 1.1 10^3/uL (0.2-0.9) H 05/30/22 03:29 Eos # (Auto) 0.3 10^3/uL (0.0-0.8) 05/30/22 03:29 Baso # (Auto) 0.1 10^3/uL (0.0-0.1) 05/30/22 03:29 Nucleated RBC % (auto) 0 % 05/30/22 03:29 Nucleated RBCs # 0.0 /100WBC 05/30/22 03:29 D-Dimer Cancelled 05/28/22 11:40 Sodium 137 mmol/L (136-145) 05/30/22 03:29 Potassium 3.8 mmol/L (3.5-5.1) 05/30/22 03:29 Chloride 98 mmol/L (98-107) 05/30/22 03:29 Carbon Dioxide 31 mmol/L (22-29) H 05/30/22 03:29 Anion Gap 11.8 (5-19) 05/30/22 03:29 BUN 26 mg/dL (8-23) H 05/30/22 03:29 Creatinine 1.1 mg/dL (0.7-1.2) 05/30/22 03:29 GFR Calculation Not Reportable 10/09/22 03:29 Glucose 101 mg/dL (65-115) 05/30/22 03:29 Calculated Osmolality 289 mOsm/kg (285-295) 05/30/22 03:29 Calcium 9.3 mg/dL (8.5-10.5) 05/30/22 03:29 Magnesium 2.0 mg/dL (1.7-2.3) 05/30/22 03:29 Troponin T Baseline 286 ng/L (0-15) H* 05/28/22 20:30 Troponin T 120 Minute 305.0 ng/L (0-15) H 05/28/22 22:21 Delta Troponin T 19.0 ABS# (0-10) H* 05/28/22 22:21 Troponin T Hi Sens 6Hr 297.6 ng/L (0-15) H 05/29/22 05:06 Troponin T Hi Sens 6Hr Delta 11.6 ng/L (0-12) 05/29/22 05:06 NT-Pro-B Natriuret Pep 143 pg/mL (0-125) H 05/30/22 03:29 TSH 1.03 uIU/mL (0.27-4.20) 05/28/22 11:40 TSH 1.06 uIU/mL (0.27-4.20) 05/28/22 11:40 Free T4 1.07 ng/dL (0.82-1.77) 05/28/22 11:40 A&P Assessment and plan (1) Non-ST elevation myocardial infarction (NSTEMI), initial care episode: We will continue on the current medications. Myocardial perfusion imaging tomorrow. Based on the findings, further recommendations will be made. (2) PAD (peripheral artery disease): Patient s/p percutaneous intervention, clinically seems to be stable. Advised to continue on the current medications. (3) Intermittent atrial fibrillation: He is on long-term oral anticoagulation. He has some sinus mari dysfunction. Currently asymptomatic. We will continue on the current measures. (4) Dyslipidemia: Currently on the current management. (5) HTN (hypertension) with goal to be determined: Currently blood pressure slightly elevated. We will be closely monitoring the blood pressure. Plan Other problems are as outlined before. based on the clinical progress and the results of the above, further management decisions will be made. Attestations Medical Necessity Statement*: Patient requires continued hospital stay for close monitoring and further management Coding Level of Care Code Acute International Trade Specialist for Chg Fwd History Expanded Problem Focused Exam Expanded Problem Focused Medical Decision Making Moderate Complexity Diagnoses Non-ST elevation myocardial infarction (NSTEMI), initial care episode I21.4 PAD (peripheral artery disease) I73.9 Intermittent atrial fibrillation I48.0 Dyslipidemia E78.5 HTN (hypertension) with goal to be determined I10
--- NOTE | 2022-05-30 13:46 | PM.PN ---
Subjective Subjective: Patient was seen this morning, denies any chest pain overnight, no lightheadedness, dizziness Vitals/I&O/Wt Last Vital Signs Temp 97.5 F L 05/30/22 11:43 Pulse 67 05/30/22 11:43 Resp 16 05/30/22 11:43 BP 105/57 05/30/22 11:43 Pulse Ox 94 05/30/22 11:43 O2 Del Method 05/30/22 11:43 05/29/22 05/30/22 05/30/22 22:59 06:59 14:59 Intake Total 360 / 840 840 / 840 Balance 360 / 840 840 / 840 Physical Exam Const: COMMON NORMALS: no acute distress and patient oriented x3 Resp: COMMON NORMALS: normal respiratory effort, No retractions, No use of accessory muscles and clear to auscultation bilaterally AUSCULTATION: clear to auscultation bilaterally Cardio: COMMON NORMALS: regular rate, regular rhythm, S1 normal heart sound present and S2 normal heart sound present RATE: regular rate RHYTHM: regular rhythm HEART SOUNDS: S1 normal heart sound present and S2 normal heart sound present GI: COMMON NORMALS: Normal to inspection, nondistended, normoactive bowel sounds present and non-tender Extremity: COMMON NORMALS: no pedal edema Neuro: COMMON NORMALS: patient oriented x3 Psych: COMMON NORMALS: mental status grossly normal Data : 05/30/22 03:29 05/30/22 03:29 A&P Assessment and plan (1) Non-ST elevation SD (NSTEMI): Serial EKGs, serial troponins, telemetry monitoring Continue aspirin, Plavix statin, beta-timothy, on therapeutic Lovenox Monitor for chest pain Cardiology consult, plans on stress test tomorrow Full code Lovenox for DVT prophylaxis (2) Atrial fibrillation: Paroxysmal atrial fibrillation (3) CAD (coronary artery disease): s/p CABGx2 at [place] in 2001 -Pt had a cardiac catheterization since the last visit.? He is found to have occlusion of the [place] distal RCA with a patent venous graft.? The [place] distal RCA was diffusely diseased and was a small caliber.? He had a fairly good [id number] collaterals.? It was opted to treat him medically.? The VILLARREAL to the LAD was found to be patent.? Circumflex artery was found to have moderate disease. Qualifiers: Coronary Disease-Associated Artery/Lesion type: [place] artery [place] vs. transplanted heart: [place] heart Associated angina: without angina Qualified Code(s): I25.10 - Atherosclerotic heart disease of [place] coronary artery without angina pectoris (4) PAD (peripheral artery disease): 11/2015: Left common femoral artery was used to performed peripheral angiogram by Dr. Lockwood. Unsuccessful attempt to cross a right common iliac highly calcified and tortuous stenosis with left femoral approach. We then switched to retrograde right common femoral approach to perform balloon angioplasty followed by stenting of the 90% highly calcified right common iliac ostial stenosis which remains successfully. Successful PLASTERER FOREMAN /stenting of the right common iliac artery (5) HTN (hypertension) with goal to be determined: (6) Hyperlipidemia due to dietary fat intake: (7) Chest pain: (8) Intermittent atrial fibrillation: (9) Dyslipidemia: Attestations Medical Necessity Statement*: Patient requires hospitalization for chest pain Coding Level of Care Code Acute Community Educator for [facility] Diagnoses Non-ST elevation SD (NSTEMI) I21.4 Atrial fibrillation I48.91 CAD (coronary artery disease) I25.10 Coronary Disease-Associated Artery/Lesion type: [place] artery [place] vs. transplanted heart: [place] heart Associated angina: without angina PAD (peripheral artery disease) I73.9 HTN (hypertension) with goal to be determined I10 Hyperlipidemia due to dietary fat intake E78.49 Chest pain R07.9 Intermittent atrial fibrillation I48.0 Dyslipidemia E78.5
[2022-05-30] MEDS: TRAMadol 50 mg Tablet PO (16:08)
[2022-05-30] MEDS: docusate sodium 100 mg Capsule PO (21:33)
[2022-05-30] MEDS: mirtazapine 30 mg Tablet 45 MG PO (21:34)
[2022-05-30] MEDS: atorvastatin 40 mg Tablet PO (21:34)
[2022-05-31] VITALS (13 sets, daily range): BP systolic 95–153; BP diastolic 57–88; PULSE 66–162; RESP 15–28; TEMP 36.6–36.9; O2SAT 90–95
[2022-05-31 04:52] LABS: Basophils # 0.1 10^3/uL (0.0-0.1); Basophils % 0.4 %; Eosinophils # 0.3 10^3/uL (0.0-0.8); Hematocrit 44.8 % (42.0-52.0); Lymphocytes # 3.2 10^3/uL (0.8-4.8); Lymphocytes % 28.8 %; Mean Corpuscular HGB Conc 33.5 g/dL (30.0-36.0); Mean Corpuscular Hemoglobin 33.6 pg (28.0-34.0); Mean Corpuscular Volume 100.4 fl (80-94); Mean Platelet Volume 10.2 fL (7.4-10.4); Monocytes # 1.3 10^3/uL (0.2-0.9); Monocytes % 11.9 %; Neutrophils # 6.15 10^3/uL (1.8-7.7); Neutrophils % 55.2 %; Nucleated Red Blood Cells % 0 %; Platelet Count 185 10^3/cmm (130-400); Red Blood Count 4.46 10^6/uL (4.1-5.3); Red Cell Distribution Width 13.2 % (12.1-15.1); White Blood Count 11.2 10^3/uL (4.0-10.0)
[2022-05-31 05:25] LABS: Anion Gap 14.7 (5-19); Blood Urea Nitrogen 33 mg/dL (8-23); Calcium 9.2 mg/dL (8.5-10.5); Carbon Dioxide 30 mmol/L (22-29); Chloride 95 mmol/L (98-107); Glucose 108 mg/dL (65-115); NT Pro B Type Natriuretic Pept 66 pg/mL (0-125); Osmolality Calculated 290 mOsm/kg (285-295); Potassium 3.7 mmol/L (3.5-5.1); Sodium 136 mmol/L (136-145)
[2022-05-31] MEDS: regadenoson 0.4 Mg/5 ml Syringe IVP (07:55)
--- NOTE | 2022-05-31 08:00 | ECG_ITS ---
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 Interpretive Statements NAME OF STUDY: LEXISCAN SESTAMIBI STRESS TEST INDICATION: nstemi, PROCEDURE: At the baseline, the EKG revealed normal sinus rhythm with occasional PVCs and premature atrial contractions. The baseline heart was 82 with bpm with a blood pressue of 128/74 mm of Hg Lexiscan was infused over a period of 20 seconds. A total of 0.4 milligrams of Lexiscan was infused. The stress phase was continued for a total of 5 minutes. Heart rate at the end of the stress phase was 84 bpm with a blood pressure 124/68 mm of Hg. The EKG at the peak infusion revealed no significant changes. Sestamibi was injected 20 seconds after the Lexiscan infusion. Heart rate at the end of the recovery phase was 83 bpm with a blood pressure of 124/68 mm of Hg. CONCLUSION: 1. No significant EKG changes with the LexiScan infusion 2. No LexiScan induced chest pain or cardiac arrhythmia 3. Normal blood pressure and heart rate response 4. Sestamibi/sestamibi perfusion scan pending; see separate report. Electronically Signed On 06-04-2022 15:57:50 CDT by Giuseppe Broderick M.D. [id number]
--- NOTE | 2022-05-31 08:42 | PM.PN ---
Subjective Subjective: The patient is feeling okay. No recurrence of chest pain. No unusual shortness of breath. Had a Myocardial perfusion imaging today. He was found to have no evidence of ischemia, based on the perfusion scan. Medications: Medication Review Details: Current Medications Acetaminophen (Acetaminophen 325 Mg Tablet) 650 mg PO Q6H PRN PRN Reason: Mild/Mod Pain Or Temp >/= 101 Al Hydrox/Mg Hydrox/Simethicone (Vecq-Vai-Uzxxzrufg-Chandu 30 Ml Udc) 30 ml PO Q15M PRN PRN Reason: INDIGESTION Albuterol Sulfate (Albuterol 8 Gm Mdi) 1 puff INHALATION Q4H.RESPIRATORY PRN PRN Reason: SHORTNESS OF BREATH Aminophylline (Aminophylline 25 Mg/Ml Sdv 10 Ml) 25 mg IVP Q2M PRN PRN Reason: see dose instructions Stop: 06/01/22 06:57 Ascorbic Acid (Ascorbic Acid 500 Mg Tablet) 500 mg PO DAILY [facility] Last Admin: 05/30/22 09:27 Dose: 500 mg Aspirin (Aspirin 81 Mg Ec Tablet) 81 mg PO DAILY [facility] Last Admin: 05/30/22 09:28 Dose: 81 mg Atorvastatin Calcium (Atorvastatin 40 Mg Tablet) 40 mg PO BEDTIME [facility] Last Admin: 05/30/22 21:34 Dose: 40 mg Atropine Sulfate (Atropine 1 Mg/Ml Sdv 1 Ml) 0.5 mg IVP PRN PRN PRN Reason: Symptomatic bradycardia Chlorthalidone (Chlorthalidone 25 Mg Tablet) 25 mg PO DAILY [facility] Last Admin: 05/30/22 09:33 Dose: 25 mg Clopidogrel Bisulfate (Clopidogrel 75 Mg Tablet) 75 mg PO DAILY [facility] Last Admin: 05/30/22 09:27 Dose: 75 mg Cyanocobalamin (Cyanocobalamin 1,000 Mcg Tablet) 1,000 mcg PO DAILY [facility] Last Admin: 05/30/22 09:28 Dose: 1,000 mcg Docusate Sodium (Docusate Sodium 100 Mg Capsule) 100 mg PO BEDTIME [facility] Last Admin: 05/30/22 21:33 Dose: 100 mg Enoxaparin Sodium (Enoxaparin 100 Mg/Ml Syringe) 100 mg 1 mg/kg (100 mg) SUBCUT Q12H [facility] Last Admin: 05/30/22 21:34 Dose: 100 mg Losartan Potassium (Losartan 50 Mg Tablet) 25 mg PO DAILY [facility] Last Admin: 10/09/22 09:33 Dose: 25 mg Magnesium Hydroxide (Magnesium Hydroxide 30 Ml Udc) 30 ml PO DAILY PRN PRN Reason: CONSTIPATION Metoprolol Tartrate (Metoprolol Tartrate 25 Mg Tablet) 25 mg PO BID [facility] Last Admin: 05/30/22 20:25 Dose: 25 mg Mirtazapine (Mirtazapine 30 Mg Tablet) 45 mg PO BEDTIME [facility] Last Admin: 05/30/22 21:34 Dose: 45 mg Morphine Sulfate (Morphine 4 Mg/Ml Sdv 1 Ml) 1 mg IVP Q4H PRN PRN Reason: CHEST PAIN Naloxone HCl (Naloxone 0.4 Mg/Ml Sdv) 0.1 mg IVP Q2M PRN PRN Reason: RESPIRATORY RATE < 8/MIN Nitroglycerin (Nitroglycerin 0.4 Mg Sublingual Tablet) 0.4 mg SUBLINGUAL Q5M PRN PRN Reason: Chest Pain Nitroglycerin (Nitroglycerin 0.4 Mg Sublingual Tablet) 0.4 mg SUBLINGUAL Q5M PRN PRN Reason: CHEST PAIN Stop: 06/01/22 06:57 Non-Formulary Medication (Vitamins A,C,I-Msgy-Nlkryb [Preservision Areds]) 1 cap PO AC [facility] Last Admin: 05/31/22 06:06 Dose: Not Given Fuuiv-6-Uqfm Ethyl Esters ([place]-3 Fatty Acids 1,000 Mg Capsule) 1,000 mg PO BID [facility] Last Admin: 05/30/22 18:14 Dose: 1,000 mg Ondansetron HCl (Ondansetron 2 Mg/Ml Sdv 2 Ml) 4 mg IVP Q8H PRN PRN Reason: vomiting, or N/V if npo Ondansetron HCl (Ondansetron 2 Mg/Ml Sdv 2 Ml) 4 mg IVP Q2M PRN PRN Reason: NAUSEA Potassium Chloride (Potassium Chloride Er 10 Meq Tablet) 10 meq PO DAILY [facility] Last Admin: 05/30/22 09:27 Dose: 10 meq Prazosin HCl (Prazosin 1 Mg Capsule) 4 mg PO BID [facility] Last Admin: 05/30/22 20:25 Dose: 4 mg Tramadol HCl (Tramadol 50 Mg Tablet) 50 mg PO QID PRN PRN Reason: Pain Last Admin: 05/30/22 16:08 Dose: 50 mg Vitamin D (Cholecalciferol (Vitamin D3) 1,000 Unit Tablet) 2,000 unit PO DAILY [facility] Last Admin: 05/30/22 09:28 Dose: 2,000 unit Zolpidem Tartrate (Zolpidem 5 Mg Tablet) 5 mg PO BEDTIME PRN PRN Reason: Sleep Last Admin: 05/28/22 20:32 Dose: 5 mg Vitals/I&O/Wt Last Vital Signs Temp 97.8 F 05/31/22 03:51 Pulse 85 05/31/22 08:08 Resp 16 05/31/22 08:00 BP 124/68 05/31/22 08:08 Pulse Ox 94 05/31/22 08:00 O2 Del Method 05/31/22 03:51 05/30/22 05/31/22 05/31/22 22:59 06:59 14:59 Intake Total 416 / 1256 Balance 416 / 1256 Physical Exam Narrative: GENERAL: The patient is alert and oriented times three. Not in any acute distress. HEENT: No significant pallor, icterus or lymphadenopathy.Oral cavity: There are no mucous membrane lesions. NECK: Trachea appears to be central. No masses noted. No JVD or thyromegaly appreciated. RESPIRATORY: Chest is symmetrical. No intercostals muscle retraction or any accessory muscle activation. There is no chest wall tenderness. Breath sounds are heard bilaterally. No rales or rhonchi heard. No evidence of any consolidation. BREASTS: Deferred. HEART: First heart sound is variable. Second heart sound is normal. No S3 or S4. No significant murmurs. No pericardial rub ABDOMEN: No vessel pulsations or distention. No tenderness. No organomegaly appreciated. Bowel sounds are normally heard. : Deferred. RECTAL: Deferred. LYMPHATIC: No lymphadenopathy noted in the neck. EXTREMITIES: No edema or cyanosis. No clubbing. MUSCULOSKELETAL: No acute joint deformities or swelling SKIN: There are no significant rashes or ecchymosis NEUROPSYCHIATRIC: The patient is alert and oriented x3. Appears to be in a good mood. No tremors or rigidity noted. Data : 05/31/22 04:32 05/31/22 04:32 Other Labs: Laboratory Last Values WBC 11.2 10^3/uL (4.0-10.0) H 05/31/22 04:32 RBC 4.46 10^6/uL (4.1-5.3) 05/31/22 04:32 Hgb 15.0 g/dL (11.7-16.6) 05/31/22 04:32 Hct 44.8 % (42.0-52.0) 05/31/22 04:32 MCV 100.4 fl (80-94) H 05/31/22 04:32 MCH 33.6 pg (28.0-34.0) 05/31/22 04:32 MCHC 33.5 g/dL (30.0-36.0) 05/31/22 04:32 RDW 13.2 % (12.1-15.1) 05/31/22 04:32 Plt Count 185 10^3/cmm (130-400) 05/31/22 04:32 MPV 10.2 fL (7.4-10.4) 05/31/22 04:32 Neut % (Auto) 55.2 % 05/31/22 04:32 Lymph % (Auto) 28.8 % 05/31/22 04:32 Mckenzie % (Auto) 11.9 % 05/31/22 04:32 Eos % (Auto) 3.0 % 05/31/22 04:32 Baso % (Auto) 0.4 % 05/31/22 04:32 Neut # (Auto) 6.15 10^3/uL (1.8-7.7) 05/31/22 04:32 Lymph # (Auto) 3.2 10^3/uL (0.8-4.8) 05/31/22 04:32 Mckenzie # (Auto) 1.3 10^3/uL (0.2-0.9) H 05/31/22 04:32 Eos # (Auto) 0.3 10^3/uL (0.0-0.8) 05/31/22 04:32 Baso # (Auto) 0.1 10^3/uL (0.0-0.1) 05/31/22 04:32 Nucleated RBC % (auto) 0 % 05/31/22 04:32 Nucleated RBCs # 0.0 /100WBC 05/31/22 04:32 D-Dimer Cancelled 05/28/22 11:40 Sodium 136 mmol/L (136-145) 05/31/22 04:32 Potassium 3.7 mmol/L (3.5-5.1) 05/31/22 04:32 Chloride 95 mmol/L (98-107) L 05/31/22 04:32 Carbon Dioxide 30 mmol/L (22-29) H 05/31/22 04:32 Anion Gap 14.7 (5-19) 05/31/22 04:32 BUN 33 mg/dL (8-23) H 05/31/22 04:32 Creatinine 1.1 mg/dL (0.7-1.2) 05/31/22 04:32 GFR Calculation Not Reportable 05/31/22 04:32 Glucose 108 mg/dL (65-115) 05/31/22 04:32 Calculated Osmolality 290 mOsm/kg (285-295) 05/31/22 04:32 Calcium 9.2 mg/dL (8.5-10.5) 05/31/22 04:32 Magnesium 2.0 mg/dL (1.7-2.3) 05/31/22 04:32 Troponin T Baseline 286 ng/L (0-15) H* 05/28/22 20:30 Troponin T 120 Minute 305.0 ng/L (0-15) H 05/28/22 22:21 Delta Troponin T 19.0 ABS# (0-10) H* 05/28/22 22:21 Troponin T Hi Sens 6Hr 297.6 ng/L (0-15) H 05/29/22 05:06 Troponin T Hi Sens 6Hr Delta 11.6 ng/L (0-12) 05/29/22 05:06 NT-Pro-B Natriuret Pep 66 pg/mL (0-125) 05/31/22 04:32 TSH 1.03 uIU/mL (0.27-4.20) 05/28/22 11:40 TSH 1.06 uIU/mL (0.27-4.20) 05/28/22 11:40 Free T4 1.07 ng/dL (0.82-1.77) 05/28/22 11:40 A&P Assessment and plan (1) Non-ST elevation myocardial infarction (NSTEMI), initial care episode: Since there is no evidence of ischemia, based on the perfusion scan, patient did not require any further investigations at this point. May continue on the current medications. (2) PAD (peripheral artery disease): Patient s/p percutaneous intervention, clinically seems to be stable. Advised to continue on the current medications. (3) Intermittent atrial fibrillation: He is on long-term oral anticoagulation. He has some sinus mari dysfunction. Currently asymptomatic. We will continue on the current measures. (4) Dyslipidemia: Currently on the current management. (5) HTN (hypertension) with goal to be determined: Currently blood pressure slightly elevated. We will be closely monitoring the blood pressure. Plan The patient continues to remain stable, may be discharged home from a cardiac standpoint. Attestations Medical Necessity Statement*: Disposition as per the primary Coding Level of Care Code Acute Rn Orthopaedic for g Fwd History Expanded Problem Focused Exam Expanded Problem Focused Medical Decision Making Moderate Complexity Diagnoses Non-ST elevation myocardial infarction (NSTEMI), initial care episode I21.4 PAD (peripheral artery disease) I73.9 Intermittent atrial fibrillation I48.0 Dyslipidemia E78.5 HTN (hypertension) with goal to be determined I10
[2022-05-31] MEDS: cholecalciferol (vitamin D3) 1,000 unit Tablet 2000 UNIT PO (09:35)
[2022-05-31] MEDS: omega-3 fatty acids 1,000 mg Capsule 1000 MG PO ×2 (09:35→18:30)
[2022-05-31] MEDS: ascorbic acid 500 mg Tablet PO (09:35)
[2022-05-31] MEDS: cyanocobalamin 1,000 mcg Tablet 1000 MCG PO (09:35)
[2022-05-31] MEDS: potassium chloride ER 10 mEq Tablet PO (09:35)
[2022-05-31] MEDS: aspirin 81 mg EC Tablet PO (09:35)
[2022-05-31] MEDS: chlorthalidone 25 mg Tablet PO (09:35)
[2022-05-31] MEDS: clopidogrel 75 mg Tablet PO (09:35)
[2022-05-31] MEDS: metoprolol tartrate 25 mg Tablet PO ×2 (09:36→20:40)
[2022-05-31] MEDS: losartan 50 mg Tablet 25 MG PO (11:21)
[2022-05-31] MEDS: prazosin 1 mg Capsule 4 MG PO ×2 (11:21→20:39)
[2022-05-31] MEDS: enoxaparin 100 mg/mL Syringe SUBCUT ×2 (11:22→22:22)
--- NOTE | 2022-05-31 13:38 | NMCV_ITS ---
NM timbo perf SPECT r/s* [id number] Wilson Reyes Age: 72 Gender: M : 1950 Exam Date: 05/31/2022 13:38 Ordering Phys: Giuseppe Broderick MD ([email or web address]) Technologist: THUY Barron Exam Location: [facility] Indications: Chest Pain STRESS TEST Please see separate stress test report in [facility] for full findings IMAGE PROTOCOL Rest/Stress 1 Lexiscan Day Radiopharmaceutical Dose (mCi) Administration Site Administered by Rest: Tc-99m 10.7 IV THUY Barron Sestamibi Stress:Tc-99m 32.5 IV THUY Barron Sestamibi Rest: 31-May-2022 60 Discovery 630 Stress: 31-May-2022 30 Discovery 630 0.4mg Lexiscan. Images obtained in supine and prone position. SPECT RESULTS Technical Quality: Good Raw Data Analysis: Adequate Image Corrections: No attenuation or motion correction applied Summed Stress Score: 0 Summed Rest Score: 2 Summed Difference Score: 0 PERFUSION FINDINGS Fairly uniform myocardial tracer uptake with no significant perfusion abnormalities FUNCTIONAL RESULTS (calculated via Gated SPECT) Stress Image LV EF (%): 73 Stress EDV (mL):44 TID: 0.76 Stress ESV (mL):12 FUNCTIONAL FINDINGS: Segmental wall motion analysis revealing no gross wall motion abnormalities IMPRESSIONS 1. Myocardial perfusion imaging revealing fairly uniform myocardial tracer uptake with no significant perfusion normalities . 2. Normal LV ejection fraction of 73%. 3. LV wall motion analysis revealing no gross wall motion abnormalities. 4. Normal LV volume Low probability for coronary ischemia, based on the above findings Compared to the study from 03/05/2019, there may not be a significant change Dr Giuseppe Broderick MD [facility] (Electronically Signed) Final Date: 31 May 2022 09:44 S
--- NOTE | 2022-05-31 16:21 | PM.PN ---
Subjective Subjective: Seen this morning. Patient awaiting results of stress test. No acute events overnight. Denies any chest pain or shortness of breath at this time. Vitals/I&O/Wt Last Vital Signs Temp 97.8 F 05/31/22 16:00 Pulse 66 05/31/22 16:00 Resp 18 05/31/22 16:00 BP 95/57 05/31/22 16:00 Pulse Ox 93 05/31/22 16:00 O2 Del Method 05/31/22 16:00 05/31/22 05/31/22 05/31/22 06:59 14:59 22:59 Intake Total 702 / 702 Balance 702 / 702 Physical Exam Const: COMMON NORMALS: no acute distress and patient oriented x3 Resp: COMMON NORMALS: normal respiratory effort, No retractions, No use of accessory muscles and clear to auscultation bilaterally AUSCULTATION: clear to auscultation bilaterally Cardio: COMMON NORMALS: regular rate, regular rhythm, S1 normal heart sound present and S2 normal heart sound present RATE: regular rate RHYTHM: regular rhythm HEART SOUNDS: S1 normal heart sound present and S2 normal heart sound present GI: COMMON NORMALS: Normal to inspection, nondistended, normoactive bowel sounds present and non-tender Extremity: COMMON NORMALS: no pedal edema Neuro: COMMON NORMALS: patient oriented x3 Psych: COMMON NORMALS: mental status grossly normal Data : 05/31/22 04:32 05/31/22 04:32 A&P Assessment and plan (1) PAD (peripheral artery disease): (2) Non-ST elevation myocardial infarction (NSTEMI), initial care episode: (3) Chest pain: (4) Intermittent atrial fibrillation: (5) Dyslipidemia: (6) HTN (hypertension) with goal to be determined: (7) CAD (coronary artery disease): Qualifiers: Coronary Disease-Associated Artery/Lesion type: [place] artery [place] vs. transplanted heart: [place] heart Associated angina: without angina Qualified Code(s): I25.10 - Atherosclerotic heart disease of [place] coronary artery without angina pectoris Plan #NSTEMI #Atrial fibrillation #Coronary artery disease status post CABG x2 at [place] #Peripheral arterial disease #Hypertension #Hyperlipidemia #Dyslipidemia ? Serial EKG serial troponins telemetry monitoring. Continue aspirin Plavix statin beta-timothy. On therapeutic Lovenox. Monitor for chest pain. Cardiology consulted. Plan for stress test today. Stress test completed. Awaiting results ? Patient had cardiac catheterization since last visit. He is found to have occlusion of the [place] distal RCA with patent venous graft. [place] distal RCA was diffusely diseased and was a small caliber. He had a fairly good left to right collaterals. It was opted to treat him medically. VILLARREAL to LAD was found to be patent. Circumflex artery was found to have moderate disease. 11/2015: Left common femoral artery was used to performed peripheral angiogram by Dr. Lockwood. Unsuccessful attempt to cross a right common iliac highly calcified and tortuous stenosis with left femoral approach. We then switched to retrograde right common femoral approach to perform balloon angioplasty followed by stenting of the 90% highly calcified right common iliac ostial stenosis which remains successfully. Successful TRANSITION NURSE /stenting of the right common iliac artery -Further management to be dictated after results of cardiac stress test. -Await further recommendations from cardiology at this point. Full code DVT prophylaxis: On therapeutic Lovenox at this time. Attestations Medical Necessity Statement*: Patient requires hospitalization for chest pain Coding Level of Care Code Acute [employer]ishing [employer] for [facility] Diagnoses PAD (peripheral artery disease) I73.9 Non-ST elevation myocardial infarction (NSTEMI), initial care episode I21.4 Chest pain R07.9 Intermittent atrial fibrillation I48.0 Dyslipidemia E78.5 HTN (hypertension) with goal to be determined I10 CAD (coronary artery disease) I25.10 Coronary Disease-Associated Artery/Lesion type: [place] artery [place] vs. transplanted heart: [place] heart Associated angina: without angina
[2022-05-31] MEDS: TRAMadol 50 mg Tablet PO (19:16)
--- NOTE | 2022-05-31 20:38 | PC.NURSE ---
Shift Note Frequent safety and comfort rounds continue. Pt denies any chest pain or discomfort. requested tramadol prn standing order for back pain.
--- NOTE | 2022-05-31 21:29 | ECG_ITS ---
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 Measurements Intervals [place] Rate: 131 P: DC: QRS: 52 QRSD: 86 T: 46 QT: 273 QTc: 403 Interpretive Statements ATRIAL FIBRILLATION WITH RAPID VENTRICULAR RESPONSE NONSPECIFIC ST & T-WAVE ABNORMALITY Compared to ECG 05/29/2022 02:34:38 Sinus bradycardia no longer present Sinus arrhythmia no longer present T-wave abnormality still present Electronically Signed On 06-02-2022 8:29:51 CDT by Parth Butler M.D. [id number]
--- NOTE | 2022-05-31 21:55 | PC.NURSE ---
Spoke with regarding patient going into rapid afib [id number] BP 117/78. Patient had received PO metoprolol 25mg at 8:30pm. The patient has a history of afib.. Stat EKG showed rapid afib. ordered extra one time dose of 25mg PO metoprolol and IVP 5mg metoprolol once.
[2022-05-31] MEDS: metoprolol tartrate 1 mg/1 mL SDV 5 mL 5 MG IVP (22:17)
[2022-05-31] MEDS: atorvastatin 40 mg Tablet PO (22:22)
[2022-05-31] MEDS: mirtazapine 30 mg Tablet 45 MG PO (22:22)
[2022-05-31] MEDS: docusate sodium 100 mg Capsule PO (22:22)
--- NOTE | 2022-05-31 22:45 | PC.NURSE ---
Patient received IV metoprolol 5mg and converted toSR in 60s BP 97/62. Asked Dr Grove if he wanted nurse to hold PO metoprolol dose. said dont give it now but if HR goes above 100 then give it.
[2022-06-01] VITALS (12 sets, daily range): BP systolic 94–143; BP diastolic 47–98; PULSE 58–90; RESP 15–24; TEMP 36.3–36.8; O2SAT 89–98
[2022-06-01] MEDS: metoprolol tartrate 25 mg Tablet PO ×3 (01:11→18:36)
--- NOTE | 2022-06-01 02:10 | PC.NURSE ---
Messaged to make him aware that the patient went back into afib, rate in the 120s. Nurse gave the PO dose of Metoprolol at 1:11 and patients rate currently is 80-90s, goes up to 120s at times.
[2022-06-01] MEDS: morphine 4 mg/mL SDV 1 mL 1 MG IVP (02:37)
--- NOTE | 2022-06-01 03:09 | PC.NURSE ---
Patient was placed on o2 at 2L as his 02 SAT drops into the 80s at times when asleep. The patient again converted to SR after PO metoprolol and after a dose of IV morphine. Rate from 40s-60s. Discussed with patient leaving the oxygen on overnight to keep him from desating and using a urinal at bedside so he stays on the monitor in case he goes back into afib.
--- NOTE | 2022-06-01 05:49 | PM.MISC ---
Miscellaneous Note Note: Patient transiently went into A.fib with RVR, responded to Metoprolol 5 Mg I.V *1 Dose along with Metoprolol.T 25 MG PO *1 DOSE
[2022-06-01] MEDS: enoxaparin 100 mg/mL Syringe SUBCUT (08:36)
[2022-06-01] MEDS: omega-3 fatty acids 1,000 mg Capsule 1000 MG PO ×2 (08:37→18:36)
[2022-06-01] MEDS: cyanocobalamin 1,000 mcg Tablet 1000 MCG PO (08:38)
[2022-06-01] MEDS: cholecalciferol (vitamin D3) 1,000 unit Tablet 2000 UNIT PO (08:39)
[2022-06-01] MEDS: chlorthalidone 25 mg Tablet PO (08:39)
[2022-06-01] MEDS: aspirin 81 mg EC Tablet PO (08:40)
[2022-06-01] MEDS: losartan 50 mg Tablet 25 MG PO (08:41)
[2022-06-01] MEDS: clopidogrel 75 mg Tablet PO (08:44)
[2022-06-01] MEDS: ascorbic acid 500 mg Tablet PO (08:44)
[2022-06-01] MEDS: potassium chloride ER 10 mEq Tablet PO (08:44)
[2022-06-01] MEDS: prazosin 1 mg Capsule 4 MG PO ×2 (08:49→19:17)
--- NOTE | 2022-06-01 11:48 | XRR_ITS ---
PROCEDURE INFORMATION: Exam: XR Chest Exam date and time: 06/01/2022 12:08 PM Age: 72 years old Clinical indication: Prior surgery; Surgery type: Double bypass open heart; Patient HX: Hypoxia, PT was a-fib last night TECHNIQUE: Imaging protocol: Radiologic exam of the chest. Views: 1 view. COMPARISON: CR XR chest 1V portable [id number] 05/28/2022 11:58 AM FINDINGS: Lungs: Unremarkable. No consolidation. Pleural spaces: Unremarkable. No pleural effusion. No pneumothorax. Heart/Mediastinum: Unremarkable. No cardiomegaly. Bones/joints: Sternal sutures. XR/XR chest 1V portable [id number] IMPRESSION: No acute findings.
[2022-06-01] MEDS: acetaminophen 325 mg Tablet 650 MG PO (12:06)
--- NOTE | 2022-06-01 15:11 | PM.PN ---
Subjective Subjective: seen this AM no acute events overnight pt on 5L O2, WIll check home O2 eval CXR unremarkable had episode of afib rvr this AM requiring lopressor IV and oral Vitals/I&O/Wt Last Vital Signs Temp 98.2 F 06/01/22 11:36 Pulse 90 06/01/22 11:36 Resp 17 06/01/22 11:36 BP 143/98 06/01/22 11:36 Pulse Ox 91 06/01/22 12:38 O2 Del Method 06/01/22 11:36 O2 Flow Rate 2 06/01/22 08:00 06/01/22 06/01/22 06/01/22 06:59 14:59 22:59 Intake Total 360 / 1758 Output Total 250 / 250 Balance 360 / 1758 -250 / -250 Physical Exam Const: COMMON NORMALS: no acute distress and patient oriented x3 Resp: COMMON NORMALS: normal respiratory effort, No retractions, No use of accessory muscles and clear to auscultation bilaterally AUSCULTATION: clear to auscultation bilaterally Cardio: COMMON NORMALS: regular rate, regular rhythm, S1 normal heart sound present and S2 normal heart sound present RATE: regular rate RHYTHM: regular rhythm HEART SOUNDS: S1 normal heart sound present and S2 normal heart sound present GI: COMMON NORMALS: Normal to inspection, nondistended, normoactive bowel sounds present and non-tender Extremity: COMMON NORMALS: no pedal edema Neuro: COMMON NORMALS: patient oriented x3 Psych: COMMON NORMALS: mental status grossly normal Data : 05/31/22 04:32 05/31/22 04:32 A&P Assessment and plan (1) PAD (peripheral artery disease): (2) Non-ST elevation myocardial infarction (NSTEMI), initial care episode: (3) Chest pain: (4) Intermittent atrial fibrillation: (5) Dyslipidemia: (6) HTN (hypertension) with goal to be determined: (7) CAD (coronary artery disease): Qualifiers: Coronary Disease-Associated Artery/Lesion type: [place] artery [place] vs. transplanted heart: [place] heart Associated angina: without angina Qualified Code(s): I25.10 - Atherosclerotic heart disease of [place] coronary artery without angina pectoris Plan #NSTEMI #Atrial fibrillation #Coronary artery disease status post CABG x2 at [place] #Peripheral arterial disease #Hypertension #Hyperlipidemia #Dyslipidemia ? Serial EKG serial troponins telemetry monitoring. Continue aspirin Plavix statin beta-timothy. On therapeutic Lovenox. Monitor for chest pain. Cardiology consulted. Plan for stress test today. Stress test completed. Awaiting results ? Patient had cardiac catheterization since last visit. He is found to have occlusion of the [place] distal RCA with patent venous graft. [place] distal RCA was diffusely diseased and was a small caliber. He had a fairly good left to right collaterals. It was opted to treat him medically. VILLARREAL to LAD was found to be patent. Circum[place] artery was found to have moderate disease. 11/2015: Left common femoral artery was used to performed peripheral angiogram by Dr. Lockwood. Unsuccessful attempt to cross a right common iliac highly calcified and tortuous stenosis with left femoral approach. We then switched to retrograde right common femoral approach to perform balloon angioplasty followed by stenting of the 90% highly calcified right common iliac ostial stenosis which remains successfully. Successful RELOCATION MANAGER /stenting of the right common iliac artery -Stress test results reviewed with cardiology. No evidence of ischemia - Pt ok to be dc from cardiac standpoint - Home o2 eval complete. On room air now - CXR ok - Adjusted metoprolol. - Start lopressor 50 AM, 25 in PM. If stays stable with above dose. WIll DC in AM. Pt to f/u with Dr. Broderick as outpatient after DC. Dc therapeutic lovenox, place on eliquis 5 bid. Full code DVT prophylaxis: Eliquis Attestations Medical Necessity Statement*: Will need to stay in hospital today for medication adjustment and monitoring. Coding Level of Care Code Acute Forming Roll Operator for g Fwd Diagnoses PAD (peripheral artery disease) I73.9 Non-ST elevation myocardial infarction (NSTEMI), initial care episode I21.4 Chest pain R07.9 Intermittent atrial fibrillation I48.0 Dyslipidemia E78.5 HTN (hypertension) with goal to be determined I10 CAD (coronary artery disease) I25.10 Coronary Disease-Associated Artery/Lesion type: [place] artery [place] vs. transplanted heart: [place] heart Associated angina: without angina
[2022-06-01] MEDS: docusate sodium 100 mg Capsule PO (20:17)
[2022-06-01] MEDS: apixaban 5 mg Tablet PO (20:17)
[2022-06-01] MEDS: mirtazapine 30 mg Tablet 45 MG PO (20:17)
[2022-06-01] MEDS: atorvastatin 40 mg Tablet PO (20:17)
[2022-06-02] VITALS: BP 146/87; PULSE 66; RESP 20; TEMP 36.9; O2SAT 91
[2022-06-02 04:00] VITALS: BP 122/83; BP 146/87; PULSE 66; PULSE 74; RESP 20; RESP 24; TEMP 36.3; TEMP 36.9; O2SAT 94
[2022-06-02] MEDS: metoprolol tartrate 50 mg Tablet PO (05:19)
[2022-06-02 08:00] VITALS: BP 107/52; PULSE 45; PULSE 55; RESP 17; RESP 20; TEMP 36.6; O2SAT 92; O2SAT 96
[2022-06-02] MEDS: aspirin 81 mg EC Tablet PO (08:49)
[2022-06-02] MEDS: apixaban 5 mg Tablet PO (08:49)
[2022-06-02] MEDS: clopidogrel 75 mg Tablet PO (08:49)
[2022-06-02] MEDS: potassium chloride ER 10 mEq Tablet PO (08:49)
[2022-06-02] MEDS: cholecalciferol (vitamin D3) 1,000 unit Tablet 2000 UNIT PO (08:49)
[2022-06-02] MEDS: cyanocobalamin 1,000 mcg Tablet 1000 MCG PO (08:49)
[2022-06-02] MEDS: ascorbic acid 500 mg Tablet PO (08:49)
[2022-06-02] MEDS: omega-3 fatty acids 1,000 mg Capsule 1000 MG PO (08:49)
[2022-06-02 12:00] VITALS: BP 121/72; PULSE 68; RESP 17; TEMP 37.1; O2SAT 94
--- NOTE | 2022-06-02 13:55 | P.DS_ITS ---
Discharge Providers Date of Admission: 05/28/22 14:06 Date of Discharge: June 02, 2022 Attending Provider at Admission: Claude Schumacher MD Attending Provider at Discharge: Mary Perez MD Primary Care Provider: Lali Givens MD Diagnoses at Discharge Discharge Diagnosis (1) PAD (peripheral artery disease): Status: Acute (2) Non-ST elevation myocardial infarction (NSTEMI), initial care episode: Status: Acute (3) Chest pain: Status: Resolved (4) Intermittent atrial fibrillation: Status: Acute (5) Dyslipidemia: Status: Acute (6) HTN (hypertension) with goal to be determined: Status: Acute (7) CAD (coronary artery disease): Status: Acute Qualifiers: Associated angina: without angina Coronary Disease-Associated Artery/Lesion type: [place] artery [place] vs. transplanted heart: [place] heart Qualified Code(s): I25.10 - Atherosclerotic heart disease of [place] coronary artery without angina pectoris Reason for Visit Reason for Visit: Chest Pain Brief History: Wilson Reyes is a 72 year old male with a past medical history of atrial fibrillation on Eliquis, bradycardia, hyperlipidemia, hypertension, recent history of CAD found to have occlusion of [place] distal RCA with patent venous graft, distal RCA was diffusely diseased, opted for medical treatment, cir cumflex was also found to have moderate disease, who presents to [facility] for chest pain.? Patient tells me that he has not had any chest pain since his hospitalization, today, he started develop substernal chest pain, improved with nitroglycerin, no lightheadedness, dizziness, diaphoresis, the emergency room, he was found to have no acute ST-T wave changes noted EKG was actually found to have A. fib with RVR, however currently his heart rates in the 60s atrial fibrillation, he is to call his medications received aspirin 325, chest pain-free ER physician has spoken to cardiology, plan on hospitalization Hospital Course Hospital Course Admitted for NSTEMI. Cardiology consulted. Patient had stress test done. Remained chest pain-free throughout hospital stay. No evidence of ischemia. Patient to be discharged from cardiology standpoint. Patient to follow-up with Dr. Broderick as an outpatient. Physical Exam Const: COMMON NORMALS: no acute distress and patient oriented x3 Resp: COMMON NORMALS: normal respiratory effort, No retractions, No use of accessory muscles and clear to auscultation bilaterally AUSCULTATION: clear to auscultation bilaterally Cardio: COMMON NORMALS: regular rate, regular rhythm, S1 normal heart sound present and S2 normal heart sound present RATE: regular rate RHYTHM: regular rhythm HEART SOUNDS: S1 normal heart sound present and S2 normal heart sound present GI: COMMON NORMALS: Normal to inspection, nondistended, normoactive bowel sounds present and non-tender Extremity: COMMON NORMALS: no pedal edema Neuro: COMMON NORMALS: patient oriented x3 Psych: COMMON NORMALS: mental status grossly normal Discharge Data Studies Completed and Pending Completed Studies During Hospitalization Category Date Time Status Cardiac Stress Test MIBI [Sestamibi Stress Test Request Exams 05/31/22 08:00 Draft ] Routine XR chest 1V portable [id number] Stat Exams 05/28/22 11:48 Completed XR chest 1V portable [id number] Stat Exams 06/01/22 11:48 Completed NM timbo perf SPECT r/s* [id number] Routine Nuc Med 05/31/22 13:38 Completed CV. echo wo/w contrast [id number] Routine Ultrasound 05/28/22 14:07 Completed Radiology Impressions Chest X-Ray 06/01/22 11:48 IMPRESSION: No acute findings. Laboratory Results WBC 11.2 10^3/uL (4.0-10.0) H 05/31/22 04:32 RBC 4.46 10^6/uL (4.1-5.3) 05/31/22 04:32 Hgb 15.0 g/dL (11.7-16.6) 05/31/22 04:32 Hct 44.8 % (42.0-52.0) 05/31/22 04:32 MCV 100.4 fl (80-94) H 05/31/22 04:32 MCH 33.6 pg (28.0-34.0) 05/31/22 04:32 MCHC 33.5 g/dL (30.0-36.0) 05/31/22 04:32 RDW 13.2 % (12.1-15.1) 05/31/22 04:32 Plt Count 185 10^3/cmm (130-400) 05/31/22 04:32 MPV 10.2 fL (7.4-10.4) 05/31/22 04:32 Neut % (Auto) 55.2 % 05/31/22 04:32 Lymph % (Auto) 28.8 % 05/31/22 04:32 Power % (Auto) 11.9 % 05/31/22 04:32 Eos % (Auto) 3.0 % 05/31/22 04:32 Baso % (Auto) 0.4 % 05/31/22 04:32 Neut # (Auto) 6.15 10^3/uL (1.8-7.7) 05/31/22 04:32 Lymph # (Auto) 3.2 10^3/uL (0.8-4.8) 05/31/22 04:32 Power # (Auto) 1.3 10^3/uL (0.2-0.9) H 05/31/22 04:32 Eos # (Auto) 0.3 10^3/uL (0.0-0.8) 05/31/22 04:32 Baso # (Auto) 0.1 10^3/uL (0.0-0.1) 05/31/22 04:32 Nucleated RBC % (auto) 0 % 05/31/22 04:32 Nucleated RBCs # 0.0 /100WBC 05/31/22 04:32 D-Dimer Cancelled 05/28/22 11:40 Sodium 136 mmol/L (136-145) 05/31/22 04:32 Potassium 3.7 mmol/L (3.5-5.1) 05/31/22 04:32 Chloride 95 mmol/L (98-107) L 05/31/22 04:32 Carbon Dioxide 30 mmol/L (22-29) H 05/31/22 04:32 Anion Gap 14.7 (5-19) 05/31/22 04:32 BUN 33 mg/dL (8-23) H 05/31/22 04:32 Creatinine 1.1 mg/dL (0.7-1.2) 05/31/22 04:32 GFR Calculation Not Reportable 05/31/22 04:32 Glucose 108 mg/dL (65-115) 05/31/22 04:32 Calculated Osmolality 290 mOsm/kg (285-295) 05/31/22 04:32 Calcium 9.2 mg/dL (8.5-10.5) 05/31/22 04:32 Magnesium 2.0 mg/dL (1.7-2.3) 05/31/22 04:32 Troponin T Baseline 286 ng/L (0-15) H* 05/28/22 20:30 Troponin T 120 Minute 305.0 ng/L (0-15) H 05/28/22 22:21 Delta Troponin T 19.0 ABS# (0-10) H* 05/28/22 22:21 Troponin T Hi Sens 6Hr 297.6 ng/L (0-15) H 05/29/22 05:06 Troponin T Hi Sens 6Hr Delta 11.6 ng/L (0-12) 05/29/22 05:06 NT-Pro-B Natriuret Pep 66 pg/mL (0-125) 05/31/22 04:32 TSH 1.03 uIU/mL (0.27-4.20) 05/28/22 11:40 TSH 1.06 uIU/mL (0.27-4.20) 05/28/22 11:40 Free T4 1.07 ng/dL (0.82-1.77) 05/28/22 11:40 Vitals Last Vital Signs Temp 98.8 F 06/02/22 12:00 Pulse 68 06/02/22 12:00 Resp 17 06/02/22 12:00 BP 121/72 06/02/22 12:00 Pulse Ox 94 06/02/22 12:00 O2 Del Method 06/02/22 08:00 O2 Flow Rate 2 06/01/22 08:00 Discharge Plan Discharge Patient Disposition: Home Condition: Stable Prescriptions: New clopidogrel 75 mg Tablet 75 mg PO DAILY 30 Days Qty: 30 0RF Continued ascorbate calcium (vitamin C) 500 mg tablet 500 mg PO QAM cholecalciferol (vitamin D3) 25 mcg (1,000 unit) capsule 50 mcg PO QAM docusate sodium [Colace] 100 mg capsule 200 mg PO BEDTIME cyanocobalamin (vitamin B-12) 1,000 mcg capsule 1,000 mcg PO QAM PreserVision AREDS [id number] capsule 1 cap PO BID omega-3 fatty acids 1,000 mg capsule 1,000 mg PO BID Eliquis 5 mg tablet 5 mg PO BID tramadol 50 mg tablet 50 mg PO QID PRN (Reason: Pain) zolpidem 5 mg tablet 5 mg PO BEDTIME PRN (Reason: Sleep) potassium chloride 20 mEq Tablet Extended Release 10 meq PO QAM atorvastatin 40 mg Tablet 40 mg PO BEDTIME Qty: 30 0RF metoprolol tartrate 25 mg tablet 25 mg PO BID Qty: 60 0RF Nitrostat 0.4 mg Tablet, Sublingual 0.4 mg SUBLINGUAL Q5M PRN (Reason: Chest Pain) Rx Instructions: do not exceed 3 doses per episode mirtazapine 45 mg Tablet 45 mg PO BEDTIME valsartan 80 mg tablet 80 mg PO QAM chlorthalidone 25 mg tablet 25 mg PO QAM Changed prazosin 2 mg Capsule 2 mg PO BID Qty: 30 0RF Discontinued aspirin [Adult Aspirin Regimen] 81 mg tablet,delayed release (DR/EC) 81 mg PO QAM Hold Instructions: Resume on 05/07/22. cephalexin 500 mg capsule 500 mg PO TID Rx Instructions: FOR 7 DAYS Discharge Orders: Discharge Order (Routine); Ordered 06/02/22 Ordered By: Mary Perez Other Ambulatory Orders: MCT/Event Monitor 14 Days (Routine) Timeframe: 1 Day Facility: [facility] - Location: Radiology Ordered By: Mary Perez Referrals: Lali Givens MD [Primary Care Provider] - 06/08/22 10:30 am Giuseppe Broderick MD [Physician] - 12/08/22 1:15 pm Chantel Huerta FNP [Nurse Practitioner] - 06/10/22 2:00 pm Discharge Diet: Cardiac Discharge Activity: Resume usual activity Patient Instructions: Clopidogrel (By mouth), Chest Pain (GEN), Opioid Safety Activity Restrictions/Additional Instructions: PLease return to ER if you have worsening symptoms or any new symptoms develop. Please see your primary care doctor for a sleep study. [facility] AT 12:45 Discharge Attestations Time Spent in Discharge Care*: less than 30 min Quality Metrics Clinical Quality Measures [ No reported AMI, CVA or VTE this stay] Coding Level of Care Code Acute Chg FW DC note Diagnoses PAD (peripheral artery disease) I73.9 Non-ST elevation myocardial infarction (NSTEMI), initial care episode I21.4 Chest pain R07.9 Intermittent atrial fibrillation I48.0 Dyslipidemia E78.5 HTN (hypertension) with goal to be determined I10 CAD (coronary artery disease) I25.10 Associated angina: without angina Coronary Disease-Associated Artery/Lesion type: [place] artery [place] vs. transplanted heart: [place] heart
[2022-06-02 15:39] VITALS: BP 121/72; PULSE 68; RESP 17; TEMP 37.1; O2SAT 94
[2022-06-02 16:00] VITALS: BP 134/81; PULSE 68; RESP 17; TEMP 36.6; O2SAT 95
--- NOTE | 2022-06-02 17:37 | PC.NURSE ---
Discharge Note Patient discharged to [facility] via w/c accompanied by sister. Discharge instructions reviewed with patient and/or scheduling representative. Mobile pharmacy medications and/or prescriptions provided. Belongings/home medications returned.
== END 2022-06-02 17:50 | disposition home or self-care (01) ==
LOC: ER 12:30 → MEDSURG 14:39
PROVIDERS: Admitting Provider Family Medicine; Emergency Provider Emergency Medicine; PCP Family Medicine; Visit Provider Internal Medicine
DX: I21.4 Non-ST elevation (NSTEMI) myocardial infarction (principal); I73.9 Peripheral vascular disease, unspecified; R07.9 Chest pain, unspecified; I48.0 Paroxysmal atrial fibrillation; I25.10 Atherosclerotic heart disease of native coronary artery without angina pectoris; E78.5 Hyperlipidemia, unspecified; I10 Essential (primary) hypertension; Z95.1 Presence of aortocoronary bypass graft; Z79.01 Long term (current) use of anticoagulants; Z87.891 Personal history of nicotine dependence
CPT/HCPCS: 36415; 71045; 78452; 80048; 83735; 83880; 84439; 84443; 84484; 85025; 93005; 93017; 94664; 94760; 96372; 96374; 96375; 99285; A9500; C8929; G0378; J1650; J2270; J2785; J3490; Q9956

== ENCOUNTER → 2022-06-10 12:45 | Outpatient (BNVA) | payer OTHER, SELFPAY | PROVIDERS: PCP Family Medicine; Visit Provider Nurse Practitioner Family | DX: I48.91 Unspecified atrial fibrillation (principal); Z79.01 Long term (current) use of anticoagulants; I25.10 Atherosclerotic heart disease of native coronary artery without angina pectoris; Z95.1 Presence of aortocoronary bypass graft; Z87.891 Personal history of nicotine dependence; I10 Essential (primary) hypertension | CPT/HCPCS: 99214 ==

== ENCOUNTER 2022-06-11 09:08 | Outpatient (CLI) | payer OTHER, SELFPAY ==
--- NOTE | 2022-06-11 | US_ITS ---
WS: [id number] RIGHT UPPER QUADRANT ULTRASOUND HISTORY: ELEVATED LFT'S COMPARISON: None available. Liver: 17.1 cm in length. Mildly enlarged liver. Coarsened echotexture from hepatic steatosis. No mas s or bile duct dilatation. Portal Vein: Normal hepatopetal flow with monophasic waveform. Gallbladder: Not visualized. Prior cholecystectomy. CBD: 0.5 cm Pancreas: Normal size and echogenicity. Right kidney: 10.6 cm in length. Normal size and echogenicity. No hydronephrosis or mass. Aorta and IVC: Unremarkable abdominal aorta and IVC. No ascites. US/US abdomen limited [id number] IMPRESSION: 1. Prior cholecystectomy. 2. Mild hepatomegaly. 3. No bile duct dilatation.
== END 2022-06-11 09:09 | disposition home or self-care (01) ==
LOC: RAD 09:08
PROVIDERS: PCP Family Medicine; Visit Provider Family Medicine
DX: R94.5 Abnormal results of liver function studies (principal); R16.0 Hepatomegaly, not elsewhere classified; Z90.49 Acquired absence of other specified parts of digestive tract
CPT/HCPCS: 76705

== ENCOUNTER 2022-08-25 20:00 | Outpatient (CLI) | payer OTHER, SELFPAY | END 2022-08-25 20:01 | disposition home or self-care (01) | LOC: SLEEP 08-26 05:10 | PROVIDERS: PCP Family Medicine; Visit Provider Family Medicine | DX: G47.33 Obstructive sleep apnea (adult) (pediatric) (principal) | CPT/HCPCS: 95811 ==

== ENCOUNTER 2022-11-04 18:45 | Observation (INO) | payer OTHER, SELFPAY ==
[2022-11-04] VITALS (10 sets, daily range): BP systolic 99–143; BP diastolic 65–96; PULSE 73–89; RESP 15–25; TEMP 36.6–37; O2SAT 93–96; BMI 37.0
--- NOTE | 2022-11-04 18:50 | ECG_ITS ---
[facility] Test Date: 2022-11-04 Pat Name: Wilson Reyes Department: Room: Gender: Male Environmental Director: : 1950 Requested By: Donna Gandara Order Number: [id number] Reading MD: JANEE CHINO Measurements Intervals [place] Rate: 81 P: 50 CT: 154 QRS: 55 QRSD: 80 T: -57 QT: 324 QTc: 378 Interpretive Statements SINUS RHYTHM WITH FREQUENT SUPRAVENTRICULAR PREMATURE COMPLEXES ST DEVIATION AND MODERATE T-WAVE ABNORMALITY, CONSIDER INFERIOR ISCHEMIA [-0.1+ mV T-WAVE IN II/aVF] Compared to ECG 05/31/2022 21:38:55 Possible ischemia now present Atrial fibrillation no longer present T-wave abnormality still present Electronically Signed On 11-06-2022 23:39:10 CDT by JANEE CHINO [email or web address]
--- NOTE | 2022-11-04 19:01 | XRR_ITS ---
PROCEDURE INFORMATION: Exam: XR Chest Exam date and time: 11/04/2022 7:31 PM Age: 72 years old Clinical indication: Pain; Chest pressure; Prior surgery; Additional info: Palpitations TECHNIQUE: Imaging protocol: Radiologic exam of the chest. Views: 1 view. COMPARISON: CR XR chest 1V portable [id number] 06/01/2022 12:08 PM FINDINGS: Lungs: Left lower lobe ground-glass airspace opacity reflecting atelectasis versus infiltrate. Pleural spaces: Unremarkable. No pleural effusion. No pneumothorax. Heart/Mediastinum: Cardiomegaly and mild pulmonary vascular congestion. Bones/joints: Sternotomy wires. XR/XR chest 1V portable [id number] IMPRESSION: 1. Cardiomegaly and mild pulmonary vascular congestion. 2. Left lower lobe ground-glass airspace opacity reflecting atelectasis versus infiltrate. 3. Sternotomy wires.
--- NOTE | 2022-11-04 19:01 | W.ED.ARRPALP ---
HPI - Arrhythmia/Palpitations General: Chief Complaint: Arrhythmia/Palpitations Stated Complaint: heart flutters Time Seen by Provider: 11/04/22 19:00 History of Present Illness: Patient presents with the ER with complaints of A-fib. He states it started about 2 PM today and lasted about 4 hours. It stopped on his way here to the ER. Patient does state that [facility] increased his metoprolol from 25 mg twice daily to 50 mg twice daily and he did not take today's dose. At this time patient's his heart rate is normal he does not have any chest pain dizziness or shortness of breath. Patient is currently on EliquisYvette BERGERON complaint: rapid heart beat Onset (ago): hour(s) (About 4 hours ago) Duration: constant and now resolved Severity: moderate Context: occurred during rest Arrhythmia history: atrial fibrillation Associated symptoms: Reports no associated symptoms; Deny nausea or vomiting Review of Systems General: Reports: 10 or more systems reviewed and unremarkable except in HPI and below Const: Denies: fever(s) or chills Eyes: Denies: change in vision ENMT: Denies: throat pain or odynophagia Card: Reports: palpitations and irregular heart rhythm; Denies: chest pain Resp: Denies: dyspnea, productive cough or non-productive cough GI: Denies: abdominal pain, nausea, vomiting or diarrhea : Denies: flank pain, difficulty urinating or dysuria Musc: Denies: neck pain or back pain Skin/Breast: Denies: rash Bal/Lymph: Reports: easy bruising and easy bleeding PFSH ED PFSH: Medical History Atrial fibrillation CAD (coronary artery disease) HTN (hypertension) with goal to be determined Hyperlipidemia due to dietary fat intake PAD (peripheral artery disease) Surgical History Hx of bilateral cataract extraction Hx of cholecystectomy Hx of hernia repair S/P CABG (coronary artery bypass graft) Family History Father CAD (coronary artery disease), Onset Age: 60 Stroke Family/Other Dementia Brother Lung disease Denies family history of Diabetes Clotting disorder Chronic kidney disease (CKD) Suicide Anesthesia complication Bleeding disorder Cancer Social History Smoking and tobacco status: former smoker Alcohol intake: former Physical Exam Const: COMMON NORMALS: no acute distress, average body habitus, patient oriented x3, no limitations, healthy appearing and alert Neck/C-Spine: COMMON NORMALS: full ROM, no lymphadenopathy, supple, no JVD and Thyroid normal THYROID: Thyroid normal Chest: COMMONS NORMALS: normal inspection of the chest and normal palpation of entire chest wall Resp: COMMON NORMALS: normal respiratory effort and No retractions Cardio: COMMON NORMALS: no JVD, regular rate, regular rhythm, S1 normal heart sound present, S2 normal heart sound present and No gallops present (Cardio) RATE: regular rate RHYTHM: regular rhythm HEART SOUNDS: S1 normal heart sound present and S2 normal heart sound present GI: COMMON NORMALS: Normal to inspection, nondistended, normoactive bowel sounds present, Soft to palpation, non-tender, No hepatosplenomegaly present and no masses PALPATION: Yes Soft to palpation and Yes No hepatosplenomegaly present Neuro: COMMON NORMALS: patient oriented x3 SENSORIUM/ORIENTATION: Yes alert Course Vital Signs: Vital signs: Vital Signs Temperature 97.9 F 11/04/22 18:46 Pulse Rate 76 11/04/22 21:30 Respiratory Rate 24 H 11/04/22 21:30 Blood Pressure 99/65 11/04/22 21:30 Pulse Oximetry 96 11/04/22 21:30 Oxygen Delivery Me thod 11/04/22 19:09 MDM - Arrhythmia/Palpitations Medical Decision Making Patient presents to the ER with complaints of a 4-hour period of A-fib earlier today. Patient is pain-free with no nausea vomiting, shortness of breath, diaphoresis, or other episodes of A-fib. Patient does have extensive cardiac history with a CABG and per patient a known unstentable lesion. Patient does have a history of A-fib and is on Eliquis and Plavix. Physical exam was undertaken as well as serial lab work which did show a delta troponin of approximately 3, differences in the 2 EKGs were significant though. Second EKG did show new onset negative T waves in multiple leads. This was discussed with the patient that he would need further monitoring and further evaluation. Dr. Lopez excepted the patient for admission and further work-up. Differential Diagnosis Likely palpitations, anxiety and artial fibrillation Lab Data 11/04/22 19:20 11/04/22 19:20 Radiology Impressions Chest X-Ray 11/04/22 19:01 IMPRESSION: 1. Cardiomegaly and mild pulmonary vascular congestion. 2. Left lower lobe ground-glass airspace opacity reflecting atelectasis versus infiltrate. 3. Sternotomy wires. Laboratory Results WBC 9.2 10^3/uL (4.0-10.0) 11/04/22 19:20 RBC 4.73 10^6/uL (4.1-5.3) 11/04/22 19:20 Hgb 15.5 g/dL (11.7-16.6) 11/04/22 19:20 Hct 45.6 % (42.0-52.0) 11/04/22 19:20 MCV 96.4 fl (80-94) H 11/04/22 19:20 MCH 32.8 pg (28.0-34.0) 11/04/22 19:20 MCHC 34.0 g/dL (30.0-36.0) 11/04/22 19:20 RDW 12.7 % (12.1-15.1) 11/04/22 19:20 Plt Count 250 10^3/cmm (130-400) 11/04/22 19:20 MPV 10.2 fL (7.4-10.4) 11/04/22 19:20 Neut % (Auto) 65.8 % 11/04/22 19:20 Lymph % (Auto) 18.3 % 11/04/22 19:20 [place] % (Auto) 13.8 % 11/04/22 19:20 Eos % (Auto) 1.4 % 11/04/22 19:20 Baso % (Auto) 0.4 % 11/04/22 19:20 Neut # (Auto) 6.03 10^3/uL (1.8-7.7) 11/04/22 19:20 Lymph # (Auto) 1.7 10^3/uL (0.8-4.8) 11/04/22 19:20 [place] # (Auto) 1.3 10^3/uL (0.2-0.9) H 11/04/22 19:20 Eos # (Auto) 0.1 10^3/uL (0.0-0.8) 11/04/22 19:20 Baso # (Auto) 0.0 10^3/uL (0.0-0.1) 11/04/22 19:20 Nucleated RBC % (auto) 0 % 11/04/22 19:20 Nucleated RBCs # 0.0 /100WBC 11/04/22 19:20 Sodium 140 mmol/L (136-145) 11/04/22 19:20 Potassium 3.8 mmol/L (3.5-5.1) 11/04/22 19:20 Chloride 100 mmol/L (98-107) 11/04/22 19:20 Carbon Dioxide 30 mmol/L (22-29) H 11/04/22 19:20 Anion Gap 13.8 (5-19) 11/04/22 19:20 BUN 20 mg/dL (8-23) 11/04/22 19:20 Creatinine 1.1 mg/dL (0.7-1.2) 11/04/22 19:20 GFR Calculation Not Reportable 11/04/22 19:20 Glucose 95 mg/dL (65-115) 11/04/22 19:20 Calculated Osmolality 292 mOsm/kg (285-295) 11/04/22 19:20 Calcium 9.2 mg/dL (8.5-10.5) 11/04/22 19:20 Total Bilirubin 0.4 mg/dL (0.15-1.2) 11/04/22 19:20 AST 18 U/L (0-40) 11/04/22 19:20 ALT 22 U/L (0-41) 11/04/22 19:20 Alkaline Phosphatase 61 U/L (40-130) 11/04/22 19:20 Troponin T Baseline 20 ng/L (0-15) H 11/04/22 19:20 Troponin T 120 Minute 23.59 ng/L (0-15) H 11/04/22 21:14 Delta Troponin T 3.59 ABS# (0-10) 11/04/22 21:14 Total Protein 6.5 g/dL (6.6-8.7) L 11/04/22 19:20 Albumin 4.0 g/dL (3.5-5.2) 11/04/22 19:20 Globulin 2.5 g/dL (1.3-4.6) 11/04/22 19:20 EKG Data EKG 1: I personally reviewed and interpreted this EKG as follows: EKG interpretation date: 11/04/22 EKG interpretation time: 18:54 Prior EKG tracings: not available for review Interpretation: EKG showed sinus rhythm with frequent PVCs, ventricular rate of 81 beats minute, CT interval 154, QRS duration of 80, QTc of 362, ST deviation moderate T wave abnormality consider inferior ischemia, Other EKG comments: Chest X-Ray 11/04/22 19:01 IMPRESSION: 1. Cardiomegaly and mild pulmonary vascular congestion. 2. Left lower lobe ground-glass airspace opacity reflecting atelectasis versus infiltrate. 3. Sternotomy wires. EKG 2: I personally reviewed and interpreted this EKG as follows: EKG interpretation date: 11/04/22 EKG interpretation time: 21:59 Prior EKG tracings: available for review Interpretation: EKG showed sinus rhythm with marked sinus arrhythmia, ventricular rate of 85 bpm, CT interval of 178, QRS duration of 76, QTc of 376, EKG has similar T wave abnormalities with negative T waves in 2 and aVF has a prior however there has been a change with T wave abnormality of negative T waves in leads I, aVL, V5 and V6 that are new. Other EKG comments: Chest X-Ray 11/04/22 19:01 IMPRESSION: 1. Cardiomegaly and mild pulmonary vascular congestion. 2. Left lower lobe ground-glass airspace opacity reflecting atelectasis versus infiltrate. 3. Sternotomy wires. Discharge Plan Discharge Patient Disposition: Admitted As Inpatient Clinical Impression: CAD (coronary artery disease), Atrial fibrillation, Abnormal ECG Condition: Stable Prescriptions: No Action ascorbate calcium (vitamin C) 500 mg tablet 500 mg PO QAM cholecalciferol (vitamin D3) 25 mcg (1,000 unit) capsule 50 mcg PO QAM docusate sodium [Colace] 100 mg capsule 200 mg PO BEDTIME cyanocobalamin (vitamin B-12) 1,000 mcg capsule 1,000 mcg PO QAM PreserVision AREDS [id number] [id number] capsule 1 cap PO BID omega-3 fatty acids 1,000 mg capsule 1,000 mg PO BID Eliquis 5 mg tablet 5 mg PO BID tramadol 50 mg tablet 50 mg PO QID PRN (Reason: Pain) zolpidem 5 mg tablet 5 mg PO BEDTIME PRN (Reason: Sleep) clopidogrel 75 mg tablet 75 mg PO DAILY Qty: 90 3RF potassium chloride 20 mEq Tablet Extended Release 10 meq PO QAM atorvastatin 40 mg Tablet 40 mg PO BEDTIME Qty: 30 0RF metoprolol tartrate 25 mg tablet 25 mg PO BID Qty: 60 0RF Nitrostat 0.4 mg Tablet, Sublingual 0.4 mg SUBLINGUAL Q5M PRN (Reason: Chest Pain) Rx Instructions: do not exceed 3 doses per episode mirtazapine 45 mg Tablet 45 mg PO BEDTIME valsartan 80 mg tablet 80 mg PO QAM chlorthalidone 25 mg tablet 25 mg PO QAM prazosin 2 mg Capsule 2 mg PO BID Qty: 30 0RF Referrals: Lali Givens MD [Primary Care Provider] - Coding Level of Care Code ED Third Loader for Binh Caban
[2022-11-04 19:34] LABS: Basophils % 0.4 %; Eosinophils # 0.1 10^3/uL (0.0-0.8); Eosinophils % 1.4 %; Hematocrit 45.6 % (42.0-52.0); Hemoglobin 15.5 g/dL (11.7-16.6); Lymphocytes # 1.7 10^3/uL (0.8-4.8); Lymphocytes % 18.3 %; Mean Corpuscular Hemoglobin 32.8 pg (28.0-34.0); Mean Corpuscular Volume 96.4 fl (80-94); Mean Platelet Volume 10.2 fL (7.4-10.4); Monocytes # 1.3 10^3/uL (0.2-0.9); Monocytes % 13.8 %; Neutrophils # 6.03 10^3/uL (1.8-7.7); Neutrophils % 65.8 %; Nucleated Red Blood Cells % 0 %; Platelet Count 250 10^3/cmm (130-400); Red Blood Count 4.73 10^6/uL (4.1-5.3); Red Cell Distribution Width 12.7 % (12.1-15.1); White Blood Count 9.2 10^3/uL (4.0-10.0)
[2022-11-04 19:55] LABS: Troponin(5th) Baseline 20 ng/L (0-15)
[2022-11-04 19:58] LABS: Alanine Aminotransferase 22 U/L (0-41); Alkaline Phosphatase 61 U/L (40-130); Aspartate Amino Transferase 18 U/L (0-40); Blood Urea Nitrogen 20 mg/dL (8-23); Calcium 9.2 mg/dL (8.5-10.5); Carbon Dioxide 30 mmol/L (22-29); Chloride 100 mmol/L (98-107); Globulin 2.5 g/dL (1.3-4.6); Glucose 95 mg/dL (65-115); Osmolality Calculated 292 mOsm/kg (285-295); Sodium 140 mmol/L (136-145); Total Bilirubin 0.4 mg/dL (0.15-1.2); Total Protein 6.5 g/dL (6.6-8.7)
[2022-11-04 20:11] LABS: Anion Gap 13.8 (5-19); Potassium 3.8 mmol/L (3.5-5.1)
[2022-11-04 21:41] LABS: Troponin 5 2HR 23.59 ng/L (0-15)
[2022-11-04 21:51] LABS: Troponin 5 2HR Delta 3.59 ABS# (0-10)
--- NOTE | 2022-11-04 21:59 | ECG_ITS ---
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1950 Requested By: Tariq Mills Order Number: [id number] Reading MD: JANEE CHINO Measurements Intervals [place] Rate: 85 P: 54 MN: 178 QRS: 47 QRSD: 76 T: -20 QT: 334 QTc: 398 Interpretive Statements SINUS RHYTHM WITH MARKED SINUS ARRHYTHMIA MODERATE T-WAVE ABNORMALITY, CONSIDER LATERAL ISCHEMIA [-0.1+ mV T-WAVE IN I/aVL/V5/V6] MODERATE T-WAVE ABNORMALITY, CONSIDER INFERIOR ISCHEMIA [-0.1+ mV T-WAVE IN II/aVF] Compared to ECG 11/04/2022 18:54:12 No significant changes Electronically Signed On 11-06-2022 23:44:59 CDT by JANEE CHINO [id number]
--- NOTE | 2022-11-04 22:27 | USCV_ITS ---
Wilson Reyes Age: 72 Gender: M : 1950 Exam Date: 11/04/2022 23:25 Ordering Phys: Ari Lopez MD Technologist: CHARO Exam Location: [facility] – [place] Indication: st depression afib, assess for RWMA, EF BP: 99 / 65 HR: 73 Rhythm: Sinus Technical Quality: Adequate with [employer] MEASUREMENTS (Male / Female) Normal Values 2D ECHO LV Diastolic Diameter PLAX 3.3 cm 4.2 - 5.9 / 3.9 - 5.3 cm LV Systolic Diameter PLAX 2.1 cm IVS Diastolic Thickness 1.4 cm 0.6 - 1.0 / 0.6 - 0.9 cm IVS Systolic Thickness 1.8 cm LVPW Diastolic Thickness 1.4 cm 0.6 - 1.0 / 0.6 - 0.9 cm LVPW Systolic Thickness 1.6 cm LVOT Diameter 2.0 cm LV Ejection Fraction 2D Teich 66.2 % LV Ejection Fraction MOD 2C 68.3 % LV Ejection Fraction 2C AL 69.3 % LA Diameter 4.0 cm LA Width 3.3 cm LA Height 5.4 cm RA Width 3.3 cm RA Height 4.0 cm Aorta at Sinotubular Diameter 2.5 cm IVC Diameter 1.8 cm M-MODE Aortic Annulus Diameter 3.2 cm LA Ao Ratio MM 1.3 MV E Point Septal Separation 0.3 cm DOPPLER AV Peak Velocity 108.0 cm/s LVOT Peak Velocity 124.0 cm/s AV Area Cont Eq vti 3.2 cm squared AV Area Cont Eq pk 3.5 cm squared MV Peak Velocity 97.0 cm/s MV Area PHT 4.5 cm squared Mitral E to A Ratio 1.2 MV E' Velocity 53.5 cm/s Mitral E to MV E' Ratio 8.6 Mitral E to LV E' Lateral Ratio 6.5 Mitral E to LV E' Septal Ratio 13.1 PV Peak Velocity 132.0 cm/s FINDINGS Left Ventricle Normal left ventricular size, systolic function and wall thickness, with no regional wall motion abnormalities. Left ventricular ejection fraction is estimated at 60 %.Grade I/IV diastolic dysfunction (abnormal relaxation filling pattern), normal to mildly elevated filling pressures. Right Ventricle The right ventricle is normal in size and function. Right Atrium The right atrium is normal in size. Left Atrium The left atrium is normal in size. Mitral Valve Structurally normal mitral valve without significant stenosis or prolapse. There is no mitral regurgitation. Aortic Valve Structurally normal aortic valve without significant sclerosis or stenosis. There is no aortic regurgitation. Tricuspid Valve Structurally normal tricuspid valve without significant stenosis or regurgitation. Pulmonary artery systolic pressure is normal. Pulmonic Valve Structurally normal pulmonic valve without significant stenosis. There is mild pulmonic regurgitation. Pericardium Normal pericardium without effusion. Aorta Normal ascending aorta dimension. IVC The inferior vena cava appears normal. CONCLUSIONS 1-Normal left ventricular size, systolic function and wall thickness, with no regional wall motion abnormalities. Left ventricular ejection fraction is estimated at 60 %.Grade I/IV diastolic dysfunction (abnormal relaxation filling pattern), normal to mildly elevated filling pressures. 2-There is no pericardial effusion. 3-No significant valve abnormalities. 4-Right atrial pressure is around 5 mm of mercury. Ortega Lockwood MD (Electronically Signed) Final Date: 06 November 2022 00:11 S
--- NOTE | 2022-11-04 22:57 | P.HP_ITS ---
Providers/Chief Complaint Admitting Physician: Ari Lopez Primary Care Provider: Lali Givens MD Chief Complaint: heart flutters History of Present Illness Pleasant 72-year-old gentleman accompanied by his family in ER came into for evaluation due to persistent atrial fibrillation with RVR from 2 to 6 PM at that time with associated chest discomfort radiating from the right to left and to the back as well as to his jaw. Tachycardia was up in the 160s-170s. He states that he did not take his metoprolol this morning. States that it was due to low blood pressure and that he was told to hold his metoprolol. His systolic blood pressure was 117. He states that recently his PCP increased his metoprolol from 25 mg which she has been for a long time up to 50 mg. This was about 3 weeks ago. He has history of coronary disease, follows with Dr. Broderikc. States that he had an angiogram about 3 months ago which revealed one-vessel at 50% stenosis, another vessel chronically occluded. Did not have any intervention. Currently he is chest pain-free. In ER he is noted to have ST depression and T wave inversions inferior laterally. Heart rate currently in 80s. Chest x-ray with GGO left lower lobe discussed with him and family, although he denies any respiratory symptoms, also denies any headache, URI symptoms, no nausea vomiting, diarrhea, etc. Review of Systems Const: Denies: fever(s), chills, body aches or malaise Eyes: Denies: change in vision, eye discomfort or eye redness ENMT: Denies: throat pain, oral sores or ear or mastoid pain Card: Reports: chest pain and irregular heart rhythm; Denies: edema, pre-syncope or dyspnea on exertion Resp: Denies: dyspnea, productive cough, change in phlegm color or hemoptysis GI: Denies: abdominal pain, nausea, vomiting, diarrhea, constipation, hematochezia or melena : Denies: flank pain, difficulty urinating, urinary frequency or hematuria Musc: Denies: back pain, joint swelling or joint redness Skin/Breast: Denies: rash or new lesions Neuro: Denies: headache(s), numbness in extremities, weakness in extremities, dizziness, confusion or seizure-like activity Endo: Denies: polyuria or polydipsia Bal/Lymph: Denies: easy bleeding or tender lymph nodes All/Imm: Denies: urticaria or tongue swelling Medications/Allergies Home Medications Medication Instructions Recorded Confirmed Last Taken Type apixaban 5 mg tablet (Eliquis) 5 mg PO BID 02/26/20 06/10/22 05/28/22 10:00 History ascorbate calcium (vitamin C) 500 500 mg PO QAM 02/26/20 06/10/22 05/28/22 History mg tablet cholecalciferol (vitamin D3) 25 50 mcg PO QAM 02/26/20 06/10/22 05/28/22 History mcg (1,000 unit) capsule cyanocobalamin (vitamin B-12) 1,000 mcg PO QAM 02/26/20 06/10/22 05/28/22 History 1,000 mcg capsule docusate sodium 100 mg capsule 200 mg PO BEDTIME 02/26/20 06/10/22 05/27/22 History (Colace) omega-3 fatty acids 1,000 mg 1,000 mg PO BID 02/26/20 06/10/22 05/28/22 History capsule tramadol 50 mg tablet 50 mg PO QID PRN Pain 02/26/20 06/10/22 05/28/22 History vitamins A,C,L-upon-emdaam 14,320 1 cap PO BID 02/26/20 06/10/22 05/28/22 History unit-226 mg-200 unit capsule (PreserVision AREDS) zolpidem 5 mg tablet 5 mg PO BEDTIME PRN Sleep 09/22/21 06/10/22 Unknown History potassium chloride 20 mEq 10 meq PO QAM 04/06/22 06/10/22 05/28/22 History tablet,extended release atorvastatin 40 mg tablet 40 mg PO BEDTIME #30 tabs 04/08/22 06/10/22 05/27/22 Rx chlorthalidone 25 mg tablet 25 mg PO QAM 05/28/22 06/10/22 05/28/22 History mirtazapine 45 mg tablet 45 mg PO BEDTIME 05/28/22 06/10/22 05/27/22 History nitroglycerin 0.4 mg sublingual 0.4 mg sublingual Q5M PRN Chest 05/28/22 06/10/22 05/28/22 History tablet (Nitrostat) Pain valsartan 80 mg tablet 80 mg PO QAM 05/28/22 06/10/22 05/28/22 History prazosin 2 mg capsule 2 mg PO BID #30 caps 06/02/22 06/10/22 05/28/22 Rx clopidogrel 75 mg tablet 75 mg PO DAILY #90 tabs 06/11/22 06/11/22 Unknown Rx aspirin 81 mg capsule 81 mg PO DAILY 11/04/22 11/04/22 11/04/22 08:00 History metoprolol tartrate 25 mg tablet 50 mg PO BID 11/04/22 11/04/22 Unknown History trazodone 100 mg tablet 50 mg PO BEDTIME 11/04/22 11/04/22 11/03/22 21:00 History Allergies Allergy/AdvReac Type Severity Reaction Status Date / Time No Known Allergies Allergy Verified 06/10/22 08:30 PFSH Acute PFSH: Medical History Atrial fibrillation CAD (coronary artery disease) HTN (hypertension) with goal to be determined Hyperlipidemia due to dietary fat intake PAD (peripheral artery disease) Surgical History Hx of bilateral cataract extraction Hx of cholecystectomy Hx of hernia repair S/P CABG (coronary artery bypass graft) Family History Father CAD (coronary artery disease), Onset Age: 60 Stroke Family/Other Dementia Brother Lung disease Denies family history of Diabetes Clotting disorder Chronic kidney disease (CKD) Suicide Anesthesia complication Bleeding disorder Cancer Social History Smoking and tobacco status: former smoker Alcohol intake: former Vitals/I&O/Wt Last Vital Signs Temp 97.9 F 11/04/22 18:46 Pulse 88 11/04/22 22:43 Resp 17 11/04/22 22:43 BP 139/71 11/04/22 22:43 Pulse Ox 94 11/04/22 22:43 O2 Del Method 11/04/22 22:43 Weight last 48 hrs Weight 101.151 kg Physical Exam Const: COMMON NORMALS: patient oriented x3 and alert GENERAL APPEARANCE: cooperative NUTRITIONAL APPEARANCE: overweight ORIENTATION/CONSCIOUSNESS: Yes awake HENMT: COMMON NORMALS: oropharynx normal Neck/C-Spine: COMMON NORMALS: no JVD Resp: COMMON NORMALS: normal respiratory effort and clear to auscultation bilaterally AUSCULTATION: clear to auscultation bilaterally Cardio: COMMON NORMALS: no JVD, regular rhythm, S1 normal heart sound present, S2 normal heart sound present and No murmurs present (Cardio) RHYTHM: regular rhythm HEART SOUNDS: S1 normal heart sound present and S2 normal heart sound present GI: COMMON NORMALS: Normal to inspection, nondistended, normoactive bowel sounds present, Soft to palpation and non-tender PALPATION: Yes Soft to palpation Extremity: COMMON NORMALS: no joint enlargement and no pedal edema Neuro: COMMON NORMALS: patient oriented x3 and moves all extremities SENSORIUM/ORIENTATION: Yes alert Skin: COMMON NORMALS: no rashes or lesions noted GENERAL SKIN EXAM: no rashes or lesions noted Data 11/04/22 19:20 11/04/22 19:20 A&P Assessment and plan (1) Paroxysmal atrial fibrillation with RVR: At home heart rates up into 160s, accompanied by chest pain rating to the back of his neck. In ER noted inferolateral ST depression, T wave inversions. Here no longer tachycardic. Troponin with mild elevation noted with mild rise, 20 up to 23.59 at 2 hours. EKG on my review appears to show ST depression and TWI inferolaterally, possibly some ischemia after the sustained tachycardia. Complete troponin EKG series. He has recently had a stress test about 5 months ago, please touch base with his technology integration specialist Dr. rBoderick tomorrow to see if additional ischemic work-up would be beneficial. He definitely would benefit from clear instructions as to when he should or should not hold his metoprolol. He held this morning as his blood pressure was 117. His metoprolol dose was recently increased to 50 mg by his PCP. He is also on valsartan, chlorthalidone. If holding medications, metoprolol should be first to resume, potentially antihypertensives may need to be held if blood pressure low to allow him to be able to take the metoprolol. Please include clear parameters for blood pressure and heart rates at discharge in terms of holding and resumption of metoprolol, other antihypertensives to make it easier for him to refer to. (2) ST segment depression: Had an angiogram back in March 2022, no intervention indicated at that time, continued on medical management. His episodes of paroxysmal A-fib are accompanied by chest discomfort, also noted ST depression, T wave inversion. He did have a stress test relatively recently 06/12, please touch base with his technology integration specialist to see if any additional work-up may be recommended beyond better control of his heart rates. In the meantime will assess with limited TTE for any RWMA, changes in EF. (3) Chest pain: Resolved, currently chest pain-free. Only at the onset of tachycardia. As above. (4) Ground glass opacity present on imaging of lung: Left lower lobe. Not entirely clear etiology but may be localized pulmonary edema after A-fib with RVR. He denies any respiratory or systemic symptoms that may be indicative of pneumonia or viral illness. Rapid flu and COVID antigen requested. Reassess for any change in symptoms. Consider follow-up for resolution with PCP. Plan Labile blood pressure HTN HLD CAD, history of CABG PAD Other medical problems Requested his medications to be listed. Please review and reconcile again once available. Case discussed with ER physician. ER documentation reviewed. Reviewed cardi ology documentation from latest office visit. Replenisher report. Attestations Medical Necessity Statement*: Place in observation for further assessment and management following paroxysmal A-fib with RVR with chest pain, finding of ST depression and T wave inversions on EKG and gentleman with underlying CAD, finding of groundglass opacity left lower lung. Diagnoses Paroxysmal atrial fibrillation with RVR I48.0 ST segment depression R94.31 Chest pain R07.9 Ground glass opacity present on imaging of lung R91.8
[2022-11-04 23:35] LABS: Influenza A by IFA negative (Negative); Influenza B by IFA negative (Negative); SARS Covid-2 Antigen negative (Negative)
[2022-11-05] VITALS (30 sets, daily range): BP systolic 105–140; BP diastolic 57–96; PULSE 56–79; RESP 15–25; TEMP 36.6–37; O2SAT 90–96
[2022-11-05] MEDS: metoprolol tartrate 50 mg Tablet PO ×2 (00:12→19:55)
[2022-11-05] MEDS: atorvastatin 40 mg Tablet PO ×2 (00:12→19:51)
--- NOTE | 2022-11-05 01:01 | ECG_ITS ---
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1950 Requested By: Tariq Mills Order Number: [id number] Reading MD: JANEE CHINO Measurements Intervals [place] Rate: 74 P: 50 [place]: 171 QRS: 51 QRSD: 91 T: -38 QT: 410 QTc: 457 Interpretive Statements SINUS RHYTHM WITH OCCASIONAL SUPRAVENTRICULAR PREMATURE COMPLEXES ST DEVIATION AND MODERATE T-WAVE ABNORMALITY, CONSIDER ANTEROLATERAL ISCHEMIA [-0.1+ mV T-WAVE IN V3-V6] ST DEVIATION AND MODERATE T-WAVE ABNORMALITY, CONSIDER INFERIOR ISCHEMIA [-0.1+ mV T-WAVE IN II/aVF] Compared to ECG 11/04/2022 21:59:24 Sinus arrhythmia no longer present T-wave abnormality still present Possible ischemia still present Electronically Signed On 11-06-2022 23:44:52 CDT by JANEE CHINO [id number]
[2022-11-05 01:02] LABS: Basophils % 0.4 %; Eosinophils # 0.1 10^3/uL (0.0-0.8); Eosinophils % 1.2 %; Hematocrit 43.1 % (42.0-52.0); Hemoglobin 14.4 g/dL (11.7-16.6); Lymphocytes # 2.1 10^3/uL (0.8-4.8); Lymphocytes % 19.5 %; Mean Corpuscular HGB Conc 33.4 g/dL (30.0-36.0); Mean Corpuscular Hemoglobin 32.7 pg (28.0-34.0); Mean Corpuscular Volume 97.7 fl (80-94); Mean Platelet Volume 10.2 fL (7.4-10.4); Monocytes # 1.1 10^3/uL (0.2-0.9); Monocytes % 10.6 %; Neutrophils # 7.21 10^3/uL (1.8-7.7); Nucleated Red Blood Cells % 0 %; Platelet Count 228 10^3/cmm (130-400); Red Blood Count 4.41 10^6/uL (4.1-5.3); White Blood Count 10.6 10^3/uL (4.0-10.0)
[2022-11-05 01:34] LABS: Anion Gap 14.1 (5-19); Blood Urea Nitrogen 18 mg/dL (8-23); Calcium 9.1 mg/dL (8.5-10.5); Carbon Dioxide 29 mmol/L (22-29); Chloride 101 mmol/L (98-107); Glucose 125 mg/dL (65-115); Osmolality Calculated 295 mOsm/kg (285-295); Potassium 3.1 mmol/L (3.5-5.1); Sodium 141 mmol/L (136-145)
[2022-11-05] MEDS: chlorthalidone 25 mg Tablet PO (04:04)
[2022-11-05] MEDS: losartan 50 mg Tablet 25 MG PO (04:04)
[2022-11-05] MEDS: perflutren protein-a microsphr 0.22 mg/mL SDV 3 mL IV (05:55)
--- NOTE | 2022-11-05 08:01 | ECG_ITS ---
[facility] Test Date: 2022-11-05 Pat Name: Wilson Reyes Department: Room: 103 Gender: Male Nib Adjuster: : 1950 Requested By: Matthew Howe Order Number: [id number] [place] MD: JANEE CHINO Measurements Intervals [place] Rate: 54 P: 0 AL: 0 QRS: 36 QRSD: 101 T: -30 QT: 426 QTc: 406 Interpretive Statements SINUS BRADYCARDIA WITH 2ND DEGREE AV BLOCK, 2:1 OR MOBITZ TYPE II NONSPECIFIC T-WAVE ABNORMALITY CRITICAL TEST RESULT Compared to ECG 11/05/2022 00:24:03 Sinus rhythm no longer present Possible ischemia no longer present T-wave abnormality still present Electronically Signed On 11-06-2022 23:44:44 CDT by JANEE CHINO [email or web address]
[2022-11-05] MEDS: aspirin 81 mg EC Tablet PO (08:28)
[2022-11-05] MEDS: apixaban 5 mg Tablet PO ×2 (08:28→17:23)
[2022-11-05] MEDS: prazosin 1 mg Capsule 2 MG PO ×2 (08:28→17:24)
[2022-11-05] MEDS: clopidogrel 75 mg Tablet PO (08:28)
--- NOTE | 2022-11-05 08:31 | PM.PN ---
Subjective Subjective: 72yo M pt seen lying in bed. States he feels improved today Did not sleep last evening 2/2 noise. Denies current CP. admits to events of elevated HR which he would feel palpitations but not better controoled. Denying SOB, cough, weakness. Vitals/I&O/Wt Last Vital Signs Temp 98 F 11/05/22 08:00 Pulse 58 L 11/05/22 08:00 Resp 18 11/05/22 07:30 BP 119/68 11/05/22 08:00 Pulse Ox 94 11/05/22 08:00 O2 Del Method 11/05/22 08:00 11/04/22 11/05/22 11/05/22 22:59 06:59 14:59 Intake Total 300 / 300 Output Total 340 / 340 Balance -40 / -40 Weight last 48 hrs Weight 223 lb Physical Exam Const: COMMON NORMALS: no acute distress, average body habitus, patient oriented x3, no limitations, healthy appearing and alert GENERAL APPEARANCE: cooperative NUTRITIONAL APPEARANCE: overweight ORIENTATION/CONSCIOUSNESS: Yes awake HENMT: COMMON NORMALS: oropharynx normal Neck/C-Spine: COMMON NORMALS: full ROM, no lymphadenopathy, supple, no JVD and Thyroid normal THYROID: Thyroid normal Chest: COMMONS NORMALS: normal inspection of the chest and normal palpation of entire chest wall Resp: COMMON NORMALS: normal respiratory effort, No retractions and clear to auscultation bilaterally AUSCULTATION: clear to auscultation bilaterally Cardio: COMMON NORMALS: no JVD, regular rate, regular rhythm, S1 normal heart sound present, S2 normal heart sound present, No gallops present (Cardio) and No murmurs present (Cardio) RATE: regular rate RHYTHM: regular rhythm HEART SOUNDS: S1 normal heart sound present and S2 normal heart sound present GI: COMMON NORMALS: Normal to inspection, nondistended, normoactive bowel sounds present, Soft to palpation, non-tender, No hepatosplenomegaly present and no masses PALPATION: Yes Soft to palpation and Yes No hepatosplenomegaly present Extremity: COMMON NORMALS: no joint enlargement and no pedal edema Neuro: COMMON NORMALS: patient oriented x3 and moves all extremities SENSORIUM/ORIENTATION: Yes alert Skin: COMMON NORMALS: no rashes or lesions noted GENERAL SKIN EXAM: no rashes or lesions noted WOUNDS: Yes surgical site (no hematoma palpable) Details: no odor Data 11/05/22 00:54 11/05/22 00:54 A&P Assessment and plan (1) Paroxysmal atrial fibrillation with RVR: Lopressor 50mg BID Eliquis 5mg BID HR better controlled this AM. intermittent events of tachycardia per patient. will discuss with Dr. Broderick to see if any further ischemic workup necessary/beneficial would benefit from clear instructions pertaining to his metoprolol To discuss Afib medication parameters at discharge. (2) ST segment depression: Plavix, lipitor 40mg, ASA 81mg EGK this AM did not show any further depression. Troponins improving. (3) Chest pain: Resolved, currently chest pain-free. Only at the onset of tachycardia. As above. (4) Ground glass opacity present on imaging of lung: Left lower lobe. Not entirely clear etiology but may be localized pulmonary edema after A-fib with RVR. pt denies resp Sx indicative of infectious process COVID and Influenza negative No SOB/cough this AM. f/u with PCP for resolution via CXR Reassess for any change in symptoms. Consider follow-up for resolution with PCP. (5) Essential hypertension: Losartan 25mg qAm, chlorthalidone 25mg qAM BP stable today at 119/68. will monitor. (6) Hypokalemia: K: 3.1 this AM KCL 40meq q8hrs x 3 dosages re-eval in AM Plan Likely discharge in next 24hrs. will need AM bloodwork to show correction of potassium time spent to discuss with patient appropriate times to take medication Afib RVR - improving Labile blood pressure improving HTN - stable HLD CAD, history of CABG PAD Other medical problems Requested his medications to be listed. Please review and reconcile again once available. Attestations Medical Necessity Statement*: hospitalized for HR and BP control. once stabalizes pt will be ready for discharge Coding Level of Care Code Acute Code for g Fwd Diagnoses Paroxysmal atrial fibrillation with RVR I48.0 ST segment depression R94.31 Chest pain R07.9 Ground glass opacity present on imaging of lung R91.8 Essential hypertension I10 Hypokalemia E87.6
[2022-11-05] MEDS: potassium chloride ER 20 mEq Tablet 40 MEQ PO ×3 (10:28→19:49)
[2022-11-05] MEDS: mirtazapine 30 mg Tablet 45 MG PO (19:50)
[2022-11-05] MEDS: docusate sodium 100 mg Capsule 200 MG PO (19:50)
[2022-11-05] MEDS: trazodone 100 mg Tablet 50 MG PO (19:51)
[2022-11-06] VITALS (13 sets, daily range): BP systolic 101–127; BP diastolic 55–74; PULSE 42–66; RESP 13–19; TEMP 36.6–36.7; O2SAT 92–96
--- NOTE | 2022-11-06 00:59 | PC.NURSE ---
Discussed pt asymptomatic bradycardia, medications, and clinical presentation. New orders noted.
[2022-11-06 05:33] LABS: Basophils # 0.1 10^3/uL (0.0-0.1); Basophils % 0.6 %; Eosinophils # 0.3 10^3/uL (0.0-0.8); Eosinophils % 3.6 %; Hematocrit 46.5 % (42.0-52.0); Hemoglobin 15.2 g/dL (11.7-16.6); Lymphocytes % 31.2 %; Mean Corpuscular HGB Conc 32.7 g/dL (30.0-36.0); Mean Corpuscular Hemoglobin 32.9 pg (28.0-34.0); Mean Corpuscular Volume 100.6 fl (80-94); Mean Platelet Volume 10.4 fL (7.4-10.4); Monocytes # 1.1 10^3/uL (0.2-0.9); Monocytes % 11.5 %; Neutrophils # 4.98 10^3/uL (1.8-7.7); Neutrophils % 52.8 %; Nucleated Red Blood Cells % 0 %; Platelet Count 227 10^3/cmm (130-400); Red Blood Count 4.62 10^6/uL (4.1-5.3); Red Cell Distribution Width 13.2 % (12.1-15.1); White Blood Count 9.5 10^3/uL (4.0-10.0)
[2022-11-06] MEDS: losartan 50 mg Tablet 25 MG PO (05:38)
[2022-11-06] MEDS: chlorthalidone 25 mg Tablet PO (05:38)
[2022-11-06 05:54] LABS: Blood Urea Nitrogen 15 mg/dL (8-23); Calcium 9.3 mg/dL (8.5-10.5); Carbon Dioxide 32 mmol/L (22-29); Chloride 102 mmol/L (98-107); Glucose 105 mg/dL (65-115); Osmolality Calculated 295 mOsm/kg (285-295); Sodium 142 mmol/L (136-145)
[2022-11-06] MEDS: clopidogrel 75 mg Tablet PO (08:28)
[2022-11-06] MEDS: apixaban 5 mg Tablet PO (08:28)
[2022-11-06] MEDS: prazosin 1 mg Capsule 2 MG PO (08:28)
[2022-11-06] MEDS: aspirin 81 mg EC Tablet PO (08:28)
--- NOTE | 2022-11-06 08:53 | P.DS_ITS ---
Discharge Providers Date of Admission: 11/04/22 22:15 Date of Discharge: November 06, 2022 Attending Provider at Admission: Ari Lopez Attending Provider at Discharge: Matthew Howe MD Primary Care Provider: Lali Givens MD Diagnoses at Discharge Discharge Diagnosis (1) Paroxysmal atrial fibrillation with RVR: Details from hospital stay: During hospitalization pt responded well to home medication. Compliant with scheduled lopressor 50mg BID and eliquis. Afib-RVR resolved and pt has been rate controlled for >24hrs Discussed at length necessity to takem medications. Especially when HR>110 Status: Acute (2) ST segment depression: Details from hospital stay: Continue Plavix, ASA and Lipitor Repeat EKG showed no abnormalities. Status: Acute (3) Chest pain: Details from hospital stay: On admission pt had CP with Afib RVR. Once rate controlled his Sx resolved. EKG showed ST depression; however repeat did not meet criteria for NSTEMI Status: Acute (4) Ground glass opacity present on imaging of lung: Details from hospital stay: no signs of PNA/infection. COVID and Flu negative. no SOB at time of discharge Status: Acute (5) Essential hypertension: Details from hospital stay: Blood pressure better controlled during hospitalization on losartnan and chlorthalidone at time of discharge blood pressure was appropriate at 127/65 Status: Acute (6) Hypokalemia: Details from hospital stay: resolved s/p KCL 40meq x 3 Status: Acute Reason for Visit Reason for Visit: heart flutters Hospital Course Hospital Course Patient was admitted for Afib RVR, CP and abnormal EKG showing ST depression. Pt was quick to notify staff that he had been taking his home medication inappropriately due to lack of understanding. Patient was transferred to cardiac step down unit formonitoring due to ST depression on 1st EKG. HR initially was tachycardic in 160s and 170s. Pt was restarted back on home medication and CP improved. HR quickly resolved as well. Further EKG's during hospitalization did not show ST depressions. Patients hospitalization was likely due to poor compliance with medications secondary to lack of clear instructions on when to use medication. Lengthy discussion was had by admitting physician and myself to take medications as prescribed. Pt has been stable on home medications and at time of discharge was normotensive with HR in 70's. Pt felt significantly improved during hospitalization and is motivated to improve compliance. Physical Exam Const: COMMON NORMALS: no acute distress, average body habitus, patient oriented x3, no limitations, healthy appearing and alert GENERAL APPEARANCE: cooperative NUTRITIONAL APPEARANCE: overweight ORIENTATION/CONSCIOUSNESS: Yes awake HENMT: COMMON NORMALS: oropharynx normal Neck/C-Spine: COMMON NORMALS: full ROM, no lymphadenopathy, supple, no JVD and Thyroid normal THYROID: Thyroid normal Chest: COMMONS NORMALS: normal inspection of the chest and normal palpation of entire chest wall Resp: COMMON NORMALS: normal respiratory effort, No retractions and clear to auscultation bilaterally AUSCULTATION: clear to auscultation bilaterally Cardio: COMMON NORMALS: no JVD, regular rate, regular rhythm, S1 normal heart sound present, S2 normal heart sound present, No gallops present (Cardio) and No murmurs present (Cardio) RATE: regular rate RHYTHM: regular rhythm HEART SOUNDS: S1 normal heart sound present and S2 normal heart sound present GI: COMMON NORMALS: Normal to inspection, nondistended, normoactive bowel sounds present, Soft to palpation, non-tender, No hepatosplenomegaly present and no masses PALPATION: Yes Soft to palpation and Yes No hepatosplenomegaly present Extremity: COMMON NORMALS: no joint enlargement and no pedal edema Neuro: COMMON NORMALS: patient oriented x3 and moves all extremities SENSORIUM/ORIENTATION: Yes alert Skin: COMMON NORMALS: no rashes or lesions noted GENERAL SKIN EXAM: no rashes or lesions noted WOUNDS: Yes surgical site (no hematoma palpable) Details: no odor Discharge Data Studies Completed and Pending Completed Studies During Hospitalization Category Date Time Status XR chest 1V portable [id number] Stat Exams 11/04/22 19:01 Completed Pending at discharge Category Date Time Status Basic Metabolic Panel AM LABS Lab 11/07/22 04:00 Ordered Complete Blood Count w/Auto AM LABS Lab 11/07/22 04:00 Ordered CV. echo wo/w contrast [id number] Routine Ultrasound 11/04/22 22:27 Taken Radiology Impressions Chest X-Ray 11/04/22 19:01 IMPRESSION: 1. Cardiomegaly and mild pulmonary vascular congestion. 2. Left lower lobe ground-glass airspace opacity reflecting atelectasis versus infiltrate. 3. Sternotomy wires. Laboratory Results WBC 9.5 10^3/uL (4.0-10.0) 11/06/22 04:55 RBC 4.62 10^6/uL (4.1-5.3) 11/06/22 04:55 Hgb 15.2 g/dL (11.7-16.6) 11/06/22 04:55 Hct 46.5 % (42.0-52.0) 11/06/22 04:55 MCV 100.6 fl (80-94) H 11/06/22 04:55 MCH 32.9 pg (28.0-34.0) 11/06/22 04:55 MCHC 32.7 g/dL (30.0-36.0) 11/06/22 04:55 RDW 13.2 % (12.1-15.1) 11/06/22 04:55 Plt Count 227 10^3/cmm (130-400) 11/06/22 04:55 MPV 10.4 fL (7.4-10.4) 11/06/22 04:55 Neut % (Auto) 52.8 % 11/06/22 04:55 Lymph % (Auto) 31.2 % 11/06/22 04:55 [place] % (Auto) 11.5 % 11/06/22 04:55 Eos % (Auto) 3.6 % 11/06/22 04:55 Baso % (Auto) 0.6 % 11/06/22 04:55 Neut # (Auto) 4.98 10^3/uL (1.8-7.7) 11/06/22 04:55 Lymph # (Auto) 3.0 10^3/uL (0.8-4.8) 11/06/22 04:55 [place] # (Auto) 1.1 10^3/uL (0.2-0.9) H 11/06/22 04:55 Eos # (Auto) 0.3 10^3/uL (0.0-0.8) 11/06/22 04:55 Baso # (Auto) 0.1 10^3/uL (0.0-0.1) 11/06/22 04:55 Nucleated RBC % (auto) 0 % 11/06/22 04:55 Nucleated RBCs # 0.0 /100WBC 11/06/22 04:55 Sodium 142 mmol/L (136-145) 11/06/22 04:55 Potassium 4.0 mmol/L (3.5-5.1) 11/06/22 04:55 Chloride 102 mmol/L (98-107) 11/06/22 04:55 Carbon Dioxide 32 mmol/L (22-29) H 11/06/22 04:55 Anion Gap 12.0 (5-19) 11/06/22 04:55 BUN 15 mg/dL (8-23) 11/06/22 04:55 Creatinine 1.0 mg/dL (0.7-1.2) 11/06/22 04:55 GFR Calculation Not Reportable 11/06/22 04:55 Glucose 105 mg/dL (65-115) 11/06/22 04:55 Calculated Osmolality 295 mOsm/kg (285-295) 11/06/22 04:55 Calcium 9.3 mg/dL (8.5-10.5) 11/06/22 04:55 Total Bilirubin 0.4 mg/dL (0.15-1.2) 11/04/22 19:20 AST 18 U/L (0-40) 11/04/22 19:20 ALT 22 U/L (0-41) 11/04/22 19:20 Alkaline Phosphatase 61 U/L (40-130) 11/04/22 19:20 Troponin T Baseline 20 ng/L (0-15) H 11/04/22 19:20 Troponin T 120 Minute 23.59 ng/L (0-15) H 11/04/22 21:14 Delta Troponin T 3.59 ABS# (0-10) 11/04/22 21:14 Troponin T Hi Sens 6Hr 22.60 ng/L (0-15) H 11/05/22 00:54 Troponin T Hi Sens 6Hr Delta 2.60 ng/L (0-12) 11/05/22 00:54 Total Protein 6.5 g/dL (6.6-8.7) L 11/04/22 19:20 Albumin 4.0 g/dL (3.5-5.2) 11/04/22 19:20 Globulin 2.5 g/dL (1.3-4.6) 11/04/22 19:20 Influenza Type A Ag negative (Negative) 11/04/22 22:57 Influenza Type B Ag negative (Negative) 11/04/22 22:57 SARS-CoV-2 Ag (Rapid) negative (Negative) 11/04/22 22:57 Vitals Last Vital Signs Temp 98.0 F 11/06/22 06:00 Pulse 65 11/06/22 08:00 Resp 19 H 11/06/22 08:00 BP 127/65 11/06/22 08:00 Pulse Ox 94 11/06/22 08:00 O2 Del Method 11/06/22 05:59 Discharge Plan Discharge Patient Disposition: Home Health Service Condition: Stable Prescriptions: Continued ascorbate calcium (vitamin C) 500 mg tablet 500 mg PO QAM cholecalciferol (vitamin D3) 25 mcg (1,000 unit) capsule 50 mcg PO QAM docusate sodium [Colace] 100 mg capsule 200 mg PO BEDTIME cyanocobalamin (vitamin B-12) 1,000 mcg capsule 1,000 mcg PO QAM PreserVision AREDS [id number] capsule 1 cap PO BID omega-3 fatty acids 1,000 mg capsule 1,000 mg PO BID Eliquis 5 mg tablet 5 mg PO BID tramadol 50 mg tablet 50 mg PO QID PRN (Reason: Pain) zolpidem 5 mg tablet 5 mg PO BEDTIME PRN (Reason: Sleep) clopidogrel 75 mg tablet 75 mg PO DAILY Qty: 90 3RF potassium chloride 20 mEq Tablet Extended Release 10 meq PO QAM atorvastatin 40 mg Tablet 40 mg PO BEDTIME Qty: 30 0RF nitroglycerin [Nitrostat] 0.4 mg Tablet, Sublingual 0.4 mg SUBLINGUAL Q5M PRN (Reason: Chest Pain) Rx Instructions: do not exceed 3 doses per episode mirtazapine 45 mg Tablet 45 mg PO BEDTIME valsartan 80 mg tablet 80 mg PO QAM chlorthalidone 25 mg tablet 25 mg PO QAM prazosin 2 mg Capsule 2 mg PO BID Qty: 30 0RF trazodone 100 mg Tablet 50 mg PO BEDTIME metoprolol tartrate 25 mg tablet 50 mg PO BID Discontinued aspirin 81 mg Capsule 81 mg PO DAILY Discharge Orders: Discharge Order (Routine); Ordered 11/06/22 Ordered By: Matthew Howe Referrals: [facility] [Outside] Lali Givens MD [Primary Care Provider] - 11/16/22 8:30 am (Please bring your discharge paperwork with you to this appointment. Thank you.) Discharge Diet: Cardiac Discharge Activity: Increase activity as tolerated Patient Instructions: Coronary Artery Disease (DC), A-fib (Atrial Fibrillation) (DC), Hypokalemia (DC), Hypertension (DC), Chest Pain Stoplight, Opioid Safety Activity Restrictions/Additional Instructions: Take Metoprolol 50mg PO BID as instructed and discussed. -If Heart rate less than 60 beats/minute then HOLD metoprolol for 2hrs and recheck. -If Heart rate greater than 120 despite metoprolol and sustained go directly to ED for evaluation No new medications started on this hospitalization Continue all home medications Discharge Attestations Time Spent in Discharge Care*: less than 30 min Quality Metrics Clinical Quality Measures [ No reported AMI, CVA or VTE this stay] Coding Level of Care Code 79492 Diagnoses Paroxysmal atrial fibrillation with RVR I48.0 ST segment depression R94.31 Chest pain R07.9 Ground glass opacity present on imaging of lung R91.8 Essential hypertension I10 Hypokalemia E87.6
== END 2022-11-06 11:58 | disposition home health service (06) ==
LOC: ER 22:32 → CSU 23:52
PROVIDERS: Admitting Provider Internal Medicine; Emergency Provider Emergency Medicine; PCP Family Medicine; Visit Provider Family Medicine
DX: I48.0 Paroxysmal atrial fibrillation (principal); R94.31 Abnormal electrocardiogram [ECG] [EKG]; R07.9 Chest pain, unspecified; R91.8 Other nonspecific abnormal finding of lung field; I10 Essential (primary) hypertension; E87.6 Hypokalemia; E78.5 Hyperlipidemia, unspecified; I25.10 Atherosclerotic heart disease of native coronary artery without angina pectoris; Z95.1 Presence of aortocoronary bypass graft; I73.9 Peripheral vascular disease, unspecified; R00.1 Bradycardia, unspecified; I44.1 Atrioventricular block, second degree
CPT/HCPCS: 36415; 71045; 80048; 80053; 84484; 85025; 87426; 87804; 93005; 99285; C8929; G0378; Q9956

== ENCOUNTER → 2022-12-08 13:56 | Outpatient (BNVA) | payer OTHER, SELFPAY | PROVIDERS: PCP Family Medicine; Visit Provider Internal Medicine Cardiovascular Disease | DX: I25.10 Atherosclerotic heart disease of native coronary artery without angina pectoris (principal); I10 Essential (primary) hypertension; I48.0 Paroxysmal atrial fibrillation; I73.9 Peripheral vascular disease, unspecified; E78.5 Hyperlipidemia, unspecified; Z87.891 Personal history of nicotine dependence; Z79.01 Long term (current) use of anticoagulants | CPT/HCPCS: 99214 ==

== ENCOUNTER 2023-02-16 20:00 | Emergency (ER) | payer OTHER, SELFPAY ==
[2023-02-16 20:02] VITALS: BP 121/77; PULSE 61; RESP 16; TEMP 36.7; O2SAT 95
[2023-02-16 20:06] VITALS: BP 113/79; PULSE 93; RESP 18; O2SAT 99
[2023-02-16 20:36] VITALS: BP 148/91; PULSE 85; RESP 18; O2SAT 99
--- NOTE | 2023-02-16 21:05 | W.ED.ARRPALP ---
HPI - Arrhythmia/Palpitations General: Chief Complaint: Arrhythmia/Palpitations Stated Complaint: sob afib Time Seen by Provider: 02/16/23 21:05 History of Present Illness: Mr. Reyes is a 72-year-old gentleman with history of atrial fibrillation presenting to the emergency department for chest discomfort that resolved prior to arrival. He notes elevated heart rate in the 140-150 range associated with some mild back discomfort fairly typical of episodes of A-fib. He waited about 2 hours and had not improved so he took prazosin and metoprolol and now feels back to baseline without chest discomfort. Episode was very typical of prior. Denies other significant changes in health. He has been compliant with his medication regimen including apixaban. No infectious symptoms. No other specific changes in health, exacerbating, or alleviating factors identified. Onset (ago): hour(s) Duration: now resolved Severity: moderate Arrhythmia history: atrial fibrillation and on anti-coagulants Associated symptoms: Reports other Review of Systems General: Reports: 10 or more systems reviewed and unremarkable except in HPI and below PFSH ED PFSH: Medical History Atrial fibrillation CAD (coronary artery disease) HTN (hypertension) with goal to be determined Hyperlipidemia due to dietary fat intake PAD (peripheral artery disease) Surgical History Hx of bilateral cataract extraction Hx of cholecystectomy Hx of hernia repair S/P CABG (coronary artery bypass graft) Family History Father CAD (coronary artery disease), Onset Age: 60 Stroke Family/Other Dementia Brother Lung disease Denies family history of Diabetes Clotting disorder Chronic kidney disease (CKD) Suicide Anesthesia complication Bleeding disorder Cancer Social History Smoking and tobacco status: former smoker Alcohol intake: former Substance/Drug Use: former Physical Exam Const: COMMON NORMALS: alert GENERAL APPEARANCE: cooperative and well developed HENMT: COMMON NORMALS: normocephalic and atraumatic HEAD & SCALP: normocephalic and atraumatic Eye: COMMON NORMALS: conjunctivae normal CONJUNCTIVA: Yes conjunctivae normal SCLERA: sclerae normal Neck/C-Spine: COMMON NORMALS: supple GENERAL: Yes trachea midline Resp: COMMON NORMALS: normal respiratory effort EFFORT & INSPECTION: Yes able to speak in complete sentences Cardio: COMMON NORMALS: regular rate RATE: regular rate RHYTHM: abnormal rhythm irregularly irregular GI: COMMON NORMALS: Soft to palpation PALPATION: Yes Soft to palpation and No Tenderness to palpation present (GI) Extremity: GENERAL: Yes normal exam except as noted and No edema Neuro: COMMON NORMALS: moves all extremities SENSORIUM/ORIENTATION: Yes alert and No Orientation impaired Psych: COMMON NORMALS: mental status grossly normal and Normal thought process present THOUGHT PROCESS: Normal thought process present Course Vital Signs: Vital signs: Vital Signs Temperature 98.0 F 02/16/23 20:02 Pulse Rate 55 L 02/16/23 22:28 Respiratory Rate 15 02/16/23 22:28 Blood Pressure 96/51 02/16/23 22:28 Pulse Oximetry 95 02/16/23 22:28 Oxygen Delivery Me thod Room Air 02/16/23 20:06 MDM - Arrhythmia/Palpitations Medical Decision Making 72-year-old gentleman with history of A-fib on anticoagulation presenting for what sounds like episode of atrial fibrillation with rapid ventricular response which she took medications for end resolved prior to arrival. He is currently asymptomatic. He is nontoxic in appearance. EKG demonstrates atrial fibrillation with intermittent bradycardia. Normal axis and intervals. No STEMI. Labs without acute electrolyte derangement requiring intervention or likely contributing to arrhythmia. Chest x-ray with no lobar consolidation or pneumothorax. Clinically patient is euvolemic. Prior stress test on 05/31/2022 with low probability for coronary ischemia. Patient had echocardiogram 11/04/2022. Low clinical suspicion for acute coronary syndrome or abnormality requiring hospitalization at this time The results of ED evaluation were discussed with the patient including prescriptions and/or symptomatic cares (if applicable) including appropriate and responsible use, followup plan, and return precautions. The patient verbalized understanding and felt safe for discharge. Medical Records I reviewed the patient's medical records. Lab Data I reviewed the patient's lab results. 02/16/23 21:20 02/16/23 21:20 Radiology Impressions Chest X-Ray 02/16/23 21:13 IMPRESSION: No acute findings. Laboratory Results WBC 10.9 10^3/uL (4.0-10.0) H 02/16/23 21:20 RBC 4.59 10^6/uL (4.1-5.3) 02/16/23 21:20 Hgb 15.3 g/dL (11.7-16.6) 02/16/23 21:20 Hct 45.2 % (42.0-52.0) 02/16/23 21:20 MCV 98.5 fl (80-94) H 02/16/23 21:20 MCH 33.3 pg (28.0-34.0) 02/16/23 21:20 MCHC 33.8 g/dL (30.0-36.0) 02/16/23 21:20 RDW 13.2 % (12.1-15.1) 02/16/23 21:20 Plt Count 235 10^3/cmm (130-400) 02/16/23 21:20 MPV 10.3 fL (7.4-10.4) 02/16/23 21:20 Neut % (Auto) 63.3 % 02/16/23 21:20 Lymph % (Auto) 20.1 % 02/16/23 21:20 [place] % (Auto) 13.4 % 02/16/23 21:20 Eos % (Auto) 2.4 % 02/16/23 21:20 Baso % (Auto) 0.6 % 02/16/23 21:20 Neut # (Auto) 6.91 10^3/uL (1.8-7.7) 02/16/23 21:20 Lymph # (Auto) 2.2 10^3/uL (0.8-4.8) 02/16/23 21:20 [place] # (Auto) 1.5 10^3/uL (0.2-0.9) H 02/16/23 21:20 Eos # (Auto) 0.3 10^3/uL (0.0-0.8) 02/16/23 21:20 Baso # (Auto) 0.1 10^3/uL (0.0-0.1) 02/16/23 21:20 Nucleated RBC % (auto) 0 % 02/16/23 21:20 Nucleated RBCs # 0.0 /100WBC 02/16/23 21:20 Sodium 138 mmol/L (136-145) 02/16/23 21:20 Potassium 4.0 mmol/L (3.5-5.1) 02/16/23 21:20 Chloride 101 mmol/L (98-107) 02/16/23 21:20 Carbon Dioxide 25 mmol/L (22-29) 02/16/23 21:20 Anion Gap 16.0 (5-19) 02/16/23 21:20 BUN 20 mg/dL (8-23) 02/16/23 21:20 Creatinine 1.1 mg/dL (0.7-1.2) 02/16/23 21:20 GFR Calculation Not Reportable 02/16/23 21:20 Glucose 86 mg/dL (65-115) 02/16/23 21:20 Calculated Osmolality 288 mOsm/kg (285-295) 02/16/23 21:20 Calcium 9.3 mg/dL (8.5-10.5) 02/16/23 21:20 Magnesium 1.9 mg/dL (1.7-2.3) 02/16/23 21:20 Discharge Plan Discharge Patient Disposition: Home Clinical Impression: Atrial fibrillation, Rapid palpitations Condition: Stable Prescriptions: No Action ascorbate calcium (vitamin C) 500 mg tablet 500 mg PO QAM cholecalciferol (vitamin D3) 25 mcg (1,000 unit) capsule 50 mcg PO QAM docusate sodium [Colace] 100 mg capsule 200 mg PO BEDTIME cyanocobalamin (vitamin B-12) 1,000 mcg capsule 1,000 mcg PO QAM PreserVision AREDS 14320-226-200 lepf-pf-[id number] capsule 1 cap PO BID omega-3 fatty acids 1,000 mg capsule 1,000 mg PO BID Eliquis 5 mg tablet 5 mg PO BID tramadol 50 mg tablet 50 mg PO QID PRN (Reason: Pain) zolpidem 5 mg tablet 5 mg PO BEDTIME PRN (Reason: Sleep) clopidogrel 75 mg tablet 75 mg PO DAILY Qty: 90 3RF potassium chloride 20 mEq Tablet Extended Release 10 meq PO QAM atorvastatin 40 mg Tablet 40 mg PO BEDTIME Qty: 30 0RF nitroglycerin [Nitrostat] 0.4 mg Tablet, Sublingual 0.4 mg SUBLINGUAL Q5M PRN (Reason: Chest Pain) Rx Instructions: do not exceed 3 doses per episode mirtazapine 45 mg Tablet 45 mg PO BEDTIME valsartan 80 mg tablet 80 mg PO QAM chlorthalidone 25 mg tablet 25 mg PO QAM prazosin 2 mg Capsule 2 mg PO BID Qty: 30 0RF trazodone 100 mg Tablet 50 mg PO BEDTIME metoprolol tartrate 25 mg tablet 50 mg PO BID Discharge Orders: Discharge ED (Routine); Ordered 02/16/23 Ordered By: Ketan Rodriguez Referrals: Lali Givens MD [Primary Care Provider] - Discharge Diet: Usual diet Discharge Activity: Resume usual activity Patient Instructions: A-fib (Atrial Fibrillation) (ED), Chest Pain (ED) Activity Restrictions/Additional Instructions: Thank you for visiting the emergency department. You were seen and evaluated for episode of discomfort with elevated heart rate that resolved prior to arrival. The most likely cause of your symptoms is related to underlying atrial fibrillation. Please follow-up with cardiology. Continue your medication regimen. Return for recurrent symptoms or anything else that you are concerned about and feel needs emergency department evaluation. Coding Level of Care Code ED [employer] for Binh Caban
[2023-02-16 21:06] VITALS: BP 84/57; PULSE 51; RESP 21; O2SAT 97
--- NOTE | 2023-02-16 21:13 | ECG_ITS ---
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 Measurements Intervals [place] Rate: 61 P: 36 SC: 143 QRS: 42 QRSD: 85 T: 50 QT: 415 QTc: 418 Interpretive Statements SINUS RHYTHM WITH FREQUENT SUPRAVENTRICULAR PREMATURE COMPLEXES LOW QRS VOLTAGE IN PRECORDIAL LEADS [QRS DEFLECTION < 1.0 mV IN CHEST LEADS] ABNORMAL RHYTHM ECG Compared to ECG 11/05/2022 08:00:57 Low QRS voltage now present Sinus bradycardia no longer present T-wave abnormality no longer present Electronically Signed On 02-16-2023 22:53:35 CDT by Kemi Gray M.D. [id number]
--- NOTE | 2023-02-16 21:13 | XRR_ITS ---
PROCEDURE INFORMATION: Exam: XR Chest Exam date and time: 02/16/2023 9:26 PM Age: 72 years old Clinical indication: Other: Afib; Prior surgery; Surgery date: 6+ months; Surgery type: Double bypass TECHNIQUE: Imaging protocol: Radiologic exam of the chest. Views: 1 view. COMPARISON: CR (CHEST, ) 11/04/2022 7:31 PM FINDINGS: Lungs: Emphysema. Mild atelectasis or scarring in the lung bases. The lungs otherwise are clear. No consolidation. Pleural spaces: Unremarkable. No pleural effusion. No pneumothorax. Heart/Mediastinum: Unremarkable. No cardiomegaly. Bones/joints: Sternotomy changes with multiple chronically fractured wires. XR/XR chest 1V portable [id number] IMPRESSION: No acute findings.
[2023-02-16] MEDS: sodium chloride 0.9% 500 ML 999 ML IV (21:28)
[2023-02-16 21:32] LABS: Basophils # 0.1 10^3/uL (0.0-0.1); Basophils % 0.6 %; Eosinophils # 0.3 10^3/uL (0.0-0.8); Eosinophils % 2.4 %; Hematocrit 45.2 % (42.0-52.0); Hemoglobin 15.3 g/dL (11.7-16.6); Lymphocytes # 2.2 10^3/uL (0.8-4.8); Lymphocytes % 20.1 %; Mean Corpuscular HGB Conc 33.8 g/dL (30.0-36.0); Mean Corpuscular Hemoglobin 33.3 pg (28.0-34.0); Mean Corpuscular Volume 98.5 fl (80-94); Mean Platelet Volume 10.3 fL (7.4-10.4); Monocytes # 1.5 10^3/uL (0.2-0.9); Monocytes % 13.4 %; Neutrophils # 6.91 10^3/uL (1.8-7.7); Neutrophils % 63.3 %; Nucleated Red Blood Cells % 0 %; Platelet Count 235 10^3/cmm (130-400); Red Blood Count 4.59 10^6/uL (4.1-5.3); Red Cell Distribution Width 13.2 % (12.1-15.1); White Blood Count 10.9 10^3/uL (4.0-10.0)
[2023-02-16 21:51] LABS: Blood Urea Nitrogen 20 mg/dL (8-23); Calcium 9.3 mg/dL (8.5-10.5); Carbon Dioxide 25 mmol/L (22-29); Chloride 101 mmol/L (98-107); Glucose 86 mg/dL (65-115); Magnesium 1.9 mg/dL (1.7-2.3); Osmolality Calculated 288 mOsm/kg (285-295); Sodium 138 mmol/L (136-145)
[2023-02-16 22:28] VITALS: BP 96/51; PULSE 55; RESP 15; O2SAT 95
== END 2023-02-16 22:29 | disposition home or self-care (01) ==
PROVIDERS: Emergency Provider Emergency Medicine; PCP Family Medicine
DX: I48.91 Unspecified atrial fibrillation (principal); R00.2 Palpitations; Z79.01 Long term (current) use of anticoagulants; Z79.02 Long term (current) use of antithrombotics/antiplatelets; Z87.891 Personal history of nicotine dependence; I25.10 Atherosclerotic heart disease of native coronary artery without angina pectoris; I10 Essential (primary) hypertension; E78.5 Hyperlipidemia, unspecified; Z95.1 Presence of aortocoronary bypass graft
CPT/HCPCS: 36415; 71045; 80048; 83735; 85025; 93005; 96360; 99285; J7040

== ENCOUNTER → 2023-02-28 13:53 | Outpatient (BNVA) | payer OTHER, SELFPAY | PROVIDERS: PCP Family Medicine; Visit Provider Nurse Practitioner Family | DX: I48.0 Paroxysmal atrial fibrillation (principal); I25.10 Atherosclerotic heart disease of native coronary artery without angina pectoris; I10 Essential (primary) hypertension; Z79.01 Long term (current) use of anticoagulants; Z87.891 Personal history of nicotine dependence; Z95.1 Presence of aortocoronary bypass graft | CPT/HCPCS: 99214 ==

== ENCOUNTER 2023-03-07 22:28 | Emergency (ER) | payer OTHER, SELFPAY ==
[2023-03-07 22:35] VITALS: BP 116/65; PULSE 59; RESP 14; TEMP 36.6; O2SAT 94; BMI 36.6
--- NOTE | 2023-03-07 22:44 | ECG_ITS ---
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 Measurements Intervals [place] Rate: 63 P: 19 NC: 132 QRS: 79 QRSD: 92 T: 89 QT: 395 QTc: 404 Interpretive Statements SINUS RHYTHM WITH MARKED SINUS ARRHYTHMIA NONSPECIFIC T-WAVE ABNORMALITY Compared to ECG 02/16/2023 21:19:07 T-wave abnormality now present Electronically Signed On 03-08-2023 20:14:28 CDT by Kemi Gray M.D. [id number]
--- NOTE | 2023-03-07 22:56 | ED_ITS ---
HPI - Arrhythmia/Palpitations General: Chief Complaint: Arrhythmia/Palpitations Stated Complaint: AFIB Time Seen by Provider: 03/07/23 22:42 Source: patient Mode of arrival: ambulatory Limitations: no limitations History of Present Illness: 72-year-old male with a history of A-fib states that he felt like his heart been racing today taking metoprolol this evening he states that he thought his heart rate was in the 140s here its in the 60s he has had no other symptoms he denies any pain denies any dyspnea. Associated symptoms: Deny nausea or vomiting Review of Systems Const: Denies: fever(s), chills, body aches or change in appetite Eyes: Denies: blurry vision or eye discomfort ENMT: Denies: throat pain or dental pain Card: Reports: palpitations; Denies: chest pain Resp: Denies: dyspnea GI: Denies: abdominal pain, nausea, vomiting or diarrhea Musc: Denies: neck pain or back pain Skin/Breast: Denies: rash Neuro: Denies: headache(s) PFSH ED PFSH: Medical History Atrial fibrillation CAD (coronary artery disease) HTN (hypertension) with goal to be determined Hyperlipidemia due to dietary fat intake PAD (peripheral artery disease) Surgical History Hx of bilateral cataract extraction Hx of cholecystectomy Hx of hernia repair S/P CABG (coronary artery bypass graft) Family History Father CAD (coronary artery disease), Onset Age: 60 Stroke Family/Other Dementia Brother Lung disease Denies family history of Diabetes Clotting disorder Chronic kidney disease (CKD) Suicide Anesthesia complication Bleeding disorder Cancer Social History Smoking and tobacco status: former smoker Alcohol intake: former Substance/Drug Use: former Physical Exam Const: COMMON NORMALS: no acute distress, patient oriented x3 and healthy appearing HENMT: COMMON NORMALS: normocephalic and atraumatic HEAD & SCALP: normocephalic and atraumatic Eye: COMMON NORMALS: Equal, round and reactive pupils present and EOMs intact bilaterally PUPIL: Yes Equal, round and reactive pupils present Neck/C-Spine: COMMON NORMALS: full ROM and supple Chest: COMMONS NORMALS: normal inspection of the chest and normal palpation of entire chest wall Resp: COMMON NORMALS: normal respiratory effort, No retractions, No use of accessory muscles and clear to auscultation bilaterally AUSCULTATION: clear to auscultation bilaterally Cardio: COMMON NORMALS: regular rate, regular rhythm and No murmurs present (Cardio) RATE: regular rate RHYTHM: regular rhythm GI: COMMON NORMALS: Normal to inspection, nondistended, normoactive bowel s ounds present, Soft to palpation, non-tender and no masses PALPATION: Yes Soft to palpation Extremity: COMMON NORMALS: normal to inspection and full ROM Neuro: COMMON NORMALS: patient oriented x3, moves all extremities and no focal motor deficits Psych: COMMON NORMALS: mental status grossly normal, Normal thought process present and cooperative THOUGHT PROCESS: Normal thought process present Skin: COMMON NORMALS: no rashes or lesions noted and no wounds GENERAL SKIN EXAM: no rashes or lesions noted Course Vital Signs: Vital signs: Vital Signs Temperature 97.8 F 03/07/23 22:35 Pulse Rate 59 L 03/07/23 22:35 Respiratory Rate 14 03/07/23 22:35 Blood Pressure 116/65 03/07/23 22:35 Pulse Oximetry 94 03/07/23 22:35 Oxygen Delivery Me thod Room Air 03/07/23 22:35 MDM - Arrhythmia/Palpitations Medical Decision Making Patient presents here with concern of A-fib with RVR heart rate here has been in the 60s he has been well-appearing here blood work is normal he is stable for discharge he is to follow-up with PCP and return if worsening. Medical Records I reviewed the patient's medical records. Lab Data I reviewed the patient's lab results. 03/07/23 22:54 03/07/23 22:54 Laboratory Results WBC 11.2 10^3/uL (4.0-10.0) H 03/07/23 22:54 RBC 4.62 10^6/uL (4.1-5.3) 03/07/23 22:54 Hgb 15.2 g/dL (11.7-16.6) 03/07/23 22:54 Hct 45.1 % (42.0-52.0) 03/07/23 22:54 MCV 97.6 fl (80-94) H 03/07/23 22:54 MCH 32.9 pg (28.0-34.0) 03/07/23 22:54 MCHC 33.7 g/dL (30.0-36.0) 03/07/23 22:54 RDW 13.1 % (12.1-15.1) 03/07/23 22:54 Plt Count 241 10^3/cmm (130-400) 03/07/23 22:54 MPV 9.9 fL (7.4-10.4) 03/07/23 22:54 Neut % (Auto) 61.1 % 03/07/23 22:54 Lymph % (Auto) 22.1 % 03/07/23 22:54 Ritchie % (Auto) 13.7 % 03/07/23 22:54 Eos % (Auto) 2.3 % 03/07/23 22:54 Baso % (Auto) 0.4 % 03/07/23 22:54 Neut # (Auto) 6.87 10^3/uL (1.8-7.7) 03/07/23 22:54 Lymph # (Auto) 2.5 10^3/uL (0.8-4.8) 03/07/23 22:54 Ritchie # (Auto) 1.5 10^3/uL (0.2-0.9) H 03/07/23 22:54 Eos # (Auto) 0.3 10^3/uL (0.0-0.8) 03/07/23 22:54 Baso # (Auto) 0.1 10^3/uL (0.0-0.1) 03/07/23 22:54 Nucleated RBC % (auto) 0 % 03/07/23 22:54 Nucleated RBCs # 0.0 /100WBC 03/07/23 22:54 Sodium 140 mmol/L (136-145) 03/07/23 22:54 Potassium 3.8 mmol/L (3.5-5.1) 03/07/23 22:54 Chloride 103 mmol/L (98-107) 03/07/23 22:54 Carbon Dioxide 27 mmol/L (22-29) 03/07/23 22:54 Anion Gap 13.8 (5-19) 07/17/23 22:54 BUN 18 mg/dL (8-23) 03/07/23 22:54 Creatinine 1.1 mg/dL (0.7-1.2) 03/07/23 22:54 GFR Calculation Not Reportable 03/07/23 22:54 Glucose 110 mg/dL (65-115) 03/07/23 22:54 Calculated Osmolality 293 mOsm/kg (285-295) 03/07/23 22:54 Calcium 8.8 mg/dL (8.5-10.5) 03/07/23 22:54 Total Bilirubin 0.4 mg/dL (0.15-1.2) 03/07/23 22:54 AST 22 U/L (0-40) 03/07/23 22:54 ALT 34 U/L (0-41) 03/07/23 22:54 Alkaline Phosphatase 64 U/L (40-130) 03/07/23 22:54 Total Protein 6.4 g/dL (6.6-8.7) L 03/07/23 22:54 Albumin 3.7 g/dL (3.5-5.2) 03/07/23 22:54 Globulin 2.7 g/dL (1.3-4.6) 03/07/23 22:54 EKG Data EKG 1: I personally reviewed and interpreted this EKG as follows: EKG interpretation date: 03/07/23 EKG interpretation time: 22:44 Interpretation: afib hr [address] or t wave abnormalities qrs 92 qtc 401 Discharge Plan Discharge Patient Disposition: Home Clinical Impression: Atrial fibrillation Condition: Stable Prescriptions: No Action ascorbate calcium (vitamin C) 500 mg tablet 500 mg PO QAM cholecalciferol (vitamin D3) 25 mcg (1,000 unit) capsule 50 mcg PO QAM docusate sodium [Colace] 100 mg capsule 200 mg PO BEDTIME cyanocobalamin (vitamin B-12) 1,000 mcg capsule 1,000 mcg PO QAM PreserVision AREDS [id number],[id number] capsule 1 cap PO BID omega-3 fatty acids 1,000 mg capsule 1,000 mg PO BID Eliquis 5 mg tablet 5 mg PO BID tramadol 50 mg tablet 50 mg PO QID PRN (Reason: Pain) zolpidem 5 mg tablet 5 mg PO BEDTIME PRN (Reason: Sleep) clopidogrel 75 mg tablet 75 mg PO DAILY Qty: 90 3RF potassium chloride 20 mEq Tablet Extended Release 10 meq PO QAM atorvastatin 40 mg Tablet 40 mg PO BEDTIME Qty: 30 0RF nitroglycerin [Nitrostat] 0.4 mg Tablet, Sublingual 0.4 mg SUBLINGUAL Q5M PRN (Reason: Chest Pain) Rx Instructions: do not exceed 3 doses per episode mirtazapine 45 mg Tablet 45 mg PO BEDTIME valsartan 80 mg tablet 80 mg PO QAM chlorthalidone 25 mg tablet 25 mg PO QAM prazosin 2 mg Capsule 2 mg PO BID Qty: 30 0RF trazodone 100 mg Tablet 50 mg PO BEDTIME metoprolol tartrate 25 mg tablet 50 mg PO BID Discharge Orders: Discharge ED (Routine); Ordered 03/07/23 Ordered By: Donna Gandara Referrals: Lali Givens MD [Primary Care Provider] - Discharge Diet: Advance as tolerated Discharge Activity: Resume usual activity Patient Instructions: A-fib (Atrial Fibrillation) (ED) Coding Level of Care Code 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
[2023-03-07 22:59] LABS: Basophils # 0.1 10^3/uL (0.0-0.1); Basophils % 0.4 %; Eosinophils # 0.3 10^3/uL (0.0-0.8); Eosinophils % 2.3 %; Hematocrit 45.1 % (42.0-52.0); Hemoglobin 15.2 g/dL (11.7-16.6); Lymphocytes # 2.5 10^3/uL (0.8-4.8); Lymphocytes % 22.1 %; Mean Corpuscular HGB Conc 33.7 g/dL (30.0-36.0); Mean Corpuscular Hemoglobin 32.9 pg (28.0-34.0); Mean Corpuscular Volume 97.6 fl (80-94); Mean Platelet Volume 9.9 fL (7.4-10.4); Monocytes # 1.5 10^3/uL (0.2-0.9); Monocytes % 13.7 %; Neutrophils # 6.87 10^3/uL (1.8-7.7); Neutrophils % 61.1 %; Nucleated Red Blood Cells % 0 %; Platelet Count 241 10^3/cmm (130-400); Red Blood Count 4.62 10^6/uL (4.1-5.3); Red Cell Distribution Width 13.1 % (12.1-15.1); White Blood Count 11.2 10^3/uL (4.0-10.0)
[2023-03-07 23:00] VITALS: BP 93/56; PULSE 63; RESP 20; O2SAT 93
[2023-03-07 23:15] LABS: Alanine Aminotransferase 34 U/L (0-41); Albumin Level 3.7 g/dL (3.5-5.2); Alkaline Phosphatase 64 U/L (40-130); Anion Gap 13.8 (5-19); Aspartate Amino Transferase 22 U/L (0-40); Blood Urea Nitrogen 18 mg/dL (8-23); Calcium 8.8 mg/dL (8.5-10.5); Carbon Dioxide 27 mmol/L (22-29); Chloride 103 mmol/L (98-107); Globulin 2.7 g/dL (1.3-4.6); Glucose 110 mg/dL (65-115); Osmolality Calculated 293 mOsm/kg (285-295); Potassium 3.8 mmol/L (3.5-5.1); Sodium 140 mmol/L (136-145); Total Bilirubin 0.4 mg/dL (0.15-1.2); Total Protein 6.4 g/dL (6.6-8.7)
[2023-03-07 23:30] VITALS: BP 98/57; PULSE 58; RESP 29; O2SAT 92
[2023-03-08 00:14] VITALS: BP 106/67; PULSE 61; RESP 21; O2SAT 92
== END 2023-03-08 00:16 | disposition home or self-care (01) ==
PROVIDERS: Emergency Provider Emergency Medicine; PCP Family Medicine
DX: I48.91 Unspecified atrial fibrillation (principal); Z79.01 Long term (current) use of anticoagulants; Z79.02 Long term (current) use of antithrombotics/antiplatelets; Z87.891 Personal history of nicotine dependence; I25.10 Atherosclerotic heart disease of native coronary artery without angina pectoris; I10 Essential (primary) hypertension; E78.5 Hyperlipidemia, unspecified; Z95.1 Presence of aortocoronary bypass graft
CPT/HCPCS: 80053; 85025; 93005; 99284

== ENCOUNTER 2023-06-16 14:18 | Emergency (ER) | payer OTHER, SELFPAY ==
[2023-06-16 14:25] VITALS: BP 101/69; PULSE 87; RESP 16; TEMP 36.6; O2SAT 95; BMI 34.9
--- NOTE | 2023-06-16 14:31 | ECG_ITS ---
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 Measurements Intervals [place] Rate: 68 P: 42 CT: 160 QRS: 52 QRSD: 78 T: 59 QT: 321 QTc: 343 Interpretive Statements SINUS RHYTHM WITH OCCASIONAL SUPRAVENTRICULAR PREMATURE COMPLEXES NONSPECIFIC ST & T-WAVE ABNORMALITY Compared to ECG 03/07/2023 22:44:08 Sinus arrhythmia no longer present T-wave abnormality still present Electronically Signed On 06-16-2023 16:40:19 CDT by Kemi Gray M.D. [id number]
[2023-06-16 14:57] VITALS: BP 117/67; PULSE 74; RESP 16; O2SAT 95
--- NOTE | 2023-06-16 14:57 | ED_ITS ---
HPI - Arrhythmia/Palpitations General: Chief Complaint: Arrhythmia/Palpitations Stated Complaint: maybe afib Time Seen by Provider: 06/16/23 14:38 History of Present Illness: 73-year-old male presents along with his sister for episodes of paroxysmal atrial fibrillation with elevated heart rate. He has had a couple episodes today ranging from 120s [address] the way up to 150 bpm. He is not symptomatic when he is having this. He had been taking his vitals routinely at home and had noticed the abnormalities so he continued to trend them throughout the day. On arrival he is in a sinus rhythm. Patient takes metoprolol tartrate 25 mg p.o. twice daily as well as Eliquis for his A-fib. Associated symptoms: Deny nausea, syncope or vomiting Review of Systems General: Reports: 10 or more systems reviewed and unremarkable except in HPI and below Const: Denies: fever(s), chills or body aches Card: Denies: chest pain, edema or syncope Resp: Denies: dyspnea or productive cough GI: Denies: abdominal pain, nausea, vomiting or diarrhea Musc: Denies: neck pain, back pain, extremity pain or extremity swelling Skin/Breast: Denies: rash or erythema Neuro: Denies: headache(s), numbness in extremities, weakness in extremities, lack of coordination or difficulty walking PFSH ED PFSH: Medical History Atrial fibrillation CAD (coronary artery disease) HTN (hypertension) with goal to be determined Hyperlipidemia due to dietary fat intake PAD (peripheral artery disease) Surgical History Hx of bilateral cataract extraction Hx of cholecystectomy Hx of hernia repair S/P CABG (coronary artery bypass graft) Family History Father CAD (coronary artery disease), Onset Age: 60 Stroke Family/Other Dementia Brother Lung disease Denies family history of Diabetes Clotting disorder Chronic kidney disease (CKD) Suicide Anesthesia complication Bleeding disorder Cancer Social History Smoking and tobacco/nicotine status: former use of tobacco/nicotine Alcohol intake: former Substance/Drug Use: former Physical Exam Narrative: EXAM NARRATIVE: Obese, nontoxic, no acute distress Const: COMMON NORMALS: no limitations, alert and well nourished EXAM LIMITATIONS: no altered mental status Neck/C-Spine: COMMON NORMALS: no JVD GENERAL: Yes normal visual inspection and Yes trachea midline Resp: COMMON NORMALS: normal respiratory effort, No use of accessory muscles and clear to auscultation bilaterally AUSCULTATION: clear to auscultation bilaterally Cardio: COMMON NORMALS: no JVD, regular rate and regular rhythm RATE: regular rate RHYTHM: regular rhythm GI: COMMON NORMALS: Soft to palpation and non-tender PALPATION: Yes Soft to palpation and No Guarding due to palpation present (GI) Extremity: COMMON NORMALS: normal to inspection Neuro: COMMON NORMALS: moves all extremities, no focal motor deficits and no sensory deficits noted SENSORIUM/ORIENTATION: Yes alert SPEECH: speech normal Psych: COMMON NORMALS: mental status grossly normal, Normal thought process p resent, cooperative, normal affect and speech normal SPEECH: Yes normal speech THOUGHT PROCESS: Normal thought process present Skin: COMMON NORMALS: no rashes or lesions noted, turgor normal and no jaundice GENERAL SKIN EXAM: no rashes or lesions noted and turgor normal Course Vital Signs: Vital signs: Vital Signs Temperature 97.9 F 06/16/23 14:25 Pulse Rate 87 06/16/23 14:25 Respiratory Rate 16 06/16/23 14:25 Blood Pressure 101/69 06/16/23 14:25 Pulse Oximetry 95 06/16/23 14:25 Oxygen Delivery Me thod Room Air 06/16/23 14:25 MDM - Arrhythmia/Palpitations Medical Decision Making EKG on arrival shows a sinus rhythm, rate 68, occasional PACs, minimal ST and T wave changes noted in the precordial to lateral leads. This EKG looks the same as 11/05/2022. The patient reports he has not been sick recently, dehydrated, and pain, or having any symptoms. Therefore, we are simply going to make some medication adjustments today. He will stop taking metoprolol tartrate on a routine basis given the pharmacokinetics of the drug. We are going to replace it with metoprolol succinate 50 mg p.o. daily. We are also going to have him take metoprolol tartrate on an as-needed basis up to twice a day whenever he is having a heart rate that is persistently above 100. we are going to cut his valsartan in half in order to give him a little bit more blood pressure to utilize in the event that he needs to take metoprolol tartrate to control his heart rate. Follow-up with PCP. Continue to keep a vital sign journal. Return if having any symptoms. No radiology studies performed this visit Discharge Plan Discharge Patient Disposition: Home Clinical Impression: PAF (paroxysmal atrial fibrillation) Condition: Stable Prescriptions: New metoprolol succinate 50 mg tablet extended release 24 hr 50 mg PO DAILY Qty: 30 2RF metoprolol tartrate 25 mg tablet 25 mg PO BID PRN (Reason: Persistent atrial fibrillation with rate >100 bpm) Qty: 30 2RF valsartan 40 mg tablet 40 mg PO DAILY Qty: 30 2RF Discontinued valsartan 80 mg tablet 80 mg PO QAM No Action ascorbate calcium (vitamin C) 500 mg tablet 500 mg PO QAM cholecalciferol (vitamin D3) 25 mcg (1,000 unit) capsule 50 mcg PO QAM docusate sodium [Colace] 100 mg capsule 200 mg PO BEDTIME cyanocobalamin (vitamin B-12) 1,000 mcg capsule 1,000 mcg PO QAM PreserVision AREDS [id number] capsule 1 cap PO BID omega-3 fatty acids 1,000 mg capsule 1,000 mg PO BID Eliquis 5 mg tablet 5 mg PO BID tramadol 50 mg tablet 50 mg PO QID PRN (Reason: Pain) zolpidem 5 mg tablet 5 mg PO BEDTIME PRN (Reason: Sleep) clopidogrel 75 mg tablet 75 mg PO DAILY Qty: 90 3RF potassium chloride 20 mEq Tablet Extended Release 10 meq PO QAM atorvastatin 40 mg Tablet 40 mg PO BEDTIME Qty: 30 0RF nitroglycerin [Nitrostat] 0.4 mg Tablet, Sublingual 0.4 mg SUBLINGUAL Q5M PRN (Reason: Chest Pain) Rx Instructions: do not exceed 3 doses per episode mirtazapine 45 mg Tablet 45 mg PO BEDTIME chlorthalidone 25 mg tablet 25 mg PO QAM prazosin 2 mg Capsule 2 mg PO BID Qty: 30 0RF trazodone 100 mg Tablet 50 mg PO BEDTIME metoprolol tartrate 25 mg tablet 50 mg PO BID Discharge Orders: Discharge ED (Routine); Ordered 06/16/23 Ordered By: Chase Baalman Referrals: Lali Givens MD [Primary Care Provider] - 4-7 days (Med changes for pAF with RVR) Discharge Diet: Usual diet Discharge Activity: Resume usual activity Patient Instructions: A-fib (Atrial Fibrillation) (ED) Activity Restrictions/Additional Instructions: We have made medication changes: Your metoprolol tartrate has been changed to 25 mg by mouth twice a day as needed for persistent atrial fibrillation with a ventricular rate greater than 100 beats per minute (BPM) You will now take metoprolol succinate 50 mg daily. This is a long-acting formulation. In summary, you will take metoprolol succinate daily and you will take metoprolol tartrate up to twice a day only as needed if your heart rate is consistently above 100. Your dose of valsartan has been cut in half. You will now be taking 40 mg daily. Please follow-up with your primary care doctor and keep a journal of your blood pressure and heart rate so that we can see how this new regimen is working. 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
[2023-06-16 15:04] VITALS: BP 117/67; PULSE 72; RESP 17; O2SAT 93
== END 2023-06-16 15:11 | disposition home or self-care (01) ==
PROVIDERS: Emergency Provider Emergency Medicine; PCP Family Medicine
DX: I48.0 Paroxysmal atrial fibrillation (principal); Z79.01 Long term (current) use of anticoagulants; Z79.02 Long term (current) use of antithrombotics/antiplatelets; Z87.891 Personal history of nicotine dependence; I25.10 Atherosclerotic heart disease of native coronary artery without angina pectoris; E78.5 Hyperlipidemia, unspecified; Z95.1 Presence of aortocoronary bypass graft
CPT/HCPCS: 93005; 99283

== ENCOUNTER → 2023-06-29 13:43 | Outpatient (BNVA) | payer OTHER, SELFPAY | PROVIDERS: PCP Family Medicine; Visit Provider Internal Medicine Cardiovascular Disease | DX: I25.10 Atherosclerotic heart disease of native coronary artery without angina pectoris (principal); I10 Essential (primary) hypertension; I48.0 Paroxysmal atrial fibrillation; Z79.01 Long term (current) use of anticoagulants; I73.9 Peripheral vascular disease, unspecified; E78.5 Hyperlipidemia, unspecified; Z87.891 Personal history of nicotine dependence | CPT/HCPCS: 99214 ==

== ENCOUNTER → 2024-01-03 11:04 | Outpatient (BNVA) | payer OTHER, SELFPAY | PROVIDERS: PCP Family Medicine; Visit Provider Internal Medicine Cardiovascular Disease | DX: I25.10 Atherosclerotic heart disease of native coronary artery without angina pectoris (principal); I48.0 Paroxysmal atrial fibrillation; I73.9 Peripheral vascular disease, unspecified; I10 Essential (primary) hypertension; R00.1 Bradycardia, unspecified; Z95.1 Presence of aortocoronary bypass graft; Z87.891 Personal history of nicotine dependence; Z79.01 Long term (current) use of anticoagulants | CPT/HCPCS: 99214 ==

== ENCOUNTER 2024-05-02 05:51 | Outpatient (CLI) | payer OTHER, SELFPAY ==
--- NOTE | 2024-05-02 06:16 | US_ITS ---
WS: [id number] RIGHT UPPER QUADRANT ULTRASOUND HISTORY: RUQ PAIN COMPARISON: 06/11/2022 Liver: 17.0 cm in length. Mildly enlarged liver with moderate hepatic steatosis. Echogenic liver with poor visualization of the entire liver. Portal Vein: Normal hepatopetal flow with monophasic waveform. Gallbladder: Prior cholecystectomy. CBD: 0.7 cm Pancreas: Obscured by bowel gas. A small portion of the body is normal. The head and tail are not vis ualized. Right kidney: 11.4 cm in length. Normal size and echogenicity. No hydronephrosis or mass. Aorta and IVC: Unremarkable abdominal aorta and IVC. No ascites. US/US abdomen limited [id number] IMPRESSION: 1. Prior cholecystectomy. 2. Mild hepatomegaly with moderate hepatic steatosis. Steatosis has increased since the prior study of 06/11/2022.
== END 2024-05-02 05:52 | disposition home or self-care (01) ==
LOC: RAD 05:51
PROVIDERS: PCP Family Medicine; Visit Provider Family Medicine
DX: R10.11 Right upper quadrant pain (principal); K76.0 Fatty (change of) liver, not elsewhere classified
CPT/HCPCS: 76705

== ENCOUNTER → 2024-07-23 13:46 | Outpatient (BNVA) | payer OTHER, SELFPAY | PROVIDERS: PCP Family Medicine; Visit Provider Internal Medicine Cardiovascular Disease | DX: I48.0 Paroxysmal atrial fibrillation (principal); I25.10 Atherosclerotic heart disease of native coronary artery without angina pectoris; I73.9 Peripheral vascular disease, unspecified; I10 Essential (primary) hypertension; E78.5 Hyperlipidemia, unspecified; R00.1 Bradycardia, unspecified; G47.33 Obstructive sleep apnea (adult) (pediatric); Z79.01 Long term (current) use of anticoagulants | CPT/HCPCS: 99214 ==

== ENCOUNTER → 2025-01-21 10:30 | Outpatient (BNVA) | payer OTHER, SELFPAY | PROVIDERS: PCP Family Medicine; Visit Provider Nurse Practitioner Family | DX: I25.10 Atherosclerotic heart disease of native coronary artery without angina pectoris (principal) | CPT/HCPCS: 93005; 99214 ==

== ENCOUNTER → 2025-02-04 09:52 | Outpatient (BNVA) | payer OTHER, SELFPAY | PROVIDERS: PCP Family Medicine; Visit Provider Internal Medicine Cardiovascular Disease | DX: I48.91 Unspecified atrial fibrillation (principal) | CPT/HCPCS: 93005 ==

== ENCOUNTER 2025-02-26 12:26 | Emergency (ER) | payer OTHER, MEDICARE, SELFPAY ==
--- OUTSIDE RECORDS SUMMARY | 2025-02-26 12:33 | XMS_ITS | Patient Health Record ---
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
--- OUTSIDE RECORDS SUMMARY | 2025-02-26 12:33 | XMS_ITS | Clinical Summary ---
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 Name Role Phone Unavailable Primary Care Provider Unavailabl e Social History Tobacco Use Types Packs/Day Years Used Date Smoking Tobacco: Never Assessed Sex and Gender Information Value Date Recorded Sex Assigned at Not on file Legal Sex Male 2:09 PM CDT Gender Identity Not on file Sexual Orientation Not on file Plan of Treatment Health Maintenance Due Date Last Done Comments DTAP/TDAP/TD VACCINES (1 - Tdap) 1968 COLORECTAL SCREENING 1994 Colorectal Cancer Screening 1994 FIT-DNA Q 3 years 1994 FIT/FOBT Q 1 year 1994 Flex Sig/CT Colonography Q 5 years 1994 PNEUMOCOCCAL VACCINE 50+ YEARS (1 of 1 - PCV) 03/22/19 99 ZOSTER VACCINE (1 of 2) 1999 RSV VACCINE (60+ or ) (1 - 1-dose 75+ series) 2024 INFLUENZA VACCINE (#1) 2025
[2025-02-26 13:03] LABS: Hematocrit 45.0 % (37-53); Hemoglobin 15.40 g/dL (11.27-16.99); Mean Corpuscular HGB Conc 34.2 g/dL (30-55); Mean Corpuscular Hemoglobin 33.2 pg (27-33); Mean Corpuscular Volume 97.0 fl (82-101); Nucleated Red Blood Cells % 0 %; Platelet Count 324 10^3/cmm (157-399); Red Blood Count 4.64 10^6/uL (3.85-5.65); White Blood Count 12.66 10^3/uL (3.29-11.43)
[2025-02-26 13:04] VITALS: BP 128/76; PULSE 86; TEMP 36.8; O2SAT 95
[2025-02-26 13:12] LABS: INR 1.28 (0.8-1.2); Prothrombin Time 16.90 SECONDS (12.1-14.9)
[2025-02-26 13:16] LABS: Alanine Aminotransferase 90 U/L (0-41); Albumin Level 3.8 g/dL (3.5-5.2); Alkaline Phosphatase 109 U/L (40-130); Anion Gap 18.3 (5-19); Aspartate Amino Transferase 82 U/L (0-40); Blood Urea Nitrogen 16 mg/dL (8-23); Calcium 9.2 mg/dL (8.5-10.5); Carbon Dioxide 27 mmol/L (22-29); Chloride 91 mmol/L (98-107); Creatinine Clr Calc Pharmacy 67.7098; Globulin 3.5 g/dL (1.3-4.6); Glucose 220 mg/dL (65-115); Osmolality Calculated 284 mOsm/kg (285-295); Potassium 3.3 mmol/L (3.5-5.1); Sodium 133 mmol/L (136-145); Total Protein 7.3 g/dL (6.6-8.7)
[2025-02-26 14:53] VITALS: BP 120/90; PULSE 79; RESP 16; O2SAT 99
--- NOTE | 2025-02-26 14:54 | W.ED.GIBLEED ---
HPI - GI Bleed General: Chief complaint: GI Bleed Stated complaint: black stool Time Seen by Provider: 02/26/25 14:32 History of Present Illness: 74-year-old male presents emergency room complaining of having black stool. He says has been going on for several years. He intermittently will have small streaks of bright red blood he sometimes related to particular foods he is eating. No recent abdominal pain no hematemesis or coffee-ground emesis. He is on Plavix and Eliquis. No recent change in medications. Associated symptoms: Denies abdominal pain, chills, fever(s) or rash Related Data Home Medications ?Medication ?Instructions ?Recorded ?Confirmed apixaban 5 mg tablet (Eliquis) 5 mg PO BID 02/26/20 01/21/25 ascorbate calcium (vitamin C) 500 500 mg PO QAM 02/26/20 01/21/25 mg tablet cholecalciferol (vitamin D3) 25 50 mcg PO QAM 02/26/20 01/21/25 mcg (1,000 unit) capsule cyanocobalamin (vitamin B-12) 1,000 mcg PO QAM 02/26/20 01/21/25 1,000 mcg capsule docusate sodium 100 mg capsule 200 mg PO BEDTIME 02/26/20 01/21/25 (Colace) omega-3 fatty acids 1,000 mg 1,000 mg PO BID 02/26/20 01/21/25 capsule tramadol 50 mg tablet 50 mg PO QID PRN Pain 02/26/20 01/21/25 vitamins A,C,E-ztmy-spoqfr 4,296 1 cap PO BID 02/26/20 01/21/25 mcg-226 mg-90 mg capsule (PreserVision AREDS) potassium chloride 20 mEq 10 meq PO QAM 04/06/22 01/21/25 tablet,extended release chlorthalidone 25 mg tablet 25 mg PO QAM 05/28/22 01/21/25 mirtazapine 45 mg tablet 45 mg PO BEDTIME 05/28/22 01/21/25 nitroglycerin 0.4 mg sublingual 0.4 mg sublingual Q5M PRN Chest 05/28/22 01/21/25 tablet (Nitrostat) Pain trazodone 100 mg tablet 50 mg PO BEDTIME 11/04/22 01/21/25 cetirizine 10 mg tablet 10 mg PO DAILY PRN 01/03/24 01/21/25 fluticasone propionate 50 1 spray intranasal BID 01/03/24 01/21/25 mcg/actuation nasal spray,suspension digoxin 250 mcg (0.25 mg) tablet 250 mcg PO DAILY 07/23/24 01/21/25 Previous Rx's ?Medication ?Instructions ?Recorded atorvastatin 40 mg tablet 40 mg PO BEDTIME #30 tabs 04/08/22 prazosin 2 mg capsule 2 mg PO BID #30 caps 06/02/22 clopidogrel 75 mg tablet 75 mg PO DAILY #90 tabs 06/11/22 metoprolol tartrate 25 mg tablet 25 mg PO BID PRN Persistent atrial 06/16/23 fibrillation with rate >100 bpm #30 tabs valsartan 40 mg tablet 40 mg PO DAILY Hypertension #30 06/16/23 tabs metoprolol succinate 25 mg 25 mg PO DAILY #90 tabs 01/21/25 tablet,extended release 24 hr Allergies Allergy/AdvReac Type Severity Reaction Status Date / Time No Known Allergies Allergy Verified 02/26/25 13:11 Review of Systems Const: Denies: fever(s) or chills Card: Denies: chest pain Resp: Denies: dyspnea GI: Reports: hematochezia and melena; Denies: abdominal pain : Denies: dysuria, urinary frequency or urinary urgency Musc: Denies: neck pain or back pain Skin/Breast: Denies: rash PFSH ED PFSH: Medical History Atrial fibrillation Hyperlipidemia due to dietary fat intake HTN (hypertension) with goal to be determined CAD (coronary artery disease) PAD (peripheral artery disease) Surgical History Hx of hernia repair Hx of cholecystectomy Hx of bilateral cataract extraction S/P CABG (coronary artery bypass graft) Family History Father CAD (coronary artery disease), Onset Age: 60 Stroke Family/Other Dementia Brother Lung disease Denies family history of Diabetes Clotting disorder Chronic kidney disease (CKD) Suicide Anesthesia complication Bleeding disorder Cancer Social History (Reviewed 02/26/25 @ 15:52 by DANE Glez Smoking and tobacco/nicotine status: former use of tobacco/nicotine Alcohol intake: former Substance/Drug Use: former Physical Exam Const: COMMON NORMALS: no acute distress GENERAL APPEARANCE: cooperative and comfortable ORIENTATION/CONSCIOUSNESS: Yes awake, Yes oriented to person, Yes oriented to place and Yes oriented to time HENMT: COMMON NORMALS: normocephalic, atraumatic and hearing grossly normal bilaterally HEAD & SCALP: normocephalic and atraumatic Resp: COMMON NORMALS: normal respiratory effort, No retractions, No use of accessory muscles and clear to auscultation bilaterally AUSCULTATION: clear to auscultation bilaterally Cardio: COMMON NORMALS: regular rate, regular rhythm and No murmurs present (Cardio) RATE: regular rate RHYTHM: regular rhythm GI: COMMON NORMALS: Soft to palpation and No hepatosplenomegaly present AUSCULTATION: Yes normoactive bowel sounds PALPATION: Yes Soft to palpation, No Tenderness to palpation present (GI), No Guarding due to palpation present (GI) and Yes No hepatosplenomegaly present Extremity: COMMON NORMALS: normal to inspection, capillary refill normal, no clubbing, cyanosis or edema, no calf tenderness and no pedal edema Neuro: SENSORIUM/ORIENTATION: Yes oriented to person, Yes oriented to place and Yes oriented to time Skin: COMMON NORMALS: no rashes or lesions noted GENERAL SKIN EXAM: no rashes or lesions noted Course Vital Signs: Vital signs: Vital Signs Temperature 98.2 F 02/26/25 13:04 Pulse Rate 79 02/26/25 14:53 Respiratory Rate 16 02/26/25 14:53 Blood Pressure 120/90 02/26/25 14:53 Pulse Oximetry 99 02/26/25 14:53 Oxygen Delivery Me thod Room Air 02/26/25 14:53 MDM - GI Bleed Medical Decision Making Patient reports intermittent occasional streaks of blood in the stool for the last 5+ years. He thinks had a colonoscopy about 7 years ago. His hemoglobin is stable his BUN is normal with no sign of acute bleed subtle signs are stable at this time will discharge patient home continue his current medications refer to general surgery for possible endoscopy return if he has worsening symptoms Medical Records I reviewed the patient's medical records. Lab Data I reviewed the patient's lab results. 02/26/25 12:51 02/26/25 12:51 Laboratory Results WBC 12.66 10^3/uL (3.29-11.43) H 02/26/25 12:51 RBC 4.64 10^6/uL (3.85-5.65) 02/26/25 12:51 Hgb 15.40 g/dL (11.27-16.99) 02/26/25 12:51 Hct 45.0 % (37-53) 02/26/25 12:51 MCV 97.0 fl (82-101) 02/26/25 12:51 MCH 33.2 pg (27-33) H 02/26/25 12:51 MCHC 34.2 g/dL (30-55) 02/26/25 12:51 RDW 13.4 % (12.1-15.1) 02/26/25 12:51 Plt Count 324 10^3/cmm (157-399) 02/26/25 12:51 MPV 9.6 fL (7.4-10.4) 02/26/25 12:51 Neut % (Auto) 65.6 % 02/26/25 12:51 Lymph % (Auto) 20.2 % 02/26/25 12:51 Bertie % (Auto) 12.0 % 02/26/25 12:51 Eos % (Auto) 1.1 % 02/26/25 12:51 Baso % (Auto) 0.6 % 02/26/25 12:51 Neut # (Auto) 8.31 10^3/uL (1.8-7.7) H 02/26/25 12:51 Lymph # (Auto) 2.6 10^3/uL (0.8-4.8) 02/26/25 12:51 Bertie # (Auto) 1.5 10^3/uL (0.2-0.9) H 02/26/25 12:51 Eos # (Auto) 0.1 10^3/uL (0.0-0.8) 02/26/25 12:51 Baso # (Auto) 0.1 10^3/uL (0.0-0.1) 02/26/25 12:51 Nucleated RBC % (auto) 0 % 02/26/25 12:51 Nucleated RBCs # 0.0 /100WBC 02/26/25 12:51 PT 16.90 SECONDS (12.1-14.9) H 02/26/25 12:51 INR 1.28 (0.8-1.2) H 02/26/25 12:51 Sodium 133 mmol/L (136-145) L 02/26/25 12:51 Potassium 3.3 mmol/L (3.5-5.1) L 02/26/25 12:51 Chloride 91 mmol/L (98-107) L 02/26/25 12:51 Carbon Dioxide 27 mmol/L (22-29) 02/26/25 12:51 Anion Gap 18.3 (5-19) 02/26/25 12:51 BUN 16 mg/dL (8-23) 02/26/25 12:51 Creatinine 1.0 mg/dL (0.7-1.2) 02/26/25 12:51 GFR Calculation Not Reportable 02/26/25 12:51 Glucose 220 mg/dL (65-115) H 02/26/25 12:51 Calculated Osmolality 284 mOsm/kg (285-295) L 02/26/25 12:51 Calcium 9.2 mg/dL (8.5-10.5) 02/26/25 12:51 Total Bilirubin 0.8 mg/dL (0.15-1.2) 02/26/25 12:51 AST 82 U/L (0-40) H 02/26/25 12:51 ALT 90 U/L (0-41) H 02/26/25 12:51 Alkaline Phosphatase 109 U/L (40-130) 02/26/25 12:51 Total Protein 7.3 g/dL (6.6-8.7) 02/26/25 12:51 Albumin 3.8 g/dL (3.5-5.2) 02/26/25 12:51 Globulin 3.5 g/dL (1.3-4.6) 02/26/25 12:51 No radiology studies performed this visit Discharge Plan Discharge Patient Disposition: Home Clinical Impression: Hematochezia Condition: Stable Prescriptions: No Action ascorbate calcium (vitamin C) 500 mg tablet 500 mg PO QAM cholecalciferol (vitamin D3) 25 mcg (1,000 unit) capsule 50 mcg PO QAM docusate sodium [Colace] 100 mg capsule 200 mg PO BEDTIME cyanocobalamin (vitamin B-12) 1,000 mcg capsule 1,000 mcg PO QAM PreserVision AREDS [id number] pihs-[id number] capsule 1 cap PO BID omega-3 fatty acids 1,000 mg capsule 1,000 mg PO BID Eliquis 5 mg tablet 5 mg PO BID tramadol 50 mg tablet 50 mg PO QID PRN (Reason: Pain) fluticasone propionate 50 mcg/actuation spray,suspension 1 spray intranasal BID Rx Instructions: administer into each nostril cetirizine 10 mg tablet 10 mg PO DAILY PRN digoxin 250 mcg (0.25 mg) tablet 250 mcg PO DAILY clopidogrel 75 mg tablet 75 mg PO DAILY Qty: 90 3RF metoprolol succinate 25 mg tablet extended release 24 hr 25 mg PO DAILY Qty: 90 3RF potassium chloride 20 mEq Tablet Extended Release 10 meq PO QAM atorvastatin 40 mg Tablet 40 mg PO BEDTIME Qty: 30 0RF metoprolol tartrate 25 mg tablet 25 mg PO BID PRN (Reason: Persistent atrial fibrillation with rate >100 bpm) Qty: 30 2RF valsartan 40 mg tablet 40 mg PO DAILY Qty: 30 2RF nitroglycerin [Nitrostat] 0.4 mg Tablet, Sublingual 0.4 mg SUBLINGUAL Q5M PRN (Reason: Chest Pain) Rx Instructions: do not exceed 3 doses per episode mirtazapine 45 mg Tablet 45 mg PO BEDTIME chlorthalidone 25 mg tablet 25 mg PO QAM prazosin 2 mg Capsule 2 mg PO BID Qty: 30 0RF trazodone 100 mg Tablet 50 mg PO BEDTIME Discharge Orders: Discharge ED (Routine); Ordered 02/26/25 Ordered By: Caden Light Referrals: Lali Givens MD [Primary Care Provider, Family Practice] Discharge Diet: Usual diet Discharge Activity: Resume usual activity Patient Instructions: Opioid Safety, Pain Management, Patient Portal & Marlin Instructions Activity Restrictions/Additional Instructions: Thank you for choosing [facility] for your healthcare needs today. It is very important that you follow up as instructed or that you return to the Emergency Department should you have concerns or if your condition changes or worsens in any way. You were seen in the emergency room with concerns about bleeding from the rectum. Your hemoglobin was normal. There is no sign of any bleeding from this stomach. Continue your current medications case management director will make arrangements for you to follow-up with surgery for possible EGD and colonoscopy Print Language: Romansh Coding Level of Care Code ED Warehouse Associate for Binh Fwd
--- NOTE | 2025-02-27 11:42 | DCPLANNER ---
Message sent to General Surgery for follow up-Patient reports intermittent occasional streaks of blood in the stool for the last 5+ years. He thinks had a colonoscopy about 7 years ago. His hemoglobin is stable his BUN is normal with no sign of acute bleed subtle signs are stable at this time will discharge patient home continue his current medications refer to general surgery for possible endoscopy return if he has worsening symptoms
== END 2025-02-26 15:19 | disposition home or self-care (01) ==
PROVIDERS: Emergency Medicine; Emergency Provider Family Medicine; PCP Family Medicine
DX: K92.1 Melena (principal); Z79.01 Long term (current) use of anticoagulants; Z87.891 Personal history of nicotine dependence; Z95.1 Presence of aortocoronary bypass graft; I25.10 Atherosclerotic heart disease of native coronary artery without angina pectoris; I10 Essential (primary) hypertension; E78.5 Hyperlipidemia, unspecified
CPT/HCPCS: 36415; 80053; 85025; 85610; 99283

== ENCOUNTER → 2025-03-11 12:48 | Outpatient (BNVA) | payer OTHER, SELFPAY | PROVIDERS: PCP Family Medicine; Visit Provider Student in an Organized Health Care Education/Training Program | DX: K92.2 Gastrointestinal hemorrhage, unspecified (principal) | CPT/HCPCS: 99204 ==

== ENCOUNTER 2025-05-17 11:09 | Inpatient (IN) | payer OTHER, SELFPAY ==
[2025-05-17] VITALS (13 sets, daily range): BP systolic 123–158; BP diastolic 44–71; PULSE 42–55; RESP 15–26; TEMP 36.6–36.8; O2SAT 86–99; BMI 34.9
--- OUTSIDE RECORDS SUMMARY | 2025-05-17 11:16 | XMS_ITS | Patient Health Record ---
Author Organization [facility] Address [address] [place] [address] Care Team Providers Care Subscription Crew Leader Name Role Phone Cr Rose Primary Care Provider Reason For Referral No Information Plan Of Treatment No Information
--- OUTSIDE RECORDS SUMMARY | 2025-05-17 11:16 | XMS_ITS | Encounter Summary ---
Author Organization [facility] Address [address] [place] [address] Phone Care Team Providers Care Yard Associate Name Role Phone Cr Meza MD Primary Care Provider [phone] Encounter Details Date Type Department Care Team (Late st Contact Info) Description 03/21/2019 Orders Only [facility] [address] [place] [address] Acute kidney failure, not otherwise specified (HCC) Social History Tobacco Use Types Packs/Day Years Used Date Smoking Tobacco: Never Assessed Sex and Gender Information Value Date Recorded Sex Assigned at Not on file Legal Sex Male 12:02 PM EDT Gender Identity Not on file Sexual Orientation Not on file documented as of this encounter Plan of Treatment Not on file documented as of this encounter Visit Diagnoses Diagnosis Acute kidney failure, not otherwise specified (HCC) documented in this encounter Care Teams Yard Associate Relationship Specialty Start Date End Date Cr Meza MD [address] [facility] [place] [id number] PCP - General Family Medicine 07/27/19 documented as of this encounter
--- OUTSIDE RECORDS SUMMARY | 2025-05-17 11:16 | XMS_ITS | Clinical Summary ---
Author Organization [facility] Address [address] [place] [address] Phone Care Team Providers Care Interior Design Project Manager Name Role Phone Cr Meza MD Primary Care Provider [phone] Allergies No known active allergies Medications busPIRone (BUSPAR) 10 MG tablet Take 5 mg by mouth 1 (one) time each day Active metoprolol tartrate (LOPRESSOR) 25 MG tablet Take 25 mg by mouth 1 (one) time each day Active mirtazapine (REMERON) 45 MG tablet Take 45 mg by mouth every night Active Multiple Vitamins-Minera ls (EYE VITAMINS & MINERALS) tablet Take 1 tablet by mouth 2 (two) times a day Active prazosin (MINIPRESS) 2 MG capsule Take 2 mg by mouth every night Active traMADol (ULTRAM) 50 MG tablet Take 50 mg by mouth 4 (four) times a day Active ascorbic acid (VITAMIN C) 500 MG tablet Take 500 mg by mouth 1 (one) time each day Active aspirin 81 MG tablet Take 81 mg by mouth 1 (one) time each day Active docusate sodium (COLACE) 100 MG capsule Take 100 mg by mouth every night Active [place]-3 Fatty Acids (FISH OIL) 1000 MG capsule delayed-release Take 1 capsule by mouth 2 (two) times a day Active hydroCHLOROthia zide (HYDRODIURIL) 25 MG tablet Take 25 mg by mouth 1 (one) time each day Active pravastatin (PRAVACHOL) 40 MG tablet Take 20 mg by mouth 1 (one) time each day Active Cholecalciferol 2000 units capsule Take 1 tablet by mouth 1 (one) time each day Active cyanocobalamin (VITAMIN B-12) 1000 MCG tablet Take 100 mcg by mouth 1 (one) time each day Active apixaban (ELIQUIS) 5 MG tablet Take 5 mg by mouth 2 (two) times a day Active Active Problems Problem Noted Date Diagnosed Date Chronic kidney disease, stage 2 (mild) 9 Essential (primary) hypertension 08/16/2019 Family History Medical History Relation Comments Heart disease Father Hypertension Father Stroke Father Relation Status Comments Father Mother Social History Tobacco Use Types Packs/Day Years Used Date Smoking Tobacco: Former Cigarettes Q uit: 08/22/1995 Smokeless Tobacco: Never Alcohol Use Standard Drinks/Week Comments Not Currently 0 (1 standard drink = 0.6 oz pur e alcohol) AUDIT-C Answer Date Recorded Frequency of Alcohol Consumption Never 05/16/2019 Average Number of Drinks Not on file 019 Frequency of Binge Drinking Not on file 04/23 Sex and Gender Information Value Date Recorded Sex Assigned at Not on file Legal Sex Male 12:02 PM EDT Gender Identity Not on file Sexual Orientation Not on file Last Filed Vital Signs Vital Sign Reading Time Taken Comments Blood Pressure 122/78 08/16/2019 11:23 AM GEAR SHAPER SET UP OPERATOR Pulse 50 08/16/2019 11:23 AM GEAR SHAPER SET UP OPERATOR Temperature - - Respiratory Rate - - Oxygen Saturation - - Inhaled Oxygen Concentration - - Weight 95 kg (209 lb 8 oz) 08/16/2019 11:[address] Height 165.1 cm (5' 5 ) 08/16/2019 11:23 AM GEAR SHAPER SET UP OPERATOR Body Mass Index 34.86 08/16/2019 11:23 AM GEAR SHAPER SET UP OPERATOR Plan of Treatment Health Maintenance Due Date Last Done Comments Pneumococcal Vaccine: 50+ Ye ars (1 of 2 - PCV) 1968 Influenza Vaccine (#1) 2025 Hepatitis B Vaccine Aged Out No longe r eligible based on patient's age to complete this topic Insurance [employer] Insurance Care Teams Interior Design Project Manager Relationship Specialty Start Date End Date Cr Meza MD [address] [facility] [place] [id number] PCP - General Family Medicine 07/27/19
--- OUTSIDE RECORDS SUMMARY | 2025-05-17 11:16 | XMS_ITS | Clinical Summary ---
Author Organization [facility] Address [address] [place] [address] Phone Care Team Providers Care Marshmallow Maker Name Role Phone Unavailable Primary Care Provider [...] Comments DTAP/TDAP/TD VACCINES (1 - Tdap) 1969 PNEUMOCOCCAL VACCINE 50+ YEARS (1 of 1 - PCV) 03/22/19 99 ZOSTER VACCINE (1 of 2) 1999 RSV VACCINE (60+ or ) (1 - 1-dose 75+ series) 2024 INFLUENZA VACCINE (#1) 2025
--- NOTE | 2025-05-17 11:33 | XR_ITS ---
WS: [id number] Exam: XR chest 1V portable [id number] Date/Time of Exam: 05/17/2025 12:55 PM Reason For Exam: Shortness of breath Comparison 02/16/2023. The lungs are fully expanded. Chronic interstitial changes. Heart size top limits normal. Signs of median sternotomy. The mediastinum is normal in contour. Bony structures are intact. XR/XR chest 1V portable [id number] IMPRESSION: 1. No acute cardiopulmonary finding. No change.
[2025-05-17 11:59] LABS: Hematocrit 38.8 % (37-53); Hemoglobin 12.30 g/dL (11.27-16.99); Mean Corpuscular HGB Conc 31.7 g/dL (30-55); Mean Corpuscular Hemoglobin 31.8 pg (27-33); Mean Corpuscular Volume 100.3 fl (82-101); Nucleated Red Blood Cells % 0 %; Platelet Count 277 10^3/cmm (157-399); Red Blood Count 3.87 10^6/uL (3.85-5.65); White Blood Count 10.71 10^3/uL (3.29-11.43)
[2025-05-17 12:23] LABS: Lactic Sepsis W/Reflex 5.5 mmol/L (0.5-2.2)
[2025-05-17 12:26] LABS: Alanine Aminotransferase 29 U/L (0-41); Albumin Level 3.4 g/dL (3.5-5.2); Alkaline Phosphatase 84 U/L (40-130); Anion Gap 20.5 (5-19); Aspartate Amino Transferase 28 U/L (0-40); Blood Urea Nitrogen 28 mg/dL (8-23); Calcium 8.9 mg/dL (8.5-10.5); Carbon Dioxide 24 mmol/L (22-29); Chloride 97 mmol/L (98-107); Creatinine Clr Calc Pharmacy 51.2831; Globulin 3.6 g/dL (1.3-4.6); Glucose 151 mg/dL (65-115); NT Pro B Type Natriuretic Pept 6125 pg/mL (0-450); Osmolality Calculated 294 mOsm/kg (285-295); Potassium 3.5 mmol/L (3.5-5.1); Sodium 138 mmol/L (136-145); Total Protein 7.0 g/dL (6.6-8.7)
--- NOTE | 2025-05-17 12:37 | ECG_ITS ---
[facility] Pat Name: Wilson Reyes Department: Room: Gender: Male Rectifying Operator: : [id number] Requested By: Darcy Rogers Order Number: [id number] Reading MD: JANEE CHINO Measurements Intervals [place] Rate: 45 P: 0 WI: 0 QRS: 61 QRSD: 80 T: 258 QT: 490 QTc: 428 Interpretive Statements ATRIAL FIBRILLATION WITH SLOW VENTRICULAR RESPONSE ST DEVIATION AND MODERATE T-WAVE ABNORMALITY, CONSIDER ANTEROLATERAL ISCHEMIA [-0.1+ mV T-WAVE IN V3-V6] ST DEVIATION AND MODERATE T-WAVE ABNORMALITY, CONSIDER INFERIOR ISCHEMIA [-0.1+ mV T-WAVE IN II/aVF] Compared to ECG 02/04/2025 09:58:28 No significant changes Electronically Signed On 05-18-2025 21:35:00 CDT by JANEE CHINO [email or web address]
--- NOTE | 2025-05-17 12:40 | W.ED.SOB ---
HPI - SOB/Dyspnea General: Chief Complaint: Shortness of Breath/Dyspnea Stated Complaint: Hard time Breathing Time Seen by Provider: 05/17/25 12:34 History of Present Illness: HPI Narrative: 75-year-old man with a history of coronary artery disease status post CABG, peripheral vascular disease status post stent in the right leg, atrial fibrillation, chronic anticoagulation on Eliquis and Plavix, hypertension and hyperlipidemia who presents to the emergency room with difficulty breathing. This has been going on for a while now. About a week. He has severe orthopnea and exertional dyspnea. He has had some cough. No fever. No chest pain. No abdominal pain. No nausea or vomiting. Perhaps some mild edema in his legs. Related Data Home Medications ?Medication ?Instructions ?Recorded ?Confirmed apixaban 5 mg tablet (Eliquis) 5 mg PO BID 02/26/20 05/17/25 ascorbate calcium (vitamin C) 500 500 mg PO QAM 02/26/20 05/17/25 mg tablet cyanocobalamin (vitamin B-12) 1,000 mcg PO QAM 02/26/20 05/17/25 1,000 mcg capsule docusate sodium 100 mg capsule 200 mg PO BEDTIME 02/26/20 05/17/25 (Colace) omega-3 fatty acids 1,000 mg 1,000 mg PO BID 02/26/20 05/17/25 capsule tramadol 50 mg tablet 50 mg PO BID PRN Pain 02/26/20 05/17/25 vitamins A,C,E-mcin-xxkunm 4,296 1 cap PO BID 02/26/20 05/17/25 mcg-226 mg-90 mg capsule (PreserVision AREDS) chlorthalidone 25 mg tablet 25 mg PO QAM 05/28/22 05/17/25 mirtazapine 45 mg tablet 45 mg PO BEDTIME 05/28/22 05/17/25 nitroglycerin 0.4 mg sublingual 0.4 mg sublingual Q5M PRN Chest 05/28/22 05/17/25 tablet (Nitrostat) Pain cetirizine 10 mg tablet 10 mg PO DAILY PRN allergies 01/03/24 05/17/25 digoxin 250 mcg (0.25 mg) tablet 250 mcg PO DAILY 07/23/24 05/17/25 cholecalciferol (vitamin D3) 50 50 mcg PO DAILY 05/17/25 05/17/25 mcg (2,000 unit) tablet (Vitamin D3) finasteride 5 mg tablet 5 mg PO DAILY 05/17/25 05/17/25 potassium chloride 10 mEq 10 meq PO DAILY 05/17/25 05/17/25 tablet,extended release prazosin 2 mg capsule 4 mg PO BID 05/17/25 05/17/25 trazodone 50 mg tablet 50 mg PO BEDTIME 05/17/25 05/17/25 zolpidem 5 mg tablet (Ambien) 5 mg PO BEDTIME 05/17/25 05/17/25 Previous Rx's ?Medication ?Instructions ?Recorded atorvastatin 40 mg tablet 40 mg PO BEDTIME #30 tabs 04/08/22 clopidogrel 75 mg tablet 75 mg PO DAILY #90 tabs 06/11/22 valsartan 40 mg tablet 40 mg PO DAILY Hypertension #30 06/16/23 tabs metoprolol succinate 25 mg 25 mg PO DAILY #90 tabs 01/21/25 tablet,extended release 24 hr Allergies Allergy/AdvReac Type Severity Reaction Status Date / Time No Known Allergies Allergy Verified 03/11/25 12:53 Review of Systems Narrative: Constitutional symptoms: Negative except as documented in HPI. Skin symptoms: Negative except as documented in HPI. Eye symptoms: Negative except as documented in HPI. ENMT symptoms: Negative except as documented in HPI. Respiratory symptoms: Negative except as documented in HPI. Cardiovascular symptoms: Negative except as documented in HPI. Gastrointestinal symptoms: Negative except as documented in HPI. Genitourinary symptoms: Negative except as documented in HPI. Musculoskeletal symptoms: Negative except as documented in HPI. Neurologic symptoms: Negative except as documented in HPI. Psychiatric symptoms: Negative except as documented in HPI. Endocrine symptoms: Negative except as documented in HPI. PFSH ED PFSH: Medical History (Updated 05/17/25 @ 15:38 by Claude Schumacher MD) Atrial fibrillation Hyperlipidemia due to dietary fat intake HTN (hypertension) with goal to be determined CAD (coronary artery disease) PAD (peripheral artery disease) Surgical History Hx of hernia repair Hx of cholecystectomy Hx of bilateral cataract extraction S/P CABG (coronary artery bypass graft) Family History Father CAD (coronary artery disease), Onset Age: 60 Stroke Family/Other Dementia Brother Lung disease Denies family history of Diabetes Clotting disorder Chronic kidney disease (CKD) Suicide Anesthesia complication Bleeding disorder Cancer Social History Smoking and tobacco/nicotine status: former use of tobacco/nicotine Alcohol intake: former Substance/Drug Use: former Physical Exam Narrative: EXAM NARRATIVE: General: Alert, no acute distress. Skin: Warm, dry. Head: Normocephalic, atraumatic. Neck: Supple, trachea midline. Eye: Extraocular movements are intact. Ears, nose, mouth and throat: mucosa moist. Cardiovascular: Regular, Normal peripheral perfusion. Respiratory: Coarse breath sounds, exertional dyspnea, mild increased work of breathing Gastrointestinal: Soft, Nontender, Non distended Musculoskeletal: Normal ROM, no deformity. Neurological: Alert and oriented, No focal neurological deficit observed. Psychiatric: Cooperative, appropriate mood & affect. Course Vital Signs: Vital signs: Vital Signs Pulse Rate 50 L 05/17/25 11:15 Respiratory Rate 16 05/17/25 11:15 Blood Pressure 131/49 05/17/25 11:15 Pulse Oximetry 90 05/17/25 11:15 Oxygen Delivery Me thod Room Air 05/17/25 11:15 MDM - SOB/Dyspnea Medical Decision Making Differential diagnosis for patient with shortness of breath includes but is not limited to and based on the above HPI, review of systems and physical exam: Pneumonia. Bronchitis. Asthma or COPD with acute exacerbation. Acute coronary syndrome / NC. Pulmonary embolism. Anxiety. Congestive heart failure. Viral infections including influenza and Covid-19. Atrial fibrillation. Anxiety. Pleural effusion. Pneumothorax. Orders placed to evaluate differential diagnosis based on the above differential, HPI and physical exam EKG: Time 1121. Rate 45. Atrial fibrillation with slow rate, nonspecific ST changes, no ectopy, This was reviewed and interpreted by myself the ER physician at 1128 Chest x-ray: No acute process. No infiltrate. No pneumothorax. This was reviewed and interpreted by myself the emergency room physician. I also reviewed the radiology report. CT of the chest without contrast: Small bilateral pleural effusions. Atelectasis with ground glass opacities could be suspicious for pneumonia. Doxycycline was given. I started some fluids but he seems fluid overloaded to me so I have stopped those and have given him some Lasix. Lab Review: Laboratory results were reviewed and interpreted by myself the emergency room physician. No leukocytosis. No anemia. Slight worsening in his renal function. Normally creatinine is around 1.1 and today it is 1.3. BUN is 28. Lactate is elevated at 5.5. Troponin is elevated at 175. proBNP is elevated over his baseline at 6000. I reviewed the patient's medical record. 75-year-old man with a history of coronary artery disease status post CABG, peripheral vascular disease status post stent in the right leg, atrial fibrillation, chronic anticoagulation on Eliquis and Plavix, hypertension and hyperlipidemia Reexamination: Patient has had a slight oxygen requirement. Sats were in the upper 80s and low 90s so he is on 2 L nasal cannula at this time. Consultation: I spoke with Dr. Schumacher who is on-call for the hospital service who agrees to admission. Assessment and plan: Non-ST elevation myocardial infarction Congestive heart failure versus pneumonia or both. ?Had started fluids and got about half a liter. I got the proBNP back and it was greater than 6000. His symptoms are more consistent with heart failure as he had some lower extremity swelling and orthopnea. However he has also had a cough. CT is a bit nondeterminant at this point. I have given him doxycycline and IV Lasix. Patient is on Eliquis and Plavix so quite unlikely that this is a PE particularly given that his heart rate is 50. -I discussed the patient with the hospitalist on-call who is admitting the patient. - Discussed findings and plan with patient. Answered any questions. - All laboratory values were reviewed and interpreted personally by myself, the ER physician - All imaging was reviewed and interpreted personally by myself, the ER physician. - Evaluation and treatment of this problem were appropriate in the emergency setting Lab Data 05/17/25 11:51 05/17/25 11:51 Labs/Radiology: Radiology Impressions Chest X-Ray 05/17/25 11:33 IMPRESSION: 1. No acute cardiopulmonary finding. No change. Chest CT 05/17/25 13:10 IMPRESSION: 1. Small RIGHT greater than LEFT pleural effusions. 2. Subsegmental atelectasis with a few patchy hazy groundglass opacities in the RIGHT greater than LEFT lower lobe suspicious for pneumonia. No focal consolidation. 3. Mild interstitial thickening likely due to edema. 4. Prior sternotomy with CABG and cardiomegaly. Laboratory Results WBC 10.71 10^3/uL (3.29-11.43) 05/17/25 11:51 RBC 3.87 10^6/uL (3.85-5.65) 05/17/25 11:51 Hgb 12.30 g/dL (11.27-16.99) 05/17/25 11:51 Hct 38.8 % (37-53) 05/17/25 11:51 MCV 100.3 fl (82-101) 05/17/25 11:51 MCH 31.8 pg (27-33) 05/17/25 11:51 MCHC 31.7 g/dL (30-55) 05/17/25 11:51 RDW 13.9 % (12.1-15.1) 05/17/25 11:51 Plt Count 277 10^3/cmm (157-399) 05/17/25 11:51 MPV 10.5 fL (7.4-10.4) H 05/17/25 11:51 Neut % (Auto) 77.0 % 05/17/25 11:51 Lymph % (Auto) 9.6 % 05/17/25 11:51 [place] % (Auto) 10.7 % 05/17/25 11:51 Eos % (Auto) 1.8 % 05/17/25 11:51 Baso % (Auto) 0.5 % 05/17/25 11:51 Neut # (Auto) 8.25 10^3/uL (1.8-7.7) H 05/17/25 11:51 Lymph # (Auto) 1.0 10^3/uL (0.8-4.8) 05/17/25 11:51 [place] # (Auto) 1.2 10^3/uL (0.2-0.9) H 05/17/25 11:51 Eos # (Auto) 0.2 10^3/uL (0.0-0.8) 05/17/25 11:51 Baso # (Auto) 0.1 10^3/uL (0.0-0.1) 05/17/25 11:51 Nucleated RBC % (auto) 0 % 05/17/25 11:51 Nucleated RBCs # 0.0 /100WBC 05/17/25 11:51 Specimen Type Arterial 05/17/25 13:09 Sample Site Radial, right 05/17/25 13:09 ABG pH 7.47 (7.35-7.45) H 05/17/25 13:09 ABG pCO2 35.4 mmHg (35-45) 05/17/25 13:09 ABG pO2 71.6 mmHg (80.0-100.0) L 05/17/25 13:09 ABG HCO3 26.0 mmol/L (22-26) 05/17/25 13:09 ABG O2 Saturation 95.2 05/17/25 13:09 ABG Base Excess 2.5 mmol/L (-2.0-2.0) H 05/17/25 13:09 Yaisr Test Pos 05/17/25 13:09 A-a O2 Gradient 4.3 mmHg (5-10) L 05/17/25 13:09 Hematocrit 36.9 % (42-52) L 05/17/25 13:09 Hgb O2 Saturation 92.1 % (95-100) L 05/17/25 13:09 Carboxyhemoglobin 2.3 %THgb (0.4-20.1) 05/17/25 13:09 Methemoglobin 0.9 % (0.4-1.5) 05/17/25 13:09 Total Hemoglobin 12.0 g/dL (14-18) L 05/17/25 13:09 Sodium 138.0 mmol/L (131-143) 05/17/25 13:09 Potassium 3.3 mmol/L (3.5-5.0) L 05/17/25 13:09 Glucose 111.0 mg/dL (70-115) 05/17/25 13:09 Ionized Calcium 1.1 mmol/L (1.1-1.4) 05/17/25 13:09 O2 Delivery Device Nc 05/17/25 13:09 O2 Liters/Min 3.0 % 05/17/25 13:09 Oss Architect ID Walci 05/17/25 13:09 Sodium 138 mmol/L (136-145) 05/17/25 11:51 Potassium 3.5 mmol/L (3.5-5.1) 05/17/25 11:51 Chloride 97 mmol/L (98-107) L 05/17/25 11:51 Carbon Dioxide 24 mmol/L (22-29) 05/17/25 11:51 Anion Gap 20.5 (5-19) H 05/17/25 11:51 BUN 28 mg/dL (8-23) H 05/17/25 11:51 Creatinine 1.3 mg/dL (0.7-1.2) H 05/17/25 11:51 GFR Calculation Not Reportable 05/17/25 11:51 Glucose 151 mg/dL (65-115) H 05/17/25 11:51 Calculated Osmolality 294 mOsm/kg (285-295) 05/17/25 11:51 Lactic Acid 5.5 mmol/L (0.5-2.2) H* 05/17/25 11:51 Lactic Acid (Sepsis) 3.9 mmol/L (0.5-2.2) H 05/17/25 14:41 Calcium 8.9 mg/dL (8.5-10.5) 05/17/25 11:51 Total Bilirubin 1.7 mg/dL (0.15-1.2) H 05/17/25 11:51 AST 28 U/L (0-40) 05/17/25 11:51 ALT 29 U/L (0-41) 05/17/25 11:51 Alkaline Phosphatase 84 U/L (40-130) 05/17/25 11:51 Troponin T Baseline 175 ng/L (0-15) H* 05/17/25 11:51 Troponin T 120 Minute 157.5 ng/L (0-15) H 05/17/25 14:09 Delta Troponin T -17.5 ABS# (0-10) L 05/17/25 14:09 NT-Pro-B Natriuret Pep 6125 pg/mL (0-450) H 05/17/25 11:51 Total Protein 7.0 g/dL (6.6-8.7) 05/17/25 11:51 Albumin 3.4 g/dL (3.5-5.2) L 05/17/25 11:51 Globulin 3.6 g/dL (1.3-4.6) 05/17/25 11:51 Influenza A (PCR) Negative (Negative) 05/17/25 13:00 Influenza Type B (PCR) Negative (Negative) 05/17/25 13:00 RSV (PCR) Negative (Negative) 05/17/25 13:00 SARS-CoV-2 (PCR) Negative (Negative) 05/17/25 13:00 All radiology interpretation(s) finalized by discharge Discharge Plan Discharge Patient Disposition: Admitted As Inpatient Admit Provider: Claude Schumacher Clinical Impression: Non-ST elevated myocardial infarction, Hypoxemia, Congestive heart failure Condition: Stable Coding Level of Care Code ED Irrigation Service Technician for Binh Caban
[2025-05-17 12:50] LABS: Reflex Lactate Order REFLEX LACTIC ORDERD
--- NOTE | 2025-05-17 13:10 | CT_ITS ---
WS: [id number] CT CHEST TECHNIQUE: Noncontrast CT of the chest with coronal and sagittal reformatted images. CLINICAL INFORMATION: abnormal chest xray COMPARISON: None. DLP: 616.[address] scans at [facility] use at least one of these dose optimization techniques: automated exposure control; mA and/or kV adjustment per patient size (includes targeted exams where dose is matched to clinical indication); or iterative reconstruction. FINDINGS: Small RIGHT greater than LEFT pleural effusions. Interstitial edema in the lung bases. Few patchy hazy groundglass opacities in RIGHT greater than LEFT lower lobes. Recommend correlation for pneumonia. Cardiomegaly. Sternotomy. Aortic calcification. Coronary calcification. CABG. A few prominent AP window, RIGHT hilar, and anterior mediastinal lymph nodes likely reactive. No axillary lymphadenopathy. Moderate thoracic kyphosis. Ankylosis thoracic spine. Adrenal glands are normal. Cholecystectomy clips. Trace perihepatic ascites. CT/CT chest wo con [id number] IMPRESSION: 1. Small RIGHT greater than LEFT pleural effusions. 2. Subsegmental atelectasis with a few patchy hazy groundglass opacities in th e RIGHT greater than LEFT lower lobe suspicious for pneumonia. No focal consoli dation. 3. Mild interstitial thickening likely due to edema. 4. Prior sternotomy with CABG and cardiomegaly.
[2025-05-17 13:15] LABS: Troponin(5th) Baseline 175 ng/L (0-15)
[2025-05-17 13:20] LABS: ABG PCO2 35.4 mmHg (35-45); ABG PH Result 7.47 (7.35-7.45); Alveolar-Arterial Oxygen Gradi 4.3 mmHg (5-10); Arterial Blood Gas Hematocrit 36.9 % (42-52); Blood Gas Allen Test Pos; Blood Gas LPM 3.0 %; Blood Gas Operator Identificat WALCI; Blood Gas Sample Site Radial, right; Blood Gas Sample Type Arterial; Carboxyhemoglobin 2.3 %THgb (0.4-20.1); Glucose Level-ABG 111.0 mg/dL (70-115); HCO3 ABG 26.0 mmol/L (22-26); Ionized Calcium Level - ABG 1.1 mmol/L (1.1-1.4); Methemoglobin 0.9 % (0.4-1.5); Oxygen Saturation ABG 95.2; PO2 ABG 71.6 mmHg (80.0-100.0); Potassium Level - ABG 3.3 mmol/L (3.5-5.0); Sodium Level - ABG 138.0 mmol/L (131-143)
--- NOTE | 2025-05-17 13:58 | PC.PHAR ---
Pt is [facility] and does not know what medications he takes.
[2025-05-17] MEDS: FUROsemide 10 mg/mL SDV 4mL 40 MG IVP (14:06)
[2025-05-17 14:35] LABS: Troponin 5 2HR 157.5 ng/L (0-15); Troponin 5 2HR Delta -17.5 ABS# (0-10)
[2025-05-17 14:37] LABS: Respiratory Syncytial Virus Ce NEGATIVE (Negative); SARS-CoV-2 PCR NEGATIVE (Negative)
--- NOTE | 2025-05-17 14:37 | ECG_ITS ---
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1950 Requested By: Darcy Rogers Order Number: [id number] Reading MD: JANEE CHINO Measurements Intervals [place] Rate: 45 P: 0 ID: 0 QRS: 61 QRSD: 80 T: 258 QT: 490 QTc: 428 Interpretive Statements ATRIAL FIBRILLATION WITH SLOW VENTRICULAR RESPONSE ST DEVIATION AND MODERATE T-WAVE ABNORMALITY, CONSIDER ANTEROLATERAL ISCHEMIA [-0.1+ mV T-WAVE IN V3-V6] ST DEVIATION AND MODERATE T-WAVE ABNORMALITY, CONSIDER INFERIOR ISCHEMIA [-0.1+ mV T-WAVE IN II/aVF] Compared to ECG 02/04/2025 09:58:28 No significant changes Electronically Signed On 05-18-2025 21:40:56 CDT by JANEE CHINO [id number]
[2025-05-17 15:08] LABS: Lactic Acid level (Lactate) 3.9 mmol/L (0.5-2.2)
--- NOTE | 2025-05-17 15:29 | PM.HP ---
Providers/Chief Complaint Admitting Physician: Claude Schumacher MD Primary Care Provider: Lali Givens MD Chief Complaint: Hard time Breathing History of Present Illness Wilson Reyes is a 75 year old male with a past medical history of atrial fibrillation on Eliquis history of CAD, history of CABG, hypertension, hyperlipidemia who presents to [facility] for shortness of breath. Patient reports increased shortness of breath with exertion, productive cough, paroxysmal nocturnal dyspnea, no fatigue, malaise, no calf pain, calf swelling he denies any chest pain, he is using his medication as prescribed, does report lower extremity edema Review of Systems Const: Denies: fever(s) or chills Card: Denies: chest pain Resp: Reports: dyspnea GI: Denies: abdominal pain Medications/Allergies Home Medications ?Medication ?Instructions ?Recorded ?Confirmed ?Last Taken ?Type apixaban 5 mg tablet (Eliquis) 5 mg PO BID 02/26/20 05/17/25 05/16/25 History ascorbate calcium (vitamin C) 500 500 mg PO QAM 02/26/20 05/17/25 05/16/25 History mg tablet cyanocobalamin (vitamin B-12) 1,000 mcg PO QAM 02/26/20 05/17/25 05/16/25 History 1,000 mcg capsule docusate sodium 100 mg capsule 200 mg PO BEDTIME 02/26/20 05/17/25 05/16/25 History (Colace) omega-3 fatty acids 1,000 mg 1,000 mg PO BID 02/26/20 05/17/25 05/16/25 History capsule tramadol 50 mg tablet 50 mg PO BID PRN Pain 02/26/20 05/17/25 05/28/22 History vitamins A,C,S-dhaq-lloexx 4,296 1 cap PO BID 02/26/20 05/17/25 05/16/25 History mcg-226 mg-90 mg capsule (PreserVision AREDS) atorvastatin 40 mg tablet 40 mg PO BEDTIME #30 tabs 04/08/22 05/17/25 05/16/25 Rx chlorthalidone 25 mg tablet 25 mg PO QAM 05/28/22 05/17/25 05/16/25 History mirtazapine 45 mg tablet 45 mg PO BEDTIME 05/28/22 05/17/25 05/16/25 History nitroglycerin 0.4 mg sublingual 0.4 mg sublingual Q5M PRN Chest 05/28/22 05/17/25 05/28/22 History tablet (Nitrostat) Pain clopidogrel 75 mg tablet 75 mg PO DAILY #90 tabs 06/11/22 05/17/25 05/16/25 Rx valsartan 40 mg tablet 40 mg PO DAILY Hypertension #30 06/16/23 05/17/25 05/16/25 Rx tabs cetirizine 10 mg tablet 10 mg PO DAILY PRN allergies 01/03/24 05/17/25 Unknown History digoxin 250 mcg (0.25 mg) tablet 250 mcg PO DAILY 07/23/24 05/17/25 05/16/25 History metoprolol succinate 25 mg 25 mg PO DAILY #90 tabs 01/21/25 05/17/25 05/16/25 Rx tablet,extended release 24 hr cholecalciferol (vitamin D3) 50 50 mcg PO DAILY 05/17/25 05/17/25 05/16/25 History mcg (2,000 unit) tablet (Vitamin D3) finasteride 5 mg tablet 5 mg PO DAILY 05/17/25 05/17/25 05/16/25 History potassium chloride 10 mEq 10 meq PO DAILY 05/17/25 05/17/25 05/16/25 History tablet,extended release prazosin 2 mg capsule 4 mg PO BID 05/17/25 05/17/25 05/16/25 History trazodone 50 mg tablet 50 mg PO BEDTIME 05/17/25 05/17/25 05/16/25 History zolpidem 5 mg tablet (Ambien) 5 mg PO BEDTIME 05/17/25 05/17/25 05/16/25 History Allergies Allergy/AdvReac Type Severity Reaction Status Date / Time No Known Allergies Allergy Verified 03/11/25 12:53 PFSH Acute PFSH: Medical History Atrial fibrillation Hyperlipidemia due to dietary fat intake HTN (hypertension) with goal to be determined CAD (coronary artery disease) PAD (peripheral artery disease) Surgical History Hx of hernia repair Hx of cholecystectomy Hx of bilateral cataract extraction S/P CABG (coronary artery bypass graft) Family History Father CAD (coronary artery disease), Onset Age: 60 Stroke Family/Other Dementia Brother Lung disease Denies family history of Diabetes Clotting disorder Chronic kidney disease (CKD) Suicide Anesthesia complication Bleeding disorder Cancer Social History Smoking and tobacco/nicotine status: former use of tobacco/nicotine Alcohol intake: former Substance/Drug Use: former Vitals/I&O/Wt Last Vital Signs Pulse 50 L 05/17/25 11:15 Resp 16 05/17/25 11:15 BP 131/49 05/17/25 11:15 Pulse Ox 90 05/17/25 11:15 O2 Del Method Room Air 05/17/25 11:15 05/17/25 05/17/25 05/17/25 06:59 14:59 22:59 Intake Total 300 / 300 Balance 300 / 300 Weight last 48 hrs Weight 95.254 kg Physical Exam Const: COMMON NORMALS: no acute distress and patient oriented x3 Eye: COMMON NORMALS: Equal, round and reactive pupils present and EOMs intact bilaterally Resp: COMMON NORMALS: normal respiratory effort, No retractions and No use of accessory muscles OTHER: Wheezing and crackles in all lung bet[place] Cardio: COMMON NORMALS: no JVD, regular rate, regular rhythm, S1 normal heart sound present and S2 normal heart sound present RATE: regular rate RHYTHM: regular rhythm HEART SOUNDS: S1 normal heart sound present and S2 normal heart sound present GI: COMMON NORMALS: Normal to inspection, nondistended, normoactive bowel sounds present, Soft to palpation and non-tender Extremity: COMMON NORMALS: no calf tenderness NARRATIVE EXTREMITY EXAM: 1+ pitting edema Neuro: COMMON NORMALS: patient oriented x3, CN's II-XII intact bilaterally and moves all extremities Psych: COMMON NORMALS: mental status grossly normal Data 05/17/25 11:51 05/17/25 11:51 Micro: Microbiology 05/17/25 11:53 Blood Culture - Preliminary Blood SPECIMEN COLLECTED 05/17/25 11:51 Blood Culture - Preliminary Blood SPECIMEN COLLECTED A&P Assessment and plan 1. Acute hypoxic respiratory failure: 2. Pneumonia: 3. CAD (coronary artery disease): 4. Non-ST elevated myocardial infarction: 5. Atrial fibrillation: 6. Dyslipidemia: 7. Congestive heart failure: 8. Sepsis: Plan: Acute hypoxic respiratory failure - Multifactorial - Secondary to pneumonia - Secondary to systolic and diastolic CHF Blood - Admit to CICU - Vancomycin - Cefepime - Lasix 40 IV twice daily - Monitor urine output, monitor creatinine - Blood cultures - Sputum cultures NSTEMI - Serial EKGs, serial troponins, telemetry monitoring - Therapeutic Lovenox - Aspirin, statin, Plavix - Cardiac echo - Cardiology consulted Atrial fibrillation, - Rate control - Continue therapeutic Lovenox Elevated lactic acid, likely secondary to pneumonia Sepsis secondary to pneumonia Full code Lovenox for DVT prophylaxis PDMP PDMP Reviewed: Not Reviewed Attestations Medical Necessity Statement*: Patient requires hospitalization, inpatient, greater than 2 midnights, for acute hypoxic respiratory failure secondary pneumonia, CHF, NSTEMI, elevated lactic acid Diagnoses Acute hypoxic respiratory failure J96.01 Pneumonia J18.9 CAD (coronary artery disease) I25.10 Non-ST elevated myocardial infarction I21.4 Atrial fibrillation I48.91 Dyslipidemia E78.5 Congestive heart failure I50.9 Sepsis A41.9 Sepsis Event Note Evaluation Current stage of sepsis: sepsis Possible source: pulmonary Focused Exam Vital Signs Pulse Resp BP Pulse Ox O2 Del Method 05/17/25 11:15 50 L 16 131/49 90 Room Air Respiratory exam: Present wheezes Capillary refill: > 3 Seconds Peripheral pulse strength: 2+ Slightly Diminished Peripheral pulse location: Radial Skin exam: normal turgor Date exam was performed: 05/17/25 Time exam was performed: 15:38
[2025-05-17] MEDS: doxycycline 100 MG in sodium chloride 0.9% (plus) 100 ML IV (15:46)
--- NOTE | 2025-05-17 15:55 | ECG_ITS ---
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1950 Requested By: Darcy Rogers Order Number: [id number] [place] MD: JANEE CHINO Measurements Intervals [place] Rate: 50 P: 0 MN: 0 QRS: 61 QRSD: 85 T: -86 QT: 447 QTc: 409 Interpretive Statements AV DISSOCIATION with complete heart block ST DEVIATION AND MODERATE T-WAVE ABNORMALITY, CONSIDER ANTEROLATERAL ISCHEMIA [-0.1+ mV T-WAVE IN V3-V6] ST DEVIATION AND MODERATE T-WAVE ABNORMALITY, CONSIDER INFERIOR ISCHEMIA [-0.1+ mV T-WAVE IN II/aVF] Compared to ECG 05/17/2025 11:21:30 there is sinus rythm now Electronically Signed On 05-18-2025 21:40:00 CDT by JANEE CHINO [email or web address]
[2025-05-17 16:01] LABS: Magnesium 2.4 mg/dL (1.7-2.3)
--- NOTE | 2025-05-17 16:15 | PM.CONSULT ---
Documented by User: ISAAC Roy 05/17/25 16:44 Providers/Reason For Consult Consulting Physician/Specialty*: Dr Shawn Lockwood, interventional cardiology Reason for Consult*: Elevated troponin Requesting Physician: Dr. Schumacher Attending Physician: Claude Schumacher MD Primary Care Provider: Lali Givens MD History of Present Illness History of Present Illness Wilson Reyes is a 75 year old male with past medical history of CAD status post CABG, PAD, atrial fibrillation anticoagulated with apixaban, hypertension, hyperlipidemia. He presented to the emergency room today due to worsening shortness of breath. Initial EKG appears junctional rhythm, rate [address] depression, the ST depression is not new. Third EKG obtained revealed A-V dissociation, heart rate 50 bpm. He does not have any chest pain but does appear volume overloaded. The previous EKG in January of this year showed atrial fibrillation. Laboratory evaluation: WBC 10, potassium 3.5, BUN 28, creatinine 1.3 (increased from 1.0 in February), lactic acid 5.5. Troponin series: 175-> 157. BNP 6125. Viral screen negative. He has not had any chest pain, nausea, vomiting, diaphoresis. He is short of breath but not labored, cannot lay down flat, increased lower extremity edema. Review of Systems Const: Denies: fever(s), chills, change in weight, fatigue or diaphoresis Eyes: Denies: change in vision ENMT: Denies: epistaxis Card: Reports: edema and dyspnea on exertion; Denies: chest pain, palpitations, irregular heart rhythm, syncope, pre-syncope, orthopnea or leg pain with exertion Resp: Reports: dyspnea; Denies: productive cough or wheezing GI: Denies: nausea, vomiting, hematemesis, hematochezia or melena : Denies: hematuria Musc: Denies: extremity swelling Bal/Lymph: Denies: easy bruising or easy bleeding Medications/Allergies Home Medications ?Medication ?Instructions ?Recorded ?Confirmed ?Last Taken ?Type apixaban 5 mg tablet (Eliquis) 5 mg PO BID 02/26/20 05/17/25 05/16/25 History ascorbate calcium (vitamin C) 500 500 mg PO QAM 02/26/20 05/17/25 05/16/25 History mg tablet cyanocobalamin (vitamin B-12) 1,000 mcg PO QAM 02/26/20 05/17/25 05/16/25 History 1,000 mcg capsule docusate sodium 100 mg capsule 200 mg PO BEDTIME 02/26/20 05/17/25 05/16/25 History (Colace) omega-3 fatty acids 1,000 mg 1,000 mg PO BID 02/26/20 05/17/25 05/16/25 History capsule tramadol 50 mg tablet 50 mg PO BID PRN Pain 02/26/20 05/17/25 05/28/22 History vitamins A,C,G-okcj-tvhpmt 4,296 1 cap PO BID 02/26/20 05/17/25 05/16/25 History mcg-226 mg-90 mg capsule (PreserVision AREDS) atorvastatin 40 mg tablet 40 mg PO BEDTIME #30 tabs 04/08/22 05/17/25 05/16/25 Rx chlorthalidone 25 mg tablet 25 mg PO QAM 05/28/22 05/17/25 05/16/25 History mirtazapine 45 mg tablet 45 mg PO BEDTIME 05/28/22 05/17/25 05/16/25 History nitroglycerin 0.4 mg sublingual 0.4 mg sublingual Q5M PRN Chest 05/28/22 05/17/25 05/28/22 History tablet (Nitrostat) Pain clopidogrel 75 mg tablet 75 mg PO DAILY #90 tabs 06/11/22 05/17/25 05/16/25 Rx valsartan 40 mg tablet 40 mg PO DAILY Hypertension #30 06/16/23 05/17/25 05/16/25 Rx tabs cetirizine 10 mg tablet 10 mg PO DAILY PRN allergies 01/03/24 05/17/25 Unknown History digoxin 250 mcg (0.25 mg) tablet 250 mcg PO DAILY 07/23/24 05/17/25 05/16/25 History metoprolol succinate 25 mg 25 mg PO DAILY #90 tabs 01/21/25 05/17/25 05/16/25 Rx tablet,extended release 24 hr cholecalciferol (vitamin D3) 50 50 mcg PO DAILY 05/17/25 05/17/25 05/16/25 History mcg (2,000 unit) tablet (Vitamin D3) finasteride 5 mg tablet 5 mg PO DAILY 05/17/25 05/17/25 05/16/25 History potassium chloride 10 mEq 10 meq PO DAILY 05/17/25 05/17/25 05/16/25 History tablet,extended release prazosin 2 mg capsule 4 mg PO BID 05/17/25 05/17/25 05/16/25 History trazodone 50 mg tablet 50 mg PO BEDTIME 05/17/25 05/17/25 05/16/25 History zolpidem 5 mg tablet (Ambien) 5 mg PO BEDTIME 05/17/25 05/17/25 05/16/25 History Allergies Allergy/AdvReac Type Severity Reaction Status Date / Time No Known Allergies Allergy Verified 03/11/25 12:53 PFSH Acute PFSH: Medical History Atrial fibrillation Hyperlipidemia due to dietary fat intake HTN (hypertension) with goal to be determined CAD (coronary artery disease) PAD (peripheral artery disease) Surgical History Hx of hernia repair Hx of cholecystectomy Hx of bilateral cataract extraction S/P CABG (coronary artery bypass graft) Family History Father CAD (coronary artery disease), Onset Age: 60 Stroke Family/Other Dementia Brother Lung disease Denies family history of Diabetes Clotting disorder Chronic kidney disease (CKD) Suicide Anesthesia complication Bleeding disorder Cancer Social History Smoking and tobacco/nicotine status: former use of tobacco/nicotine Alcohol intake: former Substance/Drug Use: former Vitals/I&O/Wt Last Vital Signs Pulse 50 L 05/17/25 11:15 Resp 16 05/17/25 11:15 BP 131/49 05/17/25 11:15 Pulse Ox 90 05/17/25 11:15 O2 Del Method Room Air 05/17/25 11:15 05/17/25 05/17/25 05/17/25 06:59 14:59 22:59 Intake Total 300 / 300 Balance 300 / 300 Weight last 48 hrs Weight 210 lb Physical Exam Const: COMMON NORMALS: no acute distress and patient oriented x3 GENERAL APPEARANCE: cooperative and comfortable ORIENTATION/CONSCIOUSNESS: Yes awake, Yes oriented to person, Yes oriented to place and Yes oriented to time Chest: COMMONS NORMALS: normal inspection of the chest and normal palpation of entire chest wall CHEST: Yes Symmetrical chest wall rise Resp: COMMON NORMALS: normal respiratory effort, No retractions and No use of accessory muscles EFFORT & INSPECTION: Yes symmetric chest movement AUSCULTATION: crackles (bases) Laterality: bilateral and posterior Cardio: COMMON NORMALS: S1 normal heart sound present, S2 normal heart sound present, No gallops present (Cardio), No clicks present (Cardio), No murmurs present (Cardio) and No rub (Cardio) RATE: bradycardic RHYTHM: abnormal rhythm irregularly irregular HEART SOUNDS: S1 normal heart sound present and S2 normal heart sound present PERIPHERAL PULSES: radial pulses present Extremity: GENERAL: Yes edema (1-2+ pitting edema bilateral lower extremities below the knee) Neuro: COMMON NORMALS: patient oriented x3 and moves all extremities SENSORIUM/ORIENTATION: Yes oriented to person, Yes oriented to place and Yes oriented to time Data 05/18/25 02:31 05/18/25 02:31 Micro: Microbiology 05/17/25 11:53 Blood Culture - Preliminary Blood SPECIMEN COLLECTED 05/17/25 11:51 Blood Culture - Preliminary Blood SPECIMEN COLLECTED A&P Assessment and plan 1. AV dissociation: 2. CAD (coronary artery disease): 3. HTN (hypertension) with goal to be determined: 4. Intermittent atrial fibrillation: 5. Essential hypertension: 6. Non-ST elevated myocardial infarction: 7. Congestive heart failure: 8. Sepsis: Plan: Rhythm shows AV dissociation, will hold digoxin and metoprolol which are his home medications. Agree with diuresis. We can anticoagulate with heparin infusion or Lovenox for elevated troponin, hold Eliquis. Continue Plavix. Creatinine is higher than usual at 1.3, baseline 1.0-1.1. Decreased clearance of digoxin may be causing the arrhythmia. Hold chlorthalidone. Sepsis screen is positive. Hospitalist service is treating him for pneumonia. Further plan will be devised based on progress. PDMP PDMP Reviewed: Not Reviewed Coding Level of Care Code Acute Code for g Fwd Diagnoses AV dissociation I45.89 CAD (coronary artery disease) I25.10 HTN (hypertension) with goal to be determined I10 Intermittent atrial fibrillation I48.0 Essential hypertension I10 Non-ST elevated myocardial infarction I21.4 Congestive heart failure I50.9 Sepsis A41.9 Documented by User: Ortega Lockwood MD 05/18/25 18:14 History of Present Illness History of Present Illness Patient was evaluated and cared for in conjunction with an advanced practice practitioner. I personally examined the patient and reviewed the chart and all pertinent data including imaging, telemetry, and laboratory results. I discussed the patient in detail with the advanced practice practitioner. Please see their note for complete H&P testing result and agreed upon plan of care for the patient. Wilson Reyes is a 75 year old male with past medical history of CAD status post CABG, PAD, atrial fibrillation anticoagulated with apixaban, hypertension, hyperlipidemia. He presented to the emergency room today due to worsening shortness of breath. Initial EKG appears junctional rhythm, rate [address] depression, the ST depression is not new. Third EKG obtained revealed A-V dissociation, heart rate 50 bpm. He does not have any chest pain but does appear volume overloaded. The previous EKG in January of this year showed atrial fibrillation. Laboratory evaluation: WBC 10, potassium 3.5, BUN 28, creatinine 1.3 (increased from 1.0 in February), lactic acid 5.5. Troponin series: 175-> 157. BNP 6125. Viral screen negative. He has not had any chest pain, nausea, vomiting, diaphoresis. He is short of breath but not labored, cannot lay down flat, increased lower extremity edema. Medications/Allergies Home Medications ?Medication ?Instructions ?Recorded ?Confirmed ?Last Taken ?Type apixaban 5 mg tablet (Eliquis) 5 mg PO BID 02/26/20 05/17/25 05/16/25 History ascorbate calcium (vitamin C) 500 500 mg PO QAM 02/26/20 05/17/25 05/16/25 History mg tablet cyanocobalamin (vitamin B-12) 1,000 mcg PO QAM 02/26/20 05/17/25 05/16/25 History 1,000 mcg capsule docusate sodium 100 mg capsule 200 mg PO BEDTIME 02/26/20 05/17/25 05/16/25 History (Colace) omega-3 fatty acids 1,000 mg 1,000 mg PO BID 02/26/20 05/17/25 05/16/25 History capsule tramadol 50 mg tablet 50 mg PO BID PRN Pain 02/26/20 05/17/25 05/28/22 History vitamins A,C,L-dfig-hrgkwk 4,296 1 cap PO BID 02/26/20 05/17/25 05/16/25 History mcg-226 mg-90 mg capsule (PreserVision AREDS) atorvastatin 40 mg tablet 40 mg PO BEDTIME #30 tabs 04/08/22 05/17/25 05/16/25 Rx chlorthalidone 25 mg tablet 25 mg PO QAM 05/28/22 05/17/25 05/16/25 History mirtazapine 45 mg tablet 45 mg PO BEDTIME 05/28/22 05/17/25 05/16/25 History nitroglycerin 0.4 mg sublingual 0.4 mg sublingual Q5M PRN Chest 05/28/22 05/17/25 05/28/22 History tablet (Nitrostat) Pain clopidogrel 75 mg tablet 75 mg PO DAILY #90 tabs 06/11/22 05/17/25 05/16/25 Rx valsartan 40 mg tablet 40 mg PO DAILY Hypertension #30 06/16/23 05/17/25 05/16/25 Rx tabs cetirizine 10 mg tablet 10 mg PO DAILY PRN allergies 01/03/24 05/17/25 Unknown History digoxin 250 mcg (0.25 mg) tablet 250 mcg PO DAILY 07/23/24 05/17/25 05/16/25 History metoprolol succinate 25 mg 25 mg PO DAILY #90 tabs 01/21/25 05/17/25 05/16/25 Rx tablet,extended release 24 hr cholecalciferol (vitamin D3) 50 50 mcg PO DAILY 05/17/25 05/17/25 05/16/25 History mcg (2,000 unit) tablet (Vitamin D3) finasteride 5 mg tablet 5 mg PO DAILY 05/17/25 05/17/25 05/16/25 History potassium chloride 10 mEq 10 meq PO DAILY 05/17/25 05/17/25 05/16/25 History tablet,extended release prazosin 2 mg capsule 4 mg PO BID 05/17/25 05/17/25 05/16/25 History trazodone 50 mg tablet 50 mg PO BEDTIME 05/17/25 05/17/25 05/16/25 History zolpidem 5 mg tablet (Ambien) 5 mg PO BEDTIME 05/17/25 05/17/25 05/16/25 History Allergies Allergy/AdvReac Type Severity Reaction Status Date / Time No Known Allergies Allergy Verified 03/11/25 12:53 PFSH Acute PFSH: Medical History Atrial fibrillation Hyperlipidemia due to dietary fat intake HTN (hypertension) with goal to be determined CAD (coronary artery disease) PAD (peripheral artery disease) Surgical History Hx of hernia repair Hx of cholecystectomy Hx of bilateral cataract extraction S/P CABG (coronary artery bypass graft) Family History Father CAD (coronary artery disease), Onset Age: 60 Stroke Family/Other Dementia Brother Lung disease Denies family history of Diabetes Clotting disorder Chronic kidney disease (CKD) Suicide Anesthesia complication Bleeding disorder Cancer Social History Smoking and tobacco/nicotine status: former use of tobacco/nicotine Alcohol intake: former Substance/Drug Use: former Data 05/18/25 02:31 05/18/25 02:31 A&P Assessment and plan 1. AV dissociation: 2. CAD (coronary artery disease): 3. HTN (hypertension) with goal to be determined: 4. Intermittent atrial fibrillation: 5. Essential hypertension: 6. Non-ST elevated myocardial infarction: 7. Congestive heart failure: 8. Sepsis: PDMP PDMP Reviewed: Not Reviewed Coding Level of Care Code Acute Code for g Fwd Diagnoses AV dissociation I45.89 CAD (coronary artery disease) I25.10 HTN (hypertension) with goal to be determined I10 Intermittent atrial fibrillation I48.0 Essential hypertension I10 Non-ST elevated myocardial infarction I21.4 Congestive heart failure I50.9 Sepsis A41.9
--- NOTE | 2025-05-17 16:30 | USCV_ITS ---
Wilson Reyes Age: 75 Gender: M : 1950 Exam Date: 05/17/2025 18:21 Ordering Phys: Claude Schumacher MD Technologist: Jerel Camargo Exam Location: [facility] [place] Indication: sob BP: 156 / 61 HR: 49 Rhythm: Sinus Technical Quality: Adequate MEASUREMENTS (Male / Female) Normal Values 2D ECHO LV Diastolic Diameter PLAX 4.3 cm 4.2 - 5.9 / 3.9 - 5.3 cm IVS Diastolic Thickness 1.0 cm 0.6 - 1.0 / 0.6 - 0.9 cm IVS Systolic Thickness 1.3 cm LVPW Diastolic Thickness 0.9 cm 0.6 - 1.0 / 0.6 - 0.9 cm LVPW Systolic Thickness 1.6 cm LVOT Diameter 2.0 cm LV Ejection Fraction 2D Teich 84.1 % LV Ejection Fraction MOD 4C 81.7 % LV Ejection Fraction MOD 2C 60.4 % LV Ejection Fraction 2C AL 60.2 % LA Diameter 3.9 cm RA Systolic Volume 4C AL 42.7 ml RA Systolic Volume 4C MOD 42.9 ml LA Sys Volume AL 43.0 cm cubed LA Sys Volume Index AL 20.2 cm cubed/m squared Aorta at Sinotubular Diameter 2.2 cm IVC Diameter 1.9 cm M-MODE LA Ao Ratio MM 2.1 AV Cusp Separation MM 1.8 cm DOPPLER AV Peak Velocity 214.7 cm/s LVOT Peak Velocity 141.0 cm/s AV Area Cont Eq vti 2.2 cm squared AV Area Cont Eq pk 2.2 cm squared MV Peak Velocity 158.0 cm/s MV Area PHT 3.8 cm squared Mitral E to A Ratio 3.0 TV Peak Velocity 401.0 cm/s TR Peak Velocity 473.0 cm/s TR Peak Gradient 89.5 mmHg TR Mean Velocity 390.0 cm/s TR Mean Gradient 62.9 mmHg TR Velocity Time Integral 145.4 cm PV Peak Velocity 155.0 cm/s RV Ejection Time 0.3 s FINDINGS Left Ventricle Normal left ventricular size, systolic function and wall thickness, with no regional wall motion abnormalities. Left ventricular ejection fraction is estimated at 60 %. Grade III/IV diastolic dysfunction (restrictive filling pattern), severely elevated filling pressures. Right Ventricle The right ventricle is normal in size and function. Right Atrium The right atrium is normal in size. Left Atrium Mildly increased left atrial size. Mitral Valve Mildly thickened mitral valve. Mild mitral annular calcification. No mitral valve stenosis. Mild mitral valve regurgitation. Aortic Valve Severe aortic valve calcification. Mild aortic valve stenosis, mean gradient 9.2 mmHg, TOSHIA 2.2 cm squared. Trace aortic valve regurgitation. Tricuspid Valve Structurally normal tricuspid valve without significant stenosis or regurgitation. Pulmonary artery systolic pressure is normal. Pulmonic Valve Structurally normal pulmonic valve without significant stenosis. There is no pulmonic regurgitation. Pericardium Normal pericardium without effusion. Aorta Normal ascending aorta dimension. IVC The inferior vena cava appears normal. CONCLUSIONS Normal left ventricular size, systolic function and wall thickness, with no regional wall motion abnormalities. Left ventricular ejection fraction is estimated at 60 %. Grade III/IV diastolic dysfunction (restrictive filling pattern), severely elevated filling pressures. Severe aortic valve calcification. Mild aortic valve stenosis, mean gradient 9.2 mmHg, TOSHIA 2.2 cm squared. Trace aortic valve regurgitation. Mildly increased left atrial size. Mildly thickened mitral valve. Mild mitral annular calcification. No mitral valve stenosis. Mild mitral valve regurgitation. There is no pericardial effusion. Right atrial pressure is around 5 mm of mercury. Ortega Lockwood MD (Electronically Signed) Final Date: 17 May 2025 19:35 S
--- NOTE | 2025-05-17 16:40 | PHA.VACGOAL ---
Vancomycin Goal - Goal Vancomycin Goal:: 15-20 mg/L Vancomycin Indication:: Pneumonia (SEPSIS SECONDARY TO PNEUMONIA) - Therapy Current therapy:: Cefepime Day of therpy:: Day []of [] . Actual body weight (kg): 210 lb - Data Labs: WBC 10.71 10^3/uL (3.29-11.43) 05/17/25 11:51 RBC 3.87 10^6/uL (3.85-5.65) 05/17/25 11:51 Hgb 12.30 g/dL (11.27-16.99) 05/17/25 11:51 Hct 38.8 % (37-53) 05/17/25 11:51 MCV 100.3 fl (82-101) 05/17/25 11:51 MCH 31.8 pg (27-33) 05/17/25 11:51 MCHC 31.7 g/dL (30-55) 05/17/25 11:51 RDW 13.9 % (12.1-15.1) 05/17/25 11:51 Sodium 138 mmol/L (136-145) 05/17/25 11:51 Potassium 3.5 mmol/L (3.5-5.1) 05/17/25 11:51 Chloride 97 mmol/L (98-107) L 05/17/25 11:51 Carbon Dioxide 24 mmol/L (22-29) 05/17/25 11:51 Anion Gap 20.5 (5-19) H 05/17/25 11:51 BUN 28 mg/dL (8-23) H 05/17/25 11:51 Creatinine 1.3 mg/dL (0.7-1.2) H 05/17/25 11:51 GFR Calculation Not Reportable 05/17/25 11:51 Last dialysis session:: N/A Treatment plan:: new consult Regimen:: ORDERED 2500 MG LOADING DOSED BASED ON WEIGHT AND DIAGNOSIS. PUT IN ORDER FOR 1000 MG Q12H BASED ON RENAL FUNCTION AND WEIGHT. Follow up:: WILL CONTINUE TO MONITOR DAILY AND OBTAIN TROUGH PRIOR TO 4TH DOSE.
[2025-05-17 17:03] LABS: Estmated Average Glucose 128; Hemoglobin A1C 6.1 % (4.0-6.0)
[2025-05-17 17:14] LABS: Procalcitonin 0.12 ng/mL (0-0.5); Thyroid Stimulating Hormone 4.36 uIU/mL (0.27-4.20)
[2025-05-17 17:25] LABS: Cholesterol 98 mg/dL (0-200); HDL Cholesterol 32 mg/dL (60-100); Triglycerides 126 mg/dL (0-150)
[2025-05-17] MEDS: pantoprazole 40 mg SDV IVP (17:47)
[2025-05-17] MEDS: cefepime 2,000 mg SDV 2000 MG IVP (17:47)
[2025-05-17 17:50] LABS: Glucose Urine UA Negative (Normal); Nitrate Urine Negative (Negative); Specific Gravity, Urine 1.007 (1.005-1.030)
[2025-05-17 17:55] LABS: Add Urine Microscopic? YES
--- NOTE | 2025-05-17 18:23 | PC.NURSE ---
per phone call with Dr Lockwood, stop the patient's Lasix 40mg IVP BID and start Lasix 60 mg IVP BID. Strict Is & Os. Order entered by nurse.
[2025-05-17 20:01] LABS: Troponin 5 6HR Delta 11.0 ng/L (0-12)
[2025-05-17 20:04] LABS: Troponin 5 6HR 186.0 ng/L (0-15)
--- NOTE | 2025-05-17 21:01 | ECG_ITS ---
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1950 Requested By: Claude Schumacher Order Number: [id number] [place] MD: JANEE CHINO Measurements Intervals [place] Rate: 44 P: 0 HI: 0 QRS: 72 QRSD: 146 T: 221 QT: 527 QTc: 453 Interpretive Statements SINUS RHYTHM WITH HIGH GRADE AV BLOCK INTRAVENTRICULAR CONDUCTION DELAY [130+ ms QRS DURATION] CRITICAL TEST RESULT Compared to ECG 05/17/2025 15:55:52 Intraventricular conduction delay now present Atrial fibrillation no longer present T-wave abnormality no longer present Possible ischemia no longer present Electronically Signed On 05-18-2025 21:34:41 CDT by JANEE CHINO [email or web address]
--- NOTE | 2025-05-17 21:40 | PC.NURSE ---
On telemetry noticed patient was having more p waves then QRS possible display of second or third degree heart block. EKG obtained vitals taken and are stable at this time. Patient has no complaints. Dr. Contreras made cárdenas and received orders to let cardiology know. Per Dr. Lockwood patient has AV disassociation and they had held digoxin and metoprolol. At this time patient is stable but per Dr. Lockwood if patient starts becoming symptomatic give atropine and start dopamine with target range of 5-10 mcg/min. Notified Dr. Lockwood that CSU can not run titrable dopamine and that patient would have to be transferred to ICU. Dr. Lockwood aware and orders that if dopamine needs to be started for symptomatic bradycardia, patient can be transferred to ICU. Please see EKG for more information.
[2025-05-17] MEDS: FUROsemide 10 mg/mL SDV 10mL 60 MG IVP (21:52)
[2025-05-18] VITALS (13 sets, daily range): BP systolic 111–159; BP diastolic 37–59; PULSE 40–56; RESP 18–24; TEMP 36.5–36.8; O2SAT 90–98
[2025-05-18 02:53] LABS: Hematocrit 34.5 % (37-53); Hemoglobin 11.30 g/dL (11.27-16.99); Mean Corpuscular HGB Conc 32.8 g/dL (30-55); Mean Corpuscular Hemoglobin 32.1 pg (27-33); Mean Corpuscular Volume 98.0 fl (82-101); Nucleated Red Blood Cells % 0 %; Platelet Count 285 10^3/cmm (157-399); Red Blood Count 3.52 10^6/uL (3.85-5.65); White Blood Count 10.79 10^3/uL (3.29-11.43)
[2025-05-18 03:19] LABS: Alanine Aminotransferase 31 U/L (0-41); Albumin Level 3.4 g/dL (3.5-5.2); Alkaline Phosphatase 80 U/L (40-130); Anion Gap 16.3 (5-19); Aspartate Amino Transferase 25 U/L (0-40); Blood Urea Nitrogen 29 mg/dL (8-23); Calcium 8.6 mg/dL (8.5-10.5); Carbon Dioxide 28 mmol/L (22-29); Chloride 101 mmol/L (98-107); Creatinine Clr Calc Pharmacy 55.5567; Globulin 2.5 g/dL (1.3-4.6); Glucose 107 mg/dL (65-115); Osmolality Calculated 300 mOsm/kg (285-295); Potassium 3.3 mmol/L (3.5-5.1); Sodium 142 mmol/L (136-145); Total Protein 5.9 g/dL (6.6-8.7)
[2025-05-18 03:30] LABS: NT Pro B Type Natriuretic Pept 2994 pg/mL (0-450)
[2025-05-18] MEDS: cefepime 2,000 mg SDV 2000 MG IVP ×2 (04:18→17:08)
[2025-05-18] MEDS: pantoprazole 40 mg SDV IVP ×2 (04:18→17:07)
--- NOTE | 2025-05-18 07:08 | PC.NURSE ---
Notified Dr. Lockwood that patient HR is now becoming slower going as low as 36 however patient is still asymptomatic with stable BP. Awaiting response.
[2025-05-18] MEDS: FUROsemide 10 mg/mL SDV 10mL 60 MG IVP ×2 (07:26→20:30)
[2025-05-18 08:26] LABS: Digoxin 0.8 ng/mL (0.6-1.2)
--- NOTE | 2025-05-18 10:30 | P.PN_ITS ---
Subjective 2 Subjective: Patient was seen this morning, currently alert oriented x 3, following all commands, denies any fevers, no chills, no cough, no nausea, no vomiting, no chest pain, palpitations, does continue to complain of edema and shortness of breath, discussed AV dissociation, we have held his digoxin, beta-timothy, he is asymptomatic no lightheadedness, no dizziness, continues to have bradycardia, discussed the possibility of pacemaker placement if dissociation persists or he develops symptomatology Vitals/I&O/Wt Last Vital Signs Temp 98.3 F 05/18/25 07:36 Pulse 50 L 05/18/25 08:03 Resp 22 H 05/18/25 07:58 BP 159/58 05/18/25 07:36 Pulse Ox 96 05/18/25 07:58 O2 Del Method Nasal Cannula 05/18/25 07:58 O2 Flow Rate 3 05/18/25 07:58 05/17/25 05/18/25 05/18/25 22:59 06:59 14:59 Intake Total 1140 / 1140 250 / 1390 1000 / 1000 Output Total 400 / 400 1075 / 1475 650 / 650 Balance 740 / 740 -825 / -85 350 / 350 Weight last 48 hrs Weight 96.332 kg Weight 95.254 kg Weight 95.254 kg Physical Exam 2 Const: COMMON NORMALS: no acute distress and patient oriented x3 Resp: COMMON NORMALS: normal respiratory effort, No retractions and No use of accessory muscles OTHER: Wheezing and crackles in all lung [place] Cardio: COMMON NORMALS: regular rate, regular rhythm, S1 normal heart sound present and S2 normal heart sound present RATE: regular rate RHYTHM: r egular rhythm HEART SOUNDS: S1 normal heart sound present and S2 normal heart sound present GI: COMMON NORMALS: Normal to inspection, nondistended, normoactive bowel sounds present and non-tender Extremity: NARRATIVE EXTREMITY EXAM: 1+ edema Neuro: COMMON NORMALS: patient oriented x3 and CN's II-XII intact bilaterally Psych: COMMON NORMALS: mental status grossly normal Data 05/18/25 02:31 05/18/25 02:31 Micro: Microbiology 05/17/25 11:53 Blood Culture - Preliminary Blood SPECIMEN COLLECTED 05/17/25 11:51 Blood Culture - Preliminary Blood SPECIMEN COLLECTED A&P Assessment and plan 1. Acute hypoxic respiratory failure: 2. Pneumonia: 3. CAD (coronary artery disease): 4. Non-ST elevated myocardial infarction: 5. Atrial fibrillation: 6. Dyslipidemia: 7. Congestive heart failure: 8. Sepsis: Plan: Acute hypoxic respiratory failure - Multifactorial - Secondary to pneumonia - Secondary to systolic and diastolic CHF Plan - Cardiac stepdown unit - Vancomycin - Cefepime - Lasix 40 IV twice daily - Monitor urine output, monitor creatinine - Blood cultures - Sputum cultures A-V dissociation with bradycardia -Normotensive, no lightheadedness - Metoprolol, digoxin on hold - Digoxin levels within normal limits - Monitor heart rate and rhythm NSTEMI - Serial EKGs, serial troponins, telemetry monitoring - Therapeutic Lovenox - Aspirin, statin, Plavix - Cardiac echo CONCLUSIONS Normal left ventricular size, systolic function and wall thickness, with no regional wall motion abnormalities. Left ventricular ejection fraction is estimated at 60 %. Grade III/IV diastolic dysfunction (restrictive filling pattern), severely elevated filling pressures. Severe aortic valve calcification. Mild aortic valve stenosis, mean gradient 9.2 mmHg, TOSHIA 2.2 cm squared. Trace aortic valve regurgitation. Mildly increased left atrial size. Mildly thickened mitral valve. Mild mitral annular calcification. No mitral valve stenosis. Mild mitral valve regurgitation. There is no pericardial effusion. Right atrial pressure is around 5 mm of mercury. - Cardiology consulted Atrial fibrillation, - Rate control - Continue therapeutic Lovenox Elevated lactic acid, likely secondary to pneumonia Sepsis secondary to pneumonia Full code Lovenox for DVT prophylaxis PDMP PDMP Reviewed: Not Reviewed Attestations 2 Medical Necessity Statement*: Patient requires hospitalization for pneumonia, CHF, NSTEMI, A-V dissociation Diagnoses Acute hypoxic respiratory failure J96.01 Pneumonia J18.9 CAD (coronary artery disease) I25.10 Non-ST elevated myocardial infarction I21.4 Atrial fibrillation I48.91 Dyslipidemia E78.5 Congestive heart failure I50.9 Sepsis A41.9
--- NOTE | 2025-05-18 10:31 | ECG_ITS ---
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1950 Requested By: Claude Schumacher Order Number: [id number] [place] MD: JANEE CHINO Measurements Intervals [place] Rate: 48 P: 0 TN: 0 QRS: 58 QRSD: 93 T: 269 QT: 525 QTc: 472 Interpretive Statements ATRIAL FIBRILLATION WITH SLOW VENTRICULAR RESPONSE SEPTAL MYOCARDIAL INFARCTION , OF INDETERMINATE AGE [40+ ms Q WAVE IN V1/V2] MODERATE T-WAVE ABNORMALITY, CONSIDER ANTEROLATERAL ISCHEMIA [-0.1+ mV T-WAVE IN V3-V6] MODERATE T-WAVE ABNORMALITY, CONSIDER INFERIOR ISCHEMIA [-0.1+ mV T-WAVE IN II/aVF] Compared to ECG 05/17/2025 21:01:20 Myocardial infarct finding now present T-wave abnormality now present Possible ischemia now present Sinus rhythm no longer present Intraventricular conduction delay no longer present Electronically Signed On 05-18-2025 21:34:15 CDT by JANEE CHINO [email or web address]
--- NOTE | 2025-05-18 11:51 | PC.CHAP ---
Pastoral Care Encounter/Spiritual Assessment Type of Contact [] Declined gusset stitcher visit [] Patient/Family/Request visit [] Outpatient visit [] Follow-up visit [] Physician referral [] Code/Alert [x] Routine visit [] Staff referral [] Actively dying [] Patient sleeping [] Family support [] [] Out of room [] Palliative care [] [] Receiving care in room [] Pre-surgical visit [] Trauma [] Long length of stay [] ICU visit [] Other: Relational/Emotional Strength [X] Patient feels connected with others/family/visitors/staff [] Distress [] Loneliness/isolation [] Abandonment Spirituality of Patient [] Person of [place] [] Attends Alevism of their [place] [] Believes in Prayer [] Reads Bible or Evangelical materials [X] There are Spiritual issues to be addressed Staffing Associate Interventions [] Prayer [X] Active listening [X] Non-anxious presence [] Spiritual/emotional support [] Crisis/trauma care [] Spiritual counseling [] Bereavement support [] Provided bereavement packet [] Provided Bible/devotional materials [] Provided toy/stuffed animal, coloring book to patient or family member [] Provided Communion [] Anointing/[place] [] Salvation [] Completed spiritual assessment [] Other: Impact on Illness or Injury [] Angry [] Fearful [] Anxious [] Often cries [] Exhaustion [] Unable to work [] Unable to attend confucianism [] Unable to walk/stand [] Unable to read [] Unable to drive [] Unable to eat/drink [] Unable to sleep [] Unable to be with family [] Patient intubated [] Other: Summary Visit only Time spent with patient 20
--- NOTE | 2025-05-18 18:15 | PM.PN ---
Subjective Subjective: Says he is feeling better after diuresis, today he is in A-fib with slow ventricular response heart rate high 40s to low 50s denies any dizziness no significant pauses however in the night patient had Mobitz type I heart block with persistent heart rate into low 40s to 50s and occasional dropped down to 30s while sleeping but patient remains asymptomatic Vitals/I&O/Wt Last Vital Signs Temp 98.3 F 05/18/25 16:00 Pulse 47 L 05/18/25 16:00 Resp 18 05/18/25 16:00 BP 132/59 05/18/25 16:00 Pulse Ox 98 05/18/25 16:00 O2 Del Method Nasal Cannula 05/18/25 16:00 O2 Flow Rate 2 05/18/25 16:00 05/18/25 05/18/25 05/18/25 06:59 14:59 22:59 Intake Total 250 / 1390 1240 / 1240 490 / 1730 Output Total 1075 / 1475 1650 / 1650 Balance -825 / -85 -410 / -410 490 / 80 Weight last 48 hrs Weight 212 lb 6 oz Weight 210 lb Weight 210 lb Physical Exam Const: OTHER: GENERAL: Patient is alert, awake and oriented x3. HEART: Regular S1 and S2. No murmur, rub or gallop. LUNGS: Clear to auscultate bilaterally. CENTRAL NERVOUS SYSTEM: Grossly nonfocal. EXTREMITIES: Lower extremities with out edema bilaterally. Data 05/18/25 02:31 05/18/25 02:31 Micro: Microbiology 05/17/25 11:51 Blood Culture - Preliminary Blood NEGATIVE TO DATE 05/17/25 11:53 Blood Culture - Preliminary Blood NEGATIVE TO DATE A&P Assessment and plan 1. AV dissociation: 2. Coronary artery disease involving [place] coronary artery of [place] heart without angina pectoris: 3. HTN (hypertension) with goal to be determined: 4. Intermittent atrial fibrillation: 5. Essential hypertension: 6. Non-ST elevated myocardial infarction: 7. Congestive heart failure: 8. Sepsis: Plan: Continue holding beta-timothy and digoxin which is home medicine Patient heart rate remains in to high 40s to low 50s suggestive of sick sinus syndrome may requiring permanent pacemaker will continue to monitor Non-STEMI may need further exploration with possible left heart cath once euvolemic versus stress test PDMP PDMP Reviewed: Not Reviewed Attestations Medical Necessity Statement*: Patient require continuation of hospitalization for above defined care Coding Level of Care Code Acute Code for [facility] Fwd Diagnoses AV dissociation I45.89 Coronary artery disease involving [place] coronary artery of [place] heart without angina pectoris I25.10 Coronary Disease-Associated Artery/Lesion type: unspecified vessel or lesion type [place] vs. transplanted heart: [place] heart Associated angina: without angina HTN (hypertension) with goal to be determined I10 Intermittent atrial fibrillation I48.0 Essential hypertension I10 Non-ST elevated myocardial infarction I21.4 Congestive heart failure I50.9 Sepsis A41.9
[2025-05-19] VITALS (8 sets, daily range): BP systolic 114–143; BP diastolic 43–67; PULSE 48–77; RESP 12–27; TEMP 36.6–36.8; O2SAT 91–95
[2025-05-19] MEDS: pantoprazole 40 mg SDV IVP ×2 (03:31→16:29)
[2025-05-19] MEDS: cefepime 2,000 mg SDV 2000 MG IVP ×2 (03:31→16:29)
[2025-05-19 03:49] LABS: Hematocrit 35.8 % (37-53); Hemoglobin 11.60 g/dL (11.27-16.99); Mean Corpuscular HGB Conc 32.4 g/dL (30-55); Mean Corpuscular Hemoglobin 32.2 pg (27-33); Mean Corpuscular Volume 99.4 fl (82-101); Nucleated Red Blood Cells % 0 %; Platelet Count 312 10^3/cmm (157-399); Red Blood Count 3.60 10^6/uL (3.85-5.65); White Blood Count 10.33 10^3/uL (3.29-11.43)
[2025-05-19 04:17] LABS: Alanine Aminotransferase 34 U/L (0-41); Albumin Level 3.5 g/dL (3.5-5.2); Alkaline Phosphatase 84 U/L (40-130); Anion Gap 16.6 (5-19); Aspartate Amino Transferase 28 U/L (0-40); Blood Urea Nitrogen 25 mg/dL (8-23); Calcium 8.6 mg/dL (8.5-10.5); Carbon Dioxide 28 mmol/L (22-29); Chloride 100 mmol/L (98-107); Creatinine Clr Calc Pharmacy 60.5928; Globulin 2.7 g/dL (1.3-4.6); Glucose 102 mg/dL (65-115); Osmolality Calculated 297 mOsm/kg (285-295); Potassium 3.6 mmol/L (3.5-5.1); Sodium 141 mmol/L (136-145); Total Protein 6.2 g/dL (6.6-8.7)
[2025-05-19 04:37] LABS: NT Pro B Type Natriuretic Pept 2642 pg/mL (0-450)
[2025-05-19] MEDS: FUROsemide 10 mg/mL SDV 10mL 60 MG IVP ×2 (07:58→21:14)
--- NOTE | 2025-05-19 12:43 | P.PN_ITS ---
Subjective 2 Subjective: Patient was seen this morning, does report shortness of breath, cough, edema improving, no chest pain, no lightheadedness Vitals/I&O/Wt Last Vital Signs Temp 98.2 F 05/19/25 08:00 Pulse 50 L 05/19/25 12:00 Resp 23 H 05/19/25 12:00 BP 134/51 05/19/25 12:00 Pulse Ox 95 05/19/25 12:00 O2 Del Method Nasal Cannula 05/19/25 09:01 O2 Flow Rate 2 05/18/25 16:00 05/18/25 05/19/25 05/19/25 22:59 06:59 14:59 Intake Total 490 / 1730 300 / 2030 370 / 370 Output Total 300 / 1950 925 / 2875 Balance 190 / -220 -625 / -845 370 / 370 Weight last 48 hrs Weight 95.209 kg Weight 96.332 kg Weight 95.254 kg Physical Exam 2 Const: COMMON NORMALS: no acute distress and patient oriented x3 Resp: COMMON NORMALS: normal respiratory effort, No retractions and No use of accessory muscles AUSCULTATION: crackles and wheezes Cardio: COMMON NORMALS: regular rate, regular rhythm, S1 normal heart sound present and S2 normal heart sound present RATE: regular rate RHYTHM: r egular rhythm HEART SOUNDS: S1 normal heart sound present and S2 normal heart sound present GI: COMMON NORMALS: Normal to inspection, nondistended, normoactive bowel sounds present, Soft to palpation and non-tender PALPATION: Yes Soft to palpation Extremity: COMMON NORMALS: no pedal edema Neuro: COMMON NORMALS: patient oriented x3 Psych: COMMON NORMALS: mental status grossly normal Data 05/19/25 03:29 05/19/25 03:29 Micro: Microbiology 05/17/25 11:51 Blood Culture - Preliminary Blood NEGATIVE TO DATE 05/17/25 11:53 Blood Culture - Preliminary Blood NEGATIVE TO DATE A&P Assessment and plan 1. Acute hypoxic respiratory failure: 2. Pneumonia: 3. CAD (coronary artery disease): 4. Non-ST elevated myocardial infarction: 5. Atrial fibrillation: 6. Dyslipidemia: 7. Congestive heart failure: 8. Sepsis: Plan: Acute hypoxic respiratory failure - Multifactorial - Secondary to pneumonia - Secondary to systolic and diastolic CHF Plan - Cardiac stepdown unit - Vancomycin - Cefepime - Lasix 60 mg IV twice daily - Monitor urine output, monitor creatinine - Blood cultures - Sputum cultures A-V dissociation with bradycardia -Normotensive, no lightheadedness - Metoprolol, digoxin on hold - Digoxin levels within normal limits - Monitor heart rate and rhythm NSTEMI - Serial EKGs, serial troponins, telemetry monitoring - Therapeutic Lovenox - Aspirin, statin, Plavix - Cardiac echo CONCLUSIONS Normal left ventricular size, systolic function and wall thickness, with no regional wall motion abnormalities. Left ventricular ejection fraction is estimated at 60 %. Grade III/IV diastolic dysfunction (restrictive filling pattern), severely elevated filling pressures. Severe aortic valve calcification. Mild aortic valve stenosis, mean gradient 9.2 mmHg, TOSHIA 2.2 cm squared. Trace aortic valve regurgitation. Mildly increased left atrial size. Mildly thickened mitral valve. Mild mitral annular calcification. No mitral valve stenosis. Mild mitral valve regurgitation. There is no pericardial effusion. Right atrial pressure is around 5 mm of mercury. - Cardiology consulted Atrial fibrillation, - Rate control - Continue therapeutic Lovenox Elevated lactic acid, likely secondary to pneumonia Sepsis secondary to pneumonia Full code Lovenox for DVT prophylaxis PDMP PDMP Reviewed: Not Reviewed Attestations 2 Medical Necessity Statement*: Patient requires hospitalization for acute hypoxic respiratory failure requiring IV antibiotics, IV diuresis, Diagnoses Acute hypoxic respiratory failure J96.01 Pneumonia J18.9 CAD (coronary artery disease) I25.10 Non-ST elevated myocardial infarction I21.4 Atrial fibrillation I48.91 Dyslipidemia E78.5 Congestive heart failure I50.9 Sepsis A41.9
--- NOTE | 2025-05-19 22:55 | P.PN_ITS ---
Subjective 2 Subjective: Denies any chest pain no significant pauses noted Vitals/I&O/Wt Last Vital Signs Temp 98.2 F 05/19/25 19:44 Pulse 77 05/19/25 19:44 Resp 12 05/19/25 19:44 BP 140/59 05/19/25 19:44 Pulse Ox 93 05/19/25 19:44 O2 Del Method Nasal Cannula 05/19/25 19:44 O2 Flow Rate 1 05/19/25 15:14 05/19/25 05/19/25 05/19/25 06:59 14:59 22:59 Intake Total 2029 730 / 730 490 / 1220 Output Total 925 / 2875 Balance -625 / -845 730 / 730 490 / 1220 Weight last 48 hrs Weight 209 lb 14.4 oz Weight 212 lb 6 oz Physical Exam 2 Const: OTHER: GENERAL: Patient is alert, awake and oriented x3. HEART: Regular S1 and S2. No murmur, rub or gallop. LUNGS: Clear to auscultate bilaterally. CENTRAL NERVOUS SYSTEM: Grossly nonfocal. EXTREMITIES: Lower extremities with out edema bilaterally. Data 05/19/25 03:29 05/19/25 03:29 A&P Assessment and plan 1. AV dissociation: 2. Coronary artery disease involving [place] coronary artery of [place] heart without angina pectoris: 3. HTN (hypertension) with goal to be determined: 4. Intermittent atrial fibrillation: 5. Essential hypertension: 6. Non-ST elevated myocardial infarction: 7. Congestive heart failure: 8. Sepsis: Plan: Continue holding beta-timothy and digoxin which is home medicine Patient heart rate remains in to high 40s to low 50s suggestive of sick sinus syndrome may requiring permanent pacemaker will continue to monitor Non-STEMI may need further exploration with possible left heart cath once euvolemic versus stress test On today's visit dated 05/19/2025 patient continues to do fine, will assess patient in the morning PDMP PDMP Reviewed: Not Reviewed Attestations 2 Medical Necessity Statement*: Patient require continuation of hospitalization for above defined care Coding Level of Care Code Acute Code for [facility] Fwd Diagnoses AV dissociation I45.89 Coronary artery disease involving [place] coronary artery of [place] heart without angina pectoris I25.10 Coronary Disease-Associated Artery/Lesion type: unspecified vessel or lesion type [place] vs. transplanted heart: [place] heart Associated angina: without angina HTN (hypertension) with goal to be determined I10 Intermittent atrial fibrillation I48.0 Essential hypertension I10 Non-ST elevated myocardial infarction I21.4 Congestive heart failure I50.9 Sepsis A41.9
[2025-05-20] VITALS (10 sets, daily range): BP systolic 103–142; BP diastolic 38–65; PULSE 48–72; RESP 12–27; TEMP 36.6–37.2; O2SAT 90–98
[2025-05-20] MEDS: cefepime 2,000 mg SDV 2000 MG IVP ×2 (04:05→16:25)
[2025-05-20] MEDS: pantoprazole 40 mg SDV IVP ×2 (04:05→16:26)
[2025-05-20 04:24] LABS: Hematocrit 34.2 % (37-53); Hemoglobin 11.30 g/dL (11.27-16.99); Mean Corpuscular HGB Conc 33.0 g/dL (30-55); Mean Corpuscular Hemoglobin 32.4 pg (27-33); Mean Corpuscular Volume 98.0 fl (82-101); Nucleated Red Blood Cells % 0 %; Platelet Count 291 10^3/cmm (157-399); Red Blood Count 3.49 10^6/uL (3.85-5.65); White Blood Count 9.46 10^3/uL (3.29-11.43)
[2025-05-20 05:06] LABS: Alanine Aminotransferase 36 U/L (0-41); Albumin Level 3.5 g/dL (3.5-5.2); Alkaline Phosphatase 78 U/L (40-130); Anion Gap 17.7 (5-19); Aspartate Amino Transferase 31 U/L (0-40); Blood Urea Nitrogen 23 mg/dL (8-23); Calcium 8.7 mg/dL (8.5-10.5); Carbon Dioxide 29 mmol/L (22-29); Chloride 97 mmol/L (98-107); Creatinine Clr Calc Pharmacy 55.5434; Globulin 3.2 g/dL (1.3-4.6); Glucose 99 mg/dL (65-115); NT Pro B Type Natriuretic Pept 547 pg/mL (0-450); Osmolality Calculated 296 mOsm/kg (285-295); Sodium 141 mmol/L (136-145); Total Protein 6.7 g/dL (6.6-8.7)
[2025-05-20 05:14] LABS: Potassium 2.7 mmol/L (3.5-5.1)
[2025-05-20] MEDS: lidocaine 1% 5 ML in potassium chloride premix 100 ML 26.25 ML IV (05:51)
[2025-05-20] MEDS: FUROsemide 10 mg/mL SDV 10mL 60 MG IVP (07:51)
--- NOTE | 2025-05-20 09:29 | PC.SOCIAL ---
IMM Update pg 2 of IMM Updated and reviewed w/ patient. Copy provided and copy dated, initialed and placed in chart.
[2025-05-20 13:04] LABS: Anion Gap 15.8 (5-19); Blood Urea Nitrogen 19 mg/dL (8-23); Calcium 8.6 mg/dL (8.5-10.5); Carbon Dioxide 29 mmol/L (22-29); Chloride 100 mmol/L (98-107); Creatinine Clr Calc Pharmacy 65.3458; Glucose 108 mg/dL (65-115); Osmolality Calculated 295 mOsm/kg (285-295); Potassium 3.8 mmol/L (3.5-5.1); Sodium 141 mmol/L (136-145)
--- NOTE | 2025-05-20 13:40 | P.PN_ITS ---
<Statement entered by Ortega Lockwood MD - 05/23/25 20:07> Patient was evaluated and cared for in conjunction with an advanced practice practitioner. I personally examined the patient and reviewed the chart and all pertinent data including imaging, telemetry, and laboratory results. I discussed the patient in detail with the advanced practice practitioner. Please see their note for complete H&P testing result and agreed upon plan of care for the patient. Subjective 2 Subjective: Overnight telemetry shows sinus bradycardia in the 30's while asleep, atrial fibrillation with slow ventricular response. Asymptomatic while awake. He is now able to lay flat to sleep, no shortness of breath. Vitals/I&O/Wt Last Vital Signs Temp 97.9 F 05/20/25 08:00 Pulse 72 05/20/25 12:00 Resp 17 05/20/25 12:00 BP 133/53 05/20/25 12:00 Pulse Ox 97 05/20/25 12:00 O2 Del Method Nasal Cannula 05/20/25 04:12 O2 Flow Rate 2 05/20/25 04:12 05/19/25 05/20/25 05/20/25 22:59 06:59 14:59 Intake Total 490 / 1220 1315 / 1315 Output Total 1050 / 1050 Balance 490 / 1220 265 / 265 Weight last 48 hrs Weight 201 lb 12.8 oz Weight 209 lb 14.4 oz Physical Exam 2 Const: COMMON NORMALS: no acute distress and patient oriented x3 GENERAL APPEARANCE: cooperative and comfortable ORIENTATION/CONSCIOUSNESS: Yes awake, Yes oriented to person, Yes oriented to place and Yes oriented to time Chest: COMMONS NORMALS: normal inspection of the chest and normal palpation of entire chest wall CHEST: Yes Symmetrical chest wall rise Resp: COMMON NORMALS: normal respiratory effort, No retractions, No use of accessory muscles and clear to auscultation bilaterally EFFORT & INSPECTION: Yes symmetric chest movement AUSCULTATION: clear to auscultation bilaterally Cardio: COMMON NORMALS: regular rate, regular rhythm, S1 normal heart sound present, S2 normal heart sound present, No gallops present (Cardio), No clicks present (Cardio), No murmurs present (Cardio) and No rub (Cardio) RATE: r egular rate RHYTHM: regular rhythm HEART SOUNDS: S1 normal heart sound present and S2 normal heart sound present PERIPHERAL PULSES: radial pulses present Extremity: COMMON NORMALS: no pedal edema Neuro: COMMON NORMALS: patient oriented x3 and moves all extremities S ENSORIUM/ORIENTATION: Yes oriented to person, Yes oriented to place and Yes oriented to time Data 05/20/25 02:41 05/20/25 12:07 A&P Assessment and plan 1. CAD (coronary artery disease): 2. PAD (peripheral artery disease): 3. HTN (hypertension) with goal to be determined: 4. Intermittent atrial fibrillation: 5. Non-ST elevated myocardial infarction: 6. AV dissociation: Plan: He appears optimized for cath, will plan on coronary angiogram tomorrow morning. NPO after midnight tonight. PDMP PDMP Reviewed: Not Reviewed Attestations 2 Medical Necessity Statement*: nstemi, ischemic workup Coding Level of Care Code Acute Code for [facility] Fwd Diagnoses CAD (coronary artery disease) I25.10 PAD (peripheral artery disease) I73.9 HTN (hypertension) with goal to be determined I10 Intermittent atrial fibrillation I48.0 Non-ST elevated myocardial infarction I21.4 AV dissociation I45.89
--- NOTE | 2025-05-20 15:52 | P.PN_ITS ---
Subjective 2 Subjective: Patient was seen this morning, he tells me he shortness of breath is improving, denies any fevers, chills, has a cough, his edema is improving Vitals/I&O/Wt Last Vital Signs Temp 97.9 F 05/20/25 08:00 Pulse 72 05/20/25 12:00 Resp 17 05/20/25 12:00 BP 133/53 05/20/25 12:00 Pulse Ox 97 05/20/25 12:00 O2 Del Method Nasal Cannula 05/20/25 04:12 O2 Flow Rate 2 05/20/25 04:12 05/20/25 05/20/25 05/20/25 06:59 14:59 22:59 Intake Total 1315 / 1315 Output Total 1050 / 1050 Balance 265 / 265 Weight last 48 hrs Weight 91.535 kg Weight 95.209 kg Physical Exam 2 Const: COMMON NORMALS: no acute distress and patient oriented x3 Resp: COMMON NORMALS: normal respiratory effort, No retractions, No use of accessory muscles and clear to auscultation bilaterally AUSCULTATION: clear to auscultation bilaterally Cardio: COMMON NORMALS: regular rate, regular rhythm, S1 normal heart sound present and S2 normal heart sound present RATE: regular rate RHYTHM: r egular rhythm HEART SOUNDS: S1 normal heart sound present and S2 normal heart sound present GI: COMMON NORMALS: Normal to inspection, nondistended, normoactive bowel sounds present and non-tender Extremity: COMMON NORMALS: no pedal edema Neuro: COMMON NORMALS: patient oriented x3 Psych: COMMON NORMALS: mental status grossly normal Data 05/20/25 02:41 05/20/25 12:07 A&P Assessment and plan 1. Acute hypoxic respiratory failure: 2. Pneumonia: 3. CAD (coronary artery disease): 4. Non-ST elevated myocardial infarction: 5. Atrial fibrillation: 6. Dyslipidemia: 7. Congestive heart failure: 8. Sepsis: Plan: Acute hypoxic respiratory failure - Multifactorial - Secondary to pneumonia - Secondary to systolic and diastolic CHF Plan - Cardiac stepdown unit - Vancomycin, de-escalated off vancomycin - Cefepime - Lasix 60 mg IV twice daily currently on hold for coronary angiogram - Monitor urine output, monitor creatinine - Blood cultures, so far no growth - Sputum cultures, so far no growth A-V dissociation with bradycardia -Normotensive, no lightheadedness - Metoprolol, digoxin on hold - Digoxin levels within normal limits - Monitor heart rate and rhythm NSTEMI - Serial EKGs, serial troponins, telemetry monitoring - Therapeutic Lovenox - Aspirin, statin, Plavix - Cardiac echo CONCLUSIONS Normal left ventricular size, systolic function and wall thickness, with no regional wall motion abnormalities. Left ventricular ejection fraction is estimated at 60 %. Grade III/IV diastolic dysfunction (restrictive filling pattern), severely elevated filling pressures. Severe aortic valve calcification. Mild aortic valve stenosis, mean gradient 9.2 mmHg, TOSHIA 2.2 cm squared. Trace aortic valve regurgitation. Mildly increased left atrial size. Mildly thickened mitral valve. Mild mitral annular calcification. No mitral valve stenosis. Mild mitral valve regurgitation. There is no pericardial effusion. Right atrial pressure is around 5 mm of mercury. -Aspirin, Plavix, therapeutic Lovenox - Cardiology consulted - Plan on coronary angiography tomorrow Atrial fibrillation, - Rate control - Continue therapeutic Lovenox Elevated lactic acid, likely secondary to pneumonia Sepsis secondary to pneumonia Full code Lovenox for DVT prophylaxis PDMP PDMP Reviewed: Not Reviewed Attestations 2 Medical Necessity Statement*: Patient requires hospitalization for acute hypoxic respiratory failure secondary pneumonia, CHF, NSTEMI Diagnoses Acute hypoxic respiratory failure J96.01 Pneumonia J18.9 CAD (coronary artery disease) I25.10 Non-ST elevated myocardial infarction I21.4 Atrial fibrillation I48.91 Dyslipidemia E78.5 Congestive heart failure I50.9 Sepsis A41.9
--- NOTE | 2025-05-20 17:41 | PC.NURSE ---
patient is refusing lovenox due to history of nose bleeds this hospital stay
[2025-05-21] VITALS (7 sets, daily range): BP systolic 124–154; BP diastolic 51–69; PULSE 46–60; RESP 19–22; TEMP 36.5–36.6; O2SAT 90–98; BMI 33.6
[2025-05-21] MEDS: pantoprazole 40 mg SDV IVP (05:33)
[2025-05-21] MEDS: cefepime 2,000 mg SDV 2000 MG IVP (05:34)
--- NOTE | 2025-05-21 07:39 | XACV_ITS ---
Exam Room: [facility] Ht: 165 cm Wt: 92 kg BSA: 2.09 m2 Gender: Male : 1950 Any Known Allergies: No known allergies Exam Priority: Routine Procedure(s): Procedure Description: Diagnostic procedure Procedure Description: Left Heart Catheterization Procedure Description: Left ventriculography Procedure Description: Venous Graft Catheterization Procedure Description: VILLARREAL Graft Catheterization Procedure Description: Coronary Angiography MAT, Mandie; Diagnostic Cath Status: Elective Diagnostic Findings * Left Main has no disease. * Proximal Left Anterior Descending: total occlusion, KRISTIE: 0 flow. * Left Internal Mammary Artery to Mid Left Anterior Descending graft: patent. * Proximal Right Coronary Artery: total occlusion, KRISTIE: 0 flow. * Ascending Aorta to Distal Right Coronary Artery graft: patent. * Proximal Circumflex: moderate 50% stenosis, KRISTIE: 3 flow. * Ramus: moderate 50% stenosis, KRISTIE: 3 flow. * Right Posterior AV: severe 90% stenosis, KRISTIE: 3 flow. * Posterior Descending Right: severe 90% stenosis, KRISTIE: 3 flow. * Two grafts visualized. * Coronary angiography shows right dominance. Conclusions 1. There is total occlusion coronary artery disease with three vessel disease. 2. Two coronary grafts visualized: all grafts patent. 3. Patient has prior CABG. 4. Normal left ventricular systolic function. Ejection fraction of 60%. 5. Indication for catheter: Angina/recurrent heart failure. 6. Plan: Patient has small vessel disease, he has moderate disease of circumflex and ramus intermedius, patient also has diffusely diseased distal RCA post graft insertion SVG to RCA is patent however because of small caliber vessel not amenable to intervention therefore medical management advised. Recommendations * Continue current medical management and risk factor modification. Diagnostic RX Recommendation: medical therapy and/or counseling Ventriculography Ejection Fraction: 60.0 % Pressures Phase:Rest AO : 110 / 63 ( 84 ) @ 9:46:00 AM 157 / 50 ( 85 ) @ 10:02:00 AM 159 / 45 ( 85 ) @ 10:02:00 AM LV : 162 / -2 / 18 @ 10:01:00 AM 153 / -9 / 24 @ 10:02:00 AM 151 / -11 / 24 @ 10:02:00 AM Valves Phase:DefaultPhase AV : 0.0 @ 9:11:27 AM AV Mean Gradient: 0.0 @ 9:11:27 AM Clinical Evaluation EBL: 5mL-10mL Procedural Details Procedure Consent Obtained. Current Diagnosis : NSTEMI. Pre-Procedure Time Out. Identified patient by full name and date of as verbalized by the patient/guarantor. Accurate & Complete Informed Consent: Yes. Does the consent match the physician's order: Yes. Inpatient/Outpatient History & Physical on Chart: Yes. If H&P is completed, is and addenduem needed: No. Visualize and Verify Site with Patient/Guarantor: N/A. Relevant Radiology Images available: Yes. The risks, benefits, and alternatives of sedation and/or procedure were discussed by physician. The patient agrees to continue. Procedure started. [facility] Clinical Fraility Score: 4: Vulnerable. [employer] Consultant Indications: ACS > 24 hours/NSTEMI/AV dissociation. Chest Pain Symptom Assessment: Typical Angina Symptoms. Cardiovascular Instability: No. Correct patient, site and procedure confirmed by cath team. PERRLA. Strong, equal hand food service substitute bilaterally. Lungs clear x 5 lobes. IV Site on Arrival: 20 gauge in the left bicep. IV Fluids: 0.9% NaCl at KVO. 0 mL infused prior to label designer. Pre Procedural Pulses: bilateral dorsalis pedis was 2+. Pre Procedural Pulses: bilateral posterior tibial was 1+. Pre Procedural Pulses: bilateral radial was 3+. Oxygen started at 2liters/min via nasal canula. right groin was prepped with chloroprep then draped in the usual sterile fashion. right radial was prepped with chloroprep then draped in the usual sterile fashion. Physician notified. Baseline sample Acquired. HR: 64 BPM. Patient's family unavailable. Equipment: 6F - Femoral. Cardiac Cath Pack. ACIST Manifold Kit Model BT 2000. Heparinized Saline (2 units/mL), 1000 mL bag. Kit, Micropuncture. Physician arrived. Physician scrubbed in. Immediate Pre-Procedure Time Out. Correct Patient: Yes; Correct Procedure: Yes; Correct Site: Yes; Correct Patient Position: Yes; Correct Supplies: Yes; Dried Flammable Prep: Yes; Blood Products Available: N/A;. Lidocaine 1% infiltrated to the left groin. Arterial access obtained with micropuncture set. A Left femoral angiogram was performed to determine safe placement of closure device. A 5 turkmen JL4 catheter in over the standard J wire. Multiple views taken of left coronary artery. Catheter removed over the exchange J wire. A 5 turkmen JR4 catheter in over the exchange J wire. Cine of the RCA performed. Catheter redirected to the SVG --> RCA. SVG's to RCA visualized. Catheter redirected to the VILLARREAL --> LAD. VILLARREAL to LAD visualized. Catheter removed over the exchange J wire. A 5 turkmen Angled Pig catheter in over the exchange J wire. EDP Sample taken: LV 162/-3,18; HR: 66 BPM; SpO2: 98%. LV gram performed in MCCARTY @ 10 mL/second for a total of 30 mL. EDP Sample taken: LV 153/-10,24; HR: 60 BPM; SpO2: 99%. Pullback taken: LV 151/-12,24; AO 157/50(85); Mean: 0mmHg, Peak to Peak: 0mmHg, SEP: 22sec/min; HR: 67 BPM; SpO2: 99%. Catheter removed over the exchange J wire. A Angio-Seal VIP (St. Jam) was successful obtaining hemostatsis at the Left Femoral artery insertion site. Angioseal placed without complications. No signs or symptoms of hematoma noted. Sterile dressing applied per usual sterile fashion. Lot # [id number] Exp. . Dr. Lockwood scrubbed out. Post Procedure: Pulses reassessed and unchanged. PERRLA. Strong, equal hand food service substitute bilaterally. No VTE prophylaxis required. Medication's Wasted: Lidocaine 1% = 10 mL. Medication's Wasted: Heparin = 1000 units. Total IV fluids: 50 mL. Post-op diagnosis: Non-obstructive CAD. Complications: none. Estimated blood loss: 5mL-10mL. Responsiveness - Normal response to verbal stimuli; alert and oriented, PERRLA. Airway - Unaffected, no intervention required; spontaneous ventilation. Circulation: W/N/L, pulses unchanged. Nausea/Vomiting: No. Procedure completed. Vital chart was stopped. Patient transferred by bed to 1st floor. Access Site Site: Left Femoral artery Sheath Size: 6 Fr Hemostasis Method: Angio-Seal VIP (St. Jam) Hemostasis Success: Successful Procedure Medications Start: 8:15 AM Stop: 8:15 AM Medication: Versed Amount: 1 mg Route: I.V. Start: 8:15 AM Stop: 8:15 AM Medication: Fentanyl Amount: 25 mcg Route: I.V. Start: 8:35 AM Stop: 8:35 AM Medication: Versed Amount: 1 mg Route: I.V. Start: 8:35 AM Stop: 8:35 AM Medication: Fentanyl Amount: 25 mcg Route: I.V. Start: 8:40 AM Stop: 8:40 AM Medication: Fentanyl Amount: 25 mcg Route: I.V. Start: 8:40 AM Stop: 8:40 AM Medication: Versed Amount: 1 mg Route: I.V. Start: 8:57 AM Stop: 8:57 AM Medication: Versed Amount: 1 mg Route: I.V. Start: 8:57 AM Stop: 8:57 AM Medication: Fentanyl Amount: 25 mcg Route: I.V. I, the attending physician, have reviewed and verified all procedure medications. Yes, all medications given per verbal order History/Risk Factors Hypertension: Yes Dyslipidemia: Yes Peripheral Arterial Disease (PAD): Yes Myocardial Infarction (ME): Yes Obesity: No Renal Disease: No Tobacco Use: Former Prior Interventions PCI: No CABG: Yes Valve Surgery: No Report Signatures Finalized by Ortega Lockwood MD on 05/21/2025 09:35 AM
--- NOTE | 2025-05-21 08:28 | W.PM.OPSUD ---
Surgery/Procedure H&P Update DATE OF PROCEDURE: May 21, 2025 DATE H&P PERFORMED: 05/17/25 PREOP DIAGNOSIS: Recurrent heart failure, angina, heart block PATIENT REASSESSED PRIOR TO SEDATION, WITH NO CHANGE NOTED: Yes PHYSICAL EXAM: alert, oriented x 3, clear to auscultation bilaterally, regular rate & rhythm and operative site marked AIRWAY EVAL/ANESTHESIA PLAN: ASA II and Risks, benefits & alternatives of sedation and/or procedure discussed ADDITIONAL INFORMATION: All risk-benefit and already for the procedure has been explained to the patient. Patient restand 2% risk of stroke major bleed. Patient understand 5% risk of minor bleeding oozing infection hematoma pseudoaneurysm vascular surgery urgent bypass surgery in case of complication. Patient agrees to it
--- NOTE | 2025-05-21 09:40 | P.PN_ITS ---
<Statement entered by Ortega Lockwood MD - 05/22/25 20:18> Patient was evaluated and cared for in conjunction with an advanced practice practitioner. I personally not examined the patient but reviewed the chart and all pertinent data including imaging, telemetry, and laboratory results. I discussed the patient in detail with the advanced practice practitioner. Please see their note for complete H&P testing result and agreed upon plan of care for the patient. Subjective 2 Subjective: He had coronary angiogram today, revealed two bypass grafts, both patent, moderate disease of circumflex and ramus intermedius, SVG to RCA patent but distal to graft small caliber not amenable to intervention, medical management advised. He had Angio-Seal closure device, will plan to discharge home later today after bedrest complete. Vitals/I&O/Wt Last Vital Signs Temp 97.8 F 05/21/25 07:32 Pulse 55 L 05/21/25 09:20 Resp 20 H 05/21/25 09:20 BP 135/56 05/21/25 09:14 Pulse Ox 96 05/21/25 09:20 O2 Del Method Room Air 05/21/25 09:20 O2 Flow Rate 1 05/21/25 03:14 05/20/25 05/21/25 05/21/25 22:59 06:59 14:59 Intake Total 480 / 1795 Output Total 250 / 1300 Balance 230 / 495 Weight last 48 hrs Weight 202 lb 4.8 oz Weight 201 lb 12.8 oz Physical Exam 2 Const: COMMON NORMALS: no acute distress and patient oriented x3 GENERAL APPEARANCE: cooperative ORIENTATION/CONSCIOUSNESS: Yes awake, Yes oriented to person, Yes oriented to place and Yes oriented to time Chest: COMMONS NORMALS: normal inspection of the chest and normal palpation of entire chest wall CHEST: Yes Symmetrical chest wall rise Resp: COMMON NORMALS: normal respiratory effort, No retractions, No use of accessory muscles and clear to auscultation bilaterally AUSCULTATION: clear to auscultation bilaterally Cardio: COMMON NORMALS: regular rate, regular rhythm, S1 normal heart sound present, S2 normal heart sound present, No gallops present (Cardio), No clicks present (Cardio), No murmurs present (Cardio) and No rub (Cardio) RATE: r egular rate RHYTHM: regular rhythm HEART SOUNDS: S1 normal heart sound present and S2 normal heart sound present PERIPHERAL PULSES: radial pulses present positive right 2+ and femoral pulses present positive right 2+ Neuro: COMMON NORMALS: patient oriented x3 and moves all extremities S ENSORIUM/ORIENTATION: Yes oriented to person, Yes oriented to place and Yes oriented to time Skin: WOUNDS: Yes surgical site (no hematoma palpable) Details: no odor Data 05/21/25 11:56 05/20/25 12:07 A&P Assessment and plan 1. Atrial fibrillation: 2. AV dissociation: 3. Bradycardia: Plan: Will discontinue metoprolol and digoxin, send home with event monitor to assess for atrial fibrillation/tachybrady syndrome. Plan to start Entresto 24/26mg BID for diastolic CHF, to improve fluid balance. Recommend Lasix 40mg BID and potassium 20mEq BID, can decrease as outpatient if Entresto significantly improves volume status. Continue aspirin and Plavix. PDMP PDMP Reviewed: Not Reviewed Attestations 2 Medical Necessity Statement*: dc home Coding Level of Care Code Acute Code for [facility] Diagnoses Atrial fibrillation I48.91 AV dissociation I45.89 Bradycardia R00.1
[2025-05-21 12:13] LABS: Hematocrit 35.4 % (37-53); Hemoglobin 11.30 g/dL (11.27-16.99); Mean Corpuscular HGB Conc 31.9 g/dL (30-55); Mean Corpuscular Hemoglobin 32.1 pg (27-33); Mean Corpuscular Volume 100.6 fl (82-101); Nucleated Red Blood Cells % 0 %; Platelet Count 311 10^3/cmm (157-399); Red Blood Count 3.52 10^6/uL (3.85-5.65); White Blood Count 8.11 10^3/uL (3.29-11.43)
--- NOTE | 2025-05-21 12:26 | PM.DCS ---
Discharge Providers Date of Admission: 05/17/25 14:52 Date of Discharge: May 21, 2025 Attending Provider at Admission: Claude Schumacher MD Attending Provider at Discharge: Claude Schumacher MD Primary Care Provider: Lali Givens MD Diagnoses at Discharge Discharge Diagnosis 1. Atrial fibrillation: 2. AV dissociation: 3. Bradycardia: Reason for Visit Reason for Visit: Hard time Breathing Hospital Course Hospital Course Wilson eRyes is a 75 year old male with a past medical history of atrial fibrillation on Eliquis history of CAD, history of CABG, hypertension, hyperlipidemia who presents to [facility] for shortness of breath. Patient reports increased shortness of breath with exertion, productive cough, paroxysmal nocturnal dyspnea, no fatigue, malaise, no calf pain, calf swelling he denies any chest pain, he is using his medication as prescribed, does report lower extremity edema Patient was admitted to [facility] for acute hypoxic respiratory failure, multifactorial from pneumonia, systolic and diastolic CHF patient. Patient received IV antibiotics, IV diuresis, overall clinically improved. Will be discharged on p.o. Lasix, with oral antibiotics with close follow-up with primary care provider as outpatient For patient's NSTEMI Serial EKGs, serial troponins, telemetry monitoring - Cardiac echo CONCLUSIONS Normal left ventricular size, systolic function and wall thickness, with no regional wall motion abnormalities. Left ventricular ejection fraction is estimated at 60 %. Grade III/IV diastolic dysfunction (restrictive filling pattern), severely elevated filling pressures. Severe aortic valve calcification. Mild aortic valve stenosis, mean gradient 9.2 mmHg, [place] 2.2 cm squared. Trace aortic valve regurgitation. Mildly increased left atrial size. Mildly thickened mitral valve. Mild mitral annular calcification. No mitral valve stenosis. Mild mitral valve regurgitation. There is no pericardial effusion. Right atrial pressure is around 5 mm of mercury. - Managed with aspirin, Plavix, therapeutic Lovenox - Status post coronary angiography, moderate disease of circumflex, moderate disease of ramus intermedius, 2 bypass graft both patent - Discharged on home Plavix, continue Eliquis starting tomorrow For patient AV dissociation with bradycardia, monitored as inpatient, received telemetry monitoring, normotensive, no lightheadedness, relatively asymptomatic -Etiology potentially related to metoprolol/digoxin/pneumonia/respiratory failure - Metoprolol and digoxin were held throughout hospitalization - Will be discharged with event monitor with a close follow-up with cardiology as outpatient - It was advised to have a lightheadedness, dizziness, to immediately call 911 or go to the emergency room - Patient might require pacemaker placement in the near future based on clinical progress, follow-up with cardiology as outpatient Physical Exam Const: COMMON NORMALS: no acute distress and patient oriented x3 Resp: COMMON NORMALS: normal respiratory effort, No retractions, No use of accessory muscles and clear to auscultation bilaterally AUSCULTATION: clear to auscultation bilaterally Cardio: COMMON NORMALS: regular rate, regular rhythm, S1 normal heart sound present and S2 normal heart sound present RATE: regular rate RHYTHM: regular rhythm HEART SOUNDS: S1 normal heart sound present and S2 normal heart sound present GI: COMMON NORMALS: Normal to inspection, nondistended, normoactive bowel sounds present and non-tender Extremity: COMMON NORMALS: no calf tenderness and no pedal edema Neuro: COMMON NORMALS: patient oriented x3 Psych: COMMON NORMALS: mental status grossly normal Discharge Data Studies Completed and Pending Completed Studies During Hospitalization Category Date Time Status CT chest wo con [id number] Stat Cat Scan 05/17/25 13:10 Completed VP SITE request for service Routine Exams 05/21/25 07:39 Completed XR chest 1V portable [id number] Stat Exams 05/17/25 11:33 Completed CV. echo complete* [id number] Routine Ultrasound 05/17/25 16:30 Completed Pending at discharge Category Date Time Status Basic Metabolic Panel AM LABS Lab 05/22/25 04:00 Ordered Blood Culture Stat Lab 05/17/25 11:53 Results CMP [Comprehensive Metabolic Panel] Stat Lab 05/21/25 11:56 Received Complete Blood Count w/Auto AM LABS Lab 05/22/25 04:00 Ordered Sputum Culture and Gram Stain Stat Lab 05/17/25 15:18 Uncollected Radiology Impressions Chest X-Ray 05/17/25 11:33 IMPRESSION: 1. No acute cardiopulmonary finding. No change. Chest CT 05/17/25 13:10 IMPRESSION: 1. Small RIGHT greater than LEFT pleural effusions. 2. Subsegmental atelectasis with a few patchy hazy groundglass opacities in the RIGHT greater than LEFT lower lobe suspicious for pneumonia. No focal consolidation. 3. Mild interstitial thickening likely due to edema. 4. Prior sternotomy with CABG and cardiomegaly. Laboratory Results WBC 8.11 10^3/uL (3.29-11.43) 05/21/25 11:56 RBC 3.52 10^6/uL (3.85-5.65) L 05/21/25 11:56 Hgb 11.30 g/dL (11.27-16.99) 05/21/25 11:56 Hct 35.4 % (37-53) L 05/21/25 11:56 MCV 100.6 fl (82-101) 05/21/25 11:56 MCH 32.1 pg (27-33) 05/21/25 11:56 MCHC 31.9 g/dL (30-55) 05/21/25 11:56 RDW 13.5 % (12.1-15.1) 05/21/25 11:56 Plt Count 311 10^3/cmm (157-399) 05/21/25 11:56 MPV 9.4 fL (7.4-10.4) 05/21/25 11:56 Neut % (Auto) 63.7 % 05/21/25 11:56 Lymph % (Auto) 17.3 % 05/21/25 11:56 [place] % (Auto) 11.3 % 05/21/25 11:56 Eos % (Auto) 6.7 % 05/21/25 11:56 Baso % (Auto) 0.6 % 05/21/25 11:56 Neut # (Auto) 5.17 10^3/uL (1.8-7.7) 05/21/25 11:56 Lymph # (Auto) 1.4 10^3/uL (0.8-4.8) 05/21/25 11:56 [place] # (Auto) 0.9 10^3/uL (0.2-0.9) 05/21/25 11:56 Eos # (Auto) 0.5 10^3/uL (0.0-0.8) 05/21/25 11:56 Baso # (Auto) 0.1 10^3/uL (0.0-0.1) 05/21/25 11:56 Nucleated RBC % (auto) 0 % 05/21/25 11:56 Nucleated RBCs # 0.0 /100WBC 05/21/25 11:56 Specimen Type Arterial 05/17/25 13:09 Sample Site Radial, right 05/17/25 13:09 ABG pH 7.47 (7.35-7.45) H 05/17/25 13:09 ABG pCO2 35.4 mmHg (35-45) 05/17/25 13:09 ABG pO2 71.6 mmHg (80.0-100.0) L 05/17/25 13:09 ABG HCO3 26.0 mmol/L (22-26) 05/17/25 13:09 ABG O2 Saturation 95.2 05/17/25 13:09 ABG Base Excess 2.5 mmol/L (-2.0-2.0) H 05/17/25 13:09 Yasir Test Pos 05/17/25 13:09 A-a O2 Gradient 4.3 mmHg (5-10) L 05/17/25 13:09 Hematocrit 36.9 % (42-52) L 05/17/25 13:09 Hgb O2 Saturation 92.1 % (95-100) L 05/17/25 13:09 Carboxyhemoglobin 2.3 %THgb (0.4-20.1) 05/17/25 13:09 Methemoglobin 0.9 % (0.4-1.5) 05/17/25 13:09 Total Hemoglobin 12.0 g/dL (14-18) L 05/17/25 13:09 Sodium 138.0 mmol/L (131-143) 05/17/25 13:09 Potassium 3.3 mmol/L (3.5-5.0) L 05/17/25 13:09 Glucose 111.0 mg/dL (70-115) 05/17/25 13:09 Ionized Calcium 1.1 mmol/L (1.1-1.4) 05/17/25 13:09 O2 Delivery Device Nc 05/17/25 13:09 O2 Liters/Min 3.0 % 05/17/25 13:09 Health Program Specialist ID [place] 05/17/25 13:09 Sodium 141 mmol/L (136-145) 05/20/25 12:07 Potassium 3.8 mmol/L (3.5-5.1) 05/20/25 12:07 Chloride 100 mmol/L (98-107) 05/20/25 12:07 Carbon Dioxide 29 mmol/L (22-29) 05/20/25 12:07 Anion Gap 15.8 (5-19) 05/20/25 12:07 BUN 19 mg/dL (8-23) 05/20/25 12:07 Creatinine 1.0 mg/dL (0.7-1.2) 05/20/25 12:07 GFR Calculation Not Reportable 05/20/25 12:07 Glucose 108 mg/dL (65-115) 05/20/25 12:07 Estimat Average Glucose 128 05/17/25 11:51 Hemoglobin A1c 6.1 % (4.0-6.0) H 05/17/25 11:51 Calculated Osmolality 295 mOsm/kg (285-295) 05/20/25 12:07 Lactic Acid 5.5 mmol/L (0.5-2.2) H* 05/17/25 11:51 Lactic Acid (Sepsis) 3.9 mmol/L (0.5-2.2) H 05/17/25 14:41 Calcium 8.6 mg/dL (8.5-10.5) 05/20/25 12:07 Magnesium 2.4 mg/dL (1.7-2.3) H 05/17/25 11:51 Total Bilirubin 0.8 mg/dL (0.15-1.2) 05/20/25 02:41 AST 31 U/L (0-40) 05/20/25 02:41 ALT 36 U/L (0-41) 05/20/25 02:41 Alkaline Phosphatase 78 U/L (40-130) 05/20/25 02:41 Troponin T Baseline 175 ng/L (0-15) H* 05/17/25 11:51 Troponin T 120 Minute 157.5 ng/L (0-15) H 05/17/25 14:09 Delta Troponin T -17.5 ABS# (0-10) L 05/17/25 14:09 Troponin T Hi Sens 6Hr 186.0 ng/L (0-15) H 05/17/25 19:27 Troponin T Hi Sens 6Hr Delta 11.0 ng/L (0-12) 05/17/25 19:27 C-Reactive Protein 140.1 mg/L (0.0-4.9) H 05/17/25 11:51 NT-Pro-B Natriuret Pep 547 pg/mL (0-450) H 05/20/25 02:41 Total Protein 6.7 g/dL (6.6-8.7) 05/20/25 02:41 Albumin 3.5 g/dL (3.5-5.2) 05/20/25 02:41 Globulin 3.2 g/dL (1.3-4.6) 05/20/25 02:41 Triglycerides 126 mg/dL (0-150) 05/17/25 11:51 Cholesterol 98 mg/dL (0-200) 05/17/25 11:51 LDL Cholesterol, Calc 41 mg/dL (50-129) L 05/17/25 11:51 HDL Cholesterol 32 mg/dL (60-100) L 05/17/25 11:51 LDL/HDL Ratio 1.28 RATIO (0.00-3.22) 05/17/25 11:51 Cholesterol/HDL Ratio 3.06 mg/dL (1.0-5.00) 05/17/25 11:51 Procalcitonin 0.12 ng/mL (0-0.5) 05/17/25 11:51 TSH 4.36 uIU/mL (0.27-4.20) H 05/17/25 11:51 Urine Color Yellow (Yellow) 05/17/25 17:43 Urine Appearance Clear (CLEAR) 05/17/25 17:43 Urine pH 5.0 (5-7) 05/17/25 17:43 Ur Specific [place] 1.007 (1.005-1.030) 05/17/25 17:43 Urine Protein Negative (Negative) 05/17/25 17:43 Urine Glucose (UA) Negative (Normal) 05/17/25 17:43 Urine Ketones Negative (Negative) 05/17/25 17:43 Urine Blood Negative (Negative) 05/17/25 17:43 Urine Nitrate Negative (Negative) 05/17/25 17:43 Urine Bilirubin Negative (Negative) 05/17/25 17:43 Urine Urobilinogen 0.2 mg/dL (Negative) 05/17/25 17:43 Ur Leukocyte Esterase Negative (Negative) 05/17/25 17:43 Urine RBC 0-2 /hpf (0-2) 05/17/25 17:43 Urine WBC 0-5 /hpf (0-5) 05/17/25 17:43 Ur Squamous Epith Cells 0-5 /hpf (0-5) 05/17/25 17:43 Amorphous Sediment Not Reportable 05/17/25 17:43 Urine Bacteria None seen /hpf (NONE) 05/17/25 17:43 Hyaline Casts 3.27 /lpf 05/17/25 17:43 Vancomycin Trough 17.6 ug/mL (10-15) H 05/18/25 16:09 Digoxin 0.8 ng/mL (0.6-1.2) 05/18/25 02:31 Influenza A (PCR) Negative (Negative) 05/17/25 13:00 Influenza Type B (PCR) Negative (Negative) 05/17/25 13:00 RSV (PCR) Negative (Negative) 05/17/25 13:00 SARS-CoV-2 (PCR) Negative (Negative) 05/17/25 13:00 Vitals Last Vital Signs Temp 97.8 F 05/21/25 07:32 Pulse 55 L 05/21/25 09:20 Resp 20 H 05/21/25 09:20 BP 135/56 05/21/25 09:14 Pulse Ox 96 05/21/25 09:20 O2 Del Method Room Air 05/21/25 09:20 O2 Flow Rate 1 05/21/25 03:14 Discharge Plan Discharge Patient Disposition: Home Condition: Stable Prescriptions: New potassium chloride [Klor-Con M20] 20 mEq Tablet,Er Particles/Crystals 20 meq PO Q12H 30 Days Qty: 60 0RF furosemide [Lasix] 40 mg tablet 40 mg PO BID 30 Days Qty: 60 0RF amoxicillin-pot clavulanate 875-125 mg tablet 1 tab PO Q12H 5 Days Qty: 10 0RF sacubitril-valsartan [Entresto] 24-26 mg tablet 1 tab PO BID 30 Days Qty: 60 0RF Continued ascorbate calcium (vitamin C) 500 mg tablet 500 mg PO QAM docusate sodium [Colace] 100 mg capsule 200 mg PO BEDTIME cyanocobalamin (vitamin B-12) 1,000 mcg capsule 1,000 mcg PO QAM PreserVision AREDS [phone] [id number] capsule 1 cap PO BID omega-3 fatty acids 1,000 mg capsule 1,000 mg PO BID tramadol 50 mg tablet 50 mg PO BID PRN (Reason: Pain) cetirizine 10 mg tablet 10 mg PO DAILY PRN (Reason: allergies) clopidogrel 75 mg tablet 75 mg PO DAILY Qty: 90 3RF atorvastatin 40 mg Tablet 40 mg PO BEDTIME Qty: 30 0RF nitroglycerin [Nitrostat] 0.4 mg Tablet, Sublingual 0.4 mg SUBLINGUAL Q5M PRN (Reason: Chest Pain) Rx Instructions: do not exceed 3 doses per episode mirtazapine 45 mg Tablet 45 mg PO BEDTIME trazodone 50 mg Tablet 50 mg PO BEDTIME potassium chloride 10 mEq Tablet Extended Release 10 meq PO DAILY zolpidem [Ambien] 5 mg Tablet 5 mg PO BEDTIME finasteride 5 mg Tablet 5 mg PO DAILY cholecalciferol (vitamin D3) [Vitamin D3] 50 mcg (2,000 unit) Tablet 50 mcg PO DAILY prazosin 2 mg capsule 4 mg PO BID Held Eliquis 5 mg tablet 5 mg PO BID Hold Instructions: Resume on 05/22/25. Discontinued digoxin 250 mcg (0.25 mg) tablet 250 mcg PO DAILY metoprolol succinate 25 mg tablet extended release 24 hr 25 mg PO DAILY Qty: 90 3RF valsartan 40 mg tablet 40 mg PO DAILY Qty: 30 2RF chlorthalidone 25 mg tablet 25 mg PO QAM Discharge Order = DC NOW: Discharge Order (Routine); Ordered 05/21/25 Ordered By: Claude Schumacher Referrals: Lali Givens MD [Primary Care Provider, Family Practice] - 05/27/25 2:30 pm Guanaco Amin MD [Physician, Cardiology] - 06/19/25 2:45 pm Discharge Diet: Cardiac Discharge Activity: Resume usual activity Patient Instructions: Furosemide (By mouth) (Lasix), Potassium Chloride (By mouth), Amoxicillin (By mouth), Sacubitril/Valsartan (By mouth) (Entresto, Entresto Sprinkle), Angio-Seal (DC), Opioid Safety, Post Angiogram Home Care Instructions, Patient Portal & [place] Instructions Activity Restrictions/Additional Instructions: - Please take antibiotics as prescribed for pneumonia - If any chest pain go to the emergency room - Please follow-up with cardiology - Discharged on Lasix 40 mg twice daily with potassium 20 mEq twice daily - Please have your primary care provider recheck your kidney function and your potassium in 2 days - Follow-up with primary care provider - If you have any lightheadedness or dizziness please go to the emergency room - Please wear that monitor as prescribed Discharge Attestations Time Spent in Discharge Care*: greater than 30 min Quality Metrics Clinical Quality Measures [ No reported AMI, CVA or VTE this stay] Coding Level of Care Code 88942 Total time (in minutes) for Discharge: 45 Diagnoses Atrial fibrillation I48.91 AV dissociation I45.89 Bradycardia R00.1
[2025-05-21 12:27] LABS: Alanine Aminotransferase 43 U/L (0-41); Albumin Level 3.1 g/dL (3.5-5.2); Alkaline Phosphatase 59 U/L (40-130); Anion Gap 13.2 (5-19); Aspartate Amino Transferase 39 U/L (0-40); Blood Urea Nitrogen 18 mg/dL (8-23); Calcium 8.6 mg/dL (8.5-10.5); Carbon Dioxide 29 mmol/L (22-29); Chloride 100 mmol/L (98-107); Creatinine Clr Calc Pharmacy 59.4786; Globulin 3.1 g/dL (1.3-4.6); Glucose 138 mg/dL (65-115); Osmolality Calculated 292 mOsm/kg (285-295); Potassium 3.2 mmol/L (3.5-5.1); Sodium 139 mmol/L (136-145); Total Protein 6.2 g/dL (6.6-8.7)
== END 2025-05-21 15:10 | disposition home or self-care (01) | DRG 871 ==
LOC: ER 14:31 → CSU 14:52
PROVIDERS: Internal Medicine Cardiovascular Disease; Admitting Provider Family Medicine; Emergency Provider Emergency Medicine; PCP Family Medicine; Visit Provider Family Medicine
DX: A41.9 Sepsis, unspecified organism (principal); I21.4 Non-ST elevation (NSTEMI) myocardial infarction; J18.9 Pneumonia, unspecified organism; J96.01 Acute respiratory failure with hypoxia; I50.40 Unspecified combined systolic (congestive) and diastolic (congestive) heart failure; I45.89 Other specified conduction disorders; I48.91 Unspecified atrial fibrillation; Z79.01 Long term (current) use of anticoagulants; I25.10 Atherosclerotic heart disease of native coronary artery without angina pectoris; Z95.1 Presence of aortocoronary bypass graft; I11.0 Hypertensive heart disease with heart failure; E78.5 Hyperlipidemia, unspecified; I73.9 Peripheral vascular disease, unspecified; Z90.49 Acquired absence of other specified parts of digestive tract; Z82.49 Family history of ischemic heart disease and other diseases of the circulatory system; Z82.3 Family history of stroke; Z79.02 Long term (current) use of antithrombotics/antiplatelets; R74.02 Elevation of levels of lactic acid dehydrogenase [LDH]; Z87.891 Personal history of nicotine dependence
CPT/HCPCS: 36415; 36600; 71045; 71250; 80048; 80051; 80053; 80061; 80162; 80202; 81001; 82330; 82805; 83036; 83605; 83735; 83880; 84145; 84443; 84484; 85025; 86140; 87040; 87637; 93005; 93306; 93459; 94640; 94664; 94760; 96365; 96367; 96372; 96375; 99152; 99153; 99285; C1760; C1769; C1887; C1894; G0269; J0692; J1644; J1650; J1938; J2250; J2470; J3010; J3373; J3480; J3490; J7030; J7050; J9999; Q0163; Q9967

== ENCOUNTER → 2025-06-19 14:16 | Outpatient (BNVA) | payer OTHER, SELFPAY | PROVIDERS: PCP Family Medicine; Visit Provider Internal Medicine Cardiovascular Disease | DX: I45.89 Other specified conduction disorders (principal); I50.9 Heart failure, unspecified; I25.10 Atherosclerotic heart disease of native coronary artery without angina pectoris; I48.0 Paroxysmal atrial fibrillation; I49.5 Sick sinus syndrome; Z87.891 Personal history of nicotine dependence; Z79.01 Long term (current) use of anticoagulants; I11.0 Hypertensive heart disease with heart failure | CPT/HCPCS: 99214 ==

== ENCOUNTER → 2025-07-31 14:48 | Outpatient (BNVA) | payer OTHER, SELFPAY | PROVIDERS: PCP Family Medicine; Visit Provider Internal Medicine Cardiovascular Disease | DX: I48.0 Paroxysmal atrial fibrillation (principal); Z79.01 Long term (current) use of anticoagulants; I25.10 Atherosclerotic heart disease of native coronary artery without angina pectoris; I73.9 Peripheral vascular disease, unspecified; I10 Essential (primary) hypertension; E78.5 Hyperlipidemia, unspecified; R00.1 Bradycardia, unspecified; G47.33 Obstructive sleep apnea (adult) (pediatric); Z99.89 Dependence on other enabling machines and devices; Z95.1 Presence of aortocoronary bypass graft; Z87.891 Personal history of nicotine dependence | CPT/HCPCS: 99214 ==